=== PATIENT | male | born 1965 | race Caucasian/White ===

== ENCOUNTER 2016-11-19 14:16 | Emergency (ER) | payer MEDICARE ==
[2016-11-19 15:25] LABS: INR 1.21 (0.8-3.0); PROTIME 13.5 SECONDS (8.83-12.87)
[2016-11-19 15:39] LABS: Mean Cell Volume 91.5 fl (78-100); Mean Corpuscular Hemoglobin 29.6 pg (26-32); Mean Platelet Volume 9.9 fl (6-9.5); Platelet Count 275 K/mm3 (150-450); Red Blood Count 4.02 M/mm3 (4.1-5.6); White Blood Count 16.3 K/mm3 (4.0-10.5)
--- NOTE | 2016-11-19 15:47 | ERPHSYRPT ---
- History of Present Illness Time Seen by Provider: 11/19/16 14:20 Source: patient, other (friend) Exam Limitations: clinical condition, physical impairment Patient Subjective Stated Complaint: PT FRIEND STATES THAT SHE ATTEMPTED TO CALL PT AND HE DIDN'T ANSWER HIS PHONE AND SHE BECAME WORRIED STATES WHEN SHE WENT TO CHECK ON HIM SHE THOUGHT PT WAS ACTING SOB PT DENIES ANY COMPLAINTS AT THIS TIME STATES HE HASN'T BEEN SOB AND HAS NO PAIN ANYWHERE. Triage Nursing Assessment: PT ALERT AND ORIENTED X 3 PINK WARM AND DRY RESP EASY NON LABORED ROOM AIR SAT 98% Physician History: Pt. admits to being evaluated and treated here. Timing/Duration: today Activities at Onset: none Severity of Dyspnea-Max: none Severity of Dyspnea-Current: none Possible Cause: occasional episodes Modifying Factors: Improves With: other (his friend could not get him to awake for phone call.) Allergies/Adverse Reactions: gabapentin Adverse Reaction (Severe, Verified 09/27/16 11:55) Fainting Home Medications: Albuterol Sulfate [Proair Hfa] 8.5 gm IH Q4H PRN PRN 07/30/15 [History] Aspirin 81 mg PO DAILY 07/30/15 [History] Clopidogrel Bisulfate 75 mg [PLAVIX 75 MG Tablet] 75 mg PO DAILY 07/30/15 [History] Divalproex Sodium [Divalproex Sodium ER] 500 mg PO BID 07/30/15 [History] Duloxetine HCl [Cymbalta] 60 mg PO DAILY 07/30/15 [History] Fluticasone/Salmeterol [Advair 250-50 Diskus] 2 puff IH BID 07/30/15 [History] Quetiapine Fumarate [Seroquel] 300 mg PO BID 07/30/15 [History] Ranolazine [Ranexa] 500 mg PO DAILY 07/30/15 [History] Topiramate 100 mg [Topamax 100 MG] 200 mg PO BID 07/30/15 [History] Atorvastatin Calcium [Lipitor] 40 mg PO DAILY 02/01/16 [History] Cholecalciferol (Vitamin D3) [Vitamin D3] 5,000 unit PO DAILY 02/01/16 [History] Metoprolol Tartrate 25 mg [Lopressor 25MG Tab] 25 mg PO BID 02/01/16 [ History] Potassium Chloride 20 Meq Tab [Potassium Chloride 20 MEQ TABLET] 20 meq PO DAILY 02/01/16 [History] Tizanidine HCl 4 mg [Zanaflex 4 MG] 4 mg PO HS PRN PRN 02/01/16 [History] Amlodipine Besylate 5 mg [Norvasc 5 mg] 5 mg DAILY 03/21/16 [History] Omeprazole 40 mg PO DAILY 03/21/16 [History] Alprazolam [Xanax] 2 mg PO TIDPRN PRN 03/22/16 [History] Clonazepam 1 mg PO BID 03/22/16 [History] Hx Tetanus, Diphtheria Vaccination/Date Given: Yes Hx Influenza Vaccination/Date Given: No Hx Pneumococcal Vaccination/Date Given: No Immunizations Up to Date: Yes - Review of Systems Constitutional: No Symptoms Eyes: No Symptoms Ears, Nose, & Throat: No Symptoms Respiratory: No Symptoms Cardiac: No Symptoms Abdominal/Gastrointestinal: No Symptoms Musculoskeletal: No Symptoms Skin: No Symptoms Neurological: No Symptoms Psychological: Other (mild mental challenge) Endocrine: No Symptoms Hematologic/Lymphatic: No Symptoms Immunological/Allergic: No Symptoms - Past Medical History Pertinent Past Medical History: Yes Neurological History: Seizures, Stroke ENT History: No Pertinent History Cardiac History: Angina, Coronary Artery Disease, High Cholesterol, Myocardial Infarction ([place]) Respiratory History: COPD Endocrine Medical History: No Pertinent History Musculoskeletal History: Osteoarthritis, Other GI Medical History: GERD History: No Pertinent History Psycho-Social History: Depression, Other Male Reproductive Disorders: No Pertinent History Other Medical History: PT. REPORTS [place] X 4; PT. REPORTS HE HAS ONE CARDIAC STENT ; CHRONINC NECK, BACK, SHOULDER PN - Past Surgical History Past Surgical History: Yes Neuro Surgical History: No Pertinent History Cardiac: CABG, Cardiac Catheterization, Cardiac Stent Respiratory: No Pertinent History Gastrointestinal: No Pertinent History Genitourinary: No Pertinent History Musculoskeletal: Other Male Surgical History: No Pertinent History Other Surgical History: Left foot x 2, Right foot x 2, Right knee x 2, Left knee x 2, Right torn rotator cuff, Steal plate with rods and screws in neck - Social History Smoking Status: Current every day smoker How long have you smoked: 30 Exposure to second hand smoke: Yes Alcohol Use: None Drug Use: none Patient Lives Alone: No Significant Family History: heart disease - Nursing Vital Signs Nursing Vital Signs: Initial Vital Signs Temperature 99.2 F Temperature Source Oral Pulse Rate 96 Respiratory Rate 18 Blood Pressure [Right Arm] 112/94 - Physical Exam General Appearance: no apparent distress Eye Exam: PERRL/EOMI, eyes nml inspection Ears, Nose, Throat Exam: hearing grossly normal, normal ENT inspection, normal pharynx Neck Exam: normal inspection, non-tender, supple, full range of motion Respiratory Exam: normal breath sounds, lungs clear Cardiovascular/Chest Exam: normal heart sounds, regular rate/rhythm Abdominal/Gastrointestinal Exam: soft, normal bowel sounds Extremity Exam: non-tender, normal range of motion, normal inspection Neurologic Exam: alert, oriented x 3, cooperative, normal mood/affect, nml station & gait Skin Exam: normal color, warm, dry SpO2 Interpretation: normal SpO2: 98 Oxygen Delivery: Room Air - Course Nursing assessment & vital signs reviewed: Yes EKG Interpreted by Me: RATE, Sinus Rhythm, NORMAL AXIS, Right Bundle Branch Block (LVH. New RBBB since ECG of 07.14.2016.) Ordered Tests: Active Orders 24 hr Category Date Time Status Dray Driver STAT Care 11/19/16 14:42 Active EKG-ER Only STAT Care 11/19/16 14:42 Active Oxygen-ED Only NASAL CANNULA 2 lpm Care 11/19/16 14:42 Active CHEST 1 VIEW (PORTABLE) Stat Exams 11/19/16 16:33 Ordered ACETAMINOPHEN Stat Lab 11/19/16 15:55 Completed ALCOHOL [Ethyl Alcohol,Urine] Stat Lab 11/19/16 15:55 Completed CBC W DIFF Stat Lab 11/19/16 14:50 Completed CMP Stat Lab 11/19/16 14:50 Completed MAGNESIUM Stat Lab 11/19/16 14:50 Completed Manual Differential NC Stat Lab 11/19/16 14:50 Completed NT PRO BNP Stat Lab 11/19/16 14:50 Completed PROTIME WITH INR Stat Lab 11/19/16 14:50 Completed PROTIME WITH INR Stat Lab 11/19/16 16:33 Ordered SALICYLATE Stat Lab 11/19/16 15:55 Completed TROPONIN Stat Lab 11/19/16 14:50 Completed UA Stat Lab 11/19/16 15:40 Completed Urine Triage Profile Stat Lab 11/19/16 16:07 Ordered VALPROIC ACID ([place]) Stat Lab 11/19/16 15:55 Completed Medication Summary Discontinued Medications Generic Name Dose Route Start Last Admin Trade Name Delia PRN Reason Stop Dose Admin Aspirin 324 mg 11/19/16 16:16 11/19/16 16:18 Baby Aspirin 81 Mg Chew PO 11/19/16 16:17 324 mg STAT ONE Administration Aspirin Confirm 11/19/16 16:16 Baby Aspirin 81 Mg Chew Administered 11/19/16 16:17 Dose 324 mg .ROUTE .STK-MED ONE Furosemide 80 mg 11/19/16 16:28 Lasix 40 Mg/4 Ml IV 11/19/16 16:29 STAT ONE Nitroglycerin 1 gm 11/19/16 16:15 11/19/16 16:17 Nitro-Bid 2% Ud Packets TOP 11/19/16 16:16 1 gm STAT ONE Administration Nitroglycerin Confirm 11/19/16 16:16 Nitro-Bid 2% Ud Packets Administered 11/19/16 16:17 Dose 1 gm .ROUTE .STK-MED ONE Lab/Rad Data: Laboratory Result Diagrams 11/19/16 14:50 11/19/16 14:50 Laboratory Results 11/19/16 11/19/16 11/19/16 Range/Units 15:55 15:55 15:40 WBC (4.0-10.5) K/mm3 RBC (4.1-5.6) M/mm3 Hgb (12.5-18.0) gm/dl Hct (42-50) % MCV (78-100) fl MCH (26-32) pg MCHC (32-36) g/dl RDW (11.5-14.0) % Plt Count (150-450) K/mm3 MPV (6-9.5) fl Segmented Neutrophils (36.-66.) % Band Neutrophils (0.0-2.0) % Lymphocytes (Manual) (24-44) % Monocytes (Manual) (0.0-12.0) % Differential Comment Toxic Granulation Platelet Estimate (NORMAL) Hypochromasia Anisocytosis INR (0.8-3.0) Sodium (136-145) mEq/L Potassium (3.5-5.1) mEq/L Chloride (98-107) mEq/L Carbon Dioxide (21-32) mEq/L Anion Gap (5-15) MEQ/L BUN (9-20) mg/dL Creatinine (0.55-1.30) mg/dl Estimated GFR ML/MIN Glucose (70-110) MG/DL Calcium (8.5-10.1) mg/dL Magnesium (1.8-2.4) mg/dL Total Bilirubin (0.2-1.0) mg/dL AST (15-37) U/L ALT (12-78) U/L Alkaline Phosphatase (46-116) U/L Troponin I (0.000-0.056) ng/ml NT-Pro-B Natriuret Pep (0-125) pg/ml Serum Total Protein (6.4-8.2) gm/dL Albumin (3.4-5.0) g/dL Ur Collection Type CCMS Urine Color SILVANO (YELLOW) Urine Appearance CLEAR (CLEAR) Urine pH 6.5 6.5 (5-6) Ur Specific [place] 1.020 (1.005-1.025) Urine Protein 30 (Negative) Urine Glucose (UA) NEGATIVE (NEGATIVE) mg/dL Urine Ketones TRACE (NEGATIVE) Urine Nitrite NEGATIVE (NEGATIVE) Urine Bilirubin SMALL (NEGATIVE) Urine Urobilinogen 2 (0-1) mg/dL Urine WBC (Auto) NEGATIVE (NEGATIVE) Urine RBC (Auto) NEGATIVE (0-5) Harrison/ul Salicylates 3.3 (2.8-20.0) mg/dl Acetaminophen < 2.0 L (10-30) ug/ml Valproic Acid 69.1 (50-100) UG/ML Urine Ethyl Alcohol 4 (0.00-20) mg/dl Specimen Received 11-19-16 1547 11/19/16 11/19/16 11/19/16 Range/Units 14:50 14:50 14:50 WBC 16.3 H (4.0-10.5) K/mm3 RBC 4.02 L (4.1-5.6) M/mm3 Hgb 11.9 L (12.5-18.0) gm/dl Hct 36.8 L (42-50) % MCV 91.5 (78-100) fl MCH 29.6 (26-32) pg MCHC 32.3 (32-36) g/dl RDW 14.0 (11.5-14.0) % Plt Count 275 (150-450) K/mm3 MPV 9.9 H (6-9.5) fl Segmented Neutrophils 86 H (36.-66.) % Band Neutrophils 3 H (0.0-2.0) % Lymphocytes (Manual) 5 L (24-44) % Monocytes (Manual) 6 (0.0-12.0) % Differential Comment ABNORMAL Toxic Granulation 1+ Platelet Estimate NORMAL (NORMAL) Hypochromasia 2+ Anisocytosis 1+ INR 1.21 (0.8-3.0) Sodium 141 (136-145) mEq/L Potassium 3.9 (3.5-5.1) mEq/L Chloride 105 (98-107) mEq/L Carbon Dioxide 24.3 (21-32) mEq/L Anion Gap 15.7 H (5-15) MEQ/L BUN 28 H (9-20) mg/dL Creatinine 1.43 H (0.55-1.30) mg/dl Estimated GFR 55 ML/MIN Glucose 94 (70-110) MG/DL Calcium 8.1 L (8.5-10.1) mg/dL Magnesium 1.8 (1.8-2.4) mg/dL Total Bilirubin 0.3 (0.2-1.0) mg/dL AST 33 (15-37) U/L ALT 20 (12-78) U/L Alkaline Phosphatase 118 H (46-116) U/L Troponin I 1.056 H* (0.000-0.056) ng/ml NT-Pro-B Natriuret Pep 4660 H (0-125) pg/ml Serum Total Protein 7.7 (6.4-8.2) gm/dL Albumin 3.5 (3.4-5.0) g/dL Ur Collection Type Urine Color (YELLOW) Urine Appearance (CLEAR) Urine pH (5-6) Ur Specific [place] (1.005-1.025) Urine Protein (Negative) Urine Glucose (UA) (NEGATIVE) mg/dL Urine Ketones (NEGATIVE) Urine Nitrite (NEGATIVE) Urine Bilirubin (NEGATIVE) Urine Urobilinogen (0-1) mg/dL Urine WBC (Auto) (NEGATIVE) Urine RBC (Auto) (0-5) Harrison/ul Salicylates (2.8-20.0) mg/dl Acetaminophen (10-30) ug/ml Valproic Acid (50-100) UG/ML Urine Ethyl Alcohol (0.00-20) mg/dl Specimen Received - Departure Time of Disposition: 16:27 Departure Disposition: Transfer Clinical Impression: NSTEMI (non-ST elevated myocardial infarction) Condition: Serious Critical Care Time: Yes Critical Care Time(excluding separately billable procedures): 75-104 minutes Referrals: CEDRICK PEREZ [Primary Care Provider] -
[2016-11-19 15:51] LABS: ALBUMIN 3.5 g/dL (3.4-5.0); ANION GAP 15.7 MEQ/L (5-15); BILIRUBIN,TOTAL 0.3 mg/dL (0.2-1.0); Carbon Dioxide 24.3 mEq/L (21-32); MAGNESIUM 1.8 mg/dL (1.8-2.4); Potassium 3.9 mEq/L (3.5-5.1); Total Protein 7.7 gm/dL (6.4-8.2)
[2016-11-19 15:58] LABS: TROPONIN 1.056 ng/ml (0.000-0.056)
[2016-11-19] MEDS ORDERED: NITRO-BID 2% UD PACKETS TOP ONE (16:15)
[2016-11-19] MEDS ORDERED: BABY ASPIRIN 81 MG CHEW PO ONE (16:16)
[2016-11-19] MEDS ORDERED: NITRO-BID 2% UD PACKETS ONE (16:16)
[2016-11-19] MEDS ORDERED: BABY ASPIRIN 81 MG CHEW ONE (16:16)
[2016-11-19 16:27] LABS: COMPLETE URINE MICROSCOPIC? NO; Collection Type CCMS; Ph 6.5 (5-6)
[2016-11-19] MEDS ORDERED: Lasix 40 MG/4 ML IV ONE (16:28)
[2016-11-19 16:29] LABS: ACETAMINOPHEN < 2.0 ug/ml (10-30)
[2016-11-19 16:30] LABS: BAND 3 % (0.0-2.0); Total Cells Counted 100
[2016-11-19 16:31] LABS: ANISOCYTOSIS 1+; Platelet Estimate NORMAL (NORMAL); Toxic Granulation 1+
[2016-11-19 16:32] LABS: Hypochromia 2+
[2016-11-19] MEDS ORDERED: Lasix 40 MG/4 ML ONE (16:39)
--- NOTE | 2016-11-19 17:08 | XRAY ---
Indication: Chest pain. Comparison: July 09, 2016. Portable chest less inflated today with new left upper lobe airspace disease and tiny left effusion. Right lung clear. Heart is not enlarged and demonstrates interval CABG surgery. Bony thorax intact with new sternotomy hardware. Impression: New left upper lobe airspace disease with tiny effusion. Correlate clinically.
[2016-11-19 17:34] VITALS: PULSE 100
[2016-11-19 18:54] VITALS: BP 99/56; O2SAT 100
== END 2016-11-19 18:55 | disposition short-term general hospital (02) ==
LOC: ED 14:16
DX: I21.4 Non-ST elevation (NSTEMI) myocardial infarction (principal); R06.02 Shortness of breath; Z79.899 Other long term (current) drug therapy; Z95.1 Presence of aortocoronary bypass graft
CPT/HCPCS: 93041; 96374; 99285; 36000; 93005; 81002; 85610; 36415; 80339; 83880; 83735; 80307 ×2; 80320; 83986; 85025; 80053; 84484; 71010; G0481; J1940; A9270-GY

== ENCOUNTER 2016-11-27 12:26 | Inpatient (IN) | payer MEDICARE ==
[2016-11-27] MEDS ORDERED: DUONEB 0.5-3 MG/3 ml Neb IH ONE ×2 (13:04→15:23)
--- NOTE | 2016-11-27 13:10 | ERPHSYRPT ---
- History of Present Illness Time Seen by Provider: 11/27/16 13:01 Source: patient, family, EMS Exam Limitations: clinical condition Patient Subjective Stated Complaint: friend states patient released from [facility] two days ago after having a cva. this am she found patient standing outside his house. neighbor said he had locked himself out. friend also noticed patient not talking right, seemed confused. also states house is in disaray. also rolling eyes back in head. Triage Nursing Assessment: patient ambulated to room per self without difficulty. skin w/d, pale. eyes occasionally rolling back in head and patient appears lethargic. occasional snoring noted. arouse easily. a/o to place, time and person. rae. row[place] without difficulty. Physician History: This is a 51-year-old white male with history of seizures, strokes, angina, coronary artery disease, hyperlipidemia, myocardial infarction, COPD Who was transferred from this hospital on November 18 secondary to non-ST wave myocardial infarction to [facility] his friend states that he was Several days and then released. His friend states that the patient has not been acting right. According to the patient's friend he was at an apartment where nobody labs and appears to be confused this morning. Patient appears to be somewhat confused at this time he is somewhat somnolent but will answer questions when aroused. 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 Timing/Duration: other (patient's friend states patient confused since being discharged from hospital several days ago today noted to be increasingly confused) Modifying Factors: Improves With: nothing Associated Symptoms: other (noted to be increasingly confused past several days) , No nausea, No vomiting, No abdominal pain, No shortness of breath, No heartburn, No diaphoresis, No cough, No chills, No chest pain, No fever, No headaches, No loss of appetite, No malaise, No rash, No syncope, No seizure, No weakness Allergies/Adverse Reactions: gabapentin Adverse Reaction (Severe, Verified 11/27/16 12:42) Fainting Home Medications: Albuterol Sulfate [Proair Hfa] 8.5 gm IH Q4H PRN PRN 07/30/15 [History] Aspirin 81 mg PO DAILY 07/30/15 [History] Clopidogrel Bisulfate 75 mg [PLAVIX 75 MG Tablet] 75 mg PO DAILY 07/30/15 [History] Divalproex Sodium [Divalproex Sodium ER] 500 mg PO BID 07/30/15 [History] Duloxetine HCl [Cymbalta] 60 mg PO DAILY 07/30/15 [History] Fluticasone/Salmeterol [Advair 250-50 Diskus] 2 puff IH BID 07/30/15 [History] Quetiapine Fumarate [Seroquel] 600 mg PO HS 07/30/15 [History] Ranolazine [Ranexa] 500 mg PO DAILY 07/30/15 [History] Topiramate 100 mg [Topamax 100 MG] 200 mg PO BID 07/30/15 [History] Atorvastatin Calcium [Lipitor] 40 mg PO DAILY 02/01/16 [History] Cholecalciferol (Vitamin D3) [Vitamin D3] 5,000 unit PO DAILY 02/01/16 [History] Metoprolol Tartrate 25 mg [Lopressor 25MG Tab] 25 mg PO BID 02/01/16 [ History] Potassium Chloride 20 Meq Tab [Potassium Chloride 20 MEQ TABLET] 20 meq PO DAILY 02/01/16 [History] Tizanidine HCl 4 mg [Zanaflex 4 MG] 2 mg PO BID 02/01/16 [History] Amlodipine Besylate 5 mg [Norvasc 5 mg] 5 mg DAILY 03/21/16 [History] Omeprazole 40 mg PO DAILY 03/21/16 [History] Alprazolam [Xanax] 2 mg PO TID 03/22/16 [History] Oxycodone HCl/Acetaminophen [Percocet 10-325 mg Tablet] 1 each PO Q4HPRN PRN 01/08 [History] Oxymorphone HCl [Opana ER] 30 mg PO Q12H 11/27/16 [History] Hx Tetanus, Diphtheria Vaccination/Date Given: Yes (3 yrs ago) Hx Influenza Vaccination/Date Given: Yes Hx Pneumococcal Vaccination/Date Given: Yes - Review of Systems Constitutional: No Fever, No Chills Eyes: No Symptoms Ears, Nose, & Throat: No Symptoms Respiratory: No Cough, No Dyspnea Cardiac: No Chest Pain, No Edema, No Syncope Abdominal/Gastrointestinal: No Abdominal Pain, No Nausea, No Vomiting, No Diarrhea Genitourinary Symptoms: No Dysuria Musculoskeletal: No Back Pain, No Neck Pain Skin: No Rash Neurological: Other (patient noted to be increasingly confused since discharge from [facility] several days ago) Psychological: No Symptoms Endocrine: No Symptoms All Other Systems: Reviewed and Negative - Past Medical History Pertinent Past Medical History: Yes Neurological History: Seizures, Stroke ENT History: No Pertinent History Cardiac History: Angina, Coronary Artery Disease, High Cholesterol, Myocardial Infarction (VT) Respiratory History: COPD Endocrine Medical History: No Pertinent History Musculoskeletal History: Osteoarthritis, Other GI Medical History: GERD History: No Pertinent History Psycho-Social History: Depression, Other Male Reproductive Disorders: No Pertinent History Other Medical History: PT. REPORTS VT X 4; PT. REPORTS HE HAS ONE CARDIAC STENT ; CHRONINC NECK, BACK, SHOULDER PN - Past Surgical History Past Surgical History: Yes Neuro Surgical History: No Pertinent History Cardiac: CABG, Cardiac Catheterization, Cardiac Stent Respiratory: No Pertinent History Gastrointestinal: No Pertinent History Genitourinary: No Pertinent History Musculoskeletal: Other Male Surgical History: No Pertinent History Other Surgical History: Left foot x 2, Right foot x 2, Right knee x 2, Left knee x 2, Right torn rotator cuff, Steal plate with rods and screws in neck - Social History Smoking Status: Former smoker How long have you smoked: 30 Exposure to second hand smoke: No Alcohol Use: None Drug Use: none Patient Lives Alone: Yes Significant Family History: heart disease - Nursing Vital Signs Nursing Vital Signs: Initial Vital Signs Temperature 98.2 F Temperature Source Oral Pulse Rate 103 Respiratory Rate 14 Blood Pressure [] 136/89 Pain Intensity 0 - Physical Exam General Appearance: other (thin white male somewhat somnolent oriented to himself arouses easily) Eye Exam: PERRL/EOMI, eyes nml inspection Ears, Nose, Throat Exam: normal ENT inspection, TMs normal, pharynx normal, moist mucous membranes Neck Exam: normal inspection, non-tender, supple, full range of motion Respiratory Exam: rhonchi (scattered rhonchi throughout) Cardiovascular Exam: regular rate/rhythm, normal heart sounds, normal peripheral pulses Gastrointestinal/Abdomen Exam: soft, normal bowel sounds, No tenderness, No mass Back Exam: normal inspection, normal range of motion, No CVA tenderness, No vertebral tenderness 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, other (patient is somnolent arouses easily, oriented to person, squeezes both hands to command cannot follow instructions to perform finger to nose) Skin Exam: normal color, warm, dry, No rash Lymphatic Exam: No adenopathy SpO2 Interpretation: normal (94%) SpO2: 94 Oxygen Delivery: Room Air - Course Nursing assessment & vital signs reviewed: Yes EKG Interpreted by Me: RATE (102 bpm), Sinus Tach, NORMAL AXIS, Right Bundle Branch Block, Other (EKG sinus tachycardia, 102 bpm, normal axis, right bundle branch block, prolonged QRS, possible right ventricular hypertrophy, T wave inversion and ST depression as compared to November 19, 2016in leads V2 and V3) - Radiology Exams Chest X-ray Interpretation: Discussed w/ radiologist (chest x-ray: Portable chest demonstrates new right hemidiaphragm elevation with adjacent infiltrate versus atelectasis. Remaining heart and lungs stable and unremarkable) - CT Exams Head CT Interpretation: Discussed w/radiologist, Other (Head CT: 1. No Acute Intracranial Abnormalities 2. Paranasal Sinus Disease) Ordered Tests: Active Orders 24 hr Category Date Time Status Accucheck STAT Care 11/27/16 13:01 Active Hand Profiler STAT Care 11/27/16 13:01 Active EKG-ER Only STAT Care 11/27/16 13:01 Active IV Insertion STAT Care 11/27/16 13:01 Active Oxygen-ED Only NASAL CANNULA 2 lpm Care 11/27/16 13:01 Active CHEST 1 VIEW (PORTABLE) Stat Exams 11/27/16 13:02 Completed HEAD WITHOUT CONTRAST [CT] Stat Exams 11/27/16 13:02 Completed ACETAMINOPHEN Stat Lab 11/27/16 13:15 Completed ARTERIAL BLOOD GASES Stat Lab 11/27/16 13:40 Completed BLOOD CULTURE Stat Lab 11/27/16 13:15 Received CBC W DIFF Stat Lab 11/27/16 13:15 Completed CK-Creatinine Phosphokinase Stat Lab 11/27/16 16:04 Ordered CMP Stat Lab 11/27/16 13:15 Completed CULTURE,SPUTUM Stat Lab 11/27/16 14:00 Uncollected CULTURE,URINE Stat Lab 11/27/16 14:20 Received Ethyl Alcohol,Urine Stat Lab 11/27/16 14:20 Completed Lactic Acid Urgent Lab 11/27/16 13:40 Completed PROTIME WITH INR Stat Lab 11/27/16 13:15 Completed PTT Stat Lab 11/27/16 13:15 Completed SALICYLATE Stat Lab 11/27/16 13:15 Completed TROPONIN Stat Lab 11/27/16 13:15 Completed UA W/ MICROSCOPIC Stat Lab 11/27/16 14:20 Completed Urine Triage Profile Stat Lab 11/27/16 14:20 Completed VALPROIC ACID (DEPAKOTE) Stat Lab 11/27/16 13:17 Completed Respiratory Nebulizer STAT RT 11/27/16 13:04 Completed Medication Summary Generic Name Dose Route Start Last Admin Trade Name Freq PRN Reason Stop Dose Admin Sodium Chloride 1,000 mls @ 50 mls/hr 11/27/16 13:15 11/27/16 13:49 Sodium Chloride 0.9% 1000 Ml IV 12/27/16 13:14 50 mls/hr .Q20H MAGED Administration Sodium Chloride 1,000 mls @ 999 mls/hr 11/27/16 15:14 11/27/16 15:22 Sodium Chloride 0.9% 1000 Ml IV 11/27/16 16:14 999 mls/hr .Q1H1M STA Administration Sodium Chloride 1,000 mls @ 999 mls/hr 11/27/16 15:20 11/27/16 15:24 Sodium Chloride 0.9% 1000 Ml IV 11/27/16 16:20 Not Given .Q1H1M STA Discontinued Medications Generic Name Dose Route Start Last Admin Trade Name Freq PRN Reason Stop Dose Admin Albuterol/Ipratropium 3 ml 11/27/16 13:04 11/27/16 15:25 Duoneb 0.5-3 Mg/3 Ml Neb IH 11/27/16 13:05 3 ml STAT ONE Administration Albuterol/Ipratropium Confirm 11/27/16 15:23 Duoneb 0.5-3 Mg/3 Ml Neb Administered 11/27/16 15:24 Dose 3 ml IH .STK-MED ONE Ceftazidime 1 g/ Dextrose 100 mls @ 200 mls/hr 11/27/16 22:00 IV 12/27/16 21:59 Q8HT MAGED Ceftriaxone Sodium/Dextrose 50 mls @ 100 mls/hr 11/27/16 15:01 11/27/16 15:03 Rocephin 1 Gm-D5w 50 Ml Bag IV 11/27/16 15:30 100 mls/hr STAT ONE Administration Ceftriaxone Sodium/Dextrose Confirm 11/27/16 15:02 Rocephin 1 Gm-D5w 50 Ml Bag Administered 11/27/16 15:03 Dose 50 mls @ ud IV .STK-MED ONE Lab/Rad Data: Laboratory Result Diagrams 11/27/16 13:15 11/27/16 13:15 Laboratory Results 11/27/16 11/27/16 11/27/16 Range/Units 14:20 14:20 14:20 WBC (4.0-10.5) K/mm3 RBC (4.1-5.6) M/mm3 Hgb (12.5-18.0) gm/dl Hct (42-50) % MCV (78-100) fl MCH (26-32) pg MCHC (32-36) g/dl RDW (11.5-14.0) % Plt Count (150-450) K/mm3 MPV (6-9.5) fl Gran % (36.0-66.0) % Lymphocytes % (24.0-44.0) % Monocytes % (0.0-12.0) % Eosinophils % (0.00-5.0) % Basophils % (0.0-0.4) % Basophils # (0-0.4) INR (0.8-3.0) PTT (24.1-36.1) SECONDS Puncture Site pCO2 (35-45) mmHg pO2 (75-100) mmHg Base Excess (-2.0-2.0) O2 Saturation (94-100) g/dF ABG pH (7.35-7.45) ABG HCO3 (22-28) ABG O2 Sat (Measured) (95-100) % Alex Test A-a Gradient a/A Ratio Hemoglobin Carboxyhemoglobin (0.0-6.9) % THgb Methemoglobin (1.4-1.5) % Temperature C POC O2 Flow Rate % Sodium (136-145) mEq/L Potassium (3.5-5.1) mEq/L Chloride (98-107) mEq/L Carbon Dioxide (21-32) mEq/L Anion Gap (5-15) MEQ/L BUN (9-20) mg/dL Creatinine (0.55-1.30) mg/dl Estimated GFR ML/MIN Glucose (70-110) MG/DL Lactic Acid (0.4-2.0) Calcium (8.5-10.1) mg/dL Total Bilirubin (0.2-1.0) mg/dL AST (15-37) U/L ALT (12-78) U/L Alkaline Phosphatase (46-116) U/L Troponin I (0.000-0.056) ng/ml Serum Total Protein (6.4-8.2) gm/dL Albumin (3.4-5.0) g/dL Ur Collection Type VOID Urine Color DARK YELLOW (YELLOW) Urine Appearance SLIGHTLY CLOUDY (CLEAR) Urine pH 6.5 6.5 (5-6) Ur Specific [place] 1.020 (1.005-1.025) Urine Protein 30 (Negative) Urine Glucose (UA) NEGATIVE (NEGATIVE) mg/dL Urine Ketones MODERATE-40 (NEGATIVE) Urine Nitrite NEGATIVE (NEGATIVE) Urine Bilirubin SMALL (NEGATIVE) Urine Urobilinogen 4 (0-1) mg/dL Urine WBC (Auto) NEGATIVE (NEGATIVE) Urine RBC (Auto) SMALL (0-5) Harrison/ul Urine Microscopic RBC 0-2 (0-2) /HPF Urine Microscopic WBC 2-5 (0-5) /HPF Ur Epithelial Cells FEW (FEW) /HPF Urine Bacteria FEW (NEGATIVE) /HPF Hyaline Casts 2-5 (0-2) /LPF Urine Mucus MANY (NEGATIVE) /HPF Salicylates (2.8-20.0) mg/dl Urine Opiates Level NEG. (NEGATIVE) Ur Methadone NEG. (NEGATIVE) Acetaminophen (10-30) ug/ml Urine Barbiturates NEG. (NEGATIVE) Valproic Acid (50-100) UG/ML Ur Phencyclidine (PCP) NEG. (NEGATIVE) Urine Amphetamine NEG. (NEGATIVE) U Benzodiazepine Level POS. (NEGATIVE) Urine Cocaine NEG. (NEGATIVE) Urine Marijuana (THC) NEG. (NEGATIVE) Urine Ethyl Alcohol 3 (0.00-20) mg/dl Specimen Received 11/27/16 1450 11/27/16 11/27/16 11/27/16 Range/Units 13:40 13:40 13:17 WBC (4.0-10.5) K/mm3 RBC (4.1-5.6) M/mm3 Hgb (12.5-18.0) gm/dl Hct (42-50) % MCV (78-100) fl MCH (26-32) pg MCHC (32-36) g/dl RDW (11.5-14.0) % Plt Count (150-450) K/mm3 MPV (6-9.5) fl Gran % (36.0-66.0) % Lymphocytes % (24.0-44.0) % Monocytes % (0.0-12.0) % Eosinophils % (0.00-5.0) % Basophils % (0.0-0.4) % Basophils # (0-0.4) INR (0.8-3.0) PTT (24.1-36.1) SECONDS Puncture Site RIGHT RADIAL pCO2 50 H (35-45) mmHg pO2 89 (75-100) mmHg Base Excess -4.2 L (-2.0-2.0) O2 Saturation 96.1 (94-100) g/dF ABG pH 7.27 L (7.35-7.45) ABG HCO3 23.0 (22-28) ABG O2 Sat (Measured) 98.8 (95-100) % Alex Test YES A-a Gradient 77 a/A Ratio 0.54 Hemoglobin 12.1 Carboxyhemoglobin 1.5 (0.0-6.9) % THgb Methemoglobin 1.2 L (1.4-1.5) % Temperature 37.0 C POC O2 Flow Rate 32 % Sodium (136-145) mEq/L Potassium 3.7 (3.5-5.1) mEq/L Chloride (98-107) mEq/L Carbon Dioxide (21-32) mEq/L Anion Gap (5-15) MEQ/L BUN (9-20) mg/dL Creatinine (0.55-1.30) mg/dl Estimated GFR ML/MIN Glucose (70-110) MG/DL Lactic Acid 0.7 (0.4-2.0) Calcium (8.5-10.1) mg/dL Total Bilirubin (0.2-1.0) mg/dL AST (15-37) U/L ALT (12-78) U/L Alkaline Phosphatase (46-116) U/L Troponin I (0.000-0.056) ng/ml Serum Total Protein (6.4-8.2) gm/dL Albumin (3.4-5.0) g/dL Ur Collection Type Urine Color (YELLOW) Urine Appearance (CLEAR) Urine pH (5-6) Ur Specific [place] (1.005-1.025) Urine Protein (Negative) Urine Glucose (UA) (NEGATIVE) mg/dL Urine Ketones (NEGATIVE) Urine Nitrite (NEGATIVE) Urine Bilirubin (NEGATIVE) Urine Urobilinogen (0-1) mg/dL Urine WBC (Auto) (NEGATIVE) Urine RBC (Auto) (0-5) Harrison/ul Urine Microscopic RBC (0-2) /HPF Urine Microscopic WBC (0-5) /HPF Ur Epithelial Cells (FEW) /HPF Urine Bacteria (NEGATIVE) /HPF Hyaline Casts (0-2) /LPF Urine Mucus (NEGATIVE) /HPF Salicylates (2.8-20.0) mg/dl Urine Opiates Level (NEGATIVE) Ur Methadone (NEGATIVE) Acetaminophen (10-30) ug/ml Urine Barbiturates (NEGATIVE) Valproic Acid 82.7 (50-100) UG/ML Ur Phencyclidine (PCP) (NEGATIVE) Urine Amphetamine (NEGATIVE) U Benzodiazepine Level (NEGATIVE) Urine Cocaine (NEGATIVE) Urine Marijuana (THC) (NEGATIVE) Urine Ethyl Alcohol (0.00-20) mg/dl Specimen Received 11/27/16 11/27/16 11/27/16 Range/Units 13:15 13:15 13:15 WBC (4.0-10.5) K/mm3 RBC (4.1-5.6) M/mm3 Hgb (12.5-18.0) gm/dl Hct (42-50) % MCV (78-100) fl MCH (26-32) pg MCHC (32-36) g/dl RDW (11.5-14.0) % Plt Count (150-450) K/mm3 MPV (6-9.5) fl Gran % (36.0-66.0) % Lymphocytes % (24.0-44.0) % Monocytes % (0.0-12.0) % Eosinophils % (0.00-5.0) % Basophils % (0.0-0.4) % Basophils # (0-0.4) INR 1.25 (0.8-3.0) PTT 35.2 (24.1-36.1) SECONDS Puncture Site pCO2 (35-45) mmHg pO2 (75-100) mmHg Base Excess (-2.0-2.0) O2 Saturation (94-100) g/dF ABG pH (7.35-7.45) ABG HCO3 (22-28) ABG O2 Sat (Measured) (95-100) % Alex Test A-a Gradient a/A Ratio Hemoglobin Carboxyhemoglobin (0.0-6.9) % THgb Methemoglobin (1.4-1.5) % Temperature C POC O2 Flow Rate % Sodium 143 (136-145) mEq/L Potassium 3.6 (3.5-5.1) mEq/L Chloride 106 (98-107) mEq/L Carbon Dioxide 22.0 (21-32) mEq/L Anion Gap 18.3 H (5-15) MEQ/L BUN 22 H (9-20) mg/dL Creatinine 0.91 (0.55-1.30) mg/dl Estimated GFR > 60 ML/MIN Glucose 99 (70-110) MG/DL Lactic Acid (0.4-2.0) Calcium 8.5 (8.5-10.1) mg/dL Total Bilirubin 0.4 (0.2-1.0) mg/dL AST 21 (15-37) U/L ALT 13 (12-78) U/L Alkaline Phosphatase 126 H (46-116) U/L Troponin I < 0.017 (0.000-0.056) ng/ml Serum Total Protein 8.5 H (6.4-8.2) gm/dL Albumin 3.7 (3.4-5.0) g/dL Ur Collection Type Urine Color (YELLOW) Urine Appearance (CLEAR) Urine pH (5-6) Ur Specific [place] (1.005-1.025) Urine Protein (Negative) Urine Glucose (UA) (NEGATIVE) mg/dL Urine Ketones (NEGATIVE) Urine Nitrite (NEGATIVE) Urine Bilirubin (NEGATIVE) Urine Urobilinogen (0-1) mg/dL Urine WBC (Auto) (NEGATIVE) Urine RBC (Auto) (0-5) Harrison/ul Urine Microscopic RBC (0-2) /HPF Urine Microscopic WBC (0-5) /HPF Ur Epithelial Cells (FEW) /HPF Urine Bacteria (NEGATIVE) /HPF Hyaline Casts (0-2) /LPF Urine Mucus (NEGATIVE) /HPF Salicylates 2.9 (2.8-20.0) mg/dl Urine Opiates Level (NEGATIVE) Ur Methadone (NEGATIVE) Acetaminophen < 2.0 L (10-30) ug/ml Urine Barbiturates (NEGATIVE) Valproic Acid (50-100) UG/ML Ur Phencyclidine (PCP) (NEGATIVE) Urine Amphetamine (NEGATIVE) U Benzodiazepine Level (NEGATIVE) Urine Cocaine (NEGATIVE) Urine Marijuana (THC) (NEGATIVE) Urine Ethyl Alcohol (0.00-20) mg/dl Specimen Received 11/27/16 Range/Units 13:15 WBC 10.0 (4.0-10.5) K/mm3 RBC 4.23 (4.1-5.6) M/mm3 Hgb 12.1 L (12.5-18.0) gm/dl Hct 37.6 L (42-50) % MCV 88.9 (78-100) fl MCH 28.6 (26-32) pg MCHC 32.2 (32-36) g/dl RDW 14.2 H (11.5-14.0) % Plt Count 445 (150-450) K/mm3 MPV 9.2 (6-9.5) fl Gran % 70.4 H (36.0-66.0) % Lymphocytes % 15.9 L (24.0-44.0) % Monocytes % 12.8 H (0.0-12.0) % Eosinophils % 0.7 (0.00-5.0) % Basophils % 0.2 (0.0-0.4) % Basophils # 0.02 (0-0.4) INR (0.8-3.0) PTT (24.1-36.1) SECONDS Puncture Site pCO2 (35-45) mmHg pO2 (75-100) mmHg Base Excess (-2.0-2.0) O2 Saturation (94-100) g/dF ABG pH (7.35-7.45) ABG HCO3 (22-28) ABG O2 Sat (Measured) (95-100) % Alex Test A-a Gradient a/A Ratio Hemoglobin Carboxyhemoglobin (0.0-6.9) % THgb Methemoglobin (1.4-1.5) % Temperature C POC O2 Flow Rate % Sodium (136-145) mEq/L Potassium (3.5-5.1) mEq/L Chloride (98-107) mEq/L Carbon Dioxide (21-32) mEq/L Anion Gap (5-15) MEQ/L BUN (9-20) mg/dL Creatinine (0.55-1.30) mg/dl Estimated GFR ML/MIN Glucose (70-110) MG/DL Lactic Acid (0.4-2.0) Calcium (8.5-10.1) mg/dL Total Bilirubin (0.2-1.0) mg/dL AST (15-37) U/L ALT (12-78) U/L Alkaline Phosphatase (46-116) U/L Troponin I (0.000-0.056) ng/ml Serum Total Protein (6.4-8.2) gm/dL Albumin (3.4-5.0) g/dL Ur Collection Type Urine Color (YELLOW) Urine Appearance (CLEAR) Urine pH (5-6) Ur Specific [place] (1.005-1.025) Urine Protein (Negative) Urine Glucose (UA) (NEGATIVE) mg/dL Urine Ketones (NEGATIVE) Urine Nitrite (NEGATIVE) Urine Bilirubin (NEGATIVE) Urine Urobilinogen (0-1) mg/dL Urine WBC (Auto) (NEGATIVE) Urine RBC (Auto) (0-5) Harrison/ul Urine Microscopic RBC (0-2) /HPF Urine Microscopic WBC (0-5) /HPF Ur Epithelial Cells (FEW) /HPF Urine Bacteria (NEGATIVE) /HPF Hyaline Casts (0-2) /LPF Urine Mucus (NEGATIVE) /HPF Salicylates (2.8-20.0) mg/dl Urine Opiates Level (NEGATIVE) Ur Methadone (NEGATIVE) Acetaminophen (10-30) ug/ml Urine Barbiturates (NEGATIVE) Valproic Acid (50-100) UG/ML Ur Phencyclidine (PCP) (NEGATIVE) Urine Amphetamine (NEGATIVE) U Benzodiazepine Level (NEGATIVE) Urine Cocaine (NEGATIVE) Urine Marijuana (THC) (NEGATIVE) Urine Ethyl Alcohol (0.00-20) mg/dl Specimen Received - Progress Progress: improved Progress Note: 11/27/16 15:15 51-year-old white male with history of coronary artery disease, CABG, seizures, angina, hyperlipidemia, myocardial infarction, COPD Patient was recently released from [facility] where he was sent for non- ST elevation VT from this hospital The patient's friend states that the patient has been somewhat confused since his release today he was noted to be an apartment that was not his and apparently had locked himself outside of his apartment he appeared to be confused on arrival patient appeared to be quite somnolent his eyes rolled back in his head from time to time he did know he was. Patient's CT of the head no acute changes chest x-ray shows elevation of the right hemidiaphragm with adjacent atelectasis/infiltrate Patient's vitals are stable patient's ABGs showed patient with a pH of 7.27 PCO2 of 50 PO2 89 bicarbonate of 23 and saturation of 96.1 patient was noted to have diffuse rhonchi in his chest. Patient's EKG was remarkable for sinus tachycardia 102 bpm normal axis complete right bundle branch block there is ST depression in V2 and V3 as compared to 1 which had been done on November 19, 2016 Patient's chemistry was essentially normal patient's CBC was essentially normal INR was 1.25 patient's lactate was 0.7 patient's salicylate and acetaminophen level were within normal limits patient was positive for benzodiazepines. And despite the fact that the patient is on Percocet as well as O pain he had negative opiates in his bloodstream Patient was given IV fluids he has improved after 1 L he will be given a second I have discussed possibility with the patient for possible admission however patient insists that he wants to go home Will give patient second liter of IV fluids. Diagnosis COPD with exacerbation. Mental status change, dehydration. I feel that the patient although currently alert and answering questions will have periods where he seems to be somewhat somnolent which resolve after I talk with the patient. Will reassess after second liter of IV fluids are in. I have discussed possibly sending patient home with inhalers, prednisone and antibiotics. Patient states he has 3 inhalers at home he states he is on prednisone at home. And he states he has antibiotics however he does not know which. 11/27/16 16:06 Patient's case is discussed with Dr. David Chin who is contract administrator for Dr. Esteban who is contract administrator for the house service. Will place patient on observation diagnosis 1 COPD with exacerbation 2. Acute mental status change 3. Dehydration Dr. Chin did request that we obtain a CK level in this emergency room. Will admit patient continue IV fluids begin IV steroids continue IV Rocephin begin IV Zofran continue duo neb treatments. Continued telemetry and every 4 hours neuro checks. - Departure Time of Disposition: 16:08 Departure Disposition: Observation Clinical Impression: COPD with exacerbation, Dehydration Mental status change Qualifiers: Altered mental status type: unspecified Qualified Code(s): R41.82 - Altered mental status, unspecified Condition: Fair Critical Care Time: No Referrals: CEDRIKC PEREZ [Primary Care Provider] - Instructions: Chronic Obstructive Pulmonary Disease
[2016-11-27] MEDS ORDERED: Sodium Chloride 0.9% 1000 ML 1,000 ML IV SCH (13:15)
[2016-11-27 13:33] LABS: BASOPHIL % 0.2 % (0.0-0.4); Eosinophil % 0.7 % (0.00-5.0); Granulocytes % 70.4 % (36.0-66.0); Lymphocytes % 15.9 % (24.0-44.0); Mean Cell Volume 88.9 fl (78-100); Mean Corpuscular Hemoglobin 28.6 pg (26-32); Mean Platelet Volume 9.2 fl (6-9.5); Monocytes % 12.8 % (0.0-12.0); Platelet Count 445 K/mm3 (150-450); Red Blood Count 4.23 M/mm3 (4.1-5.6); Red Cell Distribution Width 14.2 % (11.5-14.0)
[2016-11-27 13:39] LABS: INR 1.25 (0.8-3.0); PROTIME 13.9 SECONDS (8.83-12.87)
[2016-11-27 13:42] LABS: PTT 35.2 SECONDS (24.1-36.1)
[2016-11-27 13:42] LABS: A-aADO2 77; ALLEN TEST OK? YES; ARTERIAL BLD GAS O2 SATURATION 98.8 % (95-100); ARTERIAL BLOOD GAS BASE EXCESS -4.2 (-2.0-2.0); ARTERIAL BLOOD GAS FIO2 32 %; ARTERIAL BLOOD GAS PO2 89 mmHg (75-100); ARTERIAL BLOOD GAS pH 7.27 (7.35-7.45)
--- NOTE | 2016-11-27 13:44 | XRAY ---
Indication: Mental status change. Comparison: November 19, 2016. Portable chest demonstrates new right hemidiaphragm elevation with adjacent infiltrate versus atelectasis. Remaining heart and lungs stable and unremarkable.
--- NOTE | 2016-11-27 13:47 | XRAY ---
Indication: Mental status change. Multiple contiguous axial images obtained through the head without contrast. Comparison: March 21, 2016. Again normal appearing brain parenchyma, ventricles, and bony calvarium. There remains chronic mucoperiosteal thickening of both ethmoid sinuses with new foci in both sphenoid sinuses. Incidental note of bilateral maxillary sinus antrectomy surgery. Mastoid air cells are clear. Impression: 1. Again no acute intracranial abnormalities. 2. Paranasal sinus disease. CT DI 70.10
[2016-11-27 13:49] LABS: ALBUMIN 3.7 g/dL (3.4-5.0); ALKALINE PHOSPHATASE 126 U/L (46-116); ANION GAP 18.3 MEQ/L (5-15); BILIRUBIN,TOTAL 0.4 mg/dL (0.2-1.0); BLOOD UREA NITROGEN 22 mg/dL (9-20); CHLORIDE 106 mEq/L (98-107); Glucose 99 MG/DL (70-110); Potassium 3.6 mEq/L (3.5-5.1); SGOT/AST 21 U/L (15-37); SGPT/ALT 13 U/L (12-78); SODIUM 143 mEq/L (136-145); Total Protein 8.5 gm/dL (6.4-8.2)
[2016-11-27 14:03] LABS: ACETAMINOPHEN < 2.0 ug/ml (10-30); TROPONIN < 0.017 ng/ml (0.000-0.056)
[2016-11-27 15:00] LABS: COMPLETE URINE MICROSCOPIC? YES; Collection Type VOID; Ph 6.5 (5-6)
[2016-11-27] MEDS ORDERED: ROCEPHIN 1 Gm-D5w 50 ml Bag** 50 ML IV ONE ×2 (15:01→15:02)
[2016-11-27 15:08] LABS: Mucus MANY /HPF (NEGATIVE)
[2016-11-27 15:09] LABS: Bacteria FEW /HPF (NEGATIVE); Epithelial Cells FEW /HPF (FEW)
[2016-11-27] MEDS ORDERED: Sodium Chloride 0.9% 1000 ML 1,000 ML IV STA ×2 (15:14→15:20)
[2016-11-27] MEDS ORDERED: solu-MEDROL 125 MG IV ONE (16:05)
[2016-11-27] MEDS ORDERED: DUONEB 0.5-3 MG/3 ml Neb IH PRN (16:36)
[2016-11-27] MEDS: Sodium Chloride 0.9% 1000 ML 1,000 ML IV SCH (17:24)
[2016-11-27] MEDS ORDERED: solu-MEDROL 125 MG IV SCH (18:00)
[2016-11-27] MEDS ORDERED: Zithromax 500 MG/ 250 ML NaCl Premix 250 ML IV SCH (18:00)
--- NOTE | 2016-11-27 18:00 | PCM.HP ---
History of Present Illness - Chief Complaint Chief Complaint: COPD, AMS, dehydration Date: 11/27/16 History of Present Illness: is a 51 year old male. who has complicated past medical history and as apparently just released from [facility] a few days ago after it appears and NSTEMI or stroke the reports are requested but not available from that stay at this time. He was found by a neighbor outside his home confused and with eye rolling. He is not able to provide much history right now. He answers questions inappropriately but then appears to fall asleep he is easily awoken but then goes right back to sleep. - Review of Systems Constitutional: Other (unable to obtain secondary to mental status) Medications & Allergies Home Medications: Home Medication List Albuterol Sulfate [Proair Hfa] 8.5 gm IH Q4H PRN PRN 07/30/15 [History Confirmed 11/27/16] Aspirin 81 mg PO DAILY 07/30/15 [History Confirmed 11/27/16] Clopidogrel Bisulfate 75 mg [PLAVIX 75 MG Tablet] 75 mg PO DAILY 07/30/15 [History Confirmed 11/27/16] Divalproex Sodium [Divalproex Sodium ER] 1,500 mg PO HS PRN 07/30/15 [History Confirmed 11/27/16] Duloxetine HCl [Cymbalta] 60 mg PO DAILY 07/30/15 [History Confirmed 11/27/16] Fluticasone/Salmeterol [Advair 250-50 Diskus] 1 puff IH BID 07/30/15 [History Confirmed 11/27/16] Quetiapine Fumarate [Seroquel] 600 mg PO HS 07/30/15 [History Confirmed 11/27/16 ] Ranolazine [Ranexa] 500 mg PO DAILY 07/30/15 [History Confirmed 11/27/16] Topiramate 100 mg [Topamax 100 MG] 200 mg PO BID 07/30/15 [History Confirmed 11/27/16] Atorvastatin Calcium [Lipitor] 40 mg PO HS 02/01/16 [History Confirmed 11/27/16] Cholecalciferol (Vitamin D3) [Vitamin D3] 5,000 unit PO DAILY 02/01/16 [History Confirmed 11/27/16] Metoprolol Tartrate 25 mg [Lopressor 25MG Tab] 25 mg PO BID 02/01/16 [ History Confirmed 11/27/16] Potassium Chloride 20 Meq Tab [Potassium Chloride 20 MEQ TABLET] 20 meq PO DAILY 02/01/16 [History Confirmed 11/27/16] Tizanidine HCl 4 mg [Zanaflex 4 MG] 2 mg PO BID 02/01/16 [History Confirmed 11/27/16] Amlodipine Besylate 5 mg [Norvasc 5 mg] 5 mg PO DAILY 03/21/16 [History Confirmed 11/27/16] Omeprazole 40 mg PO DAILY 03/21/16 [History Confirmed 11/27/16] Alprazolam [Xanax] 2 mg PO TID 03/22/16 [History Confirmed 11/27/16] Denosumab 60 mg [Prolia 60 mg Injection] 60 mg SQ UD 11/27/16 [History Confirmed 11/27/16] Evolocumab [Repatha Syringe] 140 mg SQ UD 11/27/16 [History Confirmed 11/27/16] Oxycodone HCl/Acetaminophen [Percocet 10-325 mg Tablet] 1 each PO Q4HPRN PRN 01/08 [History Confirmed 11/27/16] Oxymorphone HCl [Opana ER] 30 mg PO Q12H 11/27/16 [History Confirmed 11/27/16] Allergies/Adverse Reactions: Allergies Allergy/AdvReac Type Severity Reaction Status Date / Time gabapentin AdvReac Severe Fainting Verified 11/27/16 12:42 - Past Medical History Past Medical History: Yes Neurological History: Seizures, Stroke ENT History: No Pertinent History Cardiac History: Angina, Coronary Artery Disease, High Cholesterol, Myocardial Infarction (PA) Respiratory History: COPD Endocrine Medical History: No Pertinent History Musculoskelatal History: Osteoarthritis, Other GI Medical History: GERD History: No Pertinent History Pyscho-Social History: Depression, Other Male Reproductive Disorders: No Pertinent History Comment: PT. REPORTS PA X 4; PT. REPORTS HE HAS ONE CARDIAC STENT; CHRONINC NECK , BACK, SHOULDER PN - Past Surgical History Past Surgical History: Yes Neuro Surgical History: No Pertinent History Cardiac History: CABG, Cardiac Catheterization, Cardiac Stent Respiratory Surgery: No Pertinent History GI Surgical History: No Pertinent History Genitourinary Surgical Hx: No Pertinent History Musculskeletal Surgical Hx: Other Male Surgical History: No Pertinent History Other Surgical History: Left foot x 2, Right foot x 2, Right knee x 2, Left knee x 2, Right torn rotator cuff, Steal plate with rods and screws in neck - Social History Smoking Status: Never smoker How long have you smoked: 30 Exposure to second hand smoke: No Alcohol: None Drug Use: none Significant Family History: heart disease - Physical Exam Vital Signs: Vital Signs - 24 hr Temp Pulse Resp BP Pulse Ox 11/27/16 16:57 98.4 F 102 H 12 147/65 96 11/27/16 16:09 94 L 11/27/16 15:29 103 H 14 98 11/27/16 15:07 103 H 16 136/89 11/27/16 13:48 107 H 16 138/92 98 11/27/16 12:32 98.2 F 96 H 16 121/80 94 L Oxygen-Last 24 hours O2 Percentage 2 Liters = 28% O2 Percentage 2 Liters = 28% General Appearance: no apparent distress Neurologic Exam: oriented x 3, cooperative, other (he awakens to voice briefly answers questions then eyes roll and falls asleep has periods of apnea with this as well he easily awakens from these with voice commands and follows commands when awake.), No alert, No facial droop, No slurred speech, No EOM palsy Eye Exam: other (pupils equal but constricted) Ears, Nose, Throat Exam: moist mucous membranes Neck Exam: non-tender, supple Respiratory Exam: normal breath sounds, lungs clear Cardiovascular Exam: tachycardia, No edema Gastrointestinal/Abdomen Exam: soft, normal bowel sounds, No tenderness, No distention, No mass Extremity Exam: No calf tenderness, No pedal edema Skin Exam: warm, dry Assessment/Plan (1) Altered mental status Current Visit: Yes Status: Acute Assessment & Plan: On review of his INSPECT it looks like on 11/11/16 his pain medication was increased he was put an increased dose of his pain medicine with 60 mg of Opana daily + percocet 10/325 #120 which was an increase from the previous months were he had been on hydrocodone. He is also getting Xanax 2mg #90 per month every month last filled on 11/05/16. will try a dose of narcan now to evaluate response will move to ICU for closer observation and end tidal CO2 monitoring and if worsening consider narcan gtt if response will continue his alprazolam b/c of reported seizure history and inspect confirmed chronic high dose use hold narcotics hold seroquel continue depakote but check level check eeg in am npo iv fluids treat the infiltrate change antibiotics to cover possible aspiration will change to unasyn. Code(s): R41.82 - ALTERED MENTAL STATUS, UNSPECIFIED (2) Pneumonia Current Visit: Yes Status: Acute Code(s): J18.9 - PNEUMONIA, UNSPECIFIED ORGANISM (3) Coronary artery disease Current Visit: Yes Status: Chronic Code(s): I25.10 - ATHSCL HEART DISEASE OF [place] CORONARY ARTERY W/O ANG PCTRS (4) COPD (chronic obstructive pulmonary disease) Current Visit: Yes Status: Acute Qualifiers: COPD type: COPD with acute lower respiratory infection Qualified Code(s): J44.0 - Chronic obstructive pulmonary disease with acute lower respiratory infection
[2016-11-27] MEDS ORDERED: Narcan 0.4 MG/ML IV ONE (18:45)
[2016-11-27] MEDS: Zofran 4 MG/2 ML VIAL IV PRN (19:00)
[2016-11-27] MEDS ORDERED: Narcan 0.4 MG/ML IV PRN (19:13)
[2016-11-27] MEDS ORDERED: Depakote EXTENDED RELEASE 250 MG PO SCH (22:00)
[2016-11-27] MEDS ORDERED: Fortaz/Tazicef 1 GM** 1 G in Dextrose 5%/Water IV Soln. 100ML PLUS BAG 100 ML IV SCH (22:00)
[2016-11-27] MEDS: ZOCOR 20MG PO SCH (22:01)
[2016-11-27] MEDS: Lopressor 25MG Tab PO SCH (22:01)
[2016-11-27] MEDS: XANAX 1 MG PO SCH (22:01)
[2016-11-27] MEDS: Topamax 100 MG PO SCH (22:02)
[2016-11-27] MEDS: Unasyn 3GM / NaCl 100ML 100 ML IV SCH (23:06)
[2016-11-28] MEDS: Unasyn 3GM / NaCl 100ML 100 ML IV SCH ×4 (05:13→23:52)
[2016-11-28 05:37] LABS: Mean Cell Volume 89.5 fl (78-100); Mean Corpuscular Hemoglobin 28.8 pg (26-32); Mean Platelet Volume 8.6 fl (6-9.5); Platelet Count 359 K/mm3 (150-450); Red Blood Count 3.71 M/mm3 (4.1-5.6); Red Cell Distribution Width 14.3 % (11.5-14.0); White Blood Count 5.3 K/mm3 (4.0-10.5)
[2016-11-28 06:00] LABS: ALBUMIN 2.8 g/dL (3.4-5.0); ALKALINE PHOSPHATASE 99 U/L (46-116); ANION GAP 16.4 MEQ/L (5-15); BILIRUBIN,TOTAL 0.3 mg/dL (0.2-1.0); BLOOD UREA NITROGEN 12 mg/dL (9-20); CHLORIDE 113 mEq/L (98-107); Carbon Dioxide 19.8 mEq/L (21-32); Glucose 115 MG/DL (70-110); Potassium 3.8 mEq/L (3.5-5.1); SGOT/AST 13 U/L (15-37); SGPT/ALT 10 U/L (12-78); SODIUM 145 mEq/L (136-145); Total Protein 6.8 gm/dL (6.4-8.2)
[2016-11-28] MEDS: Sodium Chloride 0.9% 1000 ML 1,000 ML IV SCH (06:48)
[2016-11-28 07:43] LABS: Total Cells Counted 100
[2016-11-28 07:44] LABS: Platelet Estimate NORMAL (NORMAL); Poikilocytosis 1+
[2016-11-28] MEDS: Advair Hfa 115/21 Common canister IH SCH ×2 (08:00→20:16)
--- NOTE | 2016-11-28 08:55 | PCM.NOTE ---
Date and Time: 11/28/16847 Subjective Assessment: he had prompt response to narcan last night and was alert and talking appropriately and abruptly went into withdraw with puking, chills, yawning. As the narcan dose wore off he has been sleeping and arousable but remains confused and reaching at objects at times. He has trouble forming sentences but he can answer questions appropriately,. He has trouble following commands now off the narcan. His top executive strength and arm strenght leg strength are 5/5 equal bilateral he appears to have some mild right facial droop it is unkown if new or old he had no dysarthria after he had the narcan last night but more trouble now off the narcan. Objective Exam General Appearance: no apparent distress Neurologic Exam: confusion, other (mild right facial droop some mild rigidity throughout more voluntary resisting it appears with difficulty following commands it is equal bilaterally) Skin Exam: warm, diaphoresis, pale Eye Exam: No scleral icterus Ears, Nose, Throat Exam: dry mucous membranes Neck Exam: non-tender, supple Respiratory Exam: normal breath sounds Cardiovascular Exam: regular rate/rhythm, normal heart sounds Gastrointestinal/Abdomen Exam: soft, normal bowel sounds, No tenderness, No distention Extremity Exam: other (multiple scratches on his legs and arms) OBJECTIVE DATA Vital Signs: Vital Signs - 24 hr Temp Pulse Resp BP Pulse Ox 11/28/16 06:00 12 11/28/16 04:00 83 12 101/65 100 11/28/16 02:01 99 H 22 98 11/28/16 02:00 20 11/28/16 00:00 97.6 F 95 H 20 139/83 100 11/27/16 23:48 108 H 22 97 11/27/16 22:00 32 H 11/27/16 20:58 98 11/27/16 20:00 98.4 F 104 H 32 H 130/96 97 11/27/16 16:57 98.4 F 102 H 12 147/65 96 11/27/16 16:09 94 L 11/27/16 15:29 103 H 14 98 11/27/16 15:07 103 H 16 136/89 11/27/16 13:48 107 H 16 138/92 98 11/27/16 12:32 98.2 F 96 H 16 121/80 94 L Oxygen-Last 24 hours O2 Percentage 2 Liters = 28% O2 Percentage 2 Liters = 28% O2 Percentage 2 Liters = 28% O2 Percentage 2 Liters = 28% O2 Percentage 2 Liters = 28% Pain Assessment - Last Documented Pain Scale Used 0-10 Pain Scale Intake and Output: Intake & Output 11/25/16 11/26/16 11/27/16 11/28/16 11:59 11:59 11:59 11:59 Intake Total 3300 Output Total 2200 Balance 1100 Weight 69.6 kg Lab Results: Lab Results-Last 24 Hours 11/28/16 11/28/16 Range/Units 05:25 05:25 WBC 5.3 (4.0-10.5) K/mm3 RBC 3.71 L (4.1-5.6) M/mm3 Hgb 10.7 L (12.5-18.0) gm/dl Hct 33.2 L (42-50) % MCV 89.5 (78-100) fl MCH 28.8 (26-32) pg MCHC 32.2 (32-36) g/dl RDW 14.3 H (11.5-14.0) % Plt Count 359 (150-450) K/mm3 MPV 8.6 (6-9.5) fl Segmented Neutrophils 95 H (36.-66.) % Lymphocytes (Manual) 5 L (24-44) % Platelet Estimate NORMAL (NORMAL) Poikilocytosis 1+ Rouleaux 1+ Sodium 145 (136-145) mEq/L Potassium 3.8 (3.5-5.1) mEq/L Chloride 113 H (98-107) mEq/L Carbon Dioxide 19.8 L (21-32) mEq/L Anion Gap 16.4 H (5-15) MEQ/L BUN 12 (9-20) mg/dL Creatinine 0.76 (0.55-1.30) mg/dl Estimated GFR > 60 ML/MIN Glucose 115 H (70-110) MG/DL Calcium 7.5 L (8.5-10.1) mg/dL Total Bilirubin 0.3 (0.2-1.0) mg/dL AST 13 L (15-37) U/L ALT 10 L (12-78) U/L Alkaline Phosphatase 99 (46-116) U/L Serum Total Protein 6.8 (6.4-8.2) gm/dL Albumin 2.8 L (3.4-5.0) g/dL Assessment/Plan (1) Opiate overdose Current Visit: Yes Status: Acute Assessment & Plan: it appears likely accidental opiate overdose with his recent increased strength of his opiates and the opana ER he denies taking more then prescribed. family notes confusion since discharge from [facility] 2 days ago for heart attack. we requested records again this am from [facility] and are still waiting to get those. he had prompt full response to narcan dose X1 last night however it put him in full withdrawal with puking and pain. He remained arousable overnight and no apnea so repeat dosing or drip was not given he was monitored in ICU he continues to be confused and possibly hallucinating He does repetative movements with his seizure disorder will go ahead with the EEG and monitor for response continue unasyn to cover for the pneumonia with consern for possible aspiration monitor mental status and neuro checks. Code(s): T40.601A - POISONING BY UNSP NARCOTICS, ACCIDENTAL, INIT (2) Altered mental status Current Visit: Yes Status: Acute Code(s): R41.82 - ALTERED MENTAL STATUS, UNSPECIFIED (3) Pneumonia Current Visit: Yes Status: Acute Code(s): J18.9 - PNEUMONIA, UNSPECIFIED ORGANISM (4) Coronary artery disease Current Visit: Yes Status: Chronic Code(s): I25.10 - ATHSCL HEART DISEASE OF [place] CORONARY ARTERY W/O ANG PCTRS (5) COPD (chronic obstructive pulmonary disease) Current Visit: Yes Status: Acute Qualifiers: COPD type: COPD with acute lower respiratory infection Qualified Code(s): J44.0 - Chronic obstructive pulmonary disease with acute lower respiratory infection
[2016-11-28] MEDS: Dextrose 5% -0.45 NaCl 1000 ML 1,000 ML IV SCH ×2 (09:42→23:52)
[2016-11-28] MEDS ORDERED: NON-FORMULARY ITEM (Cholecalciferol (Vitamin D3) [Vitamin D3] 5,000 UNIT) PO SCH (10:00)
[2016-11-28] MEDS ORDERED: NON-FORMULARY ITEM (Duloxetine Hcl [Cymbalta] 60 MG) PO SCH (10:00)
[2016-11-28] MEDS ORDERED: NON-FORMULARY ITEM (Potassium Chloride 20 Meq Tab [Potassium Chloride 20 Meq Tablet] 20 ME PO SCH (10:00)
[2016-11-28] MEDS ORDERED: RANOLAZINE 500 MG PO SCH (10:00)
[2016-11-28] MEDS ORDERED: NON-FORMULARY ITEM (Aspirin [Aspirin] 81 MG) PO SCH (10:00)
[2016-11-28] MEDS ORDERED: Zanaflex 4 MG PO SCH (10:00)
[2016-11-28] MEDS ORDERED: ROCEPHIN 1 Gm-D5w 50 ml Bag** 50 ML IV SCH (10:00)
[2016-11-28] MEDS: VITAMIN D PO SCH (10:14)
[2016-11-28] MEDS: Topamax 100 MG PO SCH ×2 (10:15→21:58)
[2016-11-28] MEDS: ECOTRIN 81 MG PO SCH (10:18)
[2016-11-28] MEDS: XANAX 1 MG PO SCH ×2 (10:18→12:35)
[2016-11-28] MEDS: Klor Con 10 MEQ PO SCH (10:18)
[2016-11-28] MEDS: Ranexa 500 MG PO SCH (10:18)
[2016-11-28] MEDS: PLAVIX 75 MG Tablet PO SCH (10:18)
[2016-11-28] MEDS: Protonix 40MG Tablet PO SCH (10:18)
[2016-11-28] MEDS: NORVASC 5 MG PO SCH (10:18)
[2016-11-28] MEDS: Cymbalta 30 MG Capsule PO SCH (10:18)
[2016-11-28] MEDS: Lopressor 25MG Tab PO SCH ×2 (12:35→21:59)
[2016-11-28] MEDS: Zofran 4 MG/2 ML VIAL IV PRN (18:09)
[2016-11-28] MEDS ORDERED: ENOXAPARIN SODIUM SQ ONE (21:44)
[2016-11-28] MEDS: ZOCOR 20MG PO SCH (21:58)
[2016-11-29 05:19] LABS: Mean Cell Volume 87.9 fl (78-100); Mean Platelet Volume 9.1 fl (6-9.5); Platelet Count 445 K/mm3 (150-450); Red Blood Count 3.63 M/mm3 (4.1-5.6); Red Cell Distribution Width 14.4 % (11.5-14.0); White Blood Count 6.9 K/mm3 (4.0-10.5)
[2016-11-29 05:20] LABS: Mean Corpuscular Hemoglobin 28.3 pg (26-32)
[2016-11-29] MEDS: Unasyn 3GM / NaCl 100ML 100 ML IV SCH ×4 (05:28→23:32)
[2016-11-29 05:48] LABS: ANION GAP 14.3 MEQ/L (5-15); BLOOD UREA NITROGEN 9 mg/dL (9-20); CHLORIDE 114 mEq/L (98-107); Carbon Dioxide 16.4 mEq/L (21-32); Glucose 106 MG/DL (70-110); SODIUM 144 mEq/L (136-145)
[2016-11-29 05:52] LABS: Potassium 2.7 mEq/L (3.5-5.1)
[2016-11-29] MEDS: POTASSIUM CHLORIDE 20 mEq IN WATER 100ML 100 ML IV SCH ×2 (06:29→09:08)
[2016-11-29] MEDS: Advair Hfa 115/21 Common canister IH SCH ×2 (07:23→23:11)
[2016-11-29] MEDS: PLAVIX 75 MG Tablet PO SCH (09:18)
[2016-11-29] MEDS: Ranexa 500 MG PO SCH (09:18)
[2016-11-29] MEDS: Cymbalta 30 MG Capsule PO SCH (09:18)
[2016-11-29] MEDS: Topamax 100 MG PO SCH ×2 (09:18→21:16)
[2016-11-29] MEDS: Klor Con 10 MEQ PO SCH ×3 (09:19→21:16)
[2016-11-29] MEDS: ECOTRIN 81 MG PO SCH (09:19)
[2016-11-29] MEDS: Protonix 40MG Tablet PO SCH (09:19)
[2016-11-29] MEDS: Lopressor 25MG Tab PO SCH ×2 (09:19→21:16)
[2016-11-29] MEDS ORDERED: ENOXAPARIN SODIUM SQ SCH (10:00)
[2016-11-29] MEDS: VITAMIN D PO SCH (10:37)
[2016-11-29] MEDS: NORVASC 5 MG PO SCH (10:50)
[2016-11-29] MEDS: Dextrose 5% -0.45 NaCl 1000 ML 1,000 ML IV SCH ×2 (11:01→23:32)
[2016-11-29 12:20] LABS: VBG CARBOXYHEMOGLOBIN 1.9 % T HGB (0.0-6.9); VBG HCO3- 14.3 meq/L (22-28); VBG HEMOGLOBIN 11.4; VBG O2 SATURATION 87.8 (95-100); VBG POTASSIUM 3.5 (3.5-5.1); VBG pH 7.44 (7.32-7.42)
--- NOTE | 2016-11-29 17:30 | PCM.NOTE ---
Date and Time: 11/29/16804 Subjective Assessment: he opens his eyes to voice moves all extremities denies complaints but repeats "huh" often this morning intermittently has appropriate responses. sleeping most of the night Yesterday evening after EEG we did give a dose of 0.4mg of narcan which was followed by immediate more alert, shaking, yawning and then immediate large bowel movement. He then fell asleep as the narcan wore off. He has had no desats and no vital sign changes of significance he has not had any visiting friends or family members. Objective Exam General Appearance: no apparent distress Neurologic Exam: confusion, other (He answeres orientation questions appropriately but gets confused very easy and trouble following commands.) Skin Exam: warm, dry, No rash Eye Exam: No scleral icterus, No pale conjunctivae Ears, Nose, Throat Exam: moist mucous membranes Neck Exam: non-tender, supple Respiratory Exam: normal breath sounds, No crackles/rales, No rhonchi Cardiovascular Exam: regular rate/rhythm, normal heart sounds Gastrointestinal/Abdomen Exam: soft, normal bowel sounds, No tenderness, No distention Extremity Exam: normal inspection, No pedal edema OBJECTIVE DATA Vital Signs: Vital Signs - 24 hr Temp Pulse Resp BP Pulse Ox 11/29/16 15:39 98.6 F 83 24 135/94 97 11/29/16 14:00 24 11/29/16 11:51 98 F 76 18 107/70 97 11/29/16 09:49 18 11/29/16 07:44 98.4 F 88 19 115/62 100 11/29/16 07:24 88 18 98 11/29/16 06:00 18 11/29/16 04:00 97.7 F 83 18 121/71 83 L 11/29/16 02:00 16 11/29/16 00:00 97.7 F 88 18 113/76 100 11/28/16 22:00 20 11/28/16 20:20 102 H 24 100 11/28/16 20:00 97.8 F 109 H 17 103/74 100 11/28/16 18:00 23 Oxygen-Last 24 hours O2 Percentage 2 Liters = 28% Pain Assessment - Last Documented Pain Scale Used 0-10 Pain Scale Intake and Output: Intake & Output 11/27/16 11/28/16 11/29/16 11/30/16 11:59 11:59 11:59 11:59 Intake Total 1266 2301 1360 Output Total 2200 500 Balance -934 1801 1360 Weight 69.6 kg 68.5 kg 68.5 kg Lab Results: Lab Results-Last 24 Hours 11/29/16 11/29/16 11/29/16 Range/Units 05:10 05:10 06:10 WBC 6.9 (4.0-10.5) K/mm3 RBC 3.63 L (4.1-5.6) M/mm3 Hgb 10.3 L (12.5-18.0) gm/dl Hct 31.9 L (42-50) % MCV 87.9 (78-100) fl MCH 28.3 (26-32) pg MCHC 32.3 (32-36) g/dl RDW 14.4 H (11.5-14.0) % Plt Count 445 (150-450) K/mm3 MPV 9.1 (6-9.5) fl VBG pH (7.32-7.42) VBG pCO2 at Pat Temp (42-55) mm/Hg VBG pO2 at Pat Temp (25-40) mm/Hg VBG HCO3 (22-28) meq/L VBG O2 Sat (Nika) (95-100) VBG Base Excess (-2.0-2.0) VBG Hemoglobin VBG Carboxyhemoglobin (0.0-6.9) % T HGB POC Potassium (3.5-5.1) Sodium 144 (136-145) mEq/L Potassium 2.7 L* (3.5-5.1) mEq/L Chloride 114 H (98-107) mEq/L Carbon Dioxide 16.4 L (21-32) mEq/L Anion Gap 14.3 (5-15) MEQ/L BUN 9 (9-20) mg/dL Creatinine 0.65 (0.55-1.30) mg/dl Estimated GFR > 60 ML/MIN Glucose 106 (70-110) MG/DL Calcium 7.7 L (8.5-10.1) mg/dL Magnesium 1.9 (1.8-2.4) mg/dL 11/29/16 11/29/16 Range/Units 12:00 12:18 WBC (4.0-10.5) K/mm3 RBC (4.1-5.6) M/mm3 Hgb (12.5-18.0) gm/dl Hct (42-50) % MCV (78-100) fl MCH (26-32) pg MCHC (32-36) g/dl RDW (11.5-14.0) % Plt Count (150-450) K/mm3 MPV (6-9.5) fl VBG pH 7.44 H (7.32-7.42) VBG pCO2 at Pat Temp 21 L* (42-55) mm/Hg VBG pO2 at Pat Temp 45 H (25-40) mm/Hg VBG HCO3 14.3 L* (22-28) meq/L VBG O2 Sat (Nika) 87.8 L (95-100) VBG Base Excess -8.0 L (-2.0-2.0) VBG Hemoglobin 11.4 VBG Carboxyhemoglobin 1.9 (0.0-6.9) % T HGB POC Potassium 3.5 (3.5-5.1) Sodium (136-145) mEq/L Potassium 3.3 L (3.5-5.1) mEq/L Chloride (98-107) mEq/L Carbon Dioxide (21-32) mEq/L Anion Gap (5-15) MEQ/L BUN (9-20) mg/dL Creatinine (0.55-1.30) mg/dl Estimated GFR ML/MIN Glucose (70-110) MG/DL Calcium (8.5-10.1) mg/dL Magnesium (1.8-2.4) mg/dL Assessment/Plan (1) Opiate overdose Current Visit: Yes Status: Acute Assessment & Plan: half life of opana ER which is suspected resolt about 12 hours so likely if taking too much chronically still on board now has not had alprazolam for over 24 hours and likely starting to experience with draw of this. he is very confused and ataxic tried mri today but was not cooperative so couldn't do it eeg yesterday with diffuse slowing he has prompt response to a dose of narcan last night jsut to see if opiates were still on board and they apparently were given the acute withdraw the narcan precipitated. his seroquel has been held as well and he has history of bizaar behaviors it appears from old records. He has an acute encephalopathy likely related to polysubstances. It appears he has been this way since his discharge from [facility] last week will continue to monitor and hold the sedating meds and try MRI if more cooperative. He does have history of previous known strokes per medical record and regional discharge paperwork is in his physical chart. Code(s): T40.601A - POISONING BY UNSP NARCOTICS, ACCIDENTAL, INIT (2) Altered mental status Current Visit: Yes Status: Acute Code(s): R41.82 - ALTERED MENTAL STATUS, UNSPECIFIED (3) Pneumonia Current Visit: Yes Status: Acute Assessment & Plan: cover for possible aspiration with unasyn currently Code(s): J18.9 - PNEUMONIA, UNSPECIFIED ORGANISM (4) Coronary artery disease Current Visit: Yes Status: Chronic Code(s): I25.10 - ATHSCL HEART DISEASE OF [place] CORONARY ARTERY W/O ANG PCTRS (5) COPD (chronic obstructive pulmonary disease) Current Visit: Yes Status: Acute Qualifiers: COPD type: COPD with acute lower respiratory infection Qualified Code(s): J44.0 - Chronic obstructive pulmonary disease with acute lower respiratory infection
[2016-11-29] MEDS ORDERED: THIAMINE 200 MG/2 ML IV ONE (17:33)
[2016-11-29] MEDS: ENOXAPARIN SODIUM SQ SCH (21:14)
[2016-11-29] MEDS: ZOCOR 20MG PO SCH (21:16)
[2016-11-30] MEDS: Unasyn 3GM / NaCl 100ML 100 ML IV SCH ×4 (05:12→23:50)
[2016-11-30] MEDS: Advair Hfa 115/21 Common canister IH SCH ×2 (07:00→19:43)
--- NOTE | 2016-11-30 08:47 | PCM.NOTE ---
Date and Time: 11/30/16841 Subjective Assessment: Patient awakes to voice. He denies any pain. He states he his having diarrhea and his nurse states he is having profuse watery diarrhea. He cannot tell me who his PCP is. - Review of Systems Constitutional: Other (yawning) Respiratory: No Symptoms Abdominal/Gastrointestinal: Diarrhea Musculoskeletal: No Symptoms Additional Findings: Complete ROS limited due to patient having trouble answering questions. 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 Says year is 1974. When asked President says 1975 and when asked his name, he answered correctly after about the 3rd try. He can push down with his feet equally but will not raise his legs up off the bed. Strength 5/5 in arms and hands bilat, He cannot tell me if he feels light touch to his forehead.) Skin Exam: normal color, warm, other (multiple bruises on his lower legs.) Eye Exam: PERRL, EOMI, No scleral icterus Respiratory Exam: normal breath sounds, lungs clear, No respiratory distress, No crackles/rales, No rhonchi, No wheezing Cardiovascular Exam: regular rate/rhythm, normal heart sounds, No murmur, No friction rub, No gallop Gastrointestinal/Abdomen Exam: soft, normal bowel sounds, No tenderness, No distention, No mass Extremity Exam: other (no c/c/e) OBJECTIVE DATA Vital Signs: Vital Signs - 24 hr Temp Pulse Resp BP Pulse Ox 11/30/16 06:00 26 H 11/30/16 04:00 78 26 H 138/77 100 11/30/16 02:00 26 H 11/30/16 00:00 97.8 F 83 26 H 137/75 100 11/29/16 22:00 21 11/29/16 20:00 97.8 F 93 H 21 129/73 94 L 11/29/16 18:00 18 11/29/16 15:39 98.6 F 83 24 135/94 97 11/29/16 14:00 24 11/29/16 11:51 98 F 76 18 107/70 97 11/29/16 09:49 18 Pain Assessment - Last Documented Pain Scale Used 0-10 Pain Scale Intake and Output: Intake & Output 11/28/16 11/29/16 11/30/16 12/01/16 06:59 06:59 06:59 06:59 Intake Total 1266 2301 2662 Output Total 2200 500 300 Balance -974 9931 8792 Weight 69.6 kg 68.5 kg 66.451 kg Lab Results: Lab Results-Last 24 Hours 11/29/16 11/29/16 11/29/16 Range/Units 00:30 12:00 12:18 VBG pH 7.44 H (7.32-7.42) VBG pCO2 at Pat Temp 21 L* (42-55) mm/Hg VBG pO2 at Pat Temp 45 H (25-40) mm/Hg VBG HCO3 14.3 L* (22-28) meq/L VBG O2 Sat (Nika) 87.8 L (95-100) VBG Base Excess -8.0 L (-2.0-2.0) VBG Hemoglobin 11.4 VBG Carboxyhemoglobin 1.9 (0.0-6.9) % T HGB POC Potassium 3.5 (3.5-5.1) Potassium 3.3 L (3.5-5.1) mEq/L Stl C. diff Tox B Gene NEGATIVE (NEGATIVE) C.difficile [id number] PRESUMPTIVE NEGATIVE (NEGATIVE) Assessment/Plan (1) Opioid overdose Current Visit: Yes Status: Acute Assessment & Plan: Continue to hold opioids. Patient denies pain. He is having symptoms of withdrawal with yawning and profuse diarrhea. EEG revealed encephalopathy. He was unable to hold still for MRI yesterday and note from Regional says he has metal in his neck. Will hold off on MRI of brain and also it is not available over the weekend. He is more alert than yesterday when compared to Dr. Thania Rivera' s description of him yesterday. Code(s): T40.2X1A - POISONING BY OTH OPIOIDS, ACCIDENTAL (UNINTENTIONAL), INIT (2) Altered mental status Current Visit: Yes Status: Acute Assessment & Plan: Starting to improve. It is unclear what his baseline mental status is. Code(s): R41.82 - ALTERED MENTAL STATUS, UNSPECIFIED (3) Pneumonia Current Visit: Yes Status: Acute Assessment & Plan: Found on Chest X-ray. Continue antibiotics. Code(s): J18.9 - PNEUMONIA, UNSPECIFIED ORGANISM (4) CAD (coronary artery disease) Current Visit: Yes Status: Acute Assessment & Plan: Continue aspirin and plavix. Code(s): I25.10 - ATHSCL HEART DISEASE OF [place] CORONARY ARTERY W/O ANG PCTRS (5) COPD (chronic obstructive pulmonary disease) Current Visit: Yes Status: Acute Qualifiers: COPD type: COPD with acute lower respiratory infection Qualified Code(s): J44.0 - Chronic obstructive pulmonary disease with acute lower respiratory infection
[2016-11-30] MEDS: Lopressor 25MG Tab PO SCH ×2 (10:21→21:20)
[2016-11-30] MEDS: PLAVIX 75 MG Tablet PO SCH (10:21)
[2016-11-30] MEDS: NORVASC 5 MG PO SCH (10:21)
[2016-11-30] MEDS: Ranexa 500 MG PO SCH (10:21)
[2016-11-30] MEDS: Cymbalta 30 MG Capsule PO SCH (10:22)
[2016-11-30] MEDS: Protonix 40MG Tablet PO SCH (10:22)
[2016-11-30] MEDS: ECOTRIN 81 MG PO SCH (10:22)
[2016-11-30] MEDS: Klor Con 10 MEQ PO SCH ×4 (10:22→21:21)
[2016-11-30] MEDS: THERAGRAN MULTIVITAMIN PO SCH (10:22)
[2016-11-30] MEDS: VITAMIN D PO SCH (10:23)
[2016-11-30] MEDS: Topamax 100 MG PO SCH ×2 (10:24→21:21)
[2016-11-30] MEDS: VITAMIN B-1 100 MG PO SCH (10:27)
[2016-11-30 10:49] LABS: ANION GAP 14.9 MEQ/L (5-15); BLOOD UREA NITROGEN 6 mg/dL (9-20); CHLORIDE 114 mEq/L (98-107); Carbon Dioxide 18.1 mEq/L (21-32); Glucose 110 MG/DL (70-110); SODIUM 144 mEq/L (136-145)
[2016-11-30 10:53] LABS: Potassium 2.9 mEq/L (3.5-5.1)
[2016-11-30] MEDS ORDERED: IMODIUM 2 MG PO ONE (11:04)
[2016-11-30] MEDS: POTASSIUM CHLORIDE 20 mEq IN WATER 100ML 100 ML IV SCH ×2 (11:37→14:55)
[2016-11-30] MEDS: Dextrose 5% -0.45 NaCl 1000 ML 1,000 ML IV SCH (14:56)
[2016-11-30] MEDS ORDERED: MAG-OX 400 PO ONE (16:00)
[2016-11-30] MEDS: ENOXAPARIN SODIUM SQ SCH (21:20)
[2016-11-30] MEDS: IMODIUM 2 MG PO PRN (21:20)
[2016-11-30] MEDS: ZOCOR 20MG PO SCH (21:20)
[2016-12-01] MEDS: Dextrose 5% -0.45 NaCl 1000 ML 1,000 ML IV SCH ×2 (05:30→21:25)
[2016-12-01] MEDS: Unasyn 3GM / NaCl 100ML 100 ML IV SCH ×3 (05:31→17:47)
[2016-12-01] MEDS: Advair Hfa 115/21 Common canister IH SCH ×2 (06:39→19:00)
[2016-12-01] MEDS: Ranexa 500 MG PO SCH (09:50)
[2016-12-01] MEDS: ECOTRIN 81 MG PO SCH (09:50)
[2016-12-01] MEDS: PLAVIX 75 MG Tablet PO SCH (09:51)
[2016-12-01] MEDS: Klor Con 10 MEQ PO SCH ×2 (09:51→21:50)
[2016-12-01] MEDS: Cymbalta 30 MG Capsule PO SCH (09:51)
[2016-12-01] MEDS: THERAGRAN MULTIVITAMIN PO SCH (09:51)
[2016-12-01] MEDS: Protonix 40MG Tablet PO SCH (09:52)
[2016-12-01] MEDS: NORVASC 5 MG PO SCH (09:52)
[2016-12-01] MEDS: MAG-OX 400 PO SCH (09:52)
[2016-12-01] MEDS: Lopressor 25MG Tab PO SCH ×2 (09:52→21:51)
[2016-12-01] MEDS: VITAMIN D PO SCH (10:03)
[2016-12-01] MEDS: Topamax 100 MG PO SCH ×2 (10:03→21:50)
[2016-12-01] MEDS: VITAMIN B-1 100 MG PO SCH (10:03)
[2016-12-01 10:44] LABS: ANION GAP 17.8 MEQ/L (5-15); BLOOD UREA NITROGEN 8 mg/dL (9-20); CHLORIDE 112 mEq/L (98-107); Glucose 111 MG/DL (70-110); Potassium 3.2 mEq/L (3.5-5.1); SODIUM 142 mEq/L (136-145)
[2016-12-01] MEDS ORDERED: Ativan 2 MG/1 ML VIAL IV PRN (10:49)
--- NOTE | 2016-12-01 10:49 | PCM.NOTE ---
Date and Time: 12/01/16 1044 Subjective Assessment: Patient reports the diarrhea and yawning are better. His nurses report he has not slept for more than 10-15 minutes at a time all night long and today. He reports he is on the pain medication for chest pain and he denies any pain right now. He would like to try a regular diet. He reports he has had seizures in the past and thinks his last seizure was within this year. 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, normal mood/affect, nml cerebellar function, other (He knows who the president of the [employer] is; sometimes slow to answer questions, but answers correctly today.) , No motor deficits, No disoriented, No confusion Skin Exam: normal color, No warm, No dry, No rash Eye Exam: PERRL, EOMI Respiratory Exam: normal breath sounds, lungs clear, No crackles/rales, No rhonchi, No wheezing Cardiovascular Exam: regular rate/rhythm, normal heart sounds, No murmur, No friction rub, No gallop Gastrointestinal/Abdomen Exam: soft, normal bowel sounds, No tenderness, No distention, No mass Extremity Exam: other (no c/c/e) OBJECTIVE DATA Vital Signs: Vital Signs - 24 hr Temp Pulse Resp BP Pulse Ox 12/01/16 10:00 24 12/01/16 08:00 97.7 F 87 24 140/76 100 12/01/16 06:40 84 18 99 12/01/16 04:00 73 12/01/16 03:39 98.0 F 70 25 H 132/77 100 12/01/16 00:00 79 11/30/16 23:53 98.0 F 74 23 158/78 100 11/30/16 20:00 97.8 F 82 22 136/80 11/30/16 19:43 80 18 99 11/30/16 18:00 22 11/30/16 16:00 97.9 F 75 23 131/80 100 11/30/16 14:00 27 H 11/30/16 12:00 97.8 F 75 21 151/81 100 Pain Assessment - Last Documented Pain Intensity 0 Pain Scale Used 0-10 Pain Scale Intake and Output: Intake & Output 11/29/16 11/30/16 12/01/16 12/02/16 06:59 06:59 06:59 06:59 Intake Total 2301 2662 2140 Output Total 500 300 Balance 1801 2362 2140 Weight 68.5 kg 66.451 kg 65 kg Lab Results: Lab Results-Last 24 Hours 11/30/16 11/30/16 11/30/16 Range/Units 10:16 11:03 19:11 Sodium 144 (136-145) mEq/L Potassium 2.9 L* 3.5 (3.5-5.1) mEq/L Chloride 114 H (98-107) mEq/L Carbon Dioxide 18.1 L (21-32) mEq/L Anion Gap 14.9 (5-15) MEQ/L BUN 6 L (9-20) mg/dL Creatinine 0.83 (0.55-1.30) mg/dl Estimated GFR > 60 ML/MIN Glucose 110 (70-110) MG/DL Calcium 8.0 L (8.5-10.1) mg/dL Magnesium 1.7 L (1.8-2.4) mg/dL Assessment/Plan (1) Opioid overdose Current Visit: Yes Status: Acute Assessment & Plan: Resolved now. He denies any pain at this time so will avoid opiates at this time. Code(s): T40.2X1A - POISONING BY OTH OPIOIDS, ACCIDENTAL (UNINTENTIONAL), INIT (2) Altered mental status Current Visit: Yes Status: Resolved Assessment & Plan: He is alert and oriented x 3 this AM. Code(s): R41.82 - ALTERED MENTAL STATUS, UNSPECIFIED (3) Pneumonia Current Visit: Yes Status: Acute Code(s): J18.9 - PNEUMONIA, UNSPECIFIED ORGANISM (4) CAD (coronary artery disease) Current Visit: Yes Status: Acute Assessment & Plan: Stable on current medication. Code(s): I25.10 - ATHSCL HEART DISEASE OF [place] CORONARY ARTERY W/O ANG PCTRS (5) COPD (chronic obstructive pulmonary disease) Current Visit: Yes Status: Acute Qualifiers: COPD type: COPD with acute lower respiratory infection Qualified Code(s): J44.0 - Chronic obstructive pulmonary disease with acute lower respiratory infection Assessment & Plan: Continue IV antibiotics, breathing treatments. (6) Opioid withdrawal Current Visit: Yes Status: Acute Assessment & Plan: Continue imodium as needed. Will order ativan if needed for anxiety or agitation. Code(s): F11.23 - OPIOID DEPENDENCE WITH WITHDRAWAL
[2016-12-01 10:53] LABS: Carbon Dioxide 15.9 mEq/L (21-32)
[2016-12-01] MEDS ORDERED: TYLENOL 325 MG PO PRN (13:06)
[2016-12-01] MEDS ORDERED: POTASSIUM CHLORIDE 20 mEq IN WATER 100ML 100 ML IV SCH (13:15)
[2016-12-01] MEDS ORDERED: Magnesium Sulfate 1 GM/2 ML VIAL IV ONE (13:30)
[2016-12-01] MEDS ORDERED: Potassium Chloride 40 MEQ/20 ML VIAL 40 MEQ, Magnesium Sulfate 1 GM/2 ML VIAL*** 1 GM i... IV SCH ×3 (13:30)
[2016-12-01] MEDS: IMODIUM 2 MG PO PRN (13:48)
[2016-12-01] MEDS: ENOXAPARIN SODIUM SQ SCH (21:50)
[2016-12-01] MEDS: ZOCOR 20MG PO SCH (21:50)
[2016-12-02] MEDS: Unasyn 3GM / NaCl 100ML 100 ML IV SCH ×2 (00:28→05:39)
[2016-12-02 05:44] LABS: BLOOD UREA NITROGEN 7 mg/dL (9-20); CHLORIDE 111 mEq/L (98-107); Glucose 93 MG/DL (70-110); SODIUM 142 mEq/L (136-145)
[2016-12-02] MEDS: Advair Hfa 115/21 Common canister IH SCH (07:07)
[2016-12-02] MEDS: VITAMIN B-1 100 MG PO SCH (09:04)
[2016-12-02] MEDS: Cymbalta 30 MG Capsule PO SCH (09:04)
[2016-12-02] MEDS: Protonix 40MG Tablet PO SCH (09:04)
[2016-12-02] MEDS: VITAMIN D PO SCH (09:05)
[2016-12-02] MEDS: Topamax 100 MG PO SCH (09:05)
[2016-12-02] MEDS: MAG-OX 400 PO SCH (09:05)
[2016-12-02] MEDS: ECOTRIN 81 MG PO SCH (09:06)
[2016-12-02] MEDS: THERAGRAN MULTIVITAMIN PO SCH (09:06)
[2016-12-02] MEDS: PLAVIX 75 MG Tablet PO SCH (09:06)
[2016-12-02] MEDS: Ranexa 500 MG PO SCH (09:07)
[2016-12-02] MEDS: Klor Con 10 MEQ PO SCH (09:07)
[2016-12-02] MEDS: Lopressor 25MG Tab PO SCH (09:07)
[2016-12-02] MEDS: NORVASC 5 MG PO SCH (09:07)
[2016-12-02] MEDS: Dextrose 5% -0.45 NaCl 1000 ML 1,000 ML IV SCH (09:20)
[2016-12-02 12:13] VITALS: BP 113/63; PULSE 80; O2SAT 100
--- NOTE | 2016-12-02 12:44 | PCM.DCORD ---
- Discharge Discharge Date: 12/02/16 Disposition: Home, Self-Care Condition: Fair Prescriptions: Continue Ranolazine [Ranexa] 500 mg PO DAILY Aspirin 81 mg PO DAILY Fluticasone/Salmeterol [Advair 250-50 Diskus] 1 puff IH BID Divalproex Sodium [Divalproex Sodium ER] 1,500 mg PO HS PRN Topiramate 100 mg [Topamax 100 MG] 200 mg PO BID Duloxetine HCl [Cymbalta] 60 mg PO DAILY Clopidogrel Bisulfate 75 mg [PLAVIX 75 MG Tablet] 75 mg PO DAILY Albuterol Sulfate [Proair Hfa] 8.5 gm IH Q4H PRN PRN PRN Reason: resp Potassium Chloride 20 Meq Tab [Potassium Chloride 20 MEQ TABLET] 20 meq PO DAILY Metoprolol Tartrate 25 mg [Lopressor 25MG Tab] 25 mg PO BID Atorvastatin Calcium [Lipitor] 40 mg PO HS Cholecalciferol (Vitamin D3) [Vitamin D3] 5,000 unit PO DAILY Amlodipine Besylate 5 mg [Norvasc 5 mg] 5 mg PO DAILY Omeprazole 40 mg PO DAILY Denosumab 60 mg [Prolia 60 mg Injection] 60 mg SQ UD Evolocumab [Repatha Syringe] 140 mg SQ UD Changed Quetiapine Fumarate [Seroquel] 300 mg PO HS #0 Discontinued Tizanidine HCl 4 mg [Zanaflex 4 MG] 2 mg PO BID Alprazolam [Xanax] 2 mg PO TID Oxycodone HCl/Acetaminophen [Percocet 10-325 mg Tablet] 1 each PO Q4HPRN PRN PRN Reason: Pain Oxymorphone HCl [Opana ER] 30 mg PO Q12H Instructions: Chronic Obstructive Pulmonary Disease Follow up with: CEDRICK PEREZ [Primary Care Provider] -
--- NOTE | 2016-12-02 19:38 | PCM.DS ---
Discharge Summary Date of Admission: 11/27/16 17:54 Date of Discharge: 12/02/16 Admitting Physician: JOSE AL Primary Care Provider: CEDRICK PEREZ Allergies Allergies gabapentin Adverse Reaction (Severe, Verified 11/27/16 12:42) Fainting Hospital Summary - Hospital Course Hospital Course: Patient presented to the ED after a neighbor found him in his yard locked out of his house very confused and sleepy. He was treated in ED and found to be oriented but encephalopathic and sent to floor where he was noted to have apnea , contricted pupils and would fall asleep very easy in mid sentence, but no desaturations noted. He was sent to ICU for observation a small dose of narcan reversed the deficits and he was kept in observation in the icu and opiates held. He remained very confused and slept mostly for the next several days. He has hixtory of seizures so an EEG was done to rule out status and diffuse slowing was seen. At about 60 hours in he was still exhibiting signs of opiate overdose but was delirious as well and repeating himself and trouble answering questions, an MRI was attempted but did not cooperate and a dose of narcan was given again and this precipitated acute withdraw again with yawning, shaking chills, piloerection and an episode of diarrhea and resolved when the narcan wore off. He slowly improved cognition with the holding of the meds and awoke on 12/01/16 alert and oriented with no deficits he was observed overnight again and on 12/02/16 remained alert and oriented ambulating well and answering all questions appropriately. He denied any discharge needs and felt safe on his own. He was oriented to the situation and time and agreed that his recent change in medications likely contributed but denied taking too much of any of his meds. (Of note our Urine drug screens do not detect oxycodone or oxymporphone and he was on extended release oxymorphone and percocet). He was discharged to not restart his pain medications or his alprazolam as he was doing well without it currently and not having pain. He had slight infiltrate on cxr and was covered for possible aspiration pneumonia with unasyn while inpatient and was doing well with no respiratory problems throughout the stay. - Vitals & Intake/Output Vital Signs: Vital Signs Temperature 97.7 F 12/02/16 12:00 Pulse Rate 80 12/02/16 12:00 Respiratory Rate 20 12/02/16 14:00 Blood Pressure 113/63 12/02/16 12:00 O2 Sat by Pulse Oximetry 100 12/02/16 12:00 Oxygen-Last Documented O2 Percentage 2 Liters = 28% Intake & Output: Intake & Output 11/30/16 12/01/16 12/02/16 12/03/16 11:59 11:59 11:59 11:59 Intake Total 2662 2140 4097 Output Total 300 Balance 2362 2140 4097 Weight 66.451 kg 65 kg 65.771 kg - Lab Result Diagrams: 11/29/16 05:10 12/02/16 05:05 Lab Results-Last 24 Hrs: Lab Results-Last 24 Hours 12/01/16 12/02/16 12/02/16 Range/Units 20:44 05:05 05:05 Sodium 142 (136-145) mEq/L Potassium 3.7 4.0 (3.5-5.1) mEq/L Chloride 111 H (98-107) mEq/L Carbon Dioxide 17.0 L (21-32) mEq/L Anion Gap 18.0 H (5-15) MEQ/L BUN 7 L (9-20) mg/dL Creatinine 0.87 (0.55-1.30) mg/dl Estimated GFR > 60 ML/MIN Glucose 93 (70-110) MG/DL Calcium 7.8 L (8.5-10.1) mg/dL Magnesium 1.9 (1.8-2.4) mg/dL - Procedures and Test Procedures and Tests throughout Hospitalization: Therapy Orders & Screens 11/27/16 16:36 Oxygen NASAL CANNULA 2 lpm Comment: Diagnosis: Shortness of Breath 11/27/16 23:48 Respiratory Nebulizer UD Comment: duoneb prn Diagnosis: COPD, AMS, dehydration 11/28/16 07:00 Respiratory MDI BID Comment: Diagnosis: COPD, AMS, dehydration 11/28/16 09:00 EEG Digital ONCE Comment: Reason For Exam: rule out seizures Diagnosis: COPD, AMS, dehydration 11/28/16 23:57 EEG 41-60 Minutes (Normal) ONCE Comment: Reason For Exam: Diagnosis: ACCIDENTAL OPIATE OVERDOSE, PNEUMONIA, DEHYDRATION Discharge Exam General Appearance: no apparent distress, alert Neurologic Exam: alert, oriented x 3, cooperative, normal mood/affect, nml cerebellar function, sensation nml, No motor deficits Skin Exam: normal color, warm, dry Eye Exam: PERRL, EOMI, eyes nml inspection Ears, Nose, Throat Exam: normal ENT inspection, pharynx normal, moist mucous membranes Neck Exam: normal inspection, non-tender, supple, full range of motion Respiratory Exam: normal breath sounds, lungs clear, No respiratory distress Cardiovascular Exam: regular rate/rhythm, normal heart sounds Gastrointestinal/Abdomen Exam: soft, No tenderness, No mass Extremity Exam: normal inspection, normal range of motion Back Exam: normal inspection, normal range of motion, No CVA tenderness, No vertebral tenderness Male Genitalia Exam: deferred Rectal Exam: deferred Final Diagnosis/Problem List - Final Discharge Diagnosis/Problem (1) Opiate overdose Status: Acute (2) Altered mental status Status: Resolved (3) Pneumonia Status: Acute (4) Coronary artery disease Status: Chronic (5) COPD (chronic obstructive pulmonary disease) Status: Acute - Discharge Discharge Date: 12/02/16 Disposition: Home, Self-Care Condition: Fair Prescriptions: Continue Ranolazine [Ranexa] 500 mg PO DAILY Aspirin 81 mg PO DAILY Fluticasone/Salmeterol [Advair 250-50 Diskus] 1 puff IH BID Divalproex Sodium [Divalproex Sodium ER] 1,500 mg PO HS PRN Topiramate 100 mg [Topamax 100 MG] 200 mg PO BID Duloxetine HCl [Cymbalta] 60 mg PO DAILY Clopidogrel Bisulfate 75 mg [PLAVIX 75 MG Tablet] 75 mg PO DAILY Albuterol Sulfate [Proair Hfa] 8.5 gm IH Q4H PRN PRN PRN Reason: resp Potassium Chloride 20 Meq Tab [Potassium Chloride 20 MEQ TABLET] 20 meq PO DAILY Metoprolol Tartrate 25 mg [Lopressor 25MG Tab] 25 mg PO BID Atorvastatin Calcium [Lipitor] 40 mg PO HS Cholecalciferol (Vitamin D3) [Vitamin D3] 5,000 unit PO DAILY Amlodipine Besylate 5 mg [Norvasc 5 mg] 5 mg PO DAILY Omeprazole 40 mg PO DAILY Denosumab 60 mg [Prolia 60 mg Injection] 60 mg SQ UD Evolocumab [Repatha Syringe] 140 mg SQ UD Changed Quetiapine Fumarate [Seroquel] 300 mg PO HS #0 Discontinued Tizanidine HCl 4 mg [Zanaflex 4 MG] 2 mg PO BID Alprazolam [Xanax] 2 mg PO TID Oxycodone HCl/Acetaminophen [Percocet 10-325 mg Tablet] 1 each PO Q4HPRN PRN PRN Reason: Pain Oxymorphone HCl [Opana ER] 30 mg PO Q12H Instructions: Chronic Obstructive Pulmonary Disease Follow up with: CEDRICK PEREZ [Primary Care Provider] - 12/09/16 2:15 pm Forms: Discharge Instructions
== END 2016-12-02 14:45 | disposition home or self-care (01) | DRG 917 ==
LOC: ED 12:26 → MED SURG 16:23 → OBSVTOIN 17:54 → ICU 19:04 → MED SURG 12-01 16:06
PROVIDERS: ADMIT Family Medicine; ATTEND Family Medicine
DX: T40.601A Poisoning by unspecified narcotics, accidental (unintentional), initial encounter (principal); J18.9 Pneumonia, unspecified organism; I25.810 Atherosclerosis of coronary artery bypass graft(s) without angina pectoris; J44.0 Chronic obstructive pulmonary disease with (acute) lower respiratory infection; F11.23 Opioid dependence with withdrawal; R41.82 Altered mental status, unspecified; J44.9 Chronic obstructive pulmonary disease, unspecified; Z79.899 Other long term (current) drug therapy; K21.9 Gastro-esophageal reflux disease without esophagitis; M19.90 Unspecified osteoarthritis, unspecified site; I25.2 Old myocardial infarction; G40.909 Epilepsy, unspecified, not intractable, without status epilepticus; F32.9 Major depressive disorder, single episode, unspecified; Z86.73 Personal history of transient ischemic attack (TIA), and cerebral infarction without residual deficits
CPT/HCPCS: 36000; 36415; 36600; 70450; 71010; 80048; 80053; 80307; 80320; 80339; 81000; 82375; 82550; 82803; 82805; 82962; 83605; 83735; 83986; 84132; 84484; 85025; 85027; 85610; 85730; 87040; 87086; 87493; 93005; 93041; 93268; 94640; 94760; 95812; 99285; G0481; J0295; J0456; J0696; J1650; J2060; J2310; J2405; J2930; J3475; J3480; A9270-GY

== ENCOUNTER 2017-01-20 13:03 | Observation (INO) | payer MEDICARE ==
[2017-01-20] MEDS ORDERED: Sodium Chloride 0.9% 1000 ML 1,000 ML IV STA (13:13)
--- NOTE | 2017-01-20 13:14 | ERPHSYRPT ---
- History of Present Illness Time Seen by Provider: 01/20/17 13:09 Source: patient, EMS Exam Limitations: clinical condition Physician History: The patient is a 51-year-old male brought in by ambulance for being decreased responsiveness and possible overdose. EMS states that the police were looking for him yesterday and found him today. They were not able to arouse him. EMS arrives and digits painful stimulus and he woke up. The patient answers in a very weak voice but does not his head yes or no to questions. He states he took a lot of Xanax but wasn't trying to kill himself. It seems he was wanting to get high. His past medical history is significant for depression, drug abuse , seizure disorder, high blood pressure, COPD, and high cholesterol. Timing/Duration: today Severity of Symptoms-Max: severe Severity of Symptoms-Current: severe Associated Symptoms: depressed Previous symptoms: same symptoms as today Allergies/Adverse Reactions: gabapentin Adverse Reaction (Severe, Verified 01/20/17 13:19) Fainting Home Medications: Aspirin 81 mg PO DAILY 07/30/15 [History] Divalproex Sodium [Divalproex Sodium ER] 1,500 mg PO HS PRN 07/30/15 [History] Duloxetine HCl [Cymbalta] 60 mg PO DAILY 07/30/15 [History] Ranolazine [Ranexa] 500 mg PO DAILY 07/30/15 [History] Topiramate 100 mg [Topamax 100 MG] 200 mg PO BID 07/30/15 [History] Atorvastatin Calcium [Lipitor] 40 mg PO HS 02/01/16 [History] Potassium Chloride 20 Meq Tab [Potassium Chloride 20 MEQ TABLET] 20 meq PO DAILY 02/01/16 [History] Alprazolam 2 mg PO UD 01/20/17 [History] Lisinopril 5 mg [Zestril 5 MG] 5 mg PO DAILY 01/20/17 [History] Hx Tetanus, Diphtheria Vaccination/Date Given: Yes (3 yrs ago) Hx Influenza Vaccination/Date Given: Yes Hx Pneumococcal Vaccination/Date Given: Yes - Past Medical History Pertinent Past Medical History: Yes Neurological History: Seizures, Stroke ENT History: No Pertinent History Cardiac History: Angina, Coronary Artery Disease, High Cholesterol, Myocardial Infarction ([place]) Respiratory History: COPD Endocrine Medical History: No Pertinent History Musculoskeletal History: Osteoarthritis, Other GI Medical History: GERD History: No Pertinent History Psycho-Social History: Depression, Other Male Reproductive Disorders: No Pertinent History Other Medical History: PT. REPORTS NE X 4; PT. REPORTS HE HAS ONE CARDIAC STENT ; CHRONINC NECK, BACK, SHOULDER PN - Past Surgical History Past Surgical History: Yes Neuro Surgical History: No Pertinent History Cardiac: CABG, Cardiac Catheterization, Cardiac Stent Respiratory: No Pertinent History Gastrointestinal: No Pertinent History Genitourinary: No Pertinent History Musculoskeletal: Other Male Surgical History: No Pertinent History Other Surgical History: Left foot x 2, Right foot x 2, Right knee x 2, Left knee x 2, Right torn rotator cuff, Steal plate with rods and screws in neck - Social History Smoking Status: Never smoker How long have you smoked: 30 Exposure to second hand smoke: No Alcohol Use: None Drug Use: none Patient Lives Alone: Yes Significant Family History: heart disease - Review of Systems Constitutional: No Fever, No Chills Eyes: No Symptoms Ears, Nose, & Throat: No Symptoms Respiratory: No Cough, No Dyspnea Cardiac: No Chest Pain, No Edema, No Syncope Abdominal/Gastrointestinal: No Abdominal Pain, No Nausea, No Vomiting, No Diarrhea Genitourinary Symptoms: No Dysuria Musculoskeletal: No Back Pain, No Neck Pain Skin: No Rash Neurological: No Dizziness, No Focal Weakness, No Sensory Changes Psychological: Drug Abuse, Depression Endocrine: No Symptoms Hematologic/Lymphatic: No Symptoms Immunological/Allergic: No Symptoms All Other Systems: Reviewed and Negative - Nursing Vital Signs Nursing Vital Signs: Initial Vital Signs Temperature 97.2 F Temperature Source Oral Pulse Rate 87 Respiratory Rate 16 Blood Pressure [Right Arm] 142/67 Pain Intensity 0 - Physical Exam General Appearance: mild distress, lethargy Eyes, Ears, Nose, Throat Exam: normal ENT inspection, moist mucous membranes Neck Exam: normal inspection, non-tender, supple Respiratory Exam: normal breath sounds, lungs clear, No respiratory distress Cardiovascular Exam: regular rate/rhythm, No edema Gastrointestinal/Abdominal Exam: soft, No tenderness, No distention Extremities Exam: normal inspection, normal range of motion, No evidence of injury, No edema Current Suicidality: denies suicide plan Neurological Exam: oriented x 3, depressed affect Appearance: disheveled Behavior/Eye Contact/Speech: avoids eye contact, intoxicated appearance Thoughts/Hallucinations: normal thought pattern Skin Exam: normal color, warm, dry, No rash SpO2 Interpretation: normal - Course EKG Interpreted by Me: RATE, Sinus Rhythm, Right Bundle Branch Block Ordered Tests: Active Orders 24 hr Category Date Time Status Human Relations Teacher STAT Care 01/20/17 13:13 Active EKG-ER Only STAT Care 01/20/17 13:13 Active IV Insertion STAT Care 01/20/17 13:13 Active ACETAMINOPHEN Stat Lab 01/20/17 15:46 Completed CBC W DIFF Stat Lab 01/20/17 13:23 Completed CMP Stat Lab 01/20/17 13:23 Completed Ethyl Alcohol,Urine Stat Lab 01/20/17 15:47 Completed SALICYLATE Stat Lab 01/20/17 13:23 Completed UA W/ MICROSCOPIC Stat Lab 01/20/17 15:47 Completed Urine Triage Profile Stat Lab 01/20/17 14:40 Completed VALPROIC ACID ([place]) Stat Lab 01/20/17 13:23 Completed Medication Summary Discontinued Medications Generic Name Dose Route Start Last Admin Trade Name Freq PRN Reason Stop Dose Admin Sodium Chloride 1,000 mls @ 999 mls/hr 01/20/17 13:13 01/20/17 13:18 Sodium Chloride 0.9% 1000 Ml IV 01/20/17 14:13 999 mls/hr .Q1H1M STA Administration Sodium Chloride Confirm 01/20/17 13:16 Sodium Chloride 0.9% 1000 Ml Administered 01/20/17 13:17 Dose 1,000 mls @ ud .ROUTE .STK-MED ONE Potassium Chloride 40 meq 01/20/17 14:25 01/20/17 14:34 Klor Con 10 Meq PO 01/20/17 14:26 40 meq STAT ONE Administration Potassium Chloride Confirm 01/20/17 14:33 Klor Con 10 Meq Administered 01/20/17 14:34 Dose 40 meq PO .STK-MED ONE Lab/Rad Data: Laboratory Result Diagrams 01/20/17 13:23 01/20/17 13:23 Laboratory Results 01/20/17 01/20/17 01/20/17 Range/Units 15:47 15:47 15:46 WBC (4.0-10.5) K/mm3 RBC (4.1-5.6) M/mm3 Hgb (12.5-18.0) gm/dl Hct (42-50) % MCV (78-100) fl MCH (26-32) pg MCHC (32-36) g/dl RDW (11.5-14.0) % Plt Count (150-450) K/mm3 MPV (6-9.5) fl Gran % (36.0-66.0) % Lymphocytes % (24.0-44.0) % Monocytes % (0.0-12.0) % Eosinophils % (0.00-5.0) % Basophils % (0.0-0.4) % Basophils # (0-0.4) Sodium (136-145) mEq/L Potassium (3.5-5.1) mEq/L Chloride (98-107) mEq/L Carbon Dioxide (21-32) mEq/L Anion Gap (5-15) MEQ/L BUN (9-20) mg/dL Creatinine (0.55-1.30) mg/dl Estimated GFR ML/MIN Glucose (70-110) MG/DL Calcium (8.5-10.1) mg/dL Total Bilirubin (0.2-1.0) mg/dL AST (15-37) U/L ALT (12-78) U/L Alkaline Phosphatase (46-116) U/L Serum Total Protein (6.4-8.2) gm/dL Albumin (3.4-5.0) g/dL Ur Collection Type VOID Urine Color YELLOW (YELLOW) Urine Appearance SLIGHTLY CLOUDY (CLEAR) Urine pH 7.5 7.5 (5-6) Ur Specific [place] >=1.030 (1.005-1.025) Urine Protein 30 (Negative) Urine Glucose (UA) NEGATIVE (NEGATIVE) mg/dL Urine Ketones NEGATIVE (NEGATIVE) Urine Nitrite NEGATIVE (NEGATIVE) Urine Bilirubin NEGATIVE (NEGATIVE) Urine Urobilinogen 0.2 (0-1) mg/dL Urine WBC (Auto) NEGATIVE (NEGATIVE) Urine RBC (Auto) NEGATIVE (0-5) [place]/ul Urine Microscopic WBC 0-2 (0-5) /HPF Ur Epithelial Cells RARE (FEW) /HPF Amorphous Crystals MANY (NEGATIVE) /HPF Urine Bacteria RARE (NEGATIVE) /HPF Salicylates (2.8-20.0) mg/dl Urine Opiates Level (NEGATIVE) Ur Methadone (NEGATIVE) Acetaminophen < 2.0 L (10-30) ug/ml Urine Barbiturates (NEGATIVE) Valproic Acid (50-100) UG/ML Ur Phencyclidine (PCP) (NEGATIVE) Urine Amphetamine (NEGATIVE) U Benzodiazepine Level (NEGATIVE) Urine Cocaine (NEGATIVE) Urine Marijuana (THC) (NEGATIVE) Urine Ethyl Alcohol 4 (0.00-20) mg/dl Specimen Received 01/20/17 1445 01/20/17 01/20/17 01/20/17 Range/Units 14:40 13:23 13:23 WBC 8.5 (4.0-10.5) K/mm3 RBC 3.80 L (4.1-5.6) M/mm3 Hgb 11.6 L (12.5-18.0) gm/dl Hct 35.3 L (42-50) % MCV 92.9 (78-100) fl MCH 30.5 (26-32) pg MCHC 32.9 (32-36) g/dl RDW 13.7 (11.5-14.0) % Plt Count 406 (150-450) K/mm3 MPV 8.6 (6-9.5) fl Gran % 64.4 (36.0-66.0) % Lymphocytes % 25.4 (24.0-44.0) % Monocytes % 8.5 (0.0-12.0) % Eosinophils % 1.5 (0.00-5.0) % Basophils % 0.2 (0.0-0.4) % Basophils # 0.02 (0-0.4) Sodium 145 (136-145) mEq/L Potassium 3.1 L (3.5-5.1) mEq/L Chloride 112 H (98-107) mEq/L Carbon Dioxide 20.0 L (21-32) mEq/L Anion Gap 16.3 H (5-15) MEQ/L BUN 15 (9-20) mg/dL Creatinine 0.78 (0.55-1.30) mg/dl Estimated GFR > 60 ML/MIN Glucose 93 (70-110) MG/DL Calcium 8.4 L (8.5-10.1) mg/dL Total Bilirubin 0.30 (0.2-1.0) mg/dL AST 12 L (15-37) U/L ALT 9 L (12-78) U/L Alkaline Phosphatase 116 (46-116) U/L Serum Total Protein 6.7 (6.4-8.2) gm/dL Albumin 2.9 L (3.4-5.0) g/dL Ur Collection Type Urine Color (YELLOW) Urine Appearance (CLEAR) Urine pH (5-6) Ur Specific [place] (1.005-1.025) Urine Protein (Negative) Urine Glucose (UA) (NEGATIVE) mg/dL Urine Ketones (NEGATIVE) Urine Nitrite (NEGATIVE) Urine Bilirubin (NEGATIVE) Urine Urobilinogen (0-1) mg/dL Urine WBC (Auto) (NEGATIVE) Urine RBC (Auto) (0-5) Harrison/ul Urine Microscopic WBC (0-5) /HPF Ur Epithelial Cells (FEW) /HPF Amorphous Crystals (NEGATIVE) /HPF Urine Bacteria (NEGATIVE) /HPF Salicylates 4.7 (2.8-20.0) mg/dl Urine Opiates Level NEG. (NEGATIVE) Ur Methadone NEG. (NEGATIVE) Acetaminophen (10-30) ug/ml Urine Barbiturates NEG. (NEGATIVE) Valproic Acid 49.7 L (50-100) UG/ML Ur Phencyclidine (PCP) NEG. (NEGATIVE) Urine Amphetamine NEG. (NEGATIVE) U Benzodiazepine Level POS. (NEGATIVE) Urine Cocaine NEG. (NEGATIVE) Urine Marijuana (THC) NEG. (NEGATIVE) Urine Ethyl Alcohol (0.00-20) mg/dl Specimen Received - Progress Progress: improved Discussed with : Daryl Will see patient in: hospital (observation) Counseled pt/family regarding: lab results, diagnosis - Departure Time of Disposition: 16:49 Departure Disposition: Observation Clinical Impression: Overdose Condition: Stable Critical Care Time: No
[2017-01-20] MEDS ORDERED: Sodium Chloride 0.9% 1000 ML 1,000 ML ONE (13:16)
[2017-01-20 13:29] LABS: BASOPHIL % 0.2 % (0.0-0.4); Eosinophil % 1.5 % (0.00-5.0); Granulocytes % 64.4 % (36.0-66.0); Lymphocytes % 25.4 % (24.0-44.0); Mean Cell Volume 92.9 fl (78-100); Mean Corpuscular Hemoglobin 30.5 pg (26-32); Mean Platelet Volume 8.6 fl (6-9.5); Monocytes % 8.5 % (0.0-12.0); Platelet Count 406 K/mm3 (150-450); Red Cell Distribution Width 13.7 % (11.5-14.0); White Blood Count 8.5 K/mm3 (4.0-10.5)
[2017-01-20 13:51] LABS: ALBUMIN 2.9 g/dL (3.4-5.0); ALKALINE PHOSPHATASE 116 U/L (46-116); ANION GAP 16.3 MEQ/L (5-15); BLOOD UREA NITROGEN 15 mg/dL (9-20); CHLORIDE 112 mEq/L (98-107); Glucose 93 MG/DL (70-110); Potassium 3.1 mEq/L (3.5-5.1); SGOT/AST 12 U/L (15-37); SGPT/ALT 9 U/L (12-78); SODIUM 145 mEq/L (136-145); Total Protein 6.7 gm/dL (6.4-8.2)
[2017-01-20] MEDS ORDERED: Klor Con 10 MEQ PO ONE ×2 (14:25→14:33)
[2017-01-20 16:27] LABS: COMPLETE URINE MICROSCOPIC? YES; Collection Type VOID; Ph 7.5 (5-6)
[2017-01-20 16:32] LABS: WBC 0-2 /HPF (0-5)
[2017-01-20 16:33] LABS: Bacteria RARE /HPF (NEGATIVE); Epithelial Cells RARE /HPF (FEW)
[2017-01-20 16:47] LABS: ADD URINE CULTURE? NO (NO)
[2017-01-20] MEDS: Sodium Chloride 0.9% 1000 ML 1,000 ML IV SCH (22:55)
[2017-01-21 05:42] LABS: BASOPHIL % 0.2 % (0.0-0.4); Eosinophil % 1.7 % (0.00-5.0); Granulocytes % 74.8 % (36.0-66.0); Mean Cell Volume 93.6 fl (78-100); Mean Corpuscular Hemoglobin 30.2 pg (26-32); Mean Platelet Volume 9.1 fl (6-9.5); Monocytes % 5.3 % (0.0-12.0); Platelet Count 423 K/mm3 (150-450); Red Blood Count 3.74 M/mm3 (4.1-5.6)
[2017-01-21 05:53] LABS: ANION GAP 13.8 MEQ/L (5-15); CHLORIDE 112 mEq/L (98-107); Glucose 92 MG/DL (70-110); Potassium 3.6 mEq/L (3.5-5.1); SODIUM 142 mEq/L (136-145)
[2017-01-21 06:18] LABS: BLOOD UREA NITROGEN 12 mg/dL (9-20)
--- NOTE | 2017-01-21 08:21 | PCM.HP ---
History of Present Illness - Chief Complaint Chief Complaint: overdose History of Present Illness: is a 51 year old male. Medications & Allergies Home Medications: Home Medication List Aspirin 81 mg PO DAILY 07/30/15 [History Confirmed 01/20/17] Divalproex Sodium [Divalproex Sodium ER] 1,500 mg PO HS 07/30/15 [History Confirmed 01/20/17] Duloxetine HCl [Cymbalta] 60 mg PO DAILY 07/30/15 [History Confirmed 01/20/17] Ranolazine [Ranexa] 1,000 mg PO DAILY 07/30/15 [History Confirmed 01/20/17] Topiramate 100 mg [Topamax 100 MG] 200 mg PO BID 07/30/15 [History Confirmed 01/20/17] Atorvastatin Calcium [Lipitor] 40 mg PO HS 02/01/16 [History Confirmed 01/20/17] Potassium Chloride 20 Meq Tab [Potassium Chloride 20 MEQ TABLET] 20 meq PO DAILY 02/01/16 [History Confirmed 01/20/17] Alprazolam 2 mg PO TIDPRN PRN 01/20/17 [History Confirmed 01/20/17] Lisinopril 5 mg [Zestril 5 MG] 5 mg PO DAILY 01/20/17 [History Confirmed 01/20/17] Quetiapine Fumarate [Seroquel] 600 mg PO HS 01/20/17 [History Confirmed 01/20/17 ] Allergies/Adverse Reactions: Allergies Allergy/AdvReac Type Severity Reaction Status Date / Time gabapentin AdvReac Severe Fainting Verified 01/20/17 13:19 - Past Medical History Past Medical History: Yes Neurological History: Seizures, Stroke ENT History: No Pertinent History Cardiac History: Angina, Coronary Artery Disease, High Cholesterol, Myocardial Infarction ([place]) Respiratory History: COPD Endocrine Medical History: No Pertinent History Musculoskelatal History: Osteoarthritis, Other GI Medical History: GERD History: No Pertinent History Pyscho-Social History: Depression, Other Male Reproductive Disorders: No Pertinent History Comment: PT. REPORTS [place] X 4; PT. REPORTS HE HAS ONE CARDIAC STENT; CHRONINC NECK , BACK, SHOULDER PN. States leg pain, "need knee replacement" - Past Surgical History Past Surgical History: Yes Neuro Surgical History: No Pertinent History Cardiac History: CABG, Cardiac Catheterization, Cardiac Stent Respiratory Surgery: No Pertinent History GI Surgical History: No Pertinent History Genitourinary Surgical Hx: No Pertinent History Musculskeletal Surgical Hx: Other Male Surgical History: No Pertinent History Other Surgical History: Left foot x 2, Right foot x 2, Right knee x 2, Left knee x 2, Right torn rotator cuff, Steal plate with rods and screws in neck - Social History Smoking Status: Current some day smoker How long have you smoked: 35 y Exposure to second hand smoke: No Alcohol: None Drug Use: none Significant Family History: heart disease - Physical Exam Vital Signs: Vital Signs - 24 hr Temp Pulse Resp BP Pulse Ox 01/21/17 04:00 79 01/21/17 02:00 80 16 114/71 99 01/20/17 22:30 97.7 F 83 19 129/88 100 01/20/17 20:00 97.6 F 84 18 140/78 100 01/20/17 17:46 97.9 F 84 16 140/88 100 01/20/17 17:33 77 16 122/77 100 01/20/17 15:46 87 16 142/67 97 01/20/17 13:04 97.2 F 99 H 18 142/76 Results - Labs Lab/Micro Results: Lab Results-Last 24 Hours 01/21/17 01/21/17 Range/Units 05:10 05:10 WBC 9.0 (4.0-10.5) K/mm3 RBC 3.74 L (4.1-5.6) M/mm3 Hgb 11.3 L (12.5-18.0) gm/dl Hct 35.0 L (42-50) % MCV 93.6 (78-100) fl MCH 30.2 (26-32) pg MCHC 32.3 (32-36) g/dl RDW 14.0 (11.5-14.0) % Plt Count 423 (150-450) K/mm3 MPV 9.1 (6-9.5) fl Gran % 74.8 H (36.0-66.0) % Lymphocytes % 18.0 L (24.0-44.0) % Monocytes % 5.3 (0.0-12.0) % Eosinophils % 1.7 (0.00-5.0) % Basophils % 0.2 (0.0-0.4) % Basophils # 0.02 (0-0.4) Sodium 142 (136-145) mEq/L Potassium 3.6 (3.5-5.1) mEq/L Chloride 112 H (98-107) mEq/L Carbon Dioxide 20.0 L (21-32) mEq/L Anion Gap 13.8 (5-15) MEQ/L BUN 12 (9-20) mg/dL Creatinine 0.81 (0.55-1.30) mg/dl Estimated GFR > 60 ML/MIN Glucose 92 (70-110) MG/DL Calcium 8.3 L (8.5-10.1) mg/dL Assessment/Plan (1) Altered mental status Current Visit: Yes Status: Acute Qualifiers: Altered mental status type: disorientation Qualified Code(s): R41.0 - Disorientation, unspecified Assessment & Plan: Much improved, although he had quite a bit of disorientation for the nurse earlier this morning. [facility] consult, and continue medical workup as otherwise noted. Has mental illness at baseline, I'm unsure exactely what his diagnoses are, but he did spend 30d in [facility] at one point years ago, "because my told them I needed to be there." Code(s): R41.82 - ALTERED MENTAL STATUS, UNSPECIFIED (2) Syncope and collapse Current Visit: Yes Status: Acute Assessment & Plan: Pt is a poor historian but sounds as though he had 2 episodes of possible syncope. In this pt with severe CAD, will do a workup if not otherwise done in the past 3-4 months, including MRI, carotid dopplers, TSH, RPR, B12, folate. Code(s): R55 - SYNCOPE AND COLLAPSE (3) Overdose Current Visit: Yes Status: Acute Qualifiers: Encounter type: initial encounter Assessment & Plan: Again, poor historian. Per [facility] he gets Percocet 10/325 1 po QID (#120) and Opana ER 30mg 1 po BID (#60) from Dr. cordova, last filled 01/13/17. He also gets Xanax 2mg [address] Charles, #90 last filled 01/06/17. His meds are all scattered in various medicine bottles (most recent xanax container from Jun 2016); will have pharmacy eval and see if any xanax are left. The pt did state he has been taking xanax q4h but they are prescribed TID. Code(s): T50.901A - POISONING BY UNSP DRUG/MEDS/BIOL SUBST, ACCIDENTAL, INIT (4) COPD (chronic obstructive pulmonary disease) Current Visit: No Status: Chronic Qualifiers: (5) Coronary artery disease Current Visit: No Status: Chronic Code(s): I25.10 - ATHSCL HEART DISEASE OF [place] CORONARY ARTERY W/O ANG PCTRS
[2017-01-21] MEDS: Sodium Chloride 0.9% 1000 ML 1,000 ML IV SCH (09:15)
--- NOTE | 2017-01-21 14:26 | XRAY ---
Exam: MRI of the brain without and with 15 ML's of IV Magnevist contrast from 01/21/2017. Comparison: CT of the head without IV contrast from 11/27/2016. Indication: Syncope, confusion, history of seizures. Technique: Routine multiplanar pre-IV contrast and post IV contrast MRI imaging sequences were obtained.. Findings: The ventricles appear of unremarkable size and configuration. There is a small 3.5 mm in width by 4.5 mm in AP depth CSF intensity focus adjacent to the frontal horn of the right lateral ventricle on axial image #14 of series #4. This probably represents a prominent CFS space or old lacunar infarct. No focal mass effect or midline shift is seen. No abnormal extra-axial fluid collections are seen. There is no evidence of intracranial hemorrhage or other mass. Flow voids about the [place] appear unremarkable. The seventh and eighth cranial nerve complexes appear unremarkable. I see no significant abnormality within the brainstem. The pituitary gland appears of normal size. The diffusion-weighted images reveal no areas of restricted diffusion to suggest an acute infarct. No abnormal enhancement is seen on the post-IV contrast images to suggest a mass. The globes of each eye, optic nerves, and extraocular muscles appear unremarkable. There is minimal deviation of nasal septum toward the right. No abnormal increased signal is seen within the mastoid air cells. There appears be some minimal scattered mucosal thickening within the frontal sinuses, the ethmoid sinuses, and both maxillary sinuses. No air-fluid levels are seen. I believe there is an 8-9 mm retention cyst or small polyp within the upper left lateral margin of the left maxillary sinus. Impression: 1. No acute intracranial bleed, acute/subacute infarct, or enhancing mass lesion is seen within the brain. 2. Minor chronic mucosal thickening is seen within the paranasal sinuses, as discussed above. I believe this represents no significant interval change. In addition, I believe there is a small approximately 8 mm in diameter retention cyst or polyp within the upper left lateral aspect of the left maxillary sinus.
--- NOTE | 2017-01-21 15:25 | XRAY ---
Exam: Bilateral duplex Doppler carotid ultrasound exam from 01/21/2017. Comparison: None. Indication: Syncope. Findings: The examination was carried out in the usual manner with multiple longitudinal and transverse grayscale images, color flow images, and Doppler tracings with velocity measurements. On the right side, mild fibrocalcific plaque is seen along the posterior aspect of the right carotid bulb. There is only slight intimal thickening seen within the right common carotid artery. Color flow images reveal no significant stenosis. Peak systolic flow velocities in centimeters per second measure 65.1 within the common carotid artery, 89.9 within the proximal external carotid artery, and 61.2 and 75.5 within the proximal and distal internal carotid artery, respectively. Peak systolic flow velocity ratio between the ICA and CCA is 1.2 which is not significantly increased. The right vertebral artery reveals antegrade flow and measures 56.0 cm/s. On the left side, minimal intimal thickening is seen within the common carotid artery. Also, a small amount of calcific plaque is seen along the anterior and posterior medial aspects of the left carotid bulb. Color flow images reveal no significant stenosis. Peak systolic flow velocities in centimeters per second measure 69.0 within the common carotid artery, 95.1 within the external carotid artery, and 86.0 and 89.9 within the proximal and distal internal carotid artery, respectively. The proximal and distal internal carotid artery. Peak systolic flow velocity ratio between the ICA and CCA measures 1.3 which is not significantly increased. The left vertebral artery reveals antegrade flow with a peak systolic flow velocity of 53.3 cm/s. Impression: 1. A small amount of fibrocalcific plaque is seen about both carotid bulbs, as discussed above. No evidence of hemodynamically significant stenosis of 50% or greater diameter reduction is seen within either visualized carotid artery. 2. Both vertebral arteries reveal antegrade flow.
[2017-01-21 15:37] VITALS: BP 108/81; PULSE 89; O2SAT 98
== END 2017-01-21 16:00 | disposition home or self-care (01) ==
LOC: ED 13:03 → MED SURG 17:32 → ICU 22:31
PROVIDERS: ADMIT Family Medicine; ATTEND Family Medicine
DX: R41.0 Disorientation, unspecified (principal); R55 Syncope and collapse; T50.901A Poisoning by unspecified drugs, medicaments and biological substances, accidental (unintentional), initial encounter; R41.82 Altered mental status, unspecified; J44.9 Chronic obstructive pulmonary disease, unspecified; I25.810 Atherosclerosis of coronary artery bypass graft(s) without angina pectoris; K21.9 Gastro-esophageal reflux disease without esophagitis; F32.9 Major depressive disorder, single episode, unspecified; M79.606 Pain in leg, unspecified; Z72.0 Tobacco use; Z79.899 Other long term (current) drug therapy
CPT/HCPCS: 93268; 93041; 99285; 96360; 93005; 81000; 84443; 86592; 36415 ×2; 84439; 80164; 84480; 80307 ×2; 80320; 83986; 85025 ×2; 80048; 80053; 93880; 70553; G0481; 90791; G0378; Q3014; A9270-GY

== ENCOUNTER 2017-02-14 13:41 | Inpatient (IN) | payer MEDICARE ==
[2017-02-14] MEDS ORDERED: DUONEB 0.5-3 MG/3 ml Neb IH ONE ×2 (14:31→15:08)
--- NOTE | 2017-02-14 14:38 | ERPHSYRPT ---
- History of Present Illness Time Seen by Provider: 02/14/17 14:31 Source: patient, family Exam Limitations: no limitations Patient Subjective Stated Complaint: cough, sorethroat, nausea Triage Nursing Assessment: pt alert x 3. walked into er. Skin pink warm and dry. respirations even and unlabored. Physician History: 51-year-old white male with history of seizure, strokes, COPD, sick coronary artery disease, myocardial infarction Patient arrives with complaint of a cough productive of yellow sputum and shortness of breath wheezing vomiting symptoms 2 weeks. Patient has not had a fever. Past medical history includes seizure, strokes, COPD, angina, coronary artery disease, myocardial infarction, hypercholesterolemia, GERD, arthritis, depression, myocardial infarction 4 Chronic neck back and shoulder pain, arthritis,. Past surgical history includes CABG cardiac catheter cardiac stent left foot surgery, right knee surgery 2 left knee surgery 2. Timing/Duration: week(s) (2 weeks) Activities at Onset: none Severity of Dyspnea-Max: moderate Severity of Dyspnea-Current: moderate Possible Cause: occasional episodes Modifying Factors: Improves With: nothing Associated Symptoms: constant, cough, insomnia, wheezing, weakness (Will), productive cough, No anxiety, No chest pain/discomfort, No edema, No fever, No loss of appetite, No lightheadedness, No ankle swelling, No chills, No hemoptysis, No calf pain, No dizziness, No heaviness, No heart racing, No lightheadedness, No leg swelling, No muscle spasms feet, No muscle spasms hands , No painful breathing, No sweating, No tightness, No tingling face, No tingling hands International travel in last 2 weeks: No Allergies/Adverse Reactions: gabapentin Adverse Reaction (Severe, Verified 01/20/17 13:19) Fainting Home Medications: Aspirin 81 mg PO DAILY 07/30/15 [History] Divalproex Sodium [Divalproex Sodium ER] 1,500 mg PO HS 07/30/15 [History] Duloxetine HCl [Cymbalta] 60 mg PO DAILY 07/30/15 [History] Ranolazine [Ranexa] 1,000 mg PO DAILY 07/30/15 [History] Topiramate 100 mg [Topamax 100 MG] 200 mg PO BID 07/30/15 [History] Atorvastatin Calcium [Lipitor] 40 mg PO HS 02/01/16 [History] Potassium Chloride 20 Meq Tab [Potassium Chloride 20 MEQ TABLET] 20 meq PO DAILY 02/01/16 [History] Lisinopril 5 mg [Zestril 5 MG] 5 mg PO DAILY 01/20/17 [History] Quetiapine Fumarate [Seroquel] 600 mg PO HS 01/20/17 [History] Hx Tetanus, Diphtheria Vaccination/Date Given: Yes (unknown) Hx Influenza Vaccination/Date Given: Yes (2016) Hx Pneumococcal Vaccination/Date Given: Yes Immunizations Up to Date: Yes - Review of Systems Constitutional: Malaise, Weakness, No Fever, No Chills, No Fatigue, No Lethargy , No Weight Loss Eyes: No Symptoms Ears, Nose, & Throat: No Symptoms, Throat Pain, No Ear Pain, No Ear Discharge, No Hearing Changes (1), No Tinnitus, No Nose Pain, No Nose Congestion, No Nose Discharge, No Sinus Drainage, No Epistaxis, No Mouth Pain, No Mouth Swelling, No Loose Teeth, No Throat Swelling, No Hoarse, No Painful Swallowing, No Snoring , No Stridor Respiratory: Cough, Dyspnea, Dyspnea on Exertion (ALBRECHT), Wheezing, No Cyanosis, No Stridor Cardiac: No Chest Pain, No Edema, No Syncope Abdominal/Gastrointestinal: Nausea, Vomiting, No Abdominal Pain, No Diarrhea, No Constipation, No Hematemesis, No Hematochezia, No Melena, No Dysphagia, No Appetite Changes Genitourinary Symptoms: No Dysuria Musculoskeletal: No Back Pain, No Neck Pain Skin: No Rash Neurological: No Dizziness, No Focal Weakness, No Sensory Changes Psychological: No Symptoms Endocrine: No Symptoms All Other Systems: Reviewed and Negative - Past Medical History Pertinent Past Medical History: Yes Neurological History: Seizures, Stroke ENT History: No Pertinent History Cardiac History: Angina, Coronary Artery Disease, High Cholesterol, Myocardial Infarction ([place]) Respiratory History: COPD Endocrine Medical History: No Pertinent History Musculoskeletal History: Osteoarthritis, Other GI Medical History: GERD History: No Pertinent History Psycho-Social History: Depression, Other Male Reproductive Disorders: No Pertinent History Other Medical History: PT. REPORTS [place] X 4; PT. REPORTS HE HAS ONE CARDIAC STENT ; CHRONINC NECK, BACK, SHOULDER PN. States leg pain, "need knee replacement" - Past Surgical History Past Surgical History: Yes Neuro Surgical History: No Pertinent History Cardiac: CABG, Cardiac Catheterization, Cardiac Stent Respiratory: No Pertinent History Gastrointestinal: No Pertinent History Genitourinary: No Pertinent History Musculoskeletal: Other Male Surgical History: No Pertinent History Other Surgical History: Left foot x 2, Right foot x 2, Right knee x 2, Left knee x 2, Right torn rotator cuff, Steal plate with rods and screws in neck - Social History Smoking Status: Current some day smoker How long have you smoked: 35 y Exposure to second hand smoke: Yes Alcohol Use: None Drug Use: none Patient Lives Alone: Yes Significant Family History: heart disease - Nursing Vital Signs Nursing Vital Signs: Initial Vital Signs Temperature 98.1 F Temperature Source Oral Pulse Rate 70 Respiratory Rate 20 Blood Pressure [Right Arm] 93/48 Pain Intensity 0 - Physical Exam General Appearance: moderate distress, other (well-developed well-nourished white male frequent cough, ) Ears, Nose, Throat Exam: hearing grossly normal, normal ENT inspection, No normal pharynx (throat erythematous), No abnormal TM (R), No abnormal TM (L) Neck Exam: normal inspection, supple Respiratory Exam: rhonchi, wheezing, No chest tenderness, No lungs clear Cardiovascular/Chest Exam: normal heart sounds, regular rate/rhythm Abdominal/Gastrointestinal Exam: soft, No tenderness, No distention, No mass Extremity Exam: non-tender (he is drinking again when he smoked) Peripheral Pulses Exam: dorsalis-pedis (R): 2+, dorsalis-pedis (L): 2+ Neurologic Exam: alert, oriented x 3, cooperative, 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 New focal airspace disease at right lung base consistent with pneumonia. Consider aspiration) Ordered Tests: Active Orders 24 hr Category Date Time Status Bedrest with BRP/BSC ROUTINE Activity 02/14/17 17:15 Active Admission/Status Order ROUTINE Care 02/14/17 17:15 Active Call Admit Doctor for Orders ON ADMISSION Care 02/14/17 17:15 Active Coverstitch Elastic Attacher STAT Care 02/14/17 14:31 Completed Code Status Order ROUTINE Care 02/14/17 17:15 Active EKG-ER Only STAT Care 02/14/17 14:31 Completed IV Care Q6H Care 02/14/17 17:15 Active IV Insertion STAT Care 02/14/17 14:31 Completed Oxygen-ED Only NASAL CANNULA 2 lpm Care 02/14/17 14:31 Completed Telemetry ROUTINE Care 02/14/17 17:15 Active Clear Liquid Diet 02/14/17 Breakfast Active CHEST 1 VIEW (PORTABLE) Stat Exams 02/14/17 14:32 Completed ARTERIAL BLOOD GASES Stat Lab 02/14/17 14:31 Completed BLOOD CULTURE Stat Lab 02/14/17 14:55 Received CBC W DIFF AM.LAB Lab 02/15/17 04:00 Ordered CBC W DIFF Stat Lab 02/14/17 14:50 Completed CMP AM.LAB Lab 02/15/17 04:00 Ordered CMP Stat Lab 02/14/17 14:50 Completed CULTURE, THROAT Stat Lab 02/14/17 14:50 Received CULTURE,SPUTUM Stat Lab 02/14/17 14:32 Uncollected Lactic Acid Stat Lab 02/14/17 15:25 Completed Manual Differential NC Stat Lab 02/14/17 14:50 Completed NT PRO BNP Stat Lab 02/14/17 14:50 Completed STREP SCREEN-BETA A Stat Lab 02/14/17 14:50 Completed Oxygen NASAL CANNULA 2 lpm RT 02/14/17 17:15 Active Respiratory Nebulizer STAT RT 02/14/17 14:32 Completed Respiratory Therapy Consult ROUTINE RT 02/14/17 17:15 Active Transfer Order Routine Transfer 02/14/17 16:51 Completed Medication Summary Generic Name Dose Route Start Last Admin Trade Name Freq PRN Reason Stop Dose Admin Albuterol/Ipratropium 3 ml 02/14/17 17:15 Duoneb 0.5-3 Mg/3 Ml Neb IH 03/16/17 17:14 Q4HPRN PRN SHORTNESS OF BREATH/WHEEZING Azithromycin 500 mg in 250 mls @ 250 mls/hr 02/14/17 18:00 Zithromax 500 Mg/ 250 Ml Nacl Premix IV 03/16/17 17:59 Q24H MAGED Ceftriaxone Sodium/Dextrose 1 g in 50 mls @ 100 mls/hr 02/15/17 10:00 Rocephin 1 Gm-D5w 50 Ml Bag IV 03/17/17 09:59 Q24H10 MAGED Sodium Chloride 1,000 mls @ 100 mls/hr 02/14/17 17:15 Sodium Chloride 0.9% 1000 Ml IV 03/16/17 17:14 .Q10H MAGED Discontinued Medications Generic Name Dose Route Start Last Admin Trade Name Freq PRN Reason Stop Dose Admin Albuterol/Ipratropium 3 ml 02/14/17 14:31 02/14/17 15:25 Duoneb 0.5-3 Mg/3 Ml Neb IH 02/14/17 14:32 3 ml STAT ONE Administration Albuterol/Ipratropium Confirm 02/14/17 15:08 Duoneb 0.5-3 Mg/3 Ml Neb Administered 02/14/17 15:09 Dose 3 ml IH .STK-MED ONE Ceftriaxone Sodium/Dextrose 1 g in 50 mls @ 100 mls/hr 02/14/17 15:57 16:25 Rocephin 1 Gm-D5w 50 Ml Bag IV 02/14/17 16:26 100 mls/hr STAT STA Administration Ceftriaxone Sodium/Dextrose Confirm 02/14/17 16:23 Rocephin 1 Gm-D5w 50 Ml Bag Administered 02/14/17 16:24 Dose 1 g in 50 mls @ ud IV .STK-MED ONE Lab/Rad Data: Laboratory Result Diagrams 02/14/17 14:50 02/14/17 14:50 Laboratory Results 02/14/17 02/14/17 02/14/17 Range/Units 15:25 14:50 14:50 WBC (4.0-10.5) K/mm3 RBC (4.1-5.6) M/mm3 Hgb (12.5-18.0) gm/dl Hct (42-50) % MCV (78-100) fl MCH (26-32) pg MCHC (32-36) g/dl RDW (11.5-14.0) % Plt Count (150-450) K/mm3 MPV (6-9.5) fl Segmented Neutrophils (36.-66.) % Band Neutrophils (0.0-2.0) % Lymphocytes (Manual) (24-44) % Monocytes (Manual) (0.0-12.0) % Metamyelocytes % Myelocytes % Promyelocytes % Differential Comment Platelet Estimate (NORMAL) Hypochromasia Puncture Site pCO2 (35-45) mmHg pO2 (75-100) mmHg Base Excess (-2.0-2.0) O2 Saturation (94-100) g/dF ABG pH (7.35-7.45) ABG HCO3 (22-28) ABG O2 Sat (Measured) (95-100) % Alex Test A-a Gradient a/A Ratio Hemoglobin Carboxyhemoglobin (0.0-6.9) % THgb Methemoglobin (1.4-1.5) % Potassium 3.6 (3.5-5.1) Temperature C POC O2 Flow Rate % Sodium 134 L (136-145) mEq/L Chloride 96 L (98-107) mEq/L Carbon Dioxide 20.4 L (21-32) mEq/L Anion Gap 21.3 H (5-15) MEQ/L BUN 64 H (9-20) mg/dL Creatinine 2.65 H (0.55-1.30) mg/dl Estimated GFR 27 ML/MIN Glucose 94 (70-110) MG/DL Lactic Acid 1.7 (0.4-2.0) Calcium 9.8 (8.5-10.1) mg/dL Total Bilirubin 0.60 (0.2-1.0) mg/dL AST 40 H (15-37) U/L ALT 43 (12-78) U/L Alkaline Phosphatase 384 H (46-116) U/L NT-Pro-B Natriuret Pep 1213 H (0-125) pg/ml Serum Total Protein 8.6 H (6.4-8.2) gm/dL Albumin 2.4 L (3.4-5.0) g/dL Streptococcus Screen NEGATIVE (Negative) 02/14/17 02/14/17 Range/Units 14:50 14:31 WBC 23.0 H (4.0-10.5) K/mm3 RBC 3.47 L (4.1-5.6) M/mm3 Hgb 10.7 L (12.5-18.0) gm/dl Hct 32.2 L (42-50) % MCV 92.8 (78-100) fl MCH 30.8 (26-32) pg MCHC 33.2 (32-36) g/dl RDW 14.2 H (11.5-14.0) % Plt Count 588 H (150-450) K/mm3 MPV 10.1 H (6-9.5) fl Segmented Neutrophils 73 H (36.-66.) % Band Neutrophils 11 H (0.0-2.0) % Lymphocytes (Manual) 4 L (24-44) % Monocytes (Manual) 6 (0.0-12.0) % Metamyelocytes 3 % Myelocytes 2 % Promyelocytes 1 % Differential Comment ABNORMAL Platelet Estimate INCREASED (NORMAL) Hypochromasia 1+ Puncture Site RIGHT BRACHIAL pCO2 28 L (35-45) mmHg pO2 87 (75-100) mmHg Base Excess -4.2 L (-2.0-2.0) O2 Saturation 96.1 (94-100) g/dF ABG pH 7.44 (7.35-7.45) ABG HCO3 19.0 L (22-28) ABG O2 Sat (Measured) 98.6 (95-100) % Alex Test NOT APPLICABLE A-a Gradient 28 a/A Ratio 0.76 Hemoglobin 9.9 Carboxyhemoglobin 1.5 (0.0-6.9) % THgb Methemoglobin 1.0 L (1.4-1.5) % Potassium 3.4 L (3.5-5.1) Temperature 37.0 C POC O2 Flow Rate 21 % Sodium (136-145) mEq/L Chloride (98-107) mEq/L Carbon Dioxide (21-32) mEq/L Anion Gap (5-15) MEQ/L BUN (9-20) mg/dL Creatinine (0.55-1.30) mg/dl Estimated GFR ML/MIN Glucose (70-110) MG/DL Lactic Acid (0.4-2.0) Calcium (8.5-10.1) mg/dL Total Bilirubin (0.2-1.0) mg/dL AST (15-37) U/L ALT (12-78) U/L Alkaline Phosphatase (46-116) U/L NT-Pro-B Natriuret Pep (0-125) pg/ml Serum Total Protein (6.4-8.2) gm/dL Albumin (3.4-5.0) g/dL Streptococcus Screen (Negative) - Progress Air Movement: fair Progress Note: 02/14/17 17:39 Patient improved but still feels short of breath after a DuoNeb treatment patient has a right lower lobe pneumonia. Patient's friends state he feels terrible he wants to be admitted patient does not want to go to [facility] he wishes to stay here. I've contacted Dr. Fernández patient will be admitted placed on IV steroids IV Rocephin and Zithromax continuing with the DuoNeb treatments. Antibiotics given: Yes - Departure Time of Disposition: 17:15 Departure Disposition: Observation Clinical Impression: COPD with exacerbation Right lower lobe pneumonia Qualifiers: Pneumonia type: due to unspecified organism Qualified Code(s): J18.1 - Lobar pneumonia, unspecified organism Renal failure Qualifiers: Renal failure chronicity: unspecified chronicity Qualified Code(s): N19 - Unspecified kidney failure Condition: Fair Critical Care Time: No
[2017-02-14 15:26] LABS: Mean Cell Volume 92.8 fl (78-100); Mean Corpuscular Hemoglobin 30.8 pg (26-32); Mean Platelet Volume 10.1 fl (6-9.5); Platelet Count 588 K/mm3 (150-450); Red Blood Count 3.47 M/mm3 (4.1-5.6); Red Cell Distribution Width 14.2 % (11.5-14.0)
--- NOTE | 2017-02-14 15:27 | XRAY ---
Exam: AP upright chest film from 1440 hrs. on 02/14/2017. Comparison: AP upright portable chest film from 11/27/2016. Indication: Persistent cough and gagging when attempting to eat 2 weeks. Findings: The transverse heart size is normal. There appears to be evidence of prior sternotomy. Other apparent postsurgical densities or external artifacts are seen oriented vertically in the midline. Correlate clinically. The significant finding is the presence of new asymmetric airspace disease at the right lung base suggestive of pneumonia. Given the patient's history of varying sites of infiltrates in the past, aspiration pneumonia should be considered. The remainder of the lung acevedo appears clear. No central vascular congestion, pneumothorax, or pleural fluid is seen. The bones appear grossly intact. Impression: 1. New focal airspace disease at the right lung base consistent with pneumonia. Consider aspiration.
[2017-02-14 15:28] LABS: A-aADO2 28; ARTERIAL BLD GAS O2 SATURATION 98.6 % (95-100); ARTERIAL BLOOD GAS BASE EXCESS -4.2 (-2.0-2.0); ARTERIAL BLOOD GAS FIO2 21 %; ARTERIAL BLOOD GAS PO2 87 mmHg (75-100); ARTERIAL BLOOD GAS pH 7.44 (7.35-7.45)
[2017-02-14 15:50] LABS: ALBUMIN 2.4 g/dL (3.4-5.0); ANION GAP 21.3 MEQ/L (5-15); BILIRUBIN,TOTAL 0.6 mg/dL (0.2-1.0); Carbon Dioxide 20.4 mEq/L (21-32); Potassium 3.6 mEq/L (3.5-5.1); Total Protein 8.6 gm/dL (6.4-8.2)
[2017-02-14] MEDS ORDERED: ROCEPHIN 1 Gm-D5w 50 ml Bag** 1 G/50 ML IVPB IV STA (15:57)
[2017-02-14 16:03] LABS: BAND 11 % (0.0-2.0); Metamyelocyte 3 %; Myelocyte 2 %; Promyelocyte 1 %; Total Cells Counted 100
[2017-02-14 16:06] LABS: Hypochromia 1+; Platelet Estimate INCREASED (NORMAL)
[2017-02-14] MEDS ORDERED: ROCEPHIN 1 Gm-D5w 50 ml Bag** 1 G/50 ML IVPB IV ONE (16:23)
[2017-02-14] MEDS ORDERED: DUONEB 0.5-3 MG/3 ml Neb IH PRN (17:15)
[2017-02-14] MEDS: Sodium Chloride 0.9% 1000 ML 1,000 ML IV SCH (17:49)
[2017-02-14] MEDS: Zithromax 500 MG/ 250 ML NaCl Premix 500 MG/250 ML IVPB IV SCH (17:49)
[2017-02-14] MEDS ORDERED: Sodium Chloride 0.9% 1000 ML 1,000 ML IV STA ×2 (18:43→21:19)
[2017-02-14] MEDS: ZOCOR 20MG PO SCH (21:20)
[2017-02-14] MEDS: Topamax 100 MG PO SCH (21:20)
[2017-02-14] MEDS: Depakote EXTENDED RELEASE 250 MG PO SCH (21:21)
[2017-02-14] MEDS: Seroquel 100 MG PO SCH (21:22)
[2017-02-15] MEDS: Sodium Chloride 0.9% 1000 ML 1,000 ML IV SCH ×3 (01:21→20:33)
[2017-02-15 05:29] LABS: Mean Corpuscular Hemoglobin 30.5 pg (26-32); Mean Platelet Volume 9.8 fl (6-9.5); Platelet Count 487 K/mm3 (150-450); Red Blood Count 2.72 M/mm3 (4.1-5.6); White Blood Count 21.6 K/mm3 (4.0-10.5)
[2017-02-15 05:51] LABS: ALBUMIN 1.6 g/dL (3.4-5.0); ANION GAP 15.2 MEQ/L (5-15); BILIRUBIN,TOTAL 0.4 mg/dL (0.2-1.0); Carbon Dioxide 20.7 mEq/L (21-32); Total Protein 5.9 gm/dL (6.4-8.2)
[2017-02-15 05:58] LABS: Potassium 2.9 mEq/L (3.5-5.1)
[2017-02-15] MEDS: POTASSIUM CHLORIDE 20 mEq IN WATER 100ML 100 ML IV SCH ×2 (06:12→08:10)
[2017-02-15 07:28] LABS: ANISOCYTOSIS 1+; BAND 3 % (0.0-2.0); Platelet Estimate NORMAL (NORMAL); Poikilocytosis 1+; Total Cells Counted 100
[2017-02-15] MEDS: Topamax 100 MG PO SCH ×2 (08:10→21:27)
[2017-02-15] MEDS: ROCEPHIN 1 Gm-D5w 50 ml Bag** 1 G/50 ML IVPB IV SCH (09:13)
[2017-02-15] MEDS: Cymbalta 30 MG Capsule PO SCH (11:55)
[2017-02-15] MEDS: Klor Con 10 MEQ PO SCH (11:55)
[2017-02-15] MEDS: Ranexa 500 MG PO SCH (11:55)
[2017-02-15] MEDS ORDERED: Lasix 20 MG/2 ML IV ONE (14:33)
[2017-02-15] MEDS ORDERED: ENOXAPARIN SODIUM SQ SCH (15:00)
[2017-02-15] MEDS: ECOTRIN 81 MG PO SCH (15:07)
[2017-02-15] MEDS ORDERED: PHARMACY DOSING REQUEST MC ONE (16:21)
--- NOTE | 2017-02-15 16:56 | HP ---
History has been gathered from review of patient's chart and discussion with the patient. HISTORY OF PRESENT ILLNESS: Mr. Yu is a 51 y/o male with past medical history of chronic obstructive pulmonary disease, hypertension, coronary artery disease status post myocardial infarction, hyperlipidemia, cerebrovascular accident, gastroesophageal reflux disease, arthritis, depression, and chronic neck, back, and shoulder pain. He presented to Emergency Room yesterday with increasing shortness of breath, wheezing, productive cough with yellow phlegm, fatigue, and vomiting for 2 weeks. There was no reported history of fever. Upon initial evaluation in Emergency Room, he was noted to have BP of 93/48, heart rate 72, respiratory rate 20, temperature 98.1. Initial chest x-ray had shown focal air space disease at right lung base. Also, CBC was notable for WBC of 23. He was treated with DuoNebs, Rocephin 1 Gm IV X 1. Subsequently, he was admitted to medical floor for further monitoring and management. Since admission, he was continued on IV fluids, broad spectrum IV antibiotics. His course last night was notable for drop in his BP readings requiring fluid bolus X 2 with subsequent improvement of the same. At the time of this evaluation, he is alert and awake. Complains of shortness of breath. Complains of fatigue. Complains of productive cough. PAST MEDICAL HISTORY: As noted above. Patient also had history of seizure disorder. PAST SURGICAL HISTORY: Status post cardiac catheterization with stent placement, coronary artery bypass graft, left foot surgery, right knee surgery, and left knee surgery X 2. FAMILY HISTORY: History of heart disease in family members. SOCIAL HISTORY: Patient is active smoker. Has smoked for 35 years. Denies alcohol abuse or illicit drug use. ALLERGIES: GABAPENTIN. CURRENT MEDICATIONS: Were reviewed. REVIEW OF SYSTEMS: Denies headache or dizziness. Complains of fatigue. Complains of generalized weakness. No fever. Denied chest pain. Complains of shortness of breath, wheezing, chest congestion, and productive cough. Denies abdominal pain, nausea, or vomiting. Denies constipation or diarrhea. Denies urinary complaints. PHYSICAL EXAMINATION: Middle aged male lying comfortable in bed. Not in acute distress. VITAL SIGNS: BP 106/66, heart rate 64, respiratory rate 20, temperature 97.7, O2 saturation of 95% on room air. HEENT: Pallor present. No icterus noted. NECK: No JVD present. CVS: S1 and S2 present. RESPIRATORY: Breath sounds bilaterally diminished. Scattered wheezing present. ABDOMEN: Soft, nontender. NEURO: He is alert and awake, answers simple questions appropriately. Follows simple commands appropriately. Evaluation of motor strength in bilateral upper and lower extremities reveals grossly intact motor strength. EXTREMITIES: Reveals no edema on bilateral lower extremities. LABORATORY DATA: Labs from admission were reviewed. Today's labs are notable for CBC with WBC of 21.6, Hgb 8.3, Hct 25.3, platelets 487, neutrophils 81, bands 3, lymphocytes 13. Arterial blood gas from yesterday showed pH of 7.44, PCO2 28, PO2 87. Today's CMP was notable for potassium of 2.9, bicarb 20, BUN 55, creatinine 1.34. Stool occult blood is negative. Strep screen is negative. NT Pro BNP was 1213. EKG from yesterday showed sinus rhythm at 72 beats/minute, complete RBBB. Blood cultures from 02/14/17 are pending. Strep culture from 02/14/17 is negative. ASSESSMENT AND PLAN: 51 y/o male with impression: 1. PNEUMONIA. 2. CHRONIC OBSTRUCTIVE PULMONARY DISEASE WITH EXACERBATION. 3. RENAL INSUFFICIENCY. 4. HYPOTENSION - IMPROVED. 5. HISTORY OF HYPERTENSION/CORONARY ARTERY DISEASE. 6. SEIZURE DISORDER. 7. CHRONIC PAIN SYNDROME (LEG, BACK, SHOULDER). 8. HISTORY OF GASTROESOPHAGEAL REFLUX DISEASE. 9. ANEMIA WITH DROP IN HGB/HCT (LIKELY SECONDARY TO DILUTION). 10. HYPERLIPIDEMIA. 11. HISTORY OF DEPRESSION. 12. HYPOKALEMIA. PLAN: 1. Patient is admitted for further monitoring and management. 2. Will continue nebulizations and broad spectrum IV antibiotics. 3. Addition of IV steroids. 4. Will obtain baseline troponin. 5. Continue to monitor hemodynamic status. 6. Repeat chest x-ray today. 7. Continue to follow CBC and electrolytes. 8. Likely transfer to [place] if symptoms persist. This was discussed with patient. He is in agreement. Plan was discussed with patient's nurse, Katlin.
[2017-02-15] MEDS: Zithromax 500 MG/ 250 ML NaCl Premix 500 MG/250 ML IVPB IV SCH (17:11)
[2017-02-15] MEDS: solu-MEDROL 125 MG IV SCH ×2 (17:11→23:31)
--- NOTE | 2017-02-15 19:29 | XRAY ---
Indication: Pneumonia. Comparison: One day earlier. PA/lateral chest demonstrates little to no improvement in the previous right middle lobe infiltrate. No new cardiopulmonary abnormalities. Comment: Preliminary interpretation was made by [facility]. No discrepancy.
[2017-02-15] MEDS: Depakote EXTENDED RELEASE 250 MG PO SCH (21:26)
[2017-02-15] MEDS: ZOCOR 20MG PO SCH (21:27)
[2017-02-15] MEDS: Seroquel 100 MG PO SCH ×2 (21:29→21:35)
[2017-02-16] MEDS: Sodium Chloride 0.9% 1000 ML 1,000 ML IV SCH ×2 (04:34→13:19)
[2017-02-16] MEDS: solu-MEDROL 125 MG IV SCH ×3 (05:44→22:39)
[2017-02-16 05:56] LABS: Mean Cell Volume 93.5 fl (78-100); Mean Corpuscular Hemoglobin 30.7 pg (26-32); Platelet Count 491 K/mm3 (150-450); Red Blood Count 2.93 M/mm3 (4.1-5.6); Red Cell Distribution Width 14.3 % (11.5-14.0); White Blood Count 17.9 K/mm3 (4.0-10.5)
[2017-02-16 06:30] LABS: ALBUMIN 1.5 g/dL (3.4-5.0); ALKALINE PHOSPHATASE 229 U/L (46-116); ANION GAP 15.8 MEQ/L (5-15); BLOOD UREA NITROGEN 36 mg/dL (9-20); CHLORIDE 110 mEq/L (98-107); Carbon Dioxide 20.4 mEq/L (21-32); Glucose 118 MG/DL (70-110); SGOT/AST 21 U/L (15-37); SGPT/ALT 21 U/L (12-78); SODIUM 142 mEq/L (136-145); Total Protein 6.2 gm/dL (6.4-8.2)
[2017-02-16 07:52] LABS: Total Cells Counted 100
[2017-02-16 07:53] LABS: ANISOCYTOSIS 1+; Platelet Estimate NORMAL (NORMAL); Poikilocytosis 1+
[2017-02-16] MEDS: ENOXAPARIN SODIUM SQ SCH ×2 (07:56→22:39)
[2017-02-16] MEDS: ROCEPHIN 1 Gm-D5w 50 ml Bag** 1 G/50 ML IVPB IV SCH (07:56)
[2017-02-16] MEDS: Ranexa 500 MG PO SCH (07:57)
[2017-02-16] MEDS: Cymbalta 30 MG Capsule PO SCH (07:57)
[2017-02-16] MEDS: Klor Con 10 MEQ PO SCH (07:57)
[2017-02-16] MEDS: Topamax 100 MG PO SCH ×2 (07:57→22:37)
[2017-02-16] MEDS: ECOTRIN 81 MG PO SCH (07:57)
[2017-02-16] MEDS ORDERED: NON-FORMULARY ITEM (Duloxetine Hcl [Cymbalta] 60 MG) PO SCH (10:00)
[2017-02-16] MEDS ORDERED: NON-FORMULARY ITEM (Potassium Chloride 20 Meq Tab [Potassium Chloride 20 Meq Tablet] 20 ME PO SCH (10:00)
[2017-02-16] MEDS ORDERED: RANOLAZINE 1000 MG PO SCH (10:00)
--- NOTE | 2017-02-16 11:50 | PCM.NOTE ---
Date and Time: 02/16/17 1147 Subjective Assessment: doing little better, still short of breath. c/o cough with greenish yellow phlegm - Review of Systems Constitutional: No Symptoms Eyes: No Symptoms Ears, Nose, & Throat: No Symptoms Respiratory: Cough, Short Of Breath Cardiac: No Symptoms Abdominal/Gastrointestinal: No Symptoms Objective Exam General Appearance: no apparent distress Neurologic Exam: alert, oriented x 3 Skin Exam: normal color Eye Exam: PERRL, EOMI Ears, Nose, Throat Exam: normal ENT inspection Neck Exam: normal inspection Lymphatic Exam: No adenopathy Respiratory Exam: diminished breath sounds, crackles/rales, rhonchi, wheezing Cardiovascular Exam: regular rate/rhythm OBJECTIVE DATA Vital Signs: Vital Signs - 24 hr Temp Pulse Resp BP Pulse Ox 02/16/17 08:00 20 02/16/17 07:42 98.3 F 81 20 118/66 92 L 02/16/17 06:55 78 20 92 L 02/16/17 04:00 97.8 F 91 H 18 131/88 99 02/16/17 00:00 22 02/15/17 23:33 98.3 F 88 22 92/50 100 02/15/17 19:59 20 02/15/17 19:47 98.5 F 76 20 112/59 98 02/15/17 19:30 81 16 98 02/15/17 16:00 18 02/15/17 15:51 98 F 68 18 107/58 95 02/15/17 12:00 20 Pain Assessment - Last Documented Pain Intensity 0 Pain Scale Used 0-10 Pain Scale Intake and Output: Intake & Output 02/13/17 02/14/17 02/15/17 02/16/17 11:59 11:59 11:59 11:59 Intake Total 7778 3809 Output Total 1050 Balance 1916 2759 Weight 65.119 kg Lab Results: Lab Results-Last 24 Hours 02/15/17 02/15/17 02/15/17 Range/Units 10:00 12:48 13:03 WBC (4.0-10.5) K/mm3 RBC (4.1-5.6) M/mm3 Hgb (12.5-18.0) gm/dl Hct (42-50) % MCV (78-100) fl MCH (26-32) pg MCHC (32-36) g/dl RDW (11.5-14.0) % Plt Count (150-450) K/mm3 MPV (6-9.5) fl Segmented Neutrophils (36.-66.) % Lymphocytes (Manual) (24-44) % Monocytes (Manual) (0.0-12.0) % Differential Comment Platelet Estimate (NORMAL) Poikilocytosis Anisocytosis D-Dimer (0.00-500.00) ng/mL Sodium (136-145) mEq/L Potassium 3.3 L (3.5-5.1) mEq/L Chloride (98-107) mEq/L Carbon Dioxide (21-32) mEq/L Anion Gap (5-15) MEQ/L BUN (9-20) mg/dL Creatinine (0.55-1.30) mg/dl Estimated GFR ML/MIN Glucose (70-110) MG/DL Calcium (8.5-10.1) mg/dL Total Bilirubin (0.2-1.0) mg/dL AST (15-37) U/L ALT (12-78) U/L Alkaline Phosphatase (46-116) U/L Troponin I (0.000-0.056) ng/ml Serum Total Protein (6.4-8.2) gm/dL Albumin (3.4-5.0) g/dL Stool Occult Bld Scrn NEGATIVE Stl C. diff Tox B Gene NEGATIVE (NEGATIVE) C.difficile 027-NAP1-B1 PRESUMPTIVE NEGATIVE (NEGATIVE) 02/15/17 02/15/17 02/15/17 Range/Units 14:37 15:00 19:30 WBC (4.0-10.5) K/mm3 RBC (4.1-5.6) M/mm3 Hgb (12.5-18.0) gm/dl Hct (42-50) % MCV (78-100) fl MCH (26-32) pg MCHC (32-36) g/dl RDW (11.5-14.0) % Plt Count (150-450) K/mm3 MPV (6-9.5) fl Segmented Neutrophils (36.-66.) % Lymphocytes (Manual) (24-44) % Monocytes (Manual) (0.0-12.0) % Differential Comment Platelet Estimate (NORMAL) Poikilocytosis Anisocytosis D-Dimer 898.95 H* (0.00-500.00) ng/mL Sodium (136-145) mEq/L Potassium (3.5-5.1) mEq/L Chloride (98-107) mEq/L Carbon Dioxide (21-32) mEq/L Anion Gap (5-15) MEQ/L BUN (9-20) mg/dL Creatinine (0.55-1.30) mg/dl Estimated GFR ML/MIN Glucose (70-110) MG/DL Calcium (8.5-10.1) mg/dL Total Bilirubin (0.2-1.0) mg/dL AST (15-37) U/L ALT (12-78) U/L Alkaline Phosphatase (46-116) U/L Troponin I < 0.017 (0.000-0.056) ng/ml Serum Total Protein (6.4-8.2) gm/dL Albumin (3.4-5.0) g/dL Stool Occult Bld Scrn NEGATIVE Stl C. diff Tox B Gene (NEGATIVE) C.difficile 027-NAP1-B1 (NEGATIVE) 02/15/17 02/16/17 02/16/17 Range/Units 19:30 05:25 05:25 WBC 17.9 H (4.0-10.5) K/mm3 RBC 2.93 L (4.1-5.6) M/mm3 Hgb 9.0 L (12.5-18.0) gm/dl Hct 27.4 L (42-50) % MCV 93.5 (78-100) fl MCH 30.7 (26-32) pg MCHC 32.8 (32-36) g/dl RDW 14.3 H (11.5-14.0) % Plt Count 491 H (150-450) K/mm3 MPV 10.0 H (6-9.5) fl Segmented Neutrophils 93 H (36.-66.) % Lymphocytes (Manual) 6 L (24-44) % Monocytes (Manual) 1 (0.0-12.0) % Differential Comment ABNORMAL Platelet Estimate NORMAL (NORMAL) Poikilocytosis 1+ Anisocytosis 1+ D-Dimer (0.00-500.00) ng/mL Sodium 142 (136-145) mEq/L Potassium 4.0 (3.5-5.1) mEq/L Chloride 110 H (98-107) mEq/L Carbon Dioxide 20.4 L (21-32) mEq/L Anion Gap 15.8 H (5-15) MEQ/L BUN 36 H (9-20) mg/dL Creatinine 0.86 (0.55-1.30) mg/dl Estimated GFR > 60 ML/MIN Glucose 118 H (70-110) MG/DL Calcium 8.7 (8.5-10.1) mg/dL Total Bilirubin 0.40 (0.2-1.0) mg/dL AST 21 (15-37) U/L ALT 21 (12-78) U/L Alkaline Phosphatase 229 H (46-116) U/L Troponin I (0.000-0.056) ng/ml Serum Total Protein 6.2 L (6.4-8.2) gm/dL Albumin 1.5 L (3.4-5.0) g/dL Stool Occult Bld Scrn Stl C. diff Tox B Gene NEGATIVE (NEGATIVE) C.difficile 027-NAP1-B1 PRESUMPTIVE NEGATIVE (NEGATIVE) Radiology Exams: Radiology Procedures Category Date Time Status CHEST 2 VIEWS (PA AND LAT) Stat Exams 02/15/17 14:30 Completed Assessment/Plan (1) Right lower lobe pneumonia Current Visit: Yes Status: Acute Qualifiers: Pneumonia type: due to unspecified organism Qualified Code(s): J18.1 - Lobar pneumonia, unspecified organism Code(s): J18.1 - LOBAR PNEUMONIA, UNSPECIFIED ORGANISM (2) COPD with exacerbation Current Visit: Yes Status: Acute Code(s): J44.1 - CHRONIC OBSTRUCTIVE PULMONARY DISEASE W (ACUTE) EXACERBATION (3) CAD (coronary artery disease) Current Visit: No Status: Chronic Qualifiers: Coronary Disease-Associated Artery/Lesion type: [place] artery [place] vs. transplanted heart: unspecified whether [place] or transplanted heart Associated angina: without angina Qualified Code(s): I25.10 - Atherosclerotic heart disease of [place] coronary artery without angina pectoris Code(s): I25.10 - ATHSCL HEART DISEASE OF [place] CORONARY ARTERY W/O ANG PCTRS
[2017-02-16] MEDS: Zithromax 500 MG/ 250 ML NaCl Premix 500 MG/250 ML IVPB IV SCH (17:50)
[2017-02-16] MEDS: ZOCOR 20MG PO SCH (22:36)
[2017-02-16] MEDS: Seroquel 100 MG PO SCH (22:37)
[2017-02-16] MEDS: Depakote EXTENDED RELEASE 250 MG PO SCH (22:38)
[2017-02-17 05:50] LABS: Mean Cell Volume 93.7 fl (78-100); Mean Corpuscular Hemoglobin 30.4 pg (26-32); Mean Platelet Volume 10.2 fl (6-9.5); Platelet Count 415 K/mm3 (150-450); Red Blood Count 2.53 M/mm3 (4.1-5.6); Red Cell Distribution Width 14.1 % (11.5-14.0); White Blood Count 16.9 K/mm3 (4.0-10.5)
[2017-02-17] MEDS: Sodium Chloride 0.9% 1000 ML 1,000 ML IV SCH (05:51)
[2017-02-17] MEDS: solu-MEDROL 125 MG IV SCH (05:52)
[2017-02-17 06:04] LABS: ANION GAP 14.4 MEQ/L (5-15); BLOOD UREA NITROGEN 36 mg/dL (9-20); CHLORIDE 114 mEq/L (98-107); Carbon Dioxide 18.7 mEq/L (21-32); Glucose 118 MG/DL (70-110); Potassium 3.8 mEq/L (3.5-5.1); SODIUM 143 mEq/L (136-145)
[2017-02-17] MEDS: Ranexa 500 MG PO SCH (09:12)
[2017-02-17] MEDS: ECOTRIN 81 MG PO SCH (09:12)
[2017-02-17] MEDS: ENOXAPARIN SODIUM SQ SCH (09:12)
[2017-02-17] MEDS: ROCEPHIN 1 Gm-D5w 50 ml Bag** 1 G/50 ML IVPB IV SCH (09:12)
[2017-02-17] MEDS: Topamax 100 MG PO SCH (09:13)
[2017-02-17] MEDS: Klor Con 10 MEQ PO SCH (09:13)
[2017-02-17] MEDS: Cymbalta 30 MG Capsule PO SCH (09:14)
[2017-02-17 12:30] VITALS: BP 124/59; PULSE 76; O2SAT 98
--- NOTE | 2017-02-17 12:45 | PCM.DS ---
Discharge Summary Date of Admission: 02/15/17 14:30 Admitting Physician: LINDA FREEDMAN Primary Care Provider: CEDRICK PEREZ Allergies Allergies gabapentin Adverse Reaction (Severe, Verified 01/20/17 13:19) Fainting Hospital Summary - Hospital Course Hospital Course: Chief Complaint Diagnosis Shortness of Breath Allergies Allergy/AdvReac Type Severity Reaction Status Date / Time gabapentin AdvReac Severe Fainting Verified 01/20/17 13:19 Vital Signs (Last 24 hours) Temp Pulse Resp BP Pulse Ox 02/17/17 12:00 98.3 F 76 20 124/59 98 02/17/17 08:25 72 20 96 02/17/17 07:55 98.2 F 76 16 108/55 95 02/17/17 04:00 98.3 F 82 18 115/60 98 02/17/17 00:00 20 02/16/17 23:45 98.6 F 80 20 148/72 98 02/16/17 20:00 97.6 F 74 20 127/67 99 02/16/17 19:41 74 18 98 02/16/17 16:00 97.8 F 76 20 118/65 91 L Current Medications Generic Name Dose Route Start Last Admin Trade Name Freq PRN Reason Stop Dose Admin Albuterol/Ipratropium 3 ml 02/14/17 17:15 02/15/17 19:28 Duoneb 0.5-3 Mg/3 Ml Neb IH 03/16/17 17:14 3 ml Q4HPRN PRN Administration SHORTNESS OF BREATH/WHEEZING Aspirin 81 mg 02/15/17 15:00 02/17/17 09:12 Ecotrin 81 Mg PO 03/17/17 14:59 81 mg QAM MAGED Administration Divalproex Sodium 1,500 mg 02/14/17 22:00 02/16/17 22:38 Depakote Extended Release 250 Mg PO 03/16/17 21:59 1,500 mg HS MAGED Administration Duloxetine HCl 60 mg 02/15/17 12:00 02/17/17 09:14 Cymbalta 30 Mg Capsule PO 03/17/17 11:59 60 mg DAILY MAGED Administration Enoxaparin Sodium 60 mg 02/16/17 08:00 02/17/17 09:12 Enoxaparin Sodium SQ 03/18/17 07:59 60 mg Q12HT MAGED Administration Azithromycin 500 mg in 250 mls @ 250 mls/hr 02/14/17 18:00 02/16/17 17:50 Zithromax 500 Mg/ 250 Ml Nacl Premix IV 03/16/17 17:59 250 mls/hr Q24H MAGED Administration Ceftriaxone Sodium/Dextrose 1 g in 50 mls @ 100 mls/hr 02/15/17 10:00 09:12 Rocephin 1 Gm-D5w 50 Ml Bag IV 03/17/17 09:59 100 mls/hr Q24H10 MAGED Administration Sodium Chloride 1,000 mls @ 125 mls/hr 02/14/17 17:15 02/17/17 05:51 Sodium Chloride 0.9% 1000 Ml IV 03/16/17 17:14 125 mls/hr .Q8H MAGED Administration Methylprednisolone Sodium Succinate 60 mg 02/16/17 14:00 02/17/17 05:52 Solu-Medrol 125 Mg IV 03/18/17 13:59 60 mg Q8H MAGED Administration Potassium Chloride 20 meq 02/15/17 12:00 02/17/17 09:13 Klor Con 10 Meq PO 03/17/17 11:59 20 meq DAILY MAGED Administration Quetiapine Fumarate 600 mg 02/14/17 22:00 02/16/17 22:37 Seroquel 100 Mg PO 03/16/17 21:59 600 mg HS MAGED Administration Ranolazine 1,000 mg 02/15/17 12:00 02/17/17 09:12 Ranexa 500 Mg PO 03/17/17 11:59 1,000 mg DAILY MAGED Administration Simvastatin 40 mg 02/14/17 22:00 02/16/17 22:36 Zocor 20mg PO 03/16/17 21:59 40 mg HS MAGED Administration Topiramate 200 mg 02/14/17 22:00 02/17/17 09:13 Topamax 100 Mg PO 03/16/17 21:59 200 mg BID MAGED Administration Discontinued Medications Generic Name Dose Route Start Last Admin Trade Name Freq PRN Reason Stop Dose Admin Albuterol/Ipratropium 3 ml 02/14/17 14:31 02/14/17 15:25 Duoneb 0.5-3 Mg/3 Ml Neb IH 02/14/17 14:32 3 ml STAT ONE Administration Albuterol/Ipratropium Confirm 02/14/17 15:08 Duoneb 0.5-3 Mg/3 Ml Neb Administered 02/14/17 15:09 Dose 3 ml IH .STK-MED ONE Divalproex Sodium Confirm 02/14/17 20:[address] 250 Mg Tab Administered 02/14/17 20:39 Dose 1,500 mg PO .STK-MED ONE Enoxaparin Sodium 30 mg 02/15/17 15:00 02/15/17 15:07 Enoxaparin Sodium SQ 03/17/17 14:59 30 mg DAILY MAGED Administration Furosemide 20 mg 02/15/17 14:33 02/15/17 15:07 Lasix 20 Mg/2 Ml IV 02/15/17 14:34 20 mg ONCE ONE Administration Ceftriaxone Sodium/Dextrose 1 g in 50 mls @ 100 mls/hr 02/14/17 15:57 16:25 Rocephin 1 Gm-D5w 50 Ml Bag IV 02/14/17 16:26 100 mls/hr STAT STA Administration Ceftriaxone Sodium/Dextrose Confirm 02/14/17 16:23 Rocephin 1 Gm-D5w 50 Ml Bag Administered 02/14/17 16:24 Dose 1 g in 50 mls @ ud IV .STK-MED ONE Sodium Chloride 1,000 mls @ 999 mls/hr 02/14/17 18:43 02/14/17 18:50 Sodium Chloride 0.9% 1000 Ml IV 02/14/17 19:43 999 mls/hr .Q1H1M STA Administration Sodium Chloride 1,000 mls @ 999 mls/hr 02/14/17 21:19 02/14/17 21:23 Sodium Chloride 0.9% 1000 Ml IV 02/14/17 22:19 999 mls/hr .Q1H1M STA Administration Potassium Chloride 100 mls @ 50 mls/hr 02/15/17 06:15 02/15/17 08:10 Potassium Chloride 20 Meq In Water 100ml IV 02/15/17 10:14 50 mls/hr Q2H MAGED Administration Methylprednisolone Sodium Succinate 80 mg 02/15/17 18:00 02/16/17 05:44 Solu-Medrol 125 Mg IV 03/17/17 17:59 80 mg Q6HT MAGED Administration Non-Formulary Medication 1 each 02/15/17 16:21 Pharmacy Dosing Request 02/15/17 16:22 STAT ONE Intake & Output (Last 24 hours) 02/15/17 02/16/17 02/17/17 02/18/17 11:59 11:59 11:59 11:59 Intake Total 1915 3809 3327 Output Total 1050 Balance 1915 9639 3327 Weight 65.119 kg Microbiology Results (Last 24 hours) 02/14/17 14:55 Blood - Pending 02/14/17 14:55 Blood Blood Culture - Preliminary NO GROWTH TO DATE 02/14/17 14:50 Blood - Pending 02/14/17 14:50 Blood Blood Culture - Preliminary NO GROWTH TO DATE Laboratory Results (Last 24 hours) 02/17/17 02/17/17 05:20 05:20 WBC 16.9 H RBC 2.53 L Hgb 7.7 L Hct 23.7 L MCV 93.7 MCH 30.4 MCHC 32.5 RDW 14.1 H Plt Count 415 MPV 10.2 H Sodium 143 Potassium 3.8 Chloride 114 H Carbon Dioxide 18.7 L Anion Gap 14.4 BUN 36 H Creatinine 0.86 Estimated GFR > 60 Glucose 118 H Calcium 8.3 L Orders (Last 24 hours) Category Date Time Status BMP Routine Lab 02/17/17 05:20 Completed CBC Routine Lab 02/17/17 05:20 Completed Methylprednis Sod Succ 125 mg* [solu-MEDROL 125 MG] Med 02/16/17 14:00 Active 60 mg IV Q8H Patient is doing better, shortness of breath has improved. Plan to discharge home with zpak and medrol dose palk. Follow up with Dr Nneka Freedman/ Radha Freedman in 2 weeks - Vitals & Intake/Output Vital Signs: Vital Signs Temperature 98.3 F 02/17/17 12:00 Pulse Rate 76 02/17/17 12:00 Respiratory Rate 20 02/17/17 12:00 Blood Pressure 124/59 02/17/17 12:00 O2 Sat by Pulse Oximetry 98 02/17/17 12:00 Oxygen-Last Documented O2 Percentage 1 Liter = 24% Intake & Output: Intake & Output 02/15/17 02/16/17 02/17/17 02/18/17 11:59 11:59 11:59 11:59 Intake Total 3569 3327 Output Total 1050 Balance 7061 3327 - Lab Result Diagrams: 02/17/17 05:20 02/17/17 05:20 Lab Results-Last 24 Hrs: Lab Results-Last 24 Hours 02/17/17 02/17/17 Range/Units 05:20 05:20 WBC 16.9 H (4.0-10.5) K/mm3 RBC 2.53 L (4.1-5.6) M/mm3 Hgb 7.7 L (12.5-18.0) gm/dl Hct 23.7 L (42-50) % MCV 93.7 (78-100) fl MCH 30.4 (26-32) pg MCHC 32.5 (32-36) g/dl RDW 14.1 H (11.5-14.0) % Plt Count 415 (150-450) K/mm3 MPV 10.2 H (6-9.5) fl Sodium 143 (136-145) mEq/L Potassium 3.8 (3.5-5.1) mEq/L Chloride 114 H (98-107) mEq/L Carbon Dioxide 18.7 L (21-32) mEq/L Anion Gap 14.4 (5-15) MEQ/L BUN 36 H (9-20) mg/dL Creatinine 0.86 (0.55-1.30) mg/dl Estimated GFR > 60 ML/MIN Glucose 118 H (70-110) MG/DL Calcium 8.3 L (8.5-10.1) mg/dL Discharge Exam General Appearance: no apparent distress, alert Neurologic Exam: alert, oriented x 3, cooperative, normal mood/affect, nml cerebellar function, sensation nml, No motor deficits Skin Exam: normal color, warm, dry Eye Exam: PERRL, EOMI, eyes nml inspection Ears, Nose, Throat Exam: normal ENT inspection, pharynx normal, moist mucous membranes Neck Exam: normal inspection, non-tender, supple, full range of motion Respiratory Exam: diminished breath sounds, rhonchi, No respiratory distress Cardiovascular Exam: regular rate/rhythm, normal heart sounds Gastrointestinal/Abdomen Exam: soft, No tenderness, No mass Extremity Exam: normal inspection, normal range of motion Back Exam: normal inspection, normal range of motion, No CVA tenderness, No vertebral tenderness Male Genitalia Exam: deferred Rectal Exam: deferred Final Diagnosis/Problem List - Final Discharge Diagnosis/Problem (1) Right lower lobe pneumonia Current Visit: Yes Status: Acute Assessment & Plan: Last Vital Signs Temp 98.3 F 02/17/17 12:00 Pulse 76 02/17/17 12:00 Resp 20 02/17/17 12:00 BP 124/59 02/17/17 12:00 Pulse Ox 98 02/17/17 12:00 Allergies gabapentin Adverse Reaction (Severe, Verified 01/20/17 13:19) Fainting Active Medications Albuterol/Ipratropium (Duoneb 0.5-3 Mg/3 Ml Neb) 3 ml IH Q4HPRN PRN PRN Reason: SHORTNESS OF BREATH/WHEEZING Stop: 03/16/17 17:14 Last Admin: 02/15/17 19:28 Dose: 3 ml Aspirin (Ecotrin 81 Mg) 81 mg PO QAM MAGED Stop: 03/17/17 14:59 Last Admin: 02/17/17 09:12 Dose: 81 mg Divalproex Sodium (Depakote Extended Release 250 Mg) 1,500 mg PO HS [facility] Stop: 03/16/17 21:59 Last Admin: 02/16/17 22:38 Dose: 1,500 mg Duloxetine HCl (Cymbalta 30 Mg Capsule) 60 mg PO DAILY MAGED Stop: 03/17/17 11:59 Last Admin: 02/17/17 09:14 Dose: 60 mg Enoxaparin Sodium (Enoxaparin Sodium) 60 mg SQ Q12HT MAGED Stop: 03/18/17 07:59 Last Admin: 02/17/17 09:12 Dose: 60 mg Azithromycin (Zithromax 500 Mg/ 250 Ml Nacl Premix) 500 mg in 250 mls @ 250 mls /hr IV Q24H MAGED Stop: 03/16/17 17:59 Last Admin: 02/16/17 17:50 Dose: 250 mls/hr Ceftriaxone Sodium/Dextrose (Rocephin 1 Gm-D5w 50 Ml Bag) 1 g in 50 mls @ 100 mls/hr IV Q24H10 MAGED Stop: 03/17/17 09:59 Last Admin: 02/17/17 09:12 Dose: 100 mls/hr Sodium Chloride (Sodium Chloride 0.9% 1000 Ml) 1,000 mls @ 125 mls/hr IV .Q8H MAGED Stop: 03/16/17 17:14 Last Admin: 02/17/17 05:51 Dose: 125 mls/hr Methylprednisolone Sodium Succinate (Solu-Medrol 125 Mg) 60 mg IV Q8H MAGED Stop: 03/18/17 13:59 Last Admin: 02/17/17 05:52 Dose: 60 mg Potassium Chloride (Klor Con 10 Meq) 20 meq PO DAILY [facility] Stop: 03/17/17 11:59 Last Admin: 02/17/17 09:13 Dose: 20 meq Quetiapine Fumarate (Seroquel 100 Mg) 600 mg PO HS [facility] Stop: 03/16/17 21:59 Last Admin: 02/16/17 22:37 Dose: 600 mg Ranolazine (Ranexa 500 Mg) 1,000 mg PO DAILY MAGED Stop: 03/17/17 11:59 Last Admin: 02/17/17 09:12 Dose: 1,000 mg Simvastatin (Zocor 20mg) 40 mg PO HS [facility] Stop: 03/16/17 21:59 Last Admin: 02/16/17 22:36 Dose: 40 mg Topiramate (Topamax 100 Mg) 200 mg PO BID [facility] Stop: 03/16/17 21:59 Last Admin: 02/17/17 09:13 Dose: 200 mg Intake & Output 02/17/17 02/18/17 11:59 11:59 Intake Total 3327 Balance 3327 Orders 02/16/17 14:00 Methylprednis Sod Succ 125 mg* [solu-MEDROL 125 MG] 60 mg IV Q8H Lab Tests 02/17/17 02/17/17 05:20 05:20 WBC 16.9 H RBC 2.53 L Hgb 7.7 L Hct 23.7 L MCV 93.7 MCH 30.4 MCHC 32.5 RDW 14.1 H Plt Count 415 MPV 10.2 H Sodium 143 Potassium 3.8 Chloride 114 H Carbon Dioxide 18.7 L Anion Gap 14.4 BUN 36 H Creatinine 0.86 Estimated GFR > 60 Glucose 118 H Calcium 8.3 L Microbiology 02/14/17 14:55 Blood Blood Culture - Preliminary NO GROWTH TO DATE 02/14/17 14:50 Blood Blood Culture - Preliminary NO GROWTH TO DATE Patient is feeling much better, will discharge home today (2) COPD with exacerbation Current Visit: Yes Status: Resolved (3) CAD (coronary artery disease) Current Visit: No Status: Chronic - Discharge Discharge Date: 02/17/17 Disposition: Home, Self-Care Condition: Stable Prescriptions: New Methylprednisolone Packet [Medrol Dosepack] 4 mg PO UD #30 packet Azithromycin [Zithromax Tri-[place]] 500 mg PO DAILY #3 tablet Continue Ranolazine [Ranexa] 1,000 mg PO DAILY Aspirin 81 mg PO DAILY Divalproex Sodium [Divalproex Sodium ER] 1,500 mg PO HS Topiramate 100 mg [Topamax 100 MG] 200 mg PO BID Duloxetine HCl [Cymbalta] 60 mg PO DAILY Potassium Chloride 20 Meq Tab [Potassium Chloride 20 MEQ TABLET] 20 meq PO DAILY Atorvastatin Calcium [Lipitor] 40 mg PO HS Lisinopril 5 mg [Zestril 5 MG] 5 mg PO DAILY Quetiapine Fumarate [Seroquel] 600 mg PO HS Follow up with: CEDRICK PEREZ [Primary Care Provider] - 1 Week
== END 2017-02-17 13:55 | disposition home or self-care (01) | DRG 194 ==
LOC: ED 13:41 → MED SURG 17:14 → OBSVTOIN 02-15 14:30
PROVIDERS: ADMIT General Practice; ATTEND General Practice
DX: J18.1 Lobar pneumonia, unspecified organism (principal); J44.1 Chronic obstructive pulmonary disease with (acute) exacerbation; G40.919 Epilepsy, unspecified, intractable, without status epilepticus; I25.10 Atherosclerotic heart disease of native coronary artery without angina pectoris; I10 Essential (primary) hypertension; E78.5 Hyperlipidemia, unspecified; Z86.73 Personal history of transient ischemic attack (TIA), and cerebral infarction without residual deficits; K21.9 Gastro-esophageal reflux disease without esophagitis; M19.90 Unspecified osteoarthritis, unspecified site; F32.9 Major depressive disorder, single episode, unspecified; Z72.0 Tobacco use; N28.9 Disorder of kidney and ureter, unspecified; I95.9 Hypotension, unspecified; G89.4 Chronic pain syndrome; D64.9 Anemia, unspecified; E87.6 Hypokalemia
CPT/HCPCS: 36000; 36415; 36600; 71010; 71020; 80048; 80053; 82270; 82375; 82803; 83605; 83880; 84132; 84134; 84484; 85025; 85027; 85379; 87040; 87070; 87077; 87186; 87430; 87493; 93005; 93041; 93268; 94640; 94760; 96365; 99285; G0378; J0456; J0696; J1650; J1940; J2930; J3480; A9270-GY

== ENCOUNTER 2018-05-08 14:56 | Emergency (ER) | payer MEDICARE ==
--- NOTE | 2018-05-08 15:27 | ERPHSYRPT ---
- History of Present Illness Time Seen by Provider: 05/08/18 15:25 Source: patient, family Exam Limitations: no limitations Patient Subjective Stated Complaint: pt sent in from [facility] for fever, confusion. girlfriend states he is voiding blood, Triage Nursing Assessment: pt walked in, skin w/d/p. resp easy, pt denies any cos at present time.has dialysis port to right side of chest, Physician History: 52 y/o white male on m-w-f dialysis was told to come to ER this am(several hrs ago) because of confusion and fever during dialysis. pt has been either hospitalized or in rehab for several months for a right lung empyema requiring resection. sepsis caused renal failure and pt has been dialysed ever since. he has been home for 2 weeks. pt did not come into ER this am. he went home. his fever has resolved as has his confusion. he came in because he noticed blood in his urine. pt states specifically pt did not have any fluid taken off of him this am during dialysis. pt denies cp, soa and abd pain. Timing/Duration: today Activites at Onset: other (dialysis) Quality: other (hematuria) Onset Location: other (hematuria) Pain Radiation: other (no specific pain) Severity of Pain-Max: none Severity of Pain-Current: none Associated Symptoms: other (hematuria) Prior abdominal problems: similar symptoms Sexual intercourse history: non-contributory Allergies/Adverse Reactions: gabapentin Adverse Reaction (Severe, Verified 05/08/18 15:06) Fainting Home Medications: Aspirin 81 mg PO DAILY 07/30/15 [History] Divalproex Sodium [Divalproex Sodium ER] 1,500 mg PO HS 07/30/15 [History] Duloxetine HCl [Cymbalta] 60 mg PO DAILY 07/30/15 [History] Ranolazine [Ranexa] 1,000 mg PO DAILY 07/30/15 [History] Topiramate 100 mg [Topamax 100 MG] 200 mg PO BID 07/30/15 [History] Atorvastatin Calcium [Lipitor] 40 mg PO HS 02/01/16 [History] Potassium Chloride 20 Meq Tab [Potassium Chloride 20 MEQ TABLET] 20 meq PO DAILY 02/01/16 [History] Lisinopril 5 mg [Zestril 5 MG] 5 mg PO DAILY 01/20/17 [History] Quetiapine Fumarate [Seroquel] 600 mg PO HS 01/20/17 [History] Morphine Sulfate 60 mg TID 05/08/18 [History] Oxycodone HCl/Acetaminophen [Percocet 10-325 mg Tablet] 1 ea TID 05/08/18 [ History] Hx Tetanus, Diphtheria Vaccination/Date Given: No Hx Influenza Vaccination/Date Given: No Hx Pneumococcal Vaccination/Date Given: No Immunizations Up to Date: Yes - Past Medical History Pertinent Past Medical History: Yes Neurological History: Seizures, Stroke ENT History: No Pertinent History Cardiac History: Angina, Coronary Artery Disease, High Cholesterol, Myocardial Infarction ([place]) Respiratory History: COPD Endocrine Medical History: No Pertinent History Musculoskeletal History: Osteoarthritis, Other GI Medical History: GERD History: No Pertinent History Psycho-Social History: Depression, Other Male Reproductive Disorders: No Pertinent History Other Medical History: PT. REPORTS IN X 4; PT. REPORTS HE HAS ONE CARDIAC STENT ; CHRONINC NECK, BACK, SHOULDER PN. States leg pain, "need knee replacement" - Past Surgical History Past Surgical History: Yes Neuro Surgical History: No Pertinent History Cardiac: CABG, Cardiac Catheterization, Cardiac Stent Respiratory: No Pertinent History Gastrointestinal: No Pertinent History Genitourinary: No Pertinent History Musculoskeletal: Other Male Surgical History: No Pertinent History Other Surgical History: Left foot x 2, Right foot x 2, Right knee x 2, Left knee x 2, Right torn rotator cuff, Steal plate with rods and screws in neck - Social History Smoking Status: Former smoker How long have you smoked: 35 y Exposure to second hand smoke: No Alcohol Use: None Drug Use: none Patient Lives Alone: No Significant Family History: heart disease - Review of Systems Constitutional: Fever (earlier today; none now) Eyes: No Symptoms Ears, Nose, & Throat: No Symptoms, No Ear Pain Respiratory: No Symptoms, No Cough, No Dyspnea, No Dyspnea on Exertion (ALBRECHT), No Stridor, No Wheezing Cardiac: No Symptoms, No Chest Pain, No Palpitations, No Syncope Abdominal/Gastrointestinal: No Symptoms, No Abdominal Pain, No Nausea, No Vomiting, No Diarrhea Genitourinary Symptoms: Hematuria, No Flank Pain, No Testicle Pain Musculoskeletal: No Symptoms, No Deformity, No Fall, No Injury Skin: No Symptoms Neurological: No Symptoms Psychological: No Symptoms, No Anxiety Endocrine: No Symptoms Hematologic/Lymphatic: No Symptoms Immunological/Allergic: No Symptoms All Other Systems: Reviewed and Negative - Nursing Vital Signs Nursing Vital Signs: Initial Vital Signs Temperature 97.0 F 05/08/18 15:01 Pulse Rate 100 H 05/08/18 15:01 Respiratory Rate 16 05/08/18 15:01 Blood Pressure 95/52 05/08/18 15:01 O2 Sat by Pulse Oximetry 97 05/08/18 15:01 Pain Scale Pain Intensity 0 - Physical Exam General Appearance: no apparent distress, alert Eye Exam: PERRL/EOMI Ears, Nose, Throat Exam: normal ENT inspection, dry mucous membranes Neck Exam: normal inspection, non-tender, supple Respiratory Exam: normal breath sounds, lungs clear, No chest tenderness, No respiratory distress, No airway intact, No accessory muscle use, No rhonchi, No wheezing, No stridor Cardiovascular Exam: regular rate/rhythm, normal heart sounds, normal peripheral pulses Gastrointestinal/Abdomen Exam: soft, normal bowel sounds, No tenderness, No guarding, No rebound Rectal Exam: not done Back Exam: normal inspection, normal range of motion, No CVA tenderness, No vertebral tenderness Extremity Exam: normal inspection, normal range of motion, pelvis stable Neurologic Exam: alert, oriented x 3, cooperative, sports medicine physician II-XII nml as tested, normal mood/affect, nml cerebellar function, nml station & gait, other (pt is very alert and oriented. he gave very specific current and past health info details), No confusion Skin Exam: normal color, warm, dry Lymphatic Exam: No adenopathy SpO2 Interpretation: normal SpO2: 97 Oxygen Delivery: Room Air - Course Nursing assessment & vital signs reviewed: Yes Ordered Tests: Active Orders 24 hr Category Date Time Status IV Insertion STAT Care 05/08/18 15:28 Active Orthostatic Vital Signs STAT Care 05/08/18 15:28 Active BMP Stat Lab 05/08/18 15:46 Completed CBC W DIFF Stat Lab 05/08/18 15:46 Completed CULTURE,URINE Stat Lab 05/08/18 15:29 Received UA W/ MICROSCOPIC Stat Lab 05/08/18 15:29 Completed Medication Summary Generic Name Dose Route Start Last Admin Trade Name Freq PRN Reason Stop Dose Admin Sodium Chloride 250 mls @ 250 mls/hr 05/08/18 15:30 05/08/18 15:47 Sodium Chloride 0.9% 250 Ml IV 05/08/18 16:29 250 mls/hr .Q1H MAGED Administration Discontinued Medications Generic Name Dose Route Start Last Admin Trade Name Delia PRN Reason Stop Dose Admin Ciprofloxacin 500 mg 05/08/18 18:02 Cipro 500 Mg PO 05/08/18 18:03 STAT ONE Lab/Rad Data: Laboratory Result Diagrams 05/08/18 15:46 05/08/18 15:46 Laboratory Results 05/08/18 05/08/18 05/08/18 Range/Units 15:46 15:46 15:29 WBC 9.1 (4.0-10.5) K/mm3 RBC 2.65 L (4.1-5.6) M/mm3 Hgb 8.5 L (12.5-18.0) gm/dl Hct 27.0 L (42-50) % MCV 101.9 H (78-100) fl MCH 32.0 (26-32) pg MCHC 31.5 L (32-36) g/dl RDW 17.3 H (11.5-14.0) % Plt Count 164 (150-450) K/mm3 MPV 9.3 (6-9.5) fl Gran % 76.4 H (36.0-66.0) % Eos # (Auto) 0.06 (0-0.5) Absolute Lymphs (auto) 0.83 L (1.0-4.6) Absolute Monos (auto) 1.22 (0.0-1.3) Lymphocytes % 9.2 L (24.0-44.0) % Monocytes % 13.5 H (0.0-12.0) % Eosinophils % 0.7 (0.00-5.0) % Basophils % 0.2 (0.0-0.4) % Absolute Granulocytes 6.94 H (1.4-6.9) Basophils # 0.02 (0-0.4) Sodium 136 L (137-145) mmol/L Potassium 3.3 L (3.5-5.1) mmol/L Chloride 93 L (98-107) mmol/L Carbon Dioxide 33 H (22-30) mmol/L Anion Gap 12.6 (5-15) MEQ/L BUN 13 (9-20) mg/dL Creatinine 1.83 H (0.66-1.25) mg/dL Estimated GFR 41.4 ML/MIN Glucose 92 (74-106) mg/dL Calcium 8.8 (8.4-10.2) mg/dL Ur Collection Type UNK Urine Color RED (YELLOW) Urine Appearance CLOUDY (CLEAR) Urine pH 9.0 (5-6) Ur Specific [place] 1.000 (1.005-1.025) Urine Protein 300 (Negative) Urine Ketones SMALL (NEGATIVE) Urine Blood LARGE (0-5) Harrison/ul Urine Nitrite POSITIVE (NEGATIVE) Urine Bilirubin SMALL (NEGATIVE) Urine Urobilinogen 1 (0-1) mg/dL Ur Leukocyte Esterase 2+ (NEGATIVE) Urine Microscopic RBC >100 (0-2) /HPF Urine Microscopic WBC 25-50 (0-5) /HPF Urine Culture Reflexed YES (NO) Urine Glucose NEGATIVE (NEGATIVE) mg/dL Specimen Received 05/08 17:30 - Progress Progress: improved Progress Note: 05/08/18 18:03 pt states he is feeling well. no cp, no abd pain, no soa. Counseled pt/family regarding: lab results, diagnosis, need for follow-up - Departure Time of Disposition: 18:09 Departure Disposition: Home Clinical Impression: Hemorrhagic cystitis, Hypokalemia, UTI (urinary tract infection) Condition: Stable Critical Care Time: No Referrals: CEDRICK PEREZ [Primary Care Provider] - Additional Instructions: drink plenty of fluids. eat bananas, green leafy vegetables, and nuts. follow up with your beer maker and primary doctor on friday05/11/18 Prescriptions: Ciprofloxacin [Cipro 500 MG] 500 mg PO DAILY #7 tablet
[2018-05-08] MEDS ORDERED: Sodium Chloride 0.9% 250 ML 250 ML IV SCH (15:30)
[2018-05-08] MEDS ORDERED: Sodium Chloride 0.9% 250 ML 250 ML IV ONE (15:46)
[2018-05-08 15:50] LABS: BASOPHIL % 0.2 % (0.0-0.4); Basophil (Absolute #) 0.02 (0-0.4); Eosinophil % 0.7 % (0.00-5.0); Eosinophil (Absolute #) 0.06 (0-0.5); Granulocyte Absolute (ANC) 6.94 (1.4-6.9); Granulocytes % 76.4 % (36.0-66.0); Hemoglobin 8.5 gm/dl (12.5-18.0); Lymphocyte (Absolute #) 0.83 (1.0-4.6); Lymphocytes % 9.2 % (24.0-44.0); Mean Cell Volume 101.9 fl (78-100); Mean Corpuscular Hgb Concent. 31.5 g/dl (32-36); Mean Platelet Volume 9.3 fl (6-9.5); Monocyte (Absolute #) 1.22 (0.0-1.3); Monocytes % 13.5 % (0.0-12.0); Platelet Count 164 K/mm3 (150-450); Red Blood Count 2.65 M/mm3 (4.1-5.6); Red Cell Distribution Width 17.3 % (11.5-14.0); White Blood Count 9.1 K/mm3 (4.0-10.5)
[2018-05-08 16:00] LABS: ANION GAP 12.6 MEQ/L (5-15); Calcium 8.8 mg/dL (8.4-10.2); Creatinine 1 1.83 mg/dL (0.66-1.25); Potassium 3.3 mmol/L (3.5-5.1)
[2018-05-08 17:53] LABS: Appearance CLOUDY (CLEAR); Glucose NEGATIVE (NEGATIVE); Ketones SMALL (NEGATIVE); Leukocyte Esterase 2+ (NEGATIVE); Nitrite POSITIVE (NEGATIVE); Protein,Urine Dip 300 (Negative)
[2018-05-08 17:54] LABS: Bilirubin SMALL (NEGATIVE); Urobilinogen 1 mg/dL (0-1)
[2018-05-08 17:56] LABS: Blood LARGE Ery/ul (0-5); RBC >100 /HPF (0-2); WBC 25-50 /HPF (0-5)
[2018-05-08] MEDS ORDERED: Cipro 500 MG PO ONE (18:02)
[2018-05-08] MEDS ORDERED: Cipro 500 MG ONE (18:10)
[2018-05-08 18:20] VITALS: BP 81/49; PULSE 68; O2SAT 98
== END 2018-05-08 18:21 | disposition home or self-care (01) ==
LOC: ED 14:56
DX: N30.91 Cystitis, unspecified with hematuria (principal); E87.6 Hypokalemia; N39.0 Urinary tract infection, site not specified; Z79.899 Other long term (current) drug therapy; Z99.2 Dependence on renal dialysis
CPT/HCPCS: 36000; 36415; 80048; 81000; 85025; 87077; 87086; 87186; 96360; 99284; A9270-GY

== ENCOUNTER 2018-05-10 19:14 | Emergency (ER) | payer MEDICARE ==
[2018-05-10] MEDS ORDERED: Sodium Chloride 0.9% 1000 ML 1,000 ML IV SCH (19:30)
[2018-05-10] MEDS ORDERED: Keppra 500 MG/5 ML*** 500 MG in D5w 100ML Mini Bag 100 ML 100 ML IV ONE (19:33)
[2018-05-10] MEDS ORDERED: Sodium Chloride 0.9% 1000 ML 1,000 ML ONE (19:38)
[2018-05-10] MEDS ORDERED: D5w 100ML Mini Bag 100 ML 100 ML IV ONE (19:38)
[2018-05-10] MEDS ORDERED: Keppra 500 MG/5 ML ONE (19:38)
[2018-05-10] MEDS ORDERED: Narcan 0.4 MG/ML ONE (19:41)
--- NOTE | 2018-05-10 19:43 | ERPHSYRPT ---
- History of Present Illness Time Seen by Provider: 05/10/18 19:25 Source: family, EMS Physician History: PATIENT WITH A HISTORY OF CHRONIC RENAL FAILURE ON DIALYSIS, COPD, CORONARY ARTERY DISEASE, MYOCARDIAL INFARCTION, AND CHRONIC PAIN SYNDROME, AND RECENTLY PLACED BACK ON HIS OPIATES MORPHINE SULFATE AND PERCOCET LAST WEEK. FAMILY CALLED UNABLE TO CONTACT PATIENT AND CALLED POLICE FOR WELFARE CHECK AND FOUND PATIENT CONFUSED SITTING IN HIS YARD. Timing/Duration: today, worse Character of Deficits: impaired speech Deficits: cannot walk, decrease ability to stand Baseline/Normal Cognition: poor alertness Current Cognition: poor alertness Baseline Gait: walks w/o assistance Associated Symptoms: confusion Allergies/Adverse Reactions: gabapentin Adverse Reaction (Severe, Verified 05/10/18 19:48) Fainting Home Medications: Aspirin 81 mg PO DAILY 07/30/15 [History] Divalproex Sodium [Divalproex Sodium ER] 1,500 mg PO HS 07/30/15 [History] Duloxetine HCl [Cymbalta] 60 mg PO DAILY 07/30/15 [History] Ranolazine [Ranexa] 1,000 mg PO DAILY 07/30/15 [History] Topiramate 100 mg [Topamax 100 MG] 200 mg PO BID 07/30/15 [History] Atorvastatin Calcium [Lipitor] 40 mg PO HS 02/01/16 [History] Potassium Chloride 20 Meq Tab [Potassium Chloride 20 MEQ TABLET] 20 meq PO DAILY 02/01/16 [History] Lisinopril 5 mg [Zestril 5 MG] 5 mg PO DAILY 01/20/17 [History] Quetiapine Fumarate [Seroquel] 600 mg PO HS 01/20/17 [History] Morphine Sulfate 60 mg TID 05/08/18 [History] Oxycodone HCl/Acetaminophen [Percocet 10-325 mg Tablet] 1 ea TID 05/08/18 [ History] Hx Tetanus, Diphtheria Vaccination/Date Given: No Hx Influenza Vaccination/Date Given: No Hx Pneumococcal Vaccination/Date Given: No - Review of Systems Constitutional: Lethargy, No Fever, No Chills Eyes: No Symptoms Ears, Nose, & Throat: No Symptoms Respiratory: No Symptoms, No Cough, No Dyspnea Cardiac: No Symptoms, No Chest Pain, No Edema, No Syncope Abdominal/Gastrointestinal: No Symptoms, No Abdominal Pain, No Nausea, No Vomiting, No Diarrhea Genitourinary Symptoms: No Symptoms, No Dysuria Musculoskeletal: No Back Pain, No Neck Pain Skin: No Rash Neurological: Lethargy, Other (CONFUSED), No Dizziness, No Focal Weakness, No Sensory Changes Psychological: No Symptoms Endocrine: No Symptoms All Other Systems: Reviewed and Negative - Past Medical History Pertinent Past Medical History: Yes Neurological History: Seizures, Stroke ENT History: No Pertinent History Cardiac History: Angina, Coronary Artery Disease, High Cholesterol, Myocardial Infarction ([place]) Respiratory History: COPD Endocrine Medical History: No Pertinent History Musculoskeletal History: Osteoarthritis, Other GI Medical History: GERD History: No Pertinent History Psycho-Social History: Depression, Other Male Reproductive Disorders: No Pertinent History Other Medical History: PT. REPORTS RI X 4; PT. REPORTS HE HAS ONE CARDIAC STENT ; CHRONINC NECK, BACK, SHOULDER PN. States leg pain, "need knee replacement" - Past Surgical History Past Surgical History: Yes Neuro Surgical History: No Pertinent History Cardiac: CABG, Cardiac Catheterization, Cardiac Stent Respiratory: No Pertinent History Gastrointestinal: No Pertinent History Genitourinary: No Pertinent History Musculoskeletal: Other Male Surgical History: No Pertinent History Other Surgical History: Left foot x 2, Right foot x 2, Right knee x 2, Left knee x 2, Right torn rotator cuff, Steal plate with rods and screws in neck - Social History Smoking Status: Former smoker How long have you smoked: 35 y Exposure to second hand smoke: No Alcohol Use: None Drug Use: none Patient Lives Alone: No Significant Family History: heart disease - Nursing Vital Signs Nursing Vital Signs: Initial Vital Signs Pulse Rate 99 H 05/10/18 19:28 Respiratory Rate 24 05/10/18 19:28 Blood Pressure 111/56 05/10/18 19:28 O2 Sat by Pulse Oximetry 100 05/10/18 19:28 - Bayard Coma Scale Best Eye Response (Negrito): (4) open spontaneously Best Verbal Response (Negrito): (4) confused conversation Best Motor Response (Bayard): (5) localizes to pain Bayard Total: 13 - Physical Exam General Appearance: other (ARRIVES TO EMERGENCY ROOM WITH EMS WITH EPISODES OF LETHARY AND RESTLESSNESS, NONRESPONSIVE TO VERBAL STIMULI) Eye Exam: bilateral eye: EOMI, abnormal EOM, other (PUPILS PINPOINT, NONREACTIVE) Ears, Nose, Throat Exam: normal ENT inspection Neck Exam: normal inspection Respiratory: normal breath sounds Cardiovascular: regular rate/rhythm, normal heart sounds Gastrointestinal: soft, normal bowel sounds Back Exam: normal inspection, normal range of motion Extremity Exam: normal inspection, normal range of motion Peripheral Pulses: carotid (R): 2+, carotid (L): 2+, femoral (R): 2+, femoral (L ): 2+, dorsalis-pedis (R): 2+, dorsalis-pedis (L): 2+ Mental Status: lethargy (CONFUSED) Motor/Sensory: no motor deficit (MOVES ALL EXTREMITIES WELL, ) DTR: bicep (R): 2+, bicep (L): 2+, tricep (R): 2+, tricep (L): 2+, knee (R): 2+ , knee (L): 2+, ankle (R): 2+, ankle (L): 2+ Skin Exam: normal color, warm SpO2 Interpretation: normal SpO2: 98 Oxygen Delivery: Room Air - Course EKG Interpreted by Me: RATE, Sinus Rhythm, Sinus Tach, NORMAL AXIS, Non- specific ST Changes - Radiology Exams Chest X-ray Interpretation: Interpreted by me (THERE IS A RIGHT MIDDLE AND LOWER LOBE INFILTRATES) - CT Exams Head CT Interpretation: Tele-radiologist Report (THERE IS NO EVIDENCE OF INTRACRANIAL HEMORRHAGE,OR EDEMA, THERE IS A 13MM MASS IN THE SELLA, CONSIDERATIONS INCLUDE PITUITARY ADENOMA, MENINGIOMA, ANEURYSM) Ordered Tests: Active Orders 24 hr Category Date Time Status Tube And Manifold Builder STAT Care 05/10/18 19:29 Active EKG-ER Only STAT Care 05/10/18 19:27 Active IV Insertion STAT Care 05/10/18 19:27 Active IV Insertion-2nd Peripheral STAT Care 05/10/18 19:48 Active Oxygen-ED Only NON-REBREATHER 100% Care 05/10/18 19:27 Active CHEST 1 VIEW (PORTABLE) Stat Exams 05/10/18 19:28 Taken HEAD WITHOUT CONTRAST [CT] Stat Exams 05/10/18 19:28 Taken BLOOD CULTURE Stat Lab 05/10/18 20:15 Received CBC W DIFF Stat Lab 05/10/18 19:30 Completed CMP Stat Lab 05/10/18 19:30 Completed PROTIME WITH INR Stat Lab 05/10/18 19:30 Completed TROPONIN Q3H Lab 05/10/18 19:30 Completed TROPONIN Q3H Lab 05/10/18 22:45 Ordered TROPONIN Q3H Lab 05/11/18 01:45 Ordered TROPONIN Q3H Lab 05/11/18 04:45 Ordered TROPONIN Q3H Lab 05/11/18 07:45 Ordered VENOUS BLOOD GAS Stat Lab 05/10/18 19:30 Ordered Medication Summary Generic Name Dose Route Start Last Admin Trade Name Freq PRN Reason Stop Dose Admin Sodium Chloride 1,000 mls @ 10 mls/hr 05/10/18 19:30 05/10/18 19:49 Sodium Chloride 0.9% 1000 Ml IV 06/09/18 19:29 10 mls/hr .Q24H MAGED Administration Discontinued Medications Generic Name Dose Route Start Last Admin Trade Name Freq PRN Reason Stop Dose Admin Levetiracetam 500 mg/ Dextrose 105 mls @ 400 mls/hr 05/10/18 19:33 05/10/18 19:49 IV 05/10/18 19:48 400 mls/hr STAT ONE Administration Dextrose Confirm 05/10/18 19:38 D5w 100ml Mini Bag 100 Ml Administered 05/10/18 19:39 Dose 100 mls @ ud IV .STK-MED ONE Ceftriaxone Sodium/Dextrose 1 g in 50 mls @ 100 mls/hr 05/10/18 22:12 22:51 Rocephin 1 Gm-D5w 50 Ml Bag IV 05/10/18 22:41 Infused STAT STA Infusion Azithromycin 500 mg in 250 mls @ 250 mls/hr 05/10/18 22:12 05/10/18 22:18 Zithromax 500 Mg/ 250 Ml Nacl Premix IV 05/10/18 23:11 250 ml/hr STAT STA 250 mls/hr Administration Azithromycin Confirm 05/10/18 22:15 Zithromax 500 Mg/ 250 Ml Nacl Premix Administered 05/10/18 22:16 Dose 500 mg in 250 mls @ ud IV .STK-MED ONE Ceftriaxone Sodium/Dextrose Confirm 05/10/18 22:15 Rocephin 1 Gm-D5w 50 Ml Bag Administered 05/10/18 22:16 Dose 1 g in 50 mls @ ud IV .STK-MED ONE Levetiracetam Confirm 05/10/18 19:38 Keppra 500 Mg/5 Ml Administered 05/10/18 19:39 Dose 500 mg .ROUTE .STK-MED ONE Naloxone HCl Confirm 05/10/18 19:41 Narcan 0.4 Mg/Ml Administered 05/10/18 19:42 Dose 0.4 mg .ROUTE .STK-MED ONE Naloxone HCl 0.8 mg 05/10/18 19:44 05/10/18 19:44 Narcan 2 Mg/2 Ml IV 05/10/18 19:45 0.8 mg STAT ONE Administration Lab/Rad Data: Laboratory Result Diagrams 05/10/18 19:30 05/10/18 19:30 Laboratory Results 05/10/18 05/10/18 05/10/18 Range/Units 19:30 19:30 19:30 WBC (4.0-10.5) K/mm3 RBC (4.1-5.6) M/mm3 Hgb (12.5-18.0) gm/dl Hct (42-50) % MCV (78-100) fl MCH (26-32) pg MCHC (32-36) g/dl RDW (11.5-14.0) % Plt Count (150-450) K/mm3 MPV (6-9.5) fl Gran % (36.0-66.0) % Eos # (Auto) (0-0.5) Absolute Lymphs (auto) (1.0-4.6) Absolute Monos (auto) (0.0-1.3) Lymphocytes % (24.0-44.0) % Monocytes % (0.0-12.0) % Eosinophils % (0.00-5.0) % Basophils % (0.0-0.4) % Absolute Granulocytes (1.4-6.9) Basophils # (0-0.4) PT 21.0 H (8.83-12.87) SECONDS INR 1.80 (0.8-3.0) Sodium (137-145) mmol/L Potassium (3.5-5.1) mmol/L Chloride (98-107) mmol/L Carbon Dioxide (22-30) mmol/L Anion Gap (5-15) MEQ/L BUN (9-20) mg/dL Creatinine (0.66-1.25) mg/dL Estimated GFR ML/MIN Glucose (74-106) mg/dL Calcium (8.4-10.2) mg/dL Total Bilirubin (0.2-1.3) mg/dL AST (17-59) U/L ALT (0-50) U/L Alkaline Phosphatase (38-126) U/L Troponin I 0.039 H* (0.000-0.034) ng/mL Serum Total Protein (6.3-8.2) g/dL Albumin (3.5-5.0) g/dL Valproic Acid 35.8 L (50-100) ug/mL 05/10/18 05/10/18 Range/Units 19:30 19:30 WBC 10.0 (4.0-10.5) K/mm3 RBC 2.61 L (4.1-5.6) M/mm3 Hgb 8.3 L (12.5-18.0) gm/dl Hct 26.1 L (42-50) % MCV 100.0 (78-100) fl MCH 31.8 (26-32) pg MCHC 31.8 L (32-36) g/dl RDW 17.1 H (11.5-14.0) % Plt Count 164 (150-450) K/mm3 MPV 10.5 H (6-9.5) fl Gran % 79.7 H (36.0-66.0) % Eos # (Auto) 0.02 (0-0.5) Absolute Lymphs (auto) 0.56 L (1.0-4.6) Absolute Monos (auto) 1.45 H (0.0-1.3) Lymphocytes % 5.6 L (24.0-44.0) % Monocytes % 14.5 H (0.0-12.0) % Eosinophils % 0.2 (0.00-5.0) % Basophils % 0.0 (0.0-0.4) % Absolute Granulocytes 8.00 H (1.4-6.9) Basophils # 0 (0-0.4) PT (8.83-12.87) SECONDS INR (0.8-3.0) Sodium 131 L (137-145) mmol/L Potassium 4.0 (3.5-5.1) mmol/L Chloride 87 L (98-107) mmol/L Carbon Dioxide 22 (22-30) mmol/L Anion Gap 25.4 H (5-15) MEQ/L BUN 37 H (9-20) mg/dL Creatinine 4.50 H (0.66-1.25) mg/dL Estimated GFR 14.6 ML/MIN Glucose 88 (74-106) mg/dL Calcium 9.4 (8.4-10.2) mg/dL Total Bilirubin 1.00 (0.2-1.3) mg/dL AST 41 (17-59) U/L ALT 29 (0-50) U/L Alkaline Phosphatase 207 H (38-126) U/L Troponin I (0.000-0.034) ng/mL Serum Total Protein 7.5 (6.3-8.2) g/dL Albumin 3.5 (3.5-5.0) g/dL Valproic Acid (50-100) ug/mL - Progress Progress Note: 05/10/18 20:09 ONSET OF SEIZURE ACTIVITY, IV NORMAL SALINE 10ML/HR, ADMINISTERED NARCAN 0.8MG IV, IMPROVED IN ALERTNESS BUT REMAINS CONFUSED IV KEPPRA 500MG AFTER 2 SETS OF BLOOD CULTURES IV ROCEPHIN 1 GM, ZITHROMAX 500MG IVPB 05/11/18 00:19 Discussed with : Other (DISCUSSED WITH DR DENISE AT [address] [facility]) - Departure Time of Disposition: 00:30 Departure Disposition: Transfer Clinical Impression: MENTAL STATUS CHANGES/PITUITARY MASS, PNEUMONIA, CHRONIC RENAL FAILURE, SEIZURE DISORDER Condition: Stable Critical Care Time: No Referrals: CEDRICK PEREZ [Primary Care Provider] -
[2018-05-10] MEDS ORDERED: NARCAN 2 MG/2 ML IV ONE (19:44)
[2018-05-10 19:51] LABS: Basophil (Absolute #) 0 (0-0.4); Eosinophil % 0.2 % (0.00-5.0); Eosinophil (Absolute #) 0.02 (0-0.5); Granulocytes % 79.7 % (36.0-66.0); Hematocrit 26.1 % (42-50); Hemoglobin 8.3 gm/dl (12.5-18.0); Lymphocyte (Absolute #) 0.56 (1.0-4.6); Lymphocytes % 5.6 % (24.0-44.0); Mean Corpuscular Hemoglobin 31.8 pg (26-32); Mean Corpuscular Hgb Concent. 31.8 g/dl (32-36); Mean Platelet Volume 10.5 fl (6-9.5); Monocyte (Absolute #) 1.45 (0.0-1.3); Monocytes % 14.5 % (0.0-12.0); Platelet Count 164 K/mm3 (150-450); Red Blood Count 2.61 M/mm3 (4.1-5.6); Red Cell Distribution Width 17.1 % (11.5-14.0)
[2018-05-10 20:10] LABS: INR 1.8 (0.8-3.0)
[2018-05-10 20:19] LABS: ALBUMIN 3.5 g/dL (3.5-5.0); ANION GAP 25.4 MEQ/L (5-15); Calcium 9.4 mg/dL (8.4-10.2); Creatinine 1 4.5 mg/dL (0.66-1.25); Total Protein 7.5 g/dL (6.3-8.2)
[2018-05-10] MEDS ORDERED: ROCEPHIN 1 Gm-D5w 50 ml Bag** 1 G/50 ML IVPB IV STA (22:12)
[2018-05-10] MEDS ORDERED: Zithromax 500 MG/ 250 ML NaCl Premix 500 MG/250 ML IVPB IV STA (22:12)
[2018-05-10] MEDS ORDERED: Zithromax 500 MG/ 250 ML NaCl Premix 500 MG/250 ML IVPB IV ONE (22:15)
[2018-05-10] MEDS ORDERED: ROCEPHIN 1 Gm-D5w 50 ml Bag** 1 G/50 ML IVPB IV ONE (22:15)
[2018-05-11 00:30] VITALS: BP 107/68; O2SAT 100
[2018-05-11] MEDS ORDERED: BABY ASPIRIN 81 MG CHEW PO ONE (00:31)
[2018-05-11] MEDS ORDERED: BABY ASPIRIN 81 MG CHEW ONE (00:33)
[2018-05-11 00:59] VITALS: PULSE 83
[2018-05-11 04:59] LABS: Slide Review 1 YES
--- NOTE | 2018-05-11 08:42 | XRAY ---
Indication: Dyspnea. Comparison: February 15, 2017. Portable chest demonstrates new right lung postsurgical changes including suture material, scarring, and lung volume loss. Also new right apical pleural thickening that may or may not be related. Left lung clear. Heart is not enlarged again demonstrating CABG surgery. New right-sided double-lumen dialysis catheter. Bony thorax intact again with mild degenerative changes and lower cervical fusion. Impression: New right lung postsurgical changes. Superimposed pneumonia not completely excluded in the right clinical setting.
--- NOTE | 2018-05-11 08:50 | XRAY ---
Indication: Acute mental status change. Sudden onset seizure activity. Renal failure. Multiple contiguous axial images obtained through the head without contrast. Comparison: November 27, 2016. Again normal appearing brain parenchyma, ventricles, and bony calvarium. There remains chronic mucoperiosteal thickening of both ethmoid sinuses. Mastoid air cells are clear. Impression: Again negative CT head without contrast exam with incidental paranasal sinus disease. Comment: Preliminary interpretation was made by [facility] who reports a sellar mass which I do not appreciate on the current and comparison study. Also no sellar mass on MRI brain January 21, 2017. CT DI 60.40
== END 2018-05-11 00:40 | disposition short-term general hospital (02) ==
LOC: ED 19:14
DX: R41.82 Altered mental status, unspecified (principal); E23.6 Other disorders of pituitary gland; J18.9 Pneumonia, unspecified organism; N18.9 Chronic kidney disease, unspecified; G40.909 Epilepsy, unspecified, not intractable, without status epilepticus; Z79.899 Other long term (current) drug therapy; Z99.2 Dependence on renal dialysis
CPT/HCPCS: 36000; 36415; 70450; 71045; 80053; 80164; 84484; 85025; 85610; 87040; 87077; 87186; 93005; 93041; 96360; 96365; 96367; 96374; 96375; 99285; 99291; J0456; J0696; J1953; J2310; A9270-GY

== ENCOUNTER 2018-06-26 12:42 | Emergency (ER) | payer MEDICARE ==
[2018-06-26 13:10] VITALS: BP 86/48; PULSE 92; O2SAT 99
--- NOTE | 2018-06-26 13:21 | ERPHSYRPT ---
- History of Present Illness Time Seen by Provider: 06/26/18 13:19 Historian: patient Exam Limitations: no limitations Patient Subjective Stated Complaint: was trying to unclog g-tube with sharp object poked a hole in it and now leaking Triage Nursing Assessment: alert and oriented in no distress.. G tube inplace but he has put a hole in it when trying to unclog it. now leaking. denies abdominal pain abdomen soft. does not take anything orally. has not been able to take meds Physician History: 52 y/o white male presents with malfunctioning feeding tube. pt was attempting to clean out and put a hole in it. it is now leaking. tube placed in december 2017 Timing/Duration: today Activities at Onset: none Abdominal Pain Onset Location: other (no pain.) Pain Radiation: no radiation Severity of Pain-Max: none Severity of Pain-Current: none Modifying Factors: Improves With: nothing Associated Symptoms: denies symptoms Allergies/Adverse Reactions: gabapentin Adverse Reaction (Severe, Verified 06/26/18 13:10) Fainting Home Medications: Aspirin 81 mg PO DAILY 07/30/15 [History] Divalproex Sodium [Divalproex Sodium ER] 1,500 mg PO HS 07/30/15 [History] Duloxetine HCl [Cymbalta] 60 mg PO DAILY 07/30/15 [History] Ranolazine [Ranexa] 1,000 mg PO DAILY 07/30/15 [History] Topiramate 100 mg [Topamax 100 MG] 200 mg PO BID 07/30/15 [History] Atorvastatin Calcium [Lipitor] 40 mg PO HS 02/01/16 [History] Potassium Chloride 20 Meq Tab [Potassium Chloride 20 MEQ TABLET] 20 meq PO DAILY 02/01/16 [History] Lisinopril 5 mg [Zestril 5 MG] 5 mg PO DAILY 01/20/17 [History] Quetiapine Fumarate [Seroquel] 600 mg PO HS 01/20/17 [History] Morphine Sulfate 60 mg TID 05/08/18 [History] Oxycodone HCl/Acetaminophen [Percocet 10-325 mg Tablet] 1 ea TID 05/08/18 [ History] Hx Tetanus, Diphtheria Vaccination/Date Given: No Hx Influenza Vaccination/Date Given: No Hx Pneumococcal Vaccination/Date Given: No - Review of Systems Constitutional: No Symptoms Eyes: No Symptoms Ears, Nose, & Throat: No Symptoms Respiratory: No Symptoms Cardiac: No Symptoms Abdominal/Gastrointestinal: No Symptoms Genitourinary Symptoms: No Symptoms Musculoskeletal: No Symptoms Skin: No Symptoms Neurological: No Symptoms Psychological: No Symptoms Endocrine: No Symptoms Hematologic/Lymphatic: No Symptoms Immunological/Allergic: No Symptoms All Other Systems: Reviewed and Negative - Past Medical History Pertinent Past Medical History: Yes Neurological History: Seizures, Stroke ENT History: No Pertinent History Cardiac History: Angina, Coronary Artery Disease, High Cholesterol, Myocardial Infarction ([place]) Respiratory History: COPD Endocrine Medical History: No Pertinent History Musculoskeletal History: Osteoarthritis, Other GI Medical History: GERD History: No Pertinent History Psycho-Social History: Depression, Other Male Reproductive Disorders: No Pertinent History Other Medical History: PT. REPORTS [place] X 4; PT. REPORTS HE HAS ONE CARDIAC STENT ; CHRONINC NECK, BACK, SHOULDER PN. States leg pain, "need knee replacement" - Past Surgical History Past Surgical History: Yes Neuro Surgical History: No Pertinent History Cardiac: CABG, Cardiac Catheterization, Cardiac Stent Respiratory: No Pertinent History Gastrointestinal: No Pertinent History Genitourinary: No Pertinent History Musculoskeletal: Other Male Surgical History: No Pertinent History Other Surgical History: Left foot x 2, Right foot x 2, Right knee x 2, Left knee x 2, Right torn rotator cuff, Steal plate with rods and screws in neck - Social History Smoking Status: Never smoker How long have you smoked: 35 y Exposure to second hand smoke: No Alcohol Use: None Drug Use: none Patient Lives Alone: No Significant Family History: heart disease - Nursing Vital Signs Nursing Vital Signs: Initial Vital Signs Temperature 98.2 F 06/26/18 13:01 Pulse Rate 92 H 06/26/18 13:01 Respiratory Rate 20 06/26/18 13:01 Blood Pressure 86/48 06/26/18 13:01 O2 Sat by Pulse Oximetry 99 06/26/18 13:01 Pain Scale Pain Intensity 7 - Physical Exam General Appearance: no apparent distress, alert Eye Exam: PERRL/EOMI Ears, Nose, Throat Exam: normal ENT inspection, moist mucous membranes Neck Exam: normal inspection, non-tender, supple, full range of motion Respiratory Exam: normal breath sounds, lungs clear, airway intact, No chest tenderness, No respiratory distress, No accessory muscle use, No rhonchi, No wheezing, No stridor Cardiovascular Exam: regular rate/rhythm, normal heart sounds, normal peripheral pulses Gastrointestinal/Abdomen Exam: soft, normal bowel sounds, other (gastric tube in place; tube with leak. 18 gauge "Y" g tube. tube has leak in it.), No tenderness Rectal Exam: not done Back Exam: normal inspection, normal range of motion, No CVA tenderness, No vertebral tenderness Extremity Exam: normal inspection, normal range of motion, pelvis stable Neurologic Exam: alert, oriented x 3, cooperative, toxics program officer II-XII nml as tested Skin Exam: normal color, warm, dry Lymphatic Exam: No adenopathy SpO2 Interpretation: normal SpO2: 99 Oxygen Delivery: Room Air Procedures - Additional Procedures Additional Procedures: gastric tube replacement (deflated balloon of leaking 18 gauge g tube; swiftly removed and replaced immediately with 20 gauge "Y" g tube. 12ml sterile water inflated balloon; new g tube flushed with sterile water without leak ) - Course Nursing assessment & vital signs reviewed: Yes Ordered Tests: Medication Summary Discontinued Medications Generic Name Dose Route Start Last Admin Trade Name Delia PRN Reason Stop Dose Admin Hydrocodone Bitart/Acetaminophen 1 tab 06/26/18 13:52 06/26/18 13:56 [place] 10/325 Mg Tablet PO 06/26/18 13:53 1 tab STAT ONE Administration Hydrocodone Bitart/Acetaminophen Confirm 06/26/18 13:55 [place] 10/325 Mg Tablet Administered 06/26/18 13:56 Dose 1 tab .ROUTE .STK-MED ONE - Progress Progress: improved Counseled pt/family regarding: diagnosis, need for follow-up - Departure Time of Disposition: 14:15 Departure Disposition: Home Clinical Impression: Complaint associated with gastric tube Condition: Stable Critical Care Time: No Additional Instructions: continue gastric tube care and use as before.
[2018-06-26] MEDS ORDERED: Norco 10/325 MG Tablet PO ONE (13:52)
[2018-06-26] MEDS ORDERED: Norco 10/325 MG Tablet ONE (13:55)
== END 2018-06-26 14:35 | disposition home or self-care (01) ==
LOC: ED 12:42
DX: K94.29 Other complications of gastrostomy (principal); Z79.899 Other long term (current) drug therapy
CPT/HCPCS: 43760; 99283; A9270-GY

== ENCOUNTER 2018-06-26 20:18 | Emergency (ER) | payer MEDICARE ==
--- NOTE | 2018-06-26 20:46 | ERPHSYRPT ---
- History of Present Illness Time Seen by Provider: 06/26/18 20:20 Source: patient, family Physician History: 52 y/o white male here earlier today for change of g tube. they have returned for clogged tube from pills. this was the same issue that brought him in earlier. Timing/Duration: today Severity: mild Associated Symptoms: denies symptoms Allergies/Adverse Reactions: gabapentin Adverse Reaction (Severe, Verified 06/26/18 13:10) Fainting Home Medications: Aspirin 81 mg PO DAILY 07/30/15 [History] Divalproex Sodium [Divalproex Sodium ER] 1,500 mg PO HS 07/30/15 [History] Duloxetine HCl [Cymbalta] 60 mg PO DAILY 07/30/15 [History] Ranolazine [Ranexa] 1,000 mg PO DAILY 07/30/15 [History] Topiramate 100 mg [Topamax 100 MG] 200 mg PO BID 07/30/15 [History] Atorvastatin Calcium [Lipitor] 40 mg PO HS 02/01/16 [History] Potassium Chloride 20 Meq Tab [Potassium Chloride 20 MEQ TABLET] 20 meq PO DAILY 02/01/16 [History] Lisinopril 5 mg [Zestril 5 MG] 5 mg PO DAILY 01/20/17 [History] Quetiapine Fumarate [Seroquel] 600 mg PO HS 01/20/17 [History] Morphine Sulfate 60 mg TID 05/08/18 [History] Oxycodone HCl/Acetaminophen [Percocet 10-325 mg Tablet] 1 ea TID 05/08/18 [ History] Hx Tetanus, Diphtheria Vaccination/Date Given: No Hx Influenza Vaccination/Date Given: No Hx Pneumococcal Vaccination/Date Given: No - Review of Systems Constitutional: No Symptoms Eyes: No Symptoms Ears, Nose, & Throat: No Symptoms Respiratory: No Symptoms Cardiac: No Symptoms Abdominal/Gastrointestinal: No Symptoms Genitourinary Symptoms: No Symptoms Musculoskeletal: No Symptoms Skin: No Symptoms Neurological: No Symptoms Psychological: No Symptoms Endocrine: No Symptoms Hematologic/Lymphatic: No Symptoms Immunological/Allergic: No Symptoms All Other Systems: Reviewed and Negative - Past Medical History Pertinent Past Medical History: Yes Neurological History: Seizures, Stroke ENT History: No Pertinent History Cardiac History: Angina, Coronary Artery Disease, High Cholesterol, Myocardial Infarction ([place]) Respiratory History: COPD Endocrine Medical History: No Pertinent History Musculoskeletal History: Osteoarthritis, Other GI Medical History: GERD History: No Pertinent History Psycho-Social History: Depression, Other Male Reproductive Disorders: No Pertinent History Other Medical History: PT. REPORTS [place] X 4; PT. REPORTS HE HAS ONE CARDIAC STENT ; CHRONINC NECK, BACK, SHOULDER PN. States leg pain, "need knee replacement" - Past Surgical History Past Surgical History: Yes Neuro Surgical History: No Pertinent History Cardiac: CABG, Cardiac Catheterization, Cardiac Stent Respiratory: No Pertinent History Gastrointestinal: No Pertinent History Genitourinary: No Pertinent History Musculoskeletal: Other Male Surgical History: No Pertinent History Other Surgical History: Left foot x 2, Right foot x 2, Right knee x 2, Left knee x 2, Right torn rotator cuff, Steal plate with rods and screws in neck - Social History Smoking Status: Never smoker How long have you smoked: 35 y Exposure to second hand smoke: No Alcohol Use: None Drug Use: none Patient Lives Alone: No Significant Family History: heart disease - Physical Exam General Appearance: no apparent distress, alert, anxiety Ears, Nose, Throat Exam: normal ENT inspection, moist mucous membranes Neck Exam: normal inspection, non-tender, supple, full range of motion Respiratory Exam: normal breath sounds, lungs clear, airway intact, No chest tenderness, No respiratory distress, No accessory muscle use, No rhonchi, No wheezing, No stridor Cardiovascular Exam: regular rate/rhythm Gastrointestinal/Abdomen Exam: soft, other (clogged g tube) Rectal Exam: not done Back Exam: normal inspection Extremity Exam: normal inspection Neurologic Exam: alert, oriented x 3, cooperative, interpreter and translator II-XII nml as tested Skin Exam: normal color, warm, dry Lymphatic Exam: No adenopathy SpO2 Interpretation: normal Oxygen Delivery: Room Air - Course Nursing assessment & vital signs reviewed: Yes - Progress Progress: improved Progress Note: 06/26/18 20:46 MASHA Cartwright was able to de clog g tube. Counseled pt/family regarding: diagnosis, need for follow-up - Departure Time of Disposition: 20:46 Departure Disposition: Home Clinical Impression: Encounter for medical screening examination, Complaint associated with gastric tube Condition: Stable Critical Care Time: No Referrals: DOCTOR,NO FAMILY [Primary Care Provider] - Additional Instructions: use liquids in the gastric tube. mix you pills after crushing with fluid and take orally and not via tube. follow up with primary doctor for further management of your medications
[2018-06-26 20:54] VITALS: BP 126/72; PULSE 65; O2SAT 96
== END 2018-06-26 21:12 | disposition home or self-care (01) ==
LOC: ED 20:18
DX: Z00.00 Encounter for general adult medical examination without abnormal findings (principal); Z43.1 Encounter for attention to gastrostomy
CPT/HCPCS: 99283; A9270-GY

== ENCOUNTER 2018-07-29 15:28 | Emergency (ER) | payer MEDICARE ==
--- NOTE | 2018-07-29 17:02 | XRAY ---
Indication: Nausea and vomiting. Possible small bowel obstruction. Comparison: None 2 views of the abdomen demonstrates mild/moderate fecal debris in the left hemicolon with mild air distended right hemicolon favoring fecal stasis. PEG tube in situ. No free air. Solid organs unremarkable. Osseous structures intact with mild degenerative changes throughout spine. Lung bases demonstrates right hemidiaphragm elevation with right lung base fibrosis/scarring and partially visualized double-lumen dialysis catheter similar appearance to chest radiograph July 06, 2018. Impression: Fecal stasis without obstruction.
[2018-07-29 17:04] VITALS: O2SAT 98
[2018-07-29] MEDS ORDERED: MORPHINE SULFATE 2 MG INJ ONE (17:06)
[2018-07-29] MEDS ORDERED: MORPHINE SULFATE 2 MG INJ IV ONE (17:19)
[2018-07-29] MEDS ORDERED: Transderm Scop 1.5MG Patch TOP ONE (18:01)
--- NOTE | 2018-07-29 18:07 | ERPHSYRPT ---
- History of Present Illness Historian: patient, family Exam Limitations: no limitations Patient Subjective Stated Complaint: vomiting x 2 days.. has a feeding tube.. unable to keep meds down Triage Nursing Assessment: alert and oriented. nauseated . very thin. reina has a feeding tube that all nutrition and meds go down. diarrhea yesterday. [id number] fever.. unable to keep anything down. Physician History: Pt is a cachectic 52 y/o male with a h/o PEG. Pt is able to have some toast PO , but most of his intake is done via PEG. Pt stated that is not able to have any fluids or tube feeds in, and is constant vomiting. Pt has abdominal discomfort, and is feeling very dry. Timing/Duration: yesterday Activities at Onset: none Quality: cramping, fullness Abdominal Pain Onset Location: generalized abdomen Pain Radiation: no radiation Modifying Factors: Improves With: analgesics Associated Symptoms: vomiting Allergies/Adverse Reactions: gabapentin Adverse Reaction (Severe, Verified 06/26/18 13:10) Fainting Home Medications: Aspirin 81 mg PO DAILY 07/30/15 [History] Divalproex Sodium [Divalproex Sodium ER] 1,500 mg PO HS 07/30/15 [History] Duloxetine HCl [Cymbalta] 60 mg PO DAILY 07/30/15 [History] Ranolazine [Ranexa] 1,000 mg PO DAILY 07/30/15 [History] Topiramate 100 mg [Topamax 100 MG] 200 mg PO BID 07/30/15 [History] Atorvastatin Calcium [Lipitor] 40 mg PO HS 02/01/16 [History] Potassium Chloride 20 Meq Tab [Potassium Chloride 20 MEQ TABLET] 20 meq PO DAILY 02/01/16 [History] Lisinopril 5 mg [Zestril 5 MG] 5 mg PO DAILY 01/20/17 [History] Quetiapine Fumarate [Seroquel] 600 mg PO HS 01/20/17 [History] Morphine Sulfate 60 mg TID 05/08/18 [History] Oxycodone HCl/Acetaminophen [Percocet 10-325 mg Tablet] 1 ea TID 05/08/18 [ History] Hx Tetanus, Diphtheria Vaccination/Date Given: No Hx Influenza Vaccination/Date Given: Yes Hx Pneumococcal Vaccination/Date Given: Yes Immunizations Up to Date: Yes - Review of Systems Constitutional: No Fever, No Chills Eyes: No Symptoms Ears, Nose, & Throat: No Symptoms Respiratory: No Cough, No Dyspnea Cardiac: No Chest Pain, No Edema, No Syncope Abdominal/Gastrointestinal: Abdominal Pain, Nausea, Vomiting Genitourinary Symptoms: No Dysuria Musculoskeletal: No Back Pain, No Neck Pain Skin: No Rash Neurological: No Dizziness, No Focal Weakness, No Sensory Changes Psychological: No Symptoms - Past Medical History Pertinent Past Medical History: Yes Neurological History: Seizures, Stroke ENT History: No Pertinent History Cardiac History: Angina, Coronary Artery Disease, High Cholesterol, Myocardial Infarction ([place]) Respiratory History: COPD Endocrine Medical History: No Pertinent History Musculoskeletal History: Osteoarthritis, Other GI Medical History: GERD History: No Pertinent History Psycho-Social History: Depression, Other Male Reproductive Disorders: No Pertinent History Other Medical History: PT. REPORTS [place] X 4; PT. REPORTS HE HAS ONE CARDIAC STENT ; CHRONINC NECK, BACK, SHOULDER PN. States leg pain, "need knee replacement" - Past Surgical History Past Surgical History: Yes Neuro Surgical History: No Pertinent History Cardiac: CABG, Cardiac Catheterization, Cardiac Stent Respiratory: No Pertinent History Gastrointestinal: No Pertinent History Genitourinary: No Pertinent History Musculoskeletal: Other Male Surgical History: No Pertinent History Other Surgical History: Left foot x 2, Right foot x 2, Right knee x 2, Left knee x 2, Right torn rotator cuff, Steal plate with rods and screws in neck - Social History Smoking Status: Current every day smoker How long have you smoked: 35 y Exposure to second hand smoke: No Alcohol Use: None Drug Use: none Patient Lives Alone: No Significant Family History: heart disease - Nursing Vital Signs Nursing Vital Signs: Initial Vital Signs Temperature 98 F 07/29/18 15:50 Pulse Rate 80 07/29/18 15:50 Respiratory Rate 20 07/29/18 15:50 Blood Pressure 136/78 07/29/18 15:50 O2 Sat by Pulse Oximetry 100 07/29/18 15:50 Pain Scale Pain Intensity 7 - Physical Exam General Appearance: mild distress Eye Exam: PERRL/EOMI, eyes nml inspection Ears, Nose, Throat Exam: normal ENT inspection, pharynx normal, moist mucous membranes Neck Exam: normal inspection, non-tender, supple, full range of motion Respiratory Exam: normal breath sounds, lungs clear, No respiratory distress Cardiovascular Exam: regular rate/rhythm, normal heart sounds Gastrointestinal/Abdomen Exam: soft, normal bowel sounds, tenderness, other ( PEG tube in place, with minimal erythema around it.) Back Exam: normal inspection, normal range of motion, No CVA tenderness, No vertebral tenderness Extremity Exam: normal inspection, normal range of motion, pelvis stable Neurologic Exam: alert, oriented x 3, cooperative, normal mood/affect, nml cerebellar function, sensation nml, No motor deficits Skin Exam: normal color, warm, dry SpO2: 98 Oxygen Delivery: Room Air - Radiology Exams Abdomen X-ray Interpretation: Reviewed by me (No SBO obstruction, no free air.) Ordered Tests: Active Orders 24 hr Category Date Time Status ABDOMEN 2 VIEW Stat Exams 07/29/18 16:53 Completed Medication Summary Generic Name Dose Route Start Last Admin Trade Name Freq PRN Reason Stop Dose Admin Scopolamine HBr 1.5 mg 07/29/18 18:01 Transderm Scop 1.5mg Patch TOP 07/29/18 18:02 STAT ONE Discontinued Medications Generic Name Dose Route Start Last Admin Trade Name Freq PRN Reason Stop Dose Admin Morphine Sulfate Confirm 07/29/18 17:06 Morphine Sulfate 2 Mg Inj Administered 07/29/18 17:07 Dose 2 mg .ROUTE .STK-MED ONE Morphine Sulfate 2 mg 07/29/18 17:19 07/29/18 17:08 Morphine Sulfate 2 Mg Inj IV 07/29/18 17:20 2 mg STAT ONE Administration - Progress Progress: unchanged Progress Note: 07/29/18 18:09 Pt is requiring GI and Surgery consults. Per his , and pt's request, pt would like to be transfered to [facility] and not to [facility]. Dr Martinez is the accepting physician in [facility] ER. Pt will be transferred. Counseled pt/family regarding: lab results - Departure Time of Disposition: 06:10 Departure Disposition: Transfer Clinical Impression: Complaint associated with gastric tube Condition: Stable Critical Care Time: No Referrals: ANNE ZAMBRANO MD [Primary Care Provider] -
[2018-07-29 18:31] VITALS: BP 131/80; PULSE 77
[2018-07-29] MEDS ORDERED: Sodium Chloride 0.9% 1000 ML 1,000 ML IV STA (18:50)
[2018-07-29] MEDS ORDERED: Sodium Chloride 0.9% 1000 ML 1,000 ML ONE (18:52)
== END 2018-07-29 19:24 | disposition short-term general hospital (02) ==
LOC: ED 15:28
DX: K94.29 Other complications of gastrostomy (principal); R11.10 Vomiting, unspecified; R10.84 Generalized abdominal pain; Z79.899 Other long term (current) drug therapy
CPT/HCPCS: 36000; 74021; 96374; 99284; J2270; A9270-GY

== ENCOUNTER 2018-08-23 14:06 | Emergency (ER) | payer MEDICARE ==
--- NOTE | 2018-08-23 15:20 | ERPHSYRPT ---
- History of Present Illness Time Seen by Provider: 08/23/18 15:15 Historian: patient Exam Limitations: no limitations Patient Subjective Stated Complaint: feeding tube came out Triage Nursing Assessment: Pt stated that he was using the restroom and accidentally got his feeding tube caught and yanked it out of his stomach, here to have it replaced, no other issues at this time Physician History: The patient is a 51-year-old male with a friend complaining that while having a bowel movement, the exterior portion of his G-tube became entangled in the toilet. When he stood up, the G-tube was withdrawn from the abdomen. This happened about one hour before arrival. The patient felt pain. There was no bleeding. 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 His past medical history is significant for G-tube feedings, C-spine osteophytes , HTN, and high cholesterol. Timing/Duration: today, hour(s), sudden Activities at Onset: other (BM) Quality: aching Abdominal Pain Onset Location: epigastric Pain Radiation: no radiation Severity of Pain-Max: moderate Severity of Pain-Current: none Modifying Factors: Improves With: nothing Associated Symptoms: denies symptoms Previous symptoms: no prior history Allergies/Adverse Reactions: amoxicillin Allergy (Verified 08/23/18 14:26) gabapentin Adverse Reaction (Severe, Verified 08/23/18 14:26) Fainting Home Medications: Aspirin 81 mg PO DAILY 07/30/15 [History] Divalproex Sodium [Divalproex Sodium ER] 1,500 mg PO HS 07/30/15 [History] Duloxetine HCl [Cymbalta] 60 mg PO DAILY 07/30/15 [History] Ranolazine [Ranexa] 1,000 mg PO DAILY 07/30/15 [History] Topiramate 100 mg [Topamax 100 MG] 200 mg PO BID 07/30/15 [History] Atorvastatin Calcium [Lipitor] 40 mg PO HS 02/01/16 [History] Potassium Chloride 20 Meq Tab [Potassium Chloride 20 MEQ TABLET] 20 meq PO DAILY 02/01/16 [History] Lisinopril 5 mg [Zestril 5 MG] 5 mg PO DAILY 05/29/17 [History] Quetiapine Fumarate [Seroquel] 600 mg PO HS 01/20/17 [History] Morphine Sulfate 60 mg TID 05/08/18 [History] Oxycodone HCl/Acetaminophen [Percocet 10-325 mg Tablet] 1 ea TID 05/08/18 [ History] Hx Tetanus, Diphtheria Vaccination/Date Given: No Hx Influenza Vaccination/Date Given: Yes Hx Pneumococcal Vaccination/Date Given: Yes - Review of Systems Constitutional: No Fever, No Chills Eyes: No Symptoms Ears, Nose, & Throat: No Symptoms Respiratory: No Cough, No Dyspnea Cardiac: No Chest Pain, No Edema, No Syncope Abdominal/Gastrointestinal: Abdominal Pain, Other (G-tube removal) Genitourinary Symptoms: No Dysuria Musculoskeletal: No Back Pain, No Neck Pain Skin: No Rash Neurological: No Dizziness, No Focal Weakness, No Sensory Changes Psychological: No Symptoms Endocrine: No Symptoms Hematologic/Lymphatic: No Symptoms Immunological/Allergic: No Symptoms All Other Systems: Reviewed and Negative - Past Medical History Pertinent Past Medical History: Yes Neurological History: Seizures, Stroke ENT History: No Pertinent History Cardiac History: Angina, Coronary Artery Disease, High Cholesterol, Myocardial Infarction ([place]) Respiratory History: COPD Endocrine Medical History: No Pertinent History Musculoskeletal History: Osteoarthritis, Other GI Medical History: GERD History: No Pertinent History Psycho-Social History: Depression, Other Male Reproductive Disorders: No Pertinent History Other Medical History: PT. REPORTS [place] X 4; PT. REPORTS HE HAS ONE CARDIAC STENT ; CHRONINC NECK, BACK, SHOULDER PN. States leg pain, "need knee replacement" - Past Surgical History Past Surgical History: Yes Neuro Surgical History: No Pertinent History Cardiac: CABG, Cardiac Catheterization, Cardiac Stent Respiratory: No Pertinent History Gastrointestinal: No Pertinent History Genitourinary: No Pertinent History Musculoskeletal: Other Male Surgical History: No Pertinent History Other Surgical History: Left foot x 2, Right foot x 2, Right knee x 2, Left knee x 2, Right torn rotator cuff, Steal plate with rods and screws in neck - Social History Smoking Status: Current every day smoker How long have you smoked: 35 y Exposure to second hand smoke: Yes Alcohol Use: None Drug Use: none Patient Lives Alone: No Significant Family History: heart disease - Nursing Vital Signs Nursing Vital Signs: Initial Vital Signs Temperature 97.5 F 08/23/18 14:16 Pulse Rate 55 L 08/23/18 14:16 Blood Pressure 129/62 08/23/18 14:16 O2 Sat by Pulse Oximetry 100 08/23/18 14:16 Pain Scale Pain Intensity 6 - Physical Exam General Appearance: no apparent distress, alert Eye Exam: PERRL/EOMI, eyes nml inspection Ears, Nose, Throat Exam: normal ENT inspection, pharynx normal, moist mucous membranes Neck Exam: normal inspection, non-tender, supple, full range of motion Respiratory Exam: normal breath sounds, lungs clear, No respiratory distress Cardiovascular Exam: regular rate/rhythm, normal heart sounds Gastrointestinal/Abdomen Exam: other (There is a small opening through the abdominal anterior wall where the prior G-tube had been placed. It is well granulated. It is nontender.) Rectal Exam: not done Back Exam: normal inspection, normal range of motion, No CVA tenderness, No vertebral tenderness Extremity Exam: normal inspection, normal range of motion, pelvis stable Neurologic Exam: alert, oriented x 3, cooperative, normal mood/affect, nml cerebellar function, sensation nml, No motor deficits Skin Exam: normal color, warm, dry SpO2 Interpretation: normal SpO2: 100 Oxygen Delivery: Room Air - Radiology Exams Abdomen X-ray Interpretation: Reviewed by me, Teleradiologist Report (per Dr Bates) , Other (G-tube tip in proper position without evidence of leakage.) Ordered Tests: Active Orders 24 hr Category Date Time Status KUB Stat Exams 08/23/18 15:35 Taken - Progress Progress: improved Progress Note: 08/23/18 15:22 A 20 Burmese G-tube was lubricated and attempts were made to place it through the prior G-tube orifice. The initial attempts were not successful. There was mild bleeding after several attempts. A small capno infant tube was used as a "guidewire" through the G-tube. The capno tube was easily placed through the G-tube tract into the stomach. The G-tube was then guided successfully into the stomach. The capno infant tube was removed. A KUB X-Ray was taken with gastrografin contrast material to verify placement in the stomach. Counseled pt/family regarding: diagnosis, rad results - Departure Time of Disposition: 16:15 Departure Disposition: Home Clinical Impression: Gastrostomy tube dysfunction Condition: Stable Critical Care Time: No Referrals: ANNE ZAMBRANO MD [Primary Care Provider] - Additional Instructions: The G-tube was successfully placed into your stomach. The x-ray showed no leakage from the G-tube. You may resume G-tube feedings and administration of medicines to the G-tube. If you have any more problems, do not hesitate to return to the ER.
[2018-08-23 16:25] VITALS: BP 125/72; PULSE 100; O2SAT 99
--- NOTE | 2018-08-23 20:55 | XRAY ---
Indication: G-tube replacement. 15-20 cc diluted Gastrografin injected through G-tube. KUB demonstrates contrast collecting within the gastric lumen. No abnormal extravasation. Bowel gas pattern appears nonobstructed. Solid organs unremarkable. Osseous structures intact with mild degenerative changes. Impression: G-tube balloon tip is in gastric lumen. Comment: Preliminary interpretation was made by [facility]. No discrepancy.
== END 2018-08-23 16:25 | disposition home or self-care (01) ==
LOC: ED 14:06
DX: K94.29 Other complications of gastrostomy (principal); R10.13 Epigastric pain; Z79.899 Other long term (current) drug therapy
CPT/HCPCS: 74018; 99283

== ENCOUNTER 2020-01-18 00:43 | Emergency (ER) | payer MEDICARE ==
[2020-01-18] MEDS ORDERED: TORAdol 30 mg Injection IM ONE (00:57)
[2020-01-18] MEDS ORDERED: Adacel Vial IM ONE (00:59)
--- NOTE | 2020-01-18 01:23 | ERPHSYRPT ---
- History of Present Illness Time Seen by Provider: 01/18/20 01:00 Source: patient Exam Limitations: no limitations Patient Subjective Stated Complaint: pt states he hit his arm on a door frame and cut it. states he has a lump under it also Triage Nursing Assessment: pt alert and oriented, answers questions approp. pt ambulatory with steady gait noted. respriations nonlabored with lungs cta. skin wamr and dry. 4 skin tears to rt forearm. 1 area approx 2cm and 3 areas approx 1cm each Physician History: 54 years old male with multiple medical problems including chronic pain syndrome on morphine presented in the ER with chief complaint of right forearm abrasion after he hit his arm against the door and later on noticed a small bump on the medial aspect of the forearm associated with dull aching mild to moderate pain. He has taken pain medications at home and currently his pain is much better Occurred: this afternoon Quality: dullness Severity of Pain-Max: moderate Severity of Pain-Current: mild Extremities Pain Location: forearm: right Modifying Factors: Improves With: movement Associated Symptoms: none Allergies/Adverse Reactions: amoxicillin Allergy (Verified 01/18/20 01:03) gabapentin Adverse Reaction (Severe, Verified 01/18/20 01:03) Fainting Home Medications: Aspirin 81 mg PO DAILY 07/30/15 [History] Duloxetine HCl [Cymbalta] 60 mg PO DAILY 07/30/15 [History] Ranolazine [Ranexa] 1,000 mg PO DAILY 07/30/15 [History] Topiramate 100 mg [Topamax 100 MG] 200 mg PO BID 07/30/15 [History] Atorvastatin Calcium [Lipitor] 40 mg PO HS 02/01/16 [History] Quetiapine Fumarate [Seroquel] 600 mg PO HS 01/20/17 [History] Morphine Sulfate 60 mg TID 05/08/18 [History] Clopidogrel Bisulfate 75 mg [PLAVIX 75 MG Tablet] 75 mg PO DAILY 01/18/20 [History] Isosorbide Dinitrate 10 mg [Isordil 10 MG] 10 mg PO DAILY 01/18/20 [History] Lacosamide [Vimpat] 10 mg PO TID 01/18/20 [History] Tizanidine HCl [Zanaflex] 2 mg PO BID 01/18/20 [History] Hx Tetanus, Diphtheria Vaccination/Date Given: Yes (2016) Hx Influenza Vaccination/Date Given: Yes Hx Pneumococcal Vaccination/Date Given: Yes Immunizations Up to Date: Yes Travel Risk - International Travel Have you traveled outside of the country in past 3 weeks: No Have you or anyone close to you been diagnosed with or: No Do your reside in a community with a known COVID-19 case?: Yes If Yes where:: [facility] - Coronavirus Screening Has patient experienced Coronavirus symptoms: No - Review of Systems Constitutional: No Symptoms Eyes: No Symptoms Ears, Nose, & Throat: No Symptoms Respiratory: No Symptoms Cardiac: No Symptoms Abdominal/Gastrointestinal: No Symptoms Musculoskeletal: Injury Skin: Skin Lesions Neurological: No Symptoms Psychological: No Symptoms Endocrine: No Symptoms Hematologic/Lymphatic: No Symptoms Immunological/Allergic: No Symptoms - Past Medical History Pertinent Past Medical History: Yes Neurological History: Seizures, Stroke ENT History: No Pertinent History Cardiac History: Angina, Coronary Artery Disease, High Cholesterol, Myocardial Infarction ([place]) Respiratory History: COPD Endocrine Medical History: No Pertinent History Musculoskeletal History: Osteoarthritis, Other GI Medical History: GERD History: No Pertinent History Psycho-Social History: Depression, Other Male Reproductive Disorders: No Pertinent History Other Medical History: PT. REPORTS [place] X 4; PT. REPORTS HE HAS ONE CARDIAC STENT ; CHRONICNECK, BACK, SHOULDER PN. States leg pain, "need knee replacement right knee" "had left knee replaced" , Left shoulder replacement,, "organs shut down in December 2017,life support for 49 days and then 2 months of rehab, also a trach., Has stent left arm for dialysis and is not taking dialysis at this time - Past Surgical History Past Surgical History: Yes Neuro Surgical History: No Pertinent History Cardiac: CABG, Cardiac Catheterization, Cardiac Stent Respiratory: No Pertinent History Gastrointestinal: No Pertinent History Genitourinary: No Pertinent History Musculoskeletal: Other Male Surgical History: No Pertinent History Other Surgical History: Left foot x 2, Right foot x 2, Right knee x 2, Left knee x 2, Right torn rotator cuff, Steal plate with rods and screws in neck - Social History Smoking Status: Former smoker How long have you smoked: 35 y Exposure to second hand smoke: Yes Alcohol Use: None Drug Use: none Patient Lives Alone: No Significant Family History: heart disease - Nursing Vital Signs Nursing Vital Signs: Initial Vital Signs Temperature 98.2 F 01/18/20 00:50 Pulse Rate 78 01/18/20 00:50 Respiratory Rate 18 01/18/20 00:50 Blood Pressure 130/71 01/18/20 00:50 O2 Sat by Pulse Oximetry 100 01/18/20 00:50 Pain Scale Pain Intensity 6 - Physical Exam General Appearance: no apparent distress Eyes, Ears, Nose, Throat Exam: normal ENT inspection Neck Exam: normal inspection, supple, full range of motion Cardiovascular/Respiratory Exam: chest non-tender, normal breath sounds, regular rate/rhythm Shoulder Exam: normal inspection, non-tender Elbow/Forearm Exam: normal ROM, abrasions (Soft tissue dorsal aspect linear abrasion with no active bleeding), bone tenderness (Swelling mid ulna area with tenderness but no obvious deformity), pain, soft tissue tenderness, swelling Wrist Exam: normal inspection, non-tender Hand Exam: normal inspection, non-tender, no evidence of injury Neuro/Tendon Exam: normal sensation, normal motor functions Mental Status Exam: alert, oriented x 3, cooperative Skin Exam: normal color SpO2 Interpretation: normal SpO2: 100 O2 Delivery: Room Air - Course Nursing assessment & vital signs reviewed: Yes Ordered Tests: Active Orders 24 hr Category Date Time Status FOREARM Stat Exams 01/18/20 01:20 Taken Medication Summary Discontinued Medications Generic Name Dose Route Start Last Admin Trade Name Barryq PRN Reason Stop Dose Admin Diphtheria/Tetanus/Acell Pertussis 0.5 ml 01/18/20 00:59 Adacel Vial IM 01/18/20 01:00 .ONCE ONE Ketorolac Tromethamine 30 mg 01/18/20 00:57 Toradol 30 Mg Injection IM 01/18/20 00:58 STAT ONE - Progress Progress: unchanged Progress Note: 01/18/20 01:23 Ruled out fracture dislocation. I believe he has a contusion. Superficial abrasion is clean. Recommended continue with pain medication as needed, ice and outpatient follow-up. Counseled pt/family regarding: diagnosis, need for follow-up, rad results, smoking cessation - Departure Departure Disposition: Home Clinical Impression: Contusion of right forearm Qualifiers: Encounter type: initial encounter Qualified Code(s): S50.11XA - Contusion of right forearm, initial encounter Condition: Stable Critical Care Time: No Referrals: ANNE ZAMBRANO MD [Primary Care Provider] - Follow Up with PCP/3 days Instructions: Contusion (DC) Additional Instructions: Take pain medications as needed. Apply ice. Follow-up with primary care for reevaluation. Return to ER for increased swelling redness discharge fever chills etc.
[2020-01-18 01:41] VITALS: BP 123/66; PULSE 54; O2SAT 99
--- NOTE | 2020-01-18 09:44 | XRAY ---
Indication: Forearm abrasion. Comparison: None 2 view right forearm demonstrates mild mid posterior soft tissue swelling and mild degenerative changes base 1st metacarpal. No other bony, articular, or soft tissue abnormalities.
== END 2020-01-18 01:44 | disposition home or self-care (01) ==
LOC: ED 00:43
DX: S50.11XA Contusion of right forearm, initial encounter (principal); S50.811A Abrasion of right forearm, initial encounter; W22.8XXA Striking against or struck by other objects, initial encounter; Y93.89 Activity, other specified; Y92.89 Other specified places as the place of occurrence of the external cause; G89.4 Chronic pain syndrome; Z79.899 Other long term (current) drug therapy; G40.909 Epilepsy, unspecified, not intractable, without status epilepticus; Z86.73 Personal history of transient ischemic attack (TIA), and cerebral infarction without residual deficits; I25.10 Atherosclerotic heart disease of native coronary artery without angina pectoris; E78.00 Pure hypercholesterolemia, unspecified; I25.2 Old myocardial infarction; J44.9 Chronic obstructive pulmonary disease, unspecified; M19.90 Unspecified osteoarthritis, unspecified site; K21.9 Gastro-esophageal reflux disease without esophagitis; M54.2 Cervicalgia; Z72.0 Tobacco use
CPT/HCPCS: 73090; 99283

== ENCOUNTER 2021-03-02 23:34 | Emergency (ER) | payer MEDICARE ==
--- NOTE | 2021-03-02 23:45 | ERPHSYRPT ---
- History of Present Illness Time Seen by Provider: 03/02/21 23:45 Source: patient Exam Limitations: no limitations Physician History: This is a 55-year-old white male who has chronic pain issues and is on morphine daily. The last dose of his pain medicine that he took was at 4 PM on 03/02/2021. Patient presents to the emergency department via EMS with complaints of testicular pain left side worse than the right. Patient denies any injury to this area. Timing/Duration: today Activites at Onset: none Quality: aching Onset Location: unknown Pain Radiation: none Severity of Pain-Max: moderate Severity of Pain-Current: moderate Modifying Factors: Improves With: nothing Associated Symptoms: denies symptoms Prior abdominal problems: none Sexual intercourse history: non-contributory Allergies/Adverse Reactions: amoxicillin Allergy (Verified 03/02/21 23:37) gabapentin Adverse Reaction (Severe, Verified 03/02/21 23:37) Fainting Home Medications: Aspirin 81 mg PO DAILY 07/30/15 [History] Duloxetine HCl [Cymbalta] 60 mg PO DAILY 07/30/15 [History] Ranolazine [Ranexa] 1,000 mg PO DAILY 07/30/15 [History] Topiramate 100 mg [Topamax 100 MG] 200 mg PO BID 07/30/15 [History] Atorvastatin Calcium [Lipitor] 40 mg PO HS 02/01/16 [History] Quetiapine Fumarate [Seroquel] 600 mg PO HS 01/20/17 [History] Morphine Sulfate 60 mg TID 05/08/18 [History] Clopidogrel Bisulfate 75 mg [PLAVIX 75 MG Tablet] 75 mg PO DAILY 01/18/20 [History] Isosorbide Dinitrate 10 mg [Isordil 10 MG] 10 mg PO DAILY 01/18/20 [History] Lacosamide [Vimpat] 10 mg PO TID 01/18/20 [History] Tizanidine HCl [Zanaflex] 2 mg PO BID 01/18/20 [History] Hx Tetanus, Diphtheria Vaccination/Date Given: Yes (2016) Hx Influenza Vaccination/Date Given: Yes Hx Pneumococcal Vaccination/Date Given: Yes Travel Risk - International Travel Have you traveled outside of the country in past 3 weeks: No - Coronavirus Screening Are you exhibiting any of the following symptoms?: No Close contact with a COVID-19 positive Pt in past 14-21 Days: No - Past Medical History Pertinent Past Medical History: Yes Neurological History: Seizures, Stroke ENT History: No Pertinent History Cardiac History: Angina, Coronary Artery Disease, High Cholesterol, Myocardial Infarction ([place]) Respiratory History: COPD Endocrine Medical History: No Pertinent History Musculoskeletal History: Osteoarthritis, Other GI Medical History: GERD History: No Pertinent History Psycho-Social History: Depression, Other Male Reproductive Disorders: No Pertinent History Other Medical History: PT. REPORTS [place] X 4; PT. REPORTS HE HAS ONE CARDIAC STENT; CHRONICNECK, BACK, SHOULDER PN. States leg pain, "need knee replacement right knee" "had left knee replaced" , Left shoulder replacement,, "organs shut down in December 2017,life support for 49 days and then 2 months of rehab, also a trach., Has stent left arm for dialysis and is not taking dialysis at this time - Past Surgical History Past Surgical History: Yes Neuro Surgical History: No Pertinent History Cardiac: CABG, Cardiac Catheterization, Cardiac Stent Respiratory: No Pertinent History Gastrointestinal: No Pertinent History Genitourinary: No Pertinent History Musculoskeletal: Other Male Surgical History: No Pertinent History Other Surgical History: Left foot x 2, Right foot x 2, Right knee x 2, Left knee x 2, Right torn rotator cuff, Steal plate with rods and screws in neck - Social History Smoking Status: Former smoker How long have you smoked: 35 y Exposure to second hand smoke: Yes Alcohol Use: None Drug Use: none Patient Lives Alone: No Significant Family History: heart disease - Review of Systems Constitutional: No Symptoms Eyes: No Symptoms Ears, Nose, & Throat: No Symptoms Respiratory: No Symptoms Cardiac: No Symptoms Abdominal/Gastrointestinal: No Symptoms Genitourinary Symptoms: Testicle Pain (Bilateral, left greater than right) Musculoskeletal: No Symptoms Skin: No Symptoms Neurological: No Symptoms Psychological: No Symptoms Endocrine: No Symptoms Hematologic/Lymphatic: No Symptoms Immunological/Allergic: No Symptoms All Other Systems: Reviewed and Negative - Nursing Vital Signs Nursing Vital Signs: Initial Vital Signs Temperature 98.3 F 03/02/21 23:35 Pulse Rate 62 03/02/21 23:35 Respiratory Rate 18 03/02/21 23:35 Blood Pressure 179/93 03/02/21 23:35 O2 Sat by Pulse Oximetry 98 03/02/21 23:35 Pain Scale Pain Intensity 10 - Physical Exam General Appearance: no apparent distress, alert, anxiety Eye Exam: PERRL/EOMI, eyes nml inspection Ears, Nose, Throat Exam: normal ENT inspection, moist mucous membranes Neck Exam: normal inspection, non-tender, supple, full range of motion Respiratory Exam: airway intact, No chest tenderness, No respiratory distress Gastrointestinal/Abdomen Exam: soft, normal bowel sounds, No tenderness, No guarding, No rebound Rectal Exam: not done Male Genital Exam: normal genitalia, no hernia, epididymal tenderness (Mild left greater than right), circumcised, No urethral discharge Back Exam: normal inspection, normal range of motion, No CVA tenderness, No vertebral tenderness Extremity Exam: normal inspection, normal range of motion, pelvis stable Neurologic Exam: alert, oriented x 3, cooperative, pick up man II-XII nml as tested, normal mood/affect, sensation nml Skin Exam: normal color, warm, dry Lymphatic Exam: No adenopathy SpO2 Interpretation: normal O2 Delivery: Room Air - Course Nursing assessment & vital signs reviewed: Yes Ordered Tests: Active Orders 24 hr Category Date Time Status UA W/RFX UR CULTURE Stat Lab 03/02/21 23:55 Completed Medication Summary Discontinued Medications Generic Name Dose Route Start Last Admin Trade Name Delia PRN Reason Stop Dose Admin Hydromorphone HCl 1 mg 03/02/21 23:55 03/02/21 23:59 Hydromorphone 1 Mg/Ml Injection IM 03/02/21 23:56 1 mg STAT ONE Administration Hydromorphone HCl Confirm 03/02/21 23:58 Hydromorphone 1 Mg/Ml Injection Administered 03/02/21 23:59 Dose 1 mg .ROUTE .STK-MED ONE Ondansetron HCl 4 mg 03/02/21 23:55 03/02/21 23:59 Zofran Odt 4 Mg PO 03/02/21 23:56 4 mg STAT ONE Administration Ondansetron HCl Confirm 03/02/21 23:58 Zofran Odt 4 Mg Administered 03/02/21 23:59 Dose 4 mg .ROUTE .STK-MED ONE Lab/Rad Data: Laboratory Results 03/02/21 Range/Units 23:55 Urine Color STRAW (YELLOW) Urine Appearance CLEAR (CLEAR) Urine pH 8.0 (5-6) Ur Specific Dresser 1.003 (1.005-1.025) Urine Protein NEGATIVE (Negative) Urine Ketones NEGATIVE (NEGATIVE) Urine Blood NEGATIVE (0-5) Harrison/ul Urine Nitrite NEGATIVE (NEGATIVE) Urine Bilirubin NEGATIVE (NEGATIVE) Urine Urobilinogen NEGATIVE (0-1) mg/dL Ur Leukocyte Esterase TRACE (NEGATIVE) Urine WBC (Auto) 0-2 (0-5) /HPF Urine RBC (Auto) NONE (0-2) /HPF U Epithel Cells (Auto) RARE (FEW) /HPF Urine Bacteria (Auto) NONE (NEGATIVE) /HPF Urine Mucus (Auto) SLIGHT (NEGATIVE) /HPF Urine Culture Reflexed NO (NO) Urine Glucose NEGATIVE (NEGATIVE) mg/dL - Progress Progress: improved, pain not gone completely Counseled pt/family regarding: lab results, diagnosis, need for follow-up - Departure Departure Disposition: Home Clinical Impression: Epididymitis, UTI (urinary tract infection) Condition: Stable Critical Care Time: No Referrals: ANNE ZAMBRANO MD [Primary Care Provider] - Additional Instructions: Drink plenty of fluids. Take your medication as prescribed. Follow-up with your prescribing doctor for further management. Prescriptions: Ciprofloxacin [Cipro 500 MG] 500 mg PO BID #14 tablet
[2021-03-02] MEDS ORDERED: ZOFRAN ODT 4 MG PO ONE (23:55)
[2021-03-02] MEDS ORDERED: Hydromorphone 1 mg/ml Injection IM ONE (23:55)
[2021-03-02] MEDS ORDERED: ZOFRAN ODT 4 MG ONE (23:58)
[2021-03-02] MEDS ORDERED: Hydromorphone 1 mg/ml Injection ONE (23:58)
[2021-03-03 00:04] LABS: Appearance CLEAR (CLEAR); Bilirubin NEGATIVE (NEGATIVE); Blood NEGATIVE Ery/ul (0-5); Epithelial Cells RARE /HPF (FEW); Glucose NEGATIVE (NEGATIVE); Ketones NEGATIVE (NEGATIVE); Leukocyte Esterase TRACE (NEGATIVE); Mucus SLIGHT /HPF (NEGATIVE); Nitrite NEGATIVE (NEGATIVE); Protein,Urine Dip NEGATIVE (Negative); Specific Gravity 1.003 (1.005-1.025); Urobilinogen NEGATIVE mg/dL (0-1); WBC 0-2 /HPF (0-5)
[2021-03-03] MEDS ORDERED: Levofloxacin 500 MG Tablet PO ONE (00:48)
[2021-03-03] MEDS ORDERED: Levofloxacin 500 MG Tablet ONE (01:21)
[2021-03-03 01:23] VITALS: BP 130/80; PULSE 65; O2SAT 99
== END 2021-03-03 01:41 | disposition home or self-care (01) ==
LOC: ED 23:34
DX: N45.1 Epididymitis (principal); N39.0 Urinary tract infection, site not specified; N50.812 Left testicular pain; N50.811 Right testicular pain; Z79.899 Other long term (current) drug therapy; Z79.01 Long term (current) use of anticoagulants
CPT/HCPCS: 81001; 96372; 99284; J1170; Q0162; A9270-GY

== ENCOUNTER 2022-11-27 07:11 | Observation (INO) | payer MEDICARE ==
[2022-11-27] MEDS ORDERED: Zofran 4 MG/2 ML VIAL IV ONE ×2 (07:40→09:55)
[2022-11-27] MEDS ORDERED: MORPHINE SULFATE 2 MG INJ IV ONE (07:40)
[2022-11-27] MEDS ORDERED: Sodium Chloride 0.9% 1000 ML 1,000 ML IV SCH ×2 (07:45→11:26)
[2022-11-27] MEDS ORDERED: Zofran 4 MG/2 ML VIAL ONE ×2 (07:47→10:05)
[2022-11-27] MEDS ORDERED: MORPHINE SULFATE 2 MG INJ ONE (07:47)
[2022-11-27 07:48] LABS: Absolute Neutrophil Ct (ANC) 10.23 x10^3/uL (1.4-6.9); BASOPHIL % 0.2 % (0.0-0.4); Basophil (Absolute #) 0.02 x10^3/uL (0-0.4); Eosinophil % 0.1 % (0.00-5.0); Eosinophil (Absolute #) 0.01 x10^3/uL (0-0.5); Hematocrit 42.3 % (42-50); Hemoglobin 13.4 g/dL (12.5-18.0); IMMATURE GRAN # 0.04 x10^3u/L (0.00-0.03); IMMATURE GRAN % 0.3 % (0.00-0.4); Lymphocyte (Absolute #) 1.14 x10^3/uL (1.0-4.6); Lymphocytes % 9.4 % (24.0-44.0); Mean Cell Volume 99.5 fL (78-100); Mean Corpuscular Hemoglobin 31.5 pg (26-32); Mean Corpuscular Hgb Concent. 31.7 g/dL (32-36); Mean Platelet Volume 9.3 fL (7.5-11.0); Monocyte (Absolute #) 0.68 x10^3/uL (0.0-1.3); Monocytes % 5.6 % (0.0-12.0); Neutrophil % 84.4 % (36.0-66.0); Platelet Count 306 x10^3/uL (150-450); Red Blood Count 4.25 x10^6/uL (4.1-5.6); White Blood Count 12.1 x10^3/uL (4.0-10.5)
[2022-11-27 08:02] LABS: ALBUMIN 4.9 g/dL (3.5-5.0); BILIRUBIN,TOTAL 0.5 mg/dL (0.2-1.3); Creatinine 1 1.31 mg/dL (0.66-1.25); EST GLOMERULAR FILTRATION RATE 59.7 ML/MIN; Potassium 3.3 mmol/L (3.5-5.1); Total Protein 9.2 g/dL (6.3-8.2)
--- NOTE | 2022-11-27 09:11 | XRAY ---
Indication: Vomiting and diarrhea. Multiple contiguous axial images obtained through the abdomen and pelvis without contrast. Comparison: September 15, 2014 Lung bases demonstrates new incompletely visualized posterior right lower lobe irregular consolidating opacity with small effusion, possible pneumonia in the right clinical setting. Malignancy certainly not excluded. Left lung bases clear. Heart not enlarged. Distal esophagus again demonstrates mild circumferential wall thickening with now tiny fluid presumed reflux esophagitis. New PEG tube with balloon tip in gastric lumen. No free fluid/air. Stomach and duodenum moderately fluid distended either from recent ingestion versus gastroduodenitis. No focal bowel dilatation/obstruction. Both kidneys are now mildly atrophic. Left kidney demonstrates 2 nonobstructive punctate calculi. Pancreas demonstrate progressive fatty replacement. Remaining liver, gallbladder, pancreas, spleen, adrenal glands, kidneys, ureters, and bladder are unremarkable for noncontrast exam. New mild scattered aortoiliac calcifications without AAA. Osseous structures intact with mild degenerative changes throughout the thoracolumbar spine and both hips. Impression: 1. New incompletely visualized right lower lobe irregular consolidating opacity with small effusion, possible pneumonia in the right clinical setting. Malignancy not completely excluded. 2. Again distal esophageal circumferential wall thickening with now tiny fluid presumed reflux esophagitis. 3. Mild fluid distended stomach and duodenum either from recent ingestion versus gastroduodenitis. 4. New bilateral renal atrophy and nonobstructing left renal micro-calculi. 5. Chronic findings including PEG tube in situ, arteriosclerotic disease and chronic bony findings.
[2022-11-27] MEDS ORDERED: Klor Con PO ONE ×2 (09:25→09:48)
--- NOTE | 2022-11-27 09:27 | ERPHSYRPT ---
- History of Present Illness Time Seen by Provider: 11/27/22 07:30 Historian: patient Exam Limitations: no limitations Patient Subjective Stated Complaint: pt here for vomiting, and loose stools all night Triage Nursing Assessment: pt alert, walked in, anxious, skin w/d/p, face mask in place,has g tube to abd. no edema noted Physician History: Patient is a 57-year-old male presents to emergency department for evaluation of nausea vomiting diarrhea and progressive weakness. Patient also experiencing periumbilical pain. Symptoms started last night. Patient unable to tolerate p.o. No associated chest pain or shortness of breath. No nausea vomiting or diaphoresis. Symptoms are mild to moderate in intensity. No specific worsening or improving factors. Patient's female friend is at the bedside. They voiced n o other complaints or concerns at this time. Portions of this note were created with voice recognition technology. There may be grammatical, spelling, punctuation or sound alike errors Timing/Duration: yesterday Activities at Onset: none Quality: aching Abdominal Pain Onset Location: periumbilical Pain Radiation: no radiation Severity of Pain-Max: moderate Severity of Pain-Current: mild Modifying Factors: Improves With: nothing Associated Symptoms: other (Generalized weakness) Previous symptoms: no prior history Allergies/Adverse Reactions: amoxicillin Allergy (Verified 11/27/22 07:17) gabapentin Adverse Reaction (Severe, Verified 11/27/22 07:17) Fainting Home Medications: Aspirin 81 mg PO DAILY 07/30/15 [History] Duloxetine HCl [Cymbalta] 60 mg PO DAILY 07/30/15 [History] Ranolazine [Ranexa] 1,000 mg PO DAILY 07/30/15 [History] Topiramate 100 mg [Topamax 100 MG] 200 mg PO BID 07/30/15 [History] Atorvastatin Calcium [Lipitor] 40 mg PO HS 02/01/16 [History] Quetiapine Fumarate [Seroquel] 600 mg PO HS 01/20/17 [History] Morphine Sulfate 60 mg TID 05/08/18 [History] Clopidogrel Bisulfate [PLAVIX 75 MG Tablet] 75 mg PO DAILY 01/18/20 [History] Isosorbide Dinitrate 10 mg [Isordil 10 MG] 10 mg PO DAILY 01/18/20 [History] Lacosamide [Vimpat] 10 mg PO TID 01/18/20 [History] Tizanidine HCl [Zanaflex] 2 mg PO BID 01/18/20 [History] Hx Tetanus, Diphtheria Vaccination/Date Given: Yes (2016) Hx Influenza Vaccination/Date Given: Yes Hx Pneumococcal Vaccination/Date Given: Yes Immunizations Up to Date: Yes Travel Risk - International Travel Have you traveled outside of the country in past 3 weeks: No - Coronavirus Screening Are you exhibiting any of the following symptoms?: No - Vaccine Status Have you recieved a Covid-19 vaccination: Yes Passenger Representative: Unknown - Vaccination Dates Date of 2cond Vaccination (if applicable): 2020 Dates if Unknown: ? - Review of Systems Constitutional: No Symptoms, No Fever, No Chills Eyes: No Symptoms Ears, Nose, & Throat: No Symptoms Respiratory: No Symptoms, No Cough, No Dyspnea Cardiac: No Symptoms, No Chest Pain, No Edema, No Syncope Abdominal/Gastrointestinal: No Symptoms, No Abdominal Pain, No Nausea, No Vomiting, No Diarrhea Genitourinary Symptoms: No Symptoms, No Dysuria Musculoskeletal: No Symptoms, No Back Pain, No Neck Pain Skin: No Symptoms, No Rash Neurological: No Symptoms, No Dizziness, No Focal Weakness, No Sensory Changes Psychological: No Symptoms Endocrine: No Symptoms Hematologic/Lymphatic: No Symptoms Immunological/Allergic: No Symptoms All Other Systems: Reviewed and Negative - Past Medical History Pertinent Past Medical History: Yes Neurological History: Seizures, Stroke ENT History: No Pertinent History Cardiac History: Angina, Coronary Artery Disease, High Cholesterol, Myocardial Infarction ([place]) Respiratory History: COPD Endocrine Medical History: No Pertinent History Musculoskeletal History: Osteoarthritis, Other GI Medical History: GERD History: No Pertinent History Psycho-Social History: Depression, Other Male Reproductive Disorders: No Pertinent History Other Medical History: PT. REPORTS [place] X 4; PT. REPORTS HE HAS ONE CARDIAC STENT; CHRONICNECK, BACK, SHOULDER PN. States leg pain, "need knee replacement right knee" "had left knee replaced" , Left shoulder replacement,, "organs shut down in December 2017,life support for 49 days and then 2 months of rehab, also a trach., Has stent left arm for dialysis and is not taking dialysis at this time - Past Surgical History Past Surgical History: Yes Neuro Surgical History: No Pertinent History Cardiac: CABG, Cardiac Catheterization, Cardiac Stent Respiratory: No Pertinent History Gastrointestinal: No Pertinent History Genitourinary: No Pertinent History Musculoskeletal: Other Male Surgical History: No Pertinent History Other Surgical History: Left foot x 2, Right foot x 2, Right knee x 2, Left knee x 2, Right torn rotator cuff, Steal plate with rods and screws in neck - Social History Smoking Status: Former smoker How long have you smoked: 35 y Exposure to second hand smoke: No Alcohol Use: None Drug Use: none Patient Lives Alone: No Significant Family History: heart disease - Nursing Vital Signs Nursing Vital Signs: Initial Vital Signs Temperature 97.0 F 11/27/22 07:23 Pulse Rate 84 11/27/22 07:23 Respiratory Rate 18 11/27/22 07:23 Blood Pressure 126/78 11/27/22 07:23 O2 Sat by Pulse Oximetry 99 11/27/22 07:23 Pain Scale Pain Intensity 4 - Physical Exam General Appearance: no apparent distress, alert, other Eye Exam: PERRL/EOMI, eyes nml inspection Ears, Nose, Throat Exam: normal ENT inspection, pharynx normal, moist mucous membranes, other (Dry appearing oral mucous membranes) Neck Exam: normal inspection, non-tender, supple, full range of motion Respiratory Exam: normal breath sounds, lungs clear, No respiratory distress Cardiovascular Exam: regular rate/rhythm, normal heart sounds Gastrointestinal/Abdomen Exam: soft, other (G-tube, mild periumbilical tenderness), No tenderness, No mass Back Exam: normal inspection, normal range of motion, No CVA tenderness, No vertebral tenderness Extremity Exam: normal inspection, normal range of motion, pelvis stable Neurologic Exam: alert, oriented x 3, cooperative, normal mood/affect, nml cerebellar function, sensation nml, No motor deficits Skin Exam: normal color, warm, dry Lymphatic Exam: No adenopathy SpO2 Interpretation: normal SpO2: 98 O2 Delivery: Room Air - Course Nursing assessment & vital signs reviewed: Yes - Radiology Exams Chest X-ray Interpretation: Teleradiologist Report (Not acute chest with chronic features) - CT Exams Abdomen/Pelvis CT Interpretation: Tele-radiologist Report (Esophagitis, left nephrolithiasis, gastroduodenitis, right lower lobe pneumonia,) Ordered Tests: Active Orders 24 hr Category Date Time Status IV Insertion STAT Care 11/27/22 07:40 Active ABDOMEN AND PELVIS W/0 CONTRAS [CT] Stat Exams 11/27/22 07:40 Completed CHEST 1 VIEW (PORTABLE) Stat Exams 11/27/22 09:26 Completed CBC W DIFF Stat Lab 11/27/22 07:47 Completed CMP Stat Lab 11/27/22 07:47 Completed LIPASE Stat Lab 11/27/22 07:47 Completed TROPONIN Q4H Lab 11/27/22 07:47 Completed TROPONIN Q4H Lab 11/27/22 11:45 Ordered TROPONIN Q4H Lab 11/27/22 15:45 Ordered UA W/RFX UR CULTURE Stat Lab 11/27/22 07:40 Ordered Transfer Order Routine Transfer 11/27/22 Ordered Medication Summary Generic Name Dose Route Start Last Admin Trade Name Freq PRN Reason Stop Dose Admin Sodium Chloride 1,000 mls @ 100 mls/hr 11/27/22 07:45 11/27/22 07:48 Sodium Chloride 0.9% 1000 Ml IV 12/27/22 07:44 100 mls/hr .Q10H MAGED Administration Magnesium Sulfate/Dextrose 100 mls @ 100 mls/hr 11/27/22 09:30 11/27/22 09:50 Magnesium 1 Gm / 100 Ml D5w IV 11/27/22 11:29 100 mls/hr Q1H MAGED Administration Doxycycline Hyclate 100 mg/ 100 mls @ 100 mls/hr 11/27/22 22:00 Dextrose IV 12/27/22 21:59 Q12HT MAGED Discontinued Medications Generic Name Dose Route Start Last Admin Trade Name Freq PRN Reason Stop Dose Admin Morphine Sulfate 2 mg 11/27/22 07:40 11/27/22 07:48 Morphine Sulfate 2 Mg/Ml Inj IV 11/27/22 07:41 2 mg STAT ONE Administration Morphine Sulfate Confirm 11/27/22 07:47 Morphine Sulfate 2 Mg/Ml Inj Administered 11/27/22 07:48 Dose 2 mg .ROUTE .STK-MED ONE Ondansetron HCl 4 mg 11/27/22 07:40 11/27/22 07:49 Ondansetron Hcl 4 Mg/2 Ml Vial IV 11/27/22 07:41 4 mg STAT ONE Administration Ondansetron HCl Confirm 11/27/22 07:47 Ondansetron Hcl 4 Mg/2 Ml Vial Administered 11/27/22 07:48 Dose 4 mg .ROUTE .STK-MED ONE Ondansetron HCl 4 mg 11/27/22 09:55 11/27/22 10:07 Ondansetron Hcl 4 Mg/2 Ml Vial IV 11/27/22 09:56 4 mg STAT ONE Administration Ondansetron HCl Confirm 11/27/22 10:05 Ondansetron Hcl 4 Mg/2 Ml Vial Administered 11/27/22 10:06 Dose 4 mg .ROUTE .STK-MED ONE Pantoprazole Sodium 40 mg 11/27/22 09:55 11/27/22 10:07 Pantoprazole 40 Mg Vial IV 11/27/22 09:56 40 mg STAT ONE Administration Pantoprazole Sodium Confirm 11/27/22 10:05 Pantoprazole 40 Mg Vial Administered 11/27/22 10:06 Dose 40 mg IV .STK-MED ONE Potassium Chloride 40 meq 11/27/22 09:25 11/27/22 09:50 Potassium Chloride Tab 10 Meq Tab PO 11/27/22 09:26 40 meq STAT ONE Administration Potassium Chloride Confirm 11/27/22 09:48 Potassium Chloride Tab 10 Meq Tab Administered 11/27/22 09:49 Dose 40 meq PO .STK-MED ONE Lab/Rad Data: Laboratory Result Diagrams 11/27/22 07:47 11/27/22 07:47 Laboratory Results 11/27/22 11/27/22 11/27/22 Range/Units 07:47 07:47 07:47 WBC 12.1 H (4.0-10.5) x10^3/uL RBC 4.25 (4.1-5.6) x10^6/uL Hgb 13.4 (12.5-18.0) g/dL Hct 42.3 (42-50) % MCV 99.5 (78-100) fL MCH 31.5 (26-32) pg MCHC 31.7 L (32-36) g/dL RDW 12.0 (11.5-14.0) % Plt Count 306 (150-450) x10^3/uL MPV 9.3 (7.5-11.0) fL Gran % 84.4 H (36.0-66.0) % Immature Gran % (Auto) 0.3 (0.00-0.4) % Nucleat RBC Rel Count 0.0 (0.00-0.1) % Eos # (Auto) 0.01 (0-0.5) x10^3/uL Immature Gran # (Auto) 0.04 H (0.00-0.03) x10^3u/L Absolute Lymphs (auto) 1.14 (1.0-4.6) x10^3/uL Absolute Monos (auto) 0.68 (0.0-1.3) x10^3/uL Absolute Nucleated RBC 0.00 (0.00-0.01) x10^3u/L Lymphocytes % 9.4 L (24.0-44.0) % Monocytes % 5.6 (0.0-12.0) % Eosinophils % 0.1 (0.00-5.0) % Basophils % 0.2 (0.0-0.4) % Absolute Granulocytes 10.23 H (1.4-6.9) x10^3/uL Basophils # 0.02 (0-0.4) x10^3/uL Sodium 147 H (137-145) mmol/L Potassium 3.3 L (3.5-5.1) mmol/L Chloride 109 H (98-107) mmol/L Carbon Dioxide 21 L (22-30) mmol/L Anion Gap 21.0 H (5-15) MEQ/L BUN 16 (9-20) mg/dL Creatinine 1.31 H (0.66-1.25) mg/dL Estimated GFR 59.7 ML/MIN Glucose 128 H (74-106) mg/dL Calcium 10.0 (8.4-10.2) mg/dL Total Bilirubin 0.50 (0.2-1.3) mg/dL AST 37 (17-59) U/L ALT 32 (0-50) U/L Alkaline Phosphatase 235 H (38-126) U/L Troponin I < 0.012 (0.000-0.034) ng/mL Serum Total Protein 9.2 H (6.3-8.2) g/dL Albumin 4.9 (3.5-5.0) g/dL Lipase 240 (23-300) U/L - Progress Progress: improved Progress Note: Case discussed with Dr. Esteban who excepts admission to observation. Plan of care discussed with patient. He agrees to admission at [facility] for further evaluation and treatment. 11/27/22 10:04 57-year-old male presents to our ED for evaluation of nausea vomiting diarrhea and abdominal pain. Patient experiencing generalized weakness. Physical exam significant for dry oral mucous membranes. Testing ordered include chest x-ray which was ordered to further evaluate a pneumonia observed on CT abdomen pelvis. CBC shows leukocytosis. CMP shows hyponatremia hypokalemia. Lipase ordered. Troponin negative. UA ordered however patient has not provided a urine sample. Patient received potassium chloride for treatment of hypokalemia. Magnesium ordered to help address the hypokalemia. Morphine ordered for pain control. Patient also received pantoprazole normal saline and Zofran for nausea vomiting Complexity of problem addressed is moderate. Patient's presentation is acute and complicated with generalized weakness. No critical care time. Complexity of data reviewed and analyzed is moderate. Test ordered. Test reviewed. Patient served as independent historian however female friend at bedside contributed significantly to HPI. Patient did not serve as independent historian. Discussion of patient management occurred with Dr. Esteban. Dr. Esteban excepts patient to hospitalization for correction of electrolytes, treatment of generalized weakness and dehydration. Risk of complication and or risk morbidity/mortality of patient management is high. Patient will be hospitalized for further evaluation and treatment. Patient received IV morphine/controlled medication for pain control. Patient agrees to admission [facility] for further evaluation and treatment. Admitting diagnosis is leukocytosis, hyponatremia, chronic renal sufficiency, reflux esophagitis, left nephrolithiasis, gastroduodenitis, right lower lobe pneumonia. Nausea vomiting, abdominal pain, dehydration, Portions of this note were created with voice recognition technology. There may be grammatical, spelling, punctuation or sound alike errors 11/27/22 10:41 Discussed with : [place] Will see patient in: hospital (observation) Counseled pt/family regarding: lab results, diagnosis, rad results - Departure Departure Disposition: Observation Clinical Impression: Leukocytosis, Hypernatremia, Hypokalemia, Chronic renal insufficiency, Right lower lobe pneumonia, Reflux esophagitis, Left nephrolithiasis, Gastroduodenitis, Atherosclerotic disease, Nausea & vomiting, Diarrhea, Abdominal pain, Generalized weakness, Dehydration Condition: Stable Critical Care Time: No Referrals: ANNE ZAMBARNO MD [Primary Care Provider] - Follow up/PCP as directed
[2022-11-27] MEDS: Magnesium 1 Gm / 100 Ml D5W*** 100 ML IV SCH ×2 (09:50→11:05)
--- NOTE | 2022-11-27 09:53 | XRAY ---
Indication: Chest pain. Comparison: December 19, 2020 Portable chest unchanged again demonstrating right lung postsurgical changes including volume loss, pleural parenchymal fibrosis/scarring, and suture material. Left lung clear. Heart not enlarged again with CABG. Bony thorax intact again with osteopenia, moderate degenerative changes, and lower cervical fusion hardware. Impression: Continued nonacute chest with chronic features.
[2022-11-27] MEDS ORDERED: PROTONIX 40 MG IV IV ONE ×2 (09:55→10:05)
[2022-11-27 10:39] LABS: INFLUENZA A NEGATIVE (NEGATIVE); INFLUENZA B NEGATIVE (NEGATIVE); RESPIRATORY SYNCTIAL VIRUS NEGATIVE (NEGATIVE); SARS-CoV-2 Xpert Express NEGATIVE (NEGATIVE)
[2022-11-27] MEDS ORDERED: Zofran 4 MG/2 ML VIAL IV PRN (11:26)
[2022-11-27] MEDS: VIBRAMYCIN 100 MG*** 100 MG in Dextrose 5%/Water IV Soln. 100ML PLUS BAG 100 ML IV SCH ×3 (12:04→22:46)
--- NOTE | 2022-11-27 13:00 | PCM.HP ---
History of Present Illness - Chief Complaint Chief Complaint: n/v/d History of Present Illness: is a 57 year old male patient with no local physician, he arrived to the ER with complaints of around a 2 day history of nausea, vomiting, diarrhea and abdominal cramping. He has no blood in the stool, no fever, no sick contacts. He sees Dr Li for chronic pain but denies running out of his opiates, he feels weak since his symptoms began. - Review of Systems Constitutional: No Fever, No Chills Respiratory: No Cough, No Short Of Breath Cardiac: No Chest Pain, No Edema, No Syncope Abdominal/Gastrointestinal: Nausea, Vomiting, Diarrhea All Other Systems: Reviewed and Negative Medications & Allergies Home Medications: Home Medication List Aspirin 81 mg PO DAILY 07/30/15 [History Confirmed 11/27/22] Duloxetine HCl [Cymbalta] 60 mg PO DAILY 07/30/15 [History Confirmed 11/27/22] Ranolazine [Ranexa] 1,000 mg PO DAILY 07/30/15 [History Confirmed 11/27/22] Topiramate 100 mg [Topamax 100 MG] 200 mg PO BID 07/30/15 [History Confirmed 11/27/22] Atorvastatin Calcium [Lipitor] 40 mg PO HS 02/01/16 [History Confirmed 11/27/22] Quetiapine Fumarate [Seroquel] 600 mg PO HS 01/20/17 [History Confirmed 11/27/22] Morphine Sulfate 60 mg PO TID 05/08/18 [History Confirmed 11/27/22] Clopidogrel Bisulfate [PLAVIX 75 MG Tablet] 75 mg PO DAILY 01/18/20 [History Confirmed 11/27/22] Isosorbide Dinitrate 10 mg [Isordil 10 MG] 10 mg PO DAILY 01/18/20 [History Confirmed 11/27/22] Lacosamide [Vimpat] 10 mg PO TID 01/18/20 [History Confirmed 11/27/22] Tizanidine HCl [Zanaflex] 2 mg PO BID 01/18/20 [History Confirmed 11/27/22] Allergies/Adverse Reactions: Allergies Allergy/AdvReac Type Severity Reaction Status Date / Time amoxicillin Allergy Verified 11/27/22 07:17 gabapentin AdvReac Severe Fainting Verified 11/27/22 07:17 - Past Medical History Past Medical History: Yes Neurological History: Seizures, Stroke ENT History: No Pertinent History Cardiac History: Angina, Coronary Artery Disease, High Cholesterol, Myocardial Infarction ([place]) Respiratory History: COPD Endocrine Medical History: No Pertinent History Musculoskelatal History: Osteoarthritis, Other GI Medical History: GERD History: No Pertinent History Pyscho-Social History: Depression, Other Male Reproductive Disorders: No Pertinent History Comment: PT. REPORTS [place] X 4; PT. REPORTS HE HAS ONE CARDIAC STENT; CHRONICNECK, BACK, SHOULDER PN. States leg pain, "need knee replacement right knee" "had left knee replaced" , Left shoulder replacement,, "organs shut down in December 2017,life support for 49 days and then 2 months of rehab, also a trach., Has stent left arm for dialysis and is not taking dialysis at this time - Past Surgical History Past Surgical History: Yes Neuro Surgical History: No Pertinent History Cardiac History: CABG, Cardiac Catheterization, Cardiac Stent Respiratory Surgery: No Pertinent History GI Surgical History: No Pertinent History Genitourinary Surgical Hx: No Pertinent History Musculskeletal Surgical Hx: Other Male Surgical History: No Pertinent History Other Surgical History: Left foot x 2, Right foot x 2, Right knee x 2, Left knee x 2, Right torn rotator cuff, Steal plate with rods and screws in neck - Social History Smoking Status: Former smoker How long have you smoked: 35 y Exposure to second hand smoke: No Alcohol: None Drug Use: none Significant Family History: heart disease - Physical Exam Vital Signs: Vital Signs - 24 hr Temp Pulse Resp BP Pulse Ox 11/27/22 11:30 97.8 F 80 18 156/73 100 11/27/22 11:02 97.6 F 84 20 134/86 97 11/27/22 10:50 98 11/27/22 10:06 97.6 F 68 20 134/68 98 11/27/22 09:07 97.8 F 55 L 20 124/59 98 11/27/22 08:35 64 20 124/59 98 11/27/22 07:23 97.0 F 84 18 126/78 99 General Appearance: no apparent distress Neurologic Exam: alert, oriented x 3, cooperative Respiratory Exam: normal breath sounds, lungs clear, No respiratory distress Cardiovascular Exam: regular rate/rhythm, normal heart sounds, normal peripheral pulses Gastrointestinal/Abdomen Exam: soft, normal bowel sounds, No tenderness, No mass Extremity Exam: normal inspection, normal range of motion, pelvis stable Skin Exam: normal color, warm, dry, No rash Results - Labs Lab/Micro Results: Lab Results-Last 24 Hours 11/27/22 11/27/22 11/27/22 Range/Units 07:47 07:47 07:47 WBC 12.1 H (4.0-10.5) x10^3/uL RBC 4.25 (4.1-5.6) x10^6/uL Hgb 13.4 (12.5-18.0) g/dL Hct 42.3 (42-50) % MCV 99.5 (78-100) fL MCH 31.5 (26-32) pg MCHC 31.7 L (32-36) g/dL RDW 12.0 (11.5-14.0) % Plt Count 306 (150-450) x10^3/uL MPV 9.3 (7.5-11.0) fL Gran % 84.4 H (36.0-66.0) % Immature Gran % (Auto) 0.3 (0.00-0.4) % Nucleat RBC Rel Count 0.0 (0.00-0.1) % Eos # (Auto) 0.01 (0-0.5) x10^3/uL Immature Gran # (Auto) 0.04 H (0.00-0.03) x10^3u/L Absolute Lymphs (auto) 1.14 (1.0-4.6) x10^3/uL Absolute Monos (auto) 0.68 (0.0-1.3) x10^3/uL Absolute Nucleated RBC 0.00 (0.00-0.01) x10^3u/L Lymphocytes % 9.4 L (24.0-44.0) % Monocytes % 5.6 (0.0-12.0) % Eosinophils % 0.1 (0.00-5.0) % Basophils % 0.2 (0.0-0.4) % Absolute Granulocytes 10.23 H (1.4-6.9) x10^3/uL Basophils # 0.02 (0-0.4) x10^3/uL Sodium 147 H (137-145) mmol/L Potassium 3.3 L (3.5-5.1) mmol/L Chloride 109 H (98-107) mmol/L Carbon Dioxide 21 L (22-30) mmol/L Anion Gap 21.0 H (5-15) MEQ/L BUN 16 (9-20) mg/dL Creatinine 1.31 H (0.66-1.25) mg/dL Estimated GFR 59.7 ML/MIN Glucose 128 H (74-106) mg/dL Calcium 10.0 (8.4-10.2) mg/dL Total Bilirubin 0.50 (0.2-1.3) mg/dL AST 37 (17-59) U/L ALT 32 (0-50) U/L Alkaline Phosphatase 235 H (38-126) U/L Troponin I < 0.012 (0.000-0.034) ng/mL Serum Total Protein 9.2 H (6.3-8.2) g/dL Albumin 4.9 (3.5-5.0) g/dL Lipase 240 (23-300) U/L Influenza Type A Ag (NEGATIVE) Influenza Type B Ag (NEGATIVE) RSV (PCR) (NEGATIVE) SARS-CoV-2 (PCR) (NEGATIVE) 11/27/22 11/27/22 Range/Units 11:40 Unknown WBC (4.0-10.5) x10^3/uL RBC (4.1-5.6) x10^6/uL Hgb (12.5-18.0) g/dL Hct (42-50) % MCV (78-100) fL MCH (26-32) pg MCHC (32-36) g/dL RDW (11.5-14.0) % Plt Count (150-450) x10^3/uL MPV (7.5-11.0) fL Gran % (36.0-66.0) % Immature Gran % (Auto) (0.00-0.4) % Nucleat RBC Rel Count (0.00-0.1) % Eos # (Auto) (0-0.5) x10^3/uL Immature Gran # (Auto) (0.00-0.03) x10^3u/L Absolute Lymphs (auto) (1.0-4.6) x10^3/uL Absolute Monos (auto) (0.0-1.3) x10^3/uL Absolute Nucleated RBC (0.00-0.01) x10^3u/L Lymphocytes % (24.0-44.0) % Monocytes % (0.0-12.0) % Eosinophils % (0.00-5.0) % Basophils % (0.0-0.4) % Absolute Granulocytes (1.4-6.9) x10^3/uL Basophils # (0-0.4) x10^3/uL Sodium (137-145) mmol/L Potassium (3.5-5.1) mmol/L Chloride (98-107) mmol/L Carbon Dioxide (22-30) mmol/L Anion Gap (5-15) MEQ/L BUN (9-20) mg/dL Creatinine (0.66-1.25) mg/dL Estimated GFR ML/MIN Glucose (74-106) mg/dL Calcium (8.4-10.2) mg/dL Total Bilirubin (0.2-1.3) mg/dL AST (17-59) U/L ALT (0-50) U/L Alkaline Phosphatase (38-126) U/L Troponin I < 0.012 (0.000-0.034) ng/mL Serum Total Protein (6.3-8.2) g/dL Albumin (3.5-5.0) g/dL Lipase (23-300) U/L Influenza Type A Ag NEGATIVE (NEGATIVE) Influenza Type B Ag NEGATIVE (NEGATIVE) RSV (PCR) NEGATIVE (NEGATIVE) SARS-CoV-2 (PCR) NEGATIVE (NEGATIVE) - Radiology Impressions Radiology Exams & Impressions: Radiology Procedures Category Date Time Status ABDOMEN AND PELVIS W/0 CONTRAS [CT] Stat Exams 11/27/22 07:40 Completed CHEST 1 VIEW (PORTABLE) Stat Exams 11/27/22 09:26 Completed Assessment/Plan (1) Nausea & vomiting Current Visit: Yes Status: Acute Assessment & Plan: will replace IV fluid deficits as well as potassium, hypernatremia likely related to dehydration Code(s): R11.2 - NAUSEA WITH VOMITING, UNSPECIFIED (2) Diarrhea Current Visit: Yes Status: Acute Assessment & Plan: appears viral, nothing acute on ct scan. will monitor Code(s): R19.7 - DIARRHEA, UNSPECIFIED (3) Dehydration Current Visit: Yes Status: Acute Assessment & Plan: rehydrating Code(s): E86.0 - DEHYDRATION (4) Chronic renal insufficiency Current Visit: Yes Status: Acute Code(s): N18.9 - CHRONIC KIDNEY DISEASE, UNSPECIFIED (5) COPD (chronic obstructive pulmonary disease) Current Visit: No Status: Chronic Qualifiers: (6) Coronary artery disease Current Visit: No Status: Chronic Code(s): I25.10 - ATHSCL HEART DISEASE OF [place] CORONARY ARTERY W/O ANG PCTRS (7) Seizure disorder Current Visit: No Status: Chronic Code(s): G40.909 - EPILEPSY, UNSP, NOT INTRACTABLE, WITHOUT STATUS EPILEPTICUS
[2022-11-27] MEDS ORDERED: TYLENOL 325 MG PO PRN (13:02)
[2022-11-27] MEDS ORDERED: PROTONIX 40 MG IV IV SCH (13:15)
[2022-11-27] MEDS ORDERED: PLAVIX Tablet PO SCH (14:00)
[2022-11-27] MEDS ORDERED: MEDICATION INTERVENTION MC SCH (14:15)
[2022-11-27] MEDS: SODIUM CHLORIDE 0.45% W/ 20 mEq KCL 1,000 ML IV SCH ×2 (14:39→22:47)
[2022-11-27] MEDS ORDERED: LACOSAMIDE 10 MG/ML PO SCH (15:00)
[2022-11-27] MEDS ORDERED: MORPHINE SULFATE 30 MG PO SCH (15:00)
[2022-11-27] MEDS: ECOTRIN 81 MG PO SCH (16:07)
[2022-11-27] MEDS: Cymbalta 30 MG Capsule PO SCH (16:07)
[2022-11-27] MEDS: monoKET 20 MG PO SCH (16:07)
[2022-11-27] MEDS: Ms Contin 15 MG PO SCH ×2 (16:08→21:33)
[2022-11-27] MEDS: Ranexa 500 MG PO SCH (16:09)
[2022-11-27] MEDS: TOPIRAMATE PO SCH ×3 (16:09→21:46)
[2022-11-27] MEDS ORDERED: ZOCOR 20MG PO SCH (22:00)
[2022-11-27] MEDS ORDERED: LIPITOR 40MG PO SCH (22:00)
[2022-11-27] MEDS ORDERED: Seroquel 100 MG PO SCH (22:00)
[2022-11-27] MEDS ORDERED: NON-FORMULARY ITEM (Topiramate 100 Mg*** [Topamax 100 Mg***] 100 MG Tablet) PO SCH (22:00)
[2022-11-27] MEDS ORDERED: QUETIAPINE FUMARATE 300 MG PO SCH (22:00)
[2022-11-28 04:32] LABS: Appearance Clear (Clear); Bacteria None Seen /HPF (None Seen); Bilirubin Negative (Negative); Blood Negative (Negative); Epithelial Cells None Seen /HPF (None Seen); Glucose, Urine Negative (Negative); Hyaline Casts NONE SEEN /LPF (0-2); Ketones Negative (Negative); Leukocyte Esterase Trace (Negative); Nitrite Negative (Negative); Ph 5.5 (4.6-8.0); Protein,Urine Dip Negative (Negative); RBC 0-2 /HPF (0-5); Specific Gravity 1.015 (1.005-1.030); Urobilinogen 0.2 mg/dL (0.2); WBC 0-2 /HPF (0-5)
[2022-11-28 04:45] LABS: ADD URINE CULTURE? NO (NO)
[2022-11-28 05:12] LABS: Absolute Neutrophil Ct (ANC) 4.54 x10^3/uL (1.4-6.9); BASOPHIL % 0.4 % (0.0-0.4); Basophil (Absolute #) 0.03 x10^3/uL (0-0.4); Eosinophil % 1.2 % (0.00-5.0); Eosinophil (Absolute #) 0.08 x10^3/uL (0-0.5); Hematocrit 35.7 % (42-50); Hemoglobin 11.4 g/dL (12.5-18.0); IMMATURE GRAN # 0.04 x10^3u/L (0.00-0.03); IMMATURE GRAN % 0.6 % (0.00-0.4); Lymphocyte (Absolute #) 1.58 x10^3/uL (1.0-4.6); Lymphocytes % 22.8 % (24.0-44.0); Mean Cell Volume 99.2 fL (78-100); Mean Corpuscular Hemoglobin 31.7 pg (26-32); Mean Corpuscular Hgb Concent. 31.9 g/dL (32-36); Mean Platelet Volume 9.4 fL (7.5-11.0); Monocyte (Absolute #) 0.65 x10^3/uL (0.0-1.3); Monocytes % 9.4 % (0.0-12.0); Neutrophil % 65.6 % (36.0-66.0); Platelet Count 262 x10^3/uL (150-450); Red Cell Distribution Width 12.3 % (11.5-14.0); White Blood Count 6.9 x10^3/uL (4.0-10.5)
[2022-11-28] MEDS: Ms Contin 15 MG PO SCH (05:12)
[2022-11-28 05:27] LABS: ALBUMIN 3.7 g/dL (3.5-5.0); ALKALINE PHOSPHATASE 155 U/L (38-126); ANION GAP 15.2 MEQ/L (5-15); BLOOD UREA NITROGEN 12 mg/dL (9-20); CHLORIDE 112 mmol/L (98-107); Calcium 8.5 mg/dL (8.4-10.2); Carbon Dioxide 18 mmol/L (22-30); Creatinine 1 1.26 mg/dL (0.66-1.25); EST GLOMERULAR FILTRATION RATE > 60.0 ML/MIN; Glucose 106 mg/dL (74-106); Potassium 3.7 mmol/L (3.5-5.1); SGOT/AST 31 U/L (17-59); SGPT/ALT 23 U/L (0-50); SODIUM 141 mmol/L (137-145); Total Protein 7.1 g/dL (6.3-8.2)
[2022-11-28] MEDS: SODIUM CHLORIDE 0.45% W/ 20 mEq KCL 1,000 ML IV SCH (06:26)
--- NOTE | 2022-11-28 08:07 | PCM.DS ---
Discharge Summary Date of Admission: 11/27/22 11:12 Admitting Physician: JOSE AL Primary Care Provider: ANNE ZAMBRANO Allergies Allergies amoxicillin Allergy (Verified 11/27/22 07:17) gabapentin Adverse Reaction (Severe, Verified 11/27/22 07:17) Fainting Hospital Summary - Hospital Course Hospital Course: patient admitted with nausea, vomiting, diarrhea and dehydration with hypernatremia. rehydrated and now tolerating po intake with no vomiting or diarrhea, feels much better today and would like to go home. if able to tolerate regular diet for breakfast may discharge as he has been on clears. exam is benign. patient has a possible right lower lung opacity with possible early pneumonia that will need f/u, he has no cough or fever. will continue doxy - Vitals & Intake/Output Vital Signs: Vital Signs Temperature 96.8 F 11/28/22 07:03 Pulse Rate 108 H 11/28/22 07:03 Respiratory Rate 19 11/28/22 07:30 Blood Pressure 122/65 11/28/22 07:03 O2 Sat by Pulse Oximetry 98 11/28/22 07:03 Intake & Output: Intake & Output 11/25/22 11/26/22 11/27/22 11/28/22 11:59 11:59 11:59 11:59 Intake Total 2206 Output Total 100 Balance 2106 Weight 81.9 kg 81.9 kg - Lab Result Diagrams: 11/28/22 04:30 11/28/22 04:30 Lab Results-Last 24 Hrs: Lab Results-Last 24 Hours 11/27/22 11/27/22 11/27/22 Range/Units 04:01 07:47 07:47 WBC (4.0-10.5) x10^3/uL RBC (4.1-5.6) x10^6/uL Hgb (12.5-18.0) g/dL Hct (42-50) % MCV (78-100) fL MCH (26-32) pg MCHC (32-36) g/dL RDW (11.5-14.0) % Plt Count (150-450) x10^3/uL MPV (7.5-11.0) fL Gran % (36.0-66.0) % Immature Gran % (Auto) (0.00-0.4) % Nucleat RBC Rel Count (0.00-0.1) % Eos # (Auto) (0-0.5) x10^3/uL Immature Gran # (Auto) (0.00-0.03) x10^3u/L Absolute Lymphs (auto) (1.0-4.6) x10^3/uL Absolute Monos (auto) (0.0-1.3) x10^3/uL Absolute Nucleated RBC (0.00-0.01) x10^3u/L Lymphocytes % (24.0-44.0) % Monocytes % (0.0-12.0) % Eosinophils % (0.00-5.0) % Basophils % (0.0-0.4) % Absolute Granulocytes (1.4-6.9) x10^3/uL Basophils # (0-0.4) x10^3/uL Sodium 147 H (137-145) mmol/L Potassium 3.3 L (3.5-5.1) mmol/L Chloride 109 H (98-107) mmol/L Carbon Dioxide 21 L (22-30) mmol/L Anion Gap 21.0 H (5-15) MEQ/L BUN 16 (9-20) mg/dL Creatinine 1.31 H (0.66-1.25) mg/dL Estimated GFR 59.7 ML/MIN Glucose 128 H (74-106) mg/dL Calcium 10.0 (8.4-10.2) mg/dL Magnesium (1.6-2.3) mg/dL Total Bilirubin 0.50 (0.2-1.3) mg/dL AST 37 (17-59) U/L ALT 32 (0-50) U/L Alkaline Phosphatase 235 H (38-126) U/L Troponin I < 0.012 (0.000-0.034) ng/mL Serum Total Protein 9.2 H (6.3-8.2) g/dL Albumin 4.9 (3.5-5.0) g/dL Lipase 240 (23-300) U/L Urine Color Yellow (Yellow) Urine Appearance Clear (Clear) Urine pH 5.5 (4.6-8.0) Ur Specific [place] 1.015 (1.005-1.030) Urine Protein Negative (Negative) Urine Glucose (UA) Negative (Negative) mg/dL Urine Ketones Negative (Negative) Urine Blood Negative (Negative) Urine Nitrite Negative (Negative) Urine Bilirubin Negative (Negative) Urine Urobilinogen 0.2 (0.2) mg/dL Ur Leukocyte Esterase Trace A (Negative) U Hyaline Cast (Auto) NONE SEEN (0-2) /LPF Urine Microscopic RBC 0-2 (0-5) /HPF Urine Microscopic WBC 0-2 (0-5) /HPF Ur Epithelial Cells None Seen (None Seen) /HPF Urine Bacteria None Seen (None Seen) /HPF Urine Culture Reflexed NO (NO) Influenza Type A Ag (NEGATIVE) Influenza Type B Ag (NEGATIVE) RSV (PCR) (NEGATIVE) SARS-CoV-2 (PCR) (NEGATIVE) 11/27/22 11/27/22 11/27/22 Range/Units 11:40 13:28 15:35 WBC (4.0-10.5) x10^3/uL RBC (4.1-5.6) x10^6/uL Hgb (12.5-18.0) g/dL Hct (42-50) % MCV (78-100) fL MCH (26-32) pg MCHC (32-36) g/dL RDW (11.5-14.0) % Plt Count (150-450) x10^3/uL MPV (7.5-11.0) fL Gran % (36.0-66.0) % Immature Gran % (Auto) (0.00-0.4) % Nucleat RBC Rel Count (0.00-0.1) % Eos # (Auto) (0-0.5) x10^3/uL Immature Gran # (Auto) (0.00-0.03) x10^3u/L Absolute Lymphs (auto) (1.0-4.6) x10^3/uL Absolute Monos (auto) (0.0-1.3) x10^3/uL Absolute Nucleated RBC (0.00-0.01) x10^3u/L Lymphocytes % (24.0-44.0) % Monocytes % (0.0-12.0) % Eosinophils % (0.00-5.0) % Basophils % (0.0-0.4) % Absolute Granulocytes (1.4-6.9) x10^3/uL Basophils # (0-0.4) x10^3/uL Sodium (137-145) mmol/L Potassium (3.5-5.1) mmol/L Chloride (98-107) mmol/L Carbon Dioxide (22-30) mmol/L Anion Gap (5-15) MEQ/L BUN (9-20) mg/dL Creatinine (0.66-1.25) mg/dL Estimated GFR ML/MIN Glucose (74-106) mg/dL Calcium (8.4-10.2) mg/dL Magnesium 2.7 H (1.6-2.3) mg/dL Total Bilirubin (0.2-1.3) mg/dL AST (17-59) U/L ALT (0-50) U/L Alkaline Phosphatase (38-126) U/L Troponin I < 0.012 < 0.012 (0.000-0.034) ng/mL Serum Total Protein (6.3-8.2) g/dL Albumin (3.5-5.0) g/dL Lipase (23-300) U/L Urine Color (Yellow) Urine Appearance (Clear) Urine pH (4.6-8.0) Ur Specific [place] (1.005-1.030) Urine Protein (Negative) Urine Glucose (UA) (Negative) mg/dL Urine Ketones (Negative) Urine Blood (Negative) Urine Nitrite (Negative) Urine Bilirubin (Negative) Urine Urobilinogen (0.2) mg/dL Ur Leukocyte Esterase (Negative) U Hyaline Cast (Auto) (0-2) /LPF Urine Microscopic RBC (0-5) /HPF Urine Microscopic WBC (0-5) /HPF Ur Epithelial Cells (None Seen) /HPF Urine Bacteria (None Seen) /HPF Urine Culture Reflexed (NO) Influenza Type A Ag (NEGATIVE) Influenza Type B Ag (NEGATIVE) RSV (PCR) (NEGATIVE) SARS-CoV-2 (PCR) (NEGATIVE) 11/27/22 11/28/22 11/28/22 Range/Units Unknown 04:30 04:30 WBC 6.9 (4.0-10.5) x10^3/uL RBC 3.60 L (4.1-5.6) x10^6/uL Hgb 11.4 L (12.5-18.0) g/dL Hct 35.7 L (42-50) % MCV 99.2 (78-100) fL MCH 31.7 (26-32) pg MCHC 31.9 L (32-36) g/dL RDW 12.3 (11.5-14.0) % Plt Count 262 (150-450) x10^3/uL MPV 9.4 (7.5-11.0) fL Gran % 65.6 (36.0-66.0) % Immature Gran % (Auto) 0.6 H (0.00-0.4) % Nucleat RBC Rel Count 0.0 (0.00-0.1) % Eos # (Auto) 0.08 (0-0.5) x10^3/uL Immature Gran # (Auto) 0.04 H (0.00-0.03) x10^3u/L Absolute Lymphs (auto) 1.58 (1.0-4.6) x10^3/uL Absolute Monos (auto) 0.65 (0.0-1.3) x10^3/uL Absolute Nucleated RBC 0.00 (0.00-0.01) x10^3u/L Lymphocytes % 22.8 L (24.0-44.0) % Monocytes % 9.4 (0.0-12.0) % Eosinophils % 1.2 (0.00-5.0) % Basophils % 0.4 (0.0-0.4) % Absolute Granulocytes 4.54 (1.4-6.9) x10^3/uL Basophils # 0.03 (0-0.4) x10^3/uL Sodium 141 (137-145) mmol/L Potassium 3.7 (3.5-5.1) mmol/L Chloride 112 H (98-107) mmol/L Carbon Dioxide 18 L (22-30) mmol/L Anion Gap 15.2 H (5-15) MEQ/L BUN 12 (9-20) mg/dL Creatinine 1.26 H (0.66-1.25) mg/dL Estimated GFR > 60.0 ML/MIN Glucose 106 (74-106) mg/dL Calcium 8.5 (8.4-10.2) mg/dL Magnesium (1.6-2.3) mg/dL Total Bilirubin 0.50 (0.2-1.3) mg/dL AST 31 (17-59) U/L ALT 23 (0-50) U/L Alkaline Phosphatase 155 H (38-126) U/L Troponin I (0.000-0.034) ng/mL Serum Total Protein 7.1 (6.3-8.2) g/dL Albumin 3.7 (3.5-5.0) g/dL Lipase (23-300) U/L Urine Color (Yellow) Urine Appearance (Clear) Urine pH (4.6-8.0) Ur Specific [place] (1.005-1.030) Urine Protein (Negative) Urine Glucose (UA) (Negative) mg/dL Urine Ketones (Negative) Urine Blood (Negative) Urine Nitrite (Negative) Urine Bilirubin (Negative) Urine Urobilinogen (0.2) mg/dL Ur Leukocyte Esterase (Negative) U Hyaline Cast (Auto) (0-2) /LPF Urine Microscopic RBC (0-5) /HPF Urine Microscopic WBC (0-5) /HPF Ur Epithelial Cells (None Seen) /HPF Urine Bacteria (None Seen) /HPF Urine Culture Reflexed (NO) Influenza Type A Ag NEGATIVE (NEGATIVE) Influenza Type B Ag NEGATIVE (NEGATIVE) RSV (PCR) NEGATIVE (NEGATIVE) SARS-CoV-2 (PCR) NEGATIVE (NEGATIVE) - Radiology Exams Ordered Rad Exams-Entire Visit: Radiology Procedures Category Date Time Status ABDOMEN AND PELVIS W/0 CONTRAS [CT] Stat Exams 11/27/22 07:40 Completed CHEST 1 VIEW (PORTABLE) Stat Exams 11/27/22 09:26 Completed - Procedures and Test Procedures and Tests throughout Hospitalization: Therapy Orders & Screens 11/27/22 12:03 ST Screen per Nursing Assess ONCE Comment: Protocol Order Physician Instructions: Greater than [address] Admission Screening Reason For Exam: Triggered on Admission Diagnosis: n/v/d CVA/Dyshpagia/Aphasia: No Cognitive Deficits: No Dehydration/Nutrition Deficit: Yes Reflux: Yes Oral-Motor Difficulties: No Pneumonia: No Snf Resident: No Total Points: 8 Discharge Exam General Appearance: no apparent distress Neurologic Exam: alert, oriented x 3 Respiratory Exam: normal breath sounds, lungs clear, No respiratory distress Cardiovascular Exam: regular rate/rhythm, normal heart sounds Gastrointestinal/Abdomen Exam: soft, normal bowel sounds, No tenderness, No di stention, No mass, No guarding Extremity Exam: normal inspection, normal range of motion Final Diagnosis/Problem List - Final Discharge Diagnosis/Problem (1) Nausea & vomiting Current Visit: Yes Status: Acute Assessment & Plan: likely viral in etiology, home today Code(s): R11.2 - NAUSEA WITH VOMITING, UNSPECIFIED (2) Diarrhea Current Visit: Yes Status: Acute Code(s): R19.7 - DIARRHEA, UNSPECIFIED (3) Dehydration Current Visit: Yes Status: Acute Code(s): E86.0 - DEHYDRATION (4) Chronic renal insufficiency Current Visit: Yes Status: Acute Code(s): N18.9 - CHRONIC KIDNEY DISEASE, UNSPECIFIED (5) COPD (chronic obstructive pulmonary disease) Current Visit: No Status: Chronic (6) Coronary artery disease Current Visit: No Status: Chronic Code(s): I25.10 - ATHSCL HEART DISEASE OF [place] CORONARY ARTERY W/O ANG PCTRS (7) Seizure disorder Current Visit: No Status: Chronic Code(s): G40.909 - EPILEPSY, UNSP, NOT INTRACTABLE, WITHOUT STATUS EPILEPTICUS (8) Right lower lobe consolidation Current Visit: Yes Status: Acute Assessment & Plan: home on doxy, will need f/u. white count is normal on discharge as well Code(s): J18.1 - LOBAR PNEUMONIA, UNSPECIFIED ORGANISM - Discharge Disposition: Home, Self-Care Condition: Stable Prescriptions: New Doxycycline Hyclate 100 mg [Vibramycin 100 MG] 100 mg PO BID #14 tab Continue Ranolazine [Ranexa] 1,000 mg PO DAILY Aspirin 81 mg PO DAILY Topiramate 100 mg [Topamax 100 MG] 200 mg PO BID Duloxetine HCl [Cymbalta] 60 mg PO DAILY Atorvastatin Calcium [Lipitor] 40 mg PO HS Quetiapine Fumarate [Seroquel] 600 mg PO HS Morphine Sulfate 60 mg PO TID Tizanidine HCl [Zanaflex] 2 mg PO BID Lacosamide [Vimpat] 10 mg PO TID Clopidogrel Bisulfate [PLAVIX Tablet] 75 mg PO DAILY Isosorbide Dinitrate 10 mg [Isordil 10 MG] 10 mg PO DAILY Follow up with: ANNE ZAMBRANO MD [Primary Care Provider] - 1 Week (please forward discharge summary and ct results to Dr Zambrano's office)
[2022-11-28] MEDS: Cymbalta 30 MG Capsule PO SCH (09:07)
[2022-11-28] MEDS: monoKET 20 MG PO SCH (09:07)
[2022-11-28] MEDS: Ranexa 500 MG PO SCH (09:08)
[2022-11-28] MEDS: ECOTRIN 81 MG PO SCH (09:08)
[2022-11-28] MEDS: VIBRAMYCIN 100 MG*** 100 MG in Dextrose 5%/Water IV Soln. 100ML PLUS BAG 100 ML IV SCH (09:11)
[2022-11-28] MEDS ORDERED: PROTONIX 40 MG IV IV SCH (10:00)
[2022-11-28] MEDS ORDERED: NON-FORMULARY ITEM (Duloxetine Hcl [Cymbalta] 60 MG Capsule.Dr) PO SCH (10:00)
[2022-11-28] MEDS ORDERED: NON-FORMULARY ITEM (Aspirin [Aspirin] 81 MG Tablet) PO SCH (10:00)
[2022-11-28] MEDS ORDERED: RANOLAZINE 1000 MG PO SCH (10:00)
[2022-11-28] MEDS ORDERED: TOPIRAMATE PO SCH (10:00)
[2022-11-28] MEDS ORDERED: ISOSORBIDE DINITRATE 10 MG PO SCH (10:00)
[2022-11-28 11:21] VITALS: BP 109/59; PULSE 74; O2SAT 92
== END 2022-11-28 11:30 | disposition home or self-care (01) ==
LOC: ED 07:11 → MED SURG 11:12
PROVIDERS: ADMIT Family Medicine; ATTEND Family Medicine
DX: R11.2 Nausea with vomiting, unspecified (principal); R19.7 Diarrhea, unspecified; E86.0 Dehydration; N18.9 Chronic kidney disease, unspecified; J44.9 Chronic obstructive pulmonary disease, unspecified; I25.10 Atherosclerotic heart disease of native coronary artery without angina pectoris; G40.909 Epilepsy, unspecified, not intractable, without status epilepticus; J18.1 Lobar pneumonia, unspecified organism; E78.5 Hyperlipidemia, unspecified; I25.2 Old myocardial infarction; Z79.01 Long term (current) use of anticoagulants; Z79.899 Other long term (current) drug therapy; Z20.828 Contact with and (suspected) exposure to other viral communicable diseases; Z95.1 Presence of aortocoronary bypass graft
CPT/HCPCS: 0241U; 36000; 36415; 71045; 74176; 80053; 81001; 83690; 83735; 84484; 85025; 96360; 96365; 96374; 96375; 96376; 99285; 93268; J2270; J2405; J3475; A9270-GY; G0378

== ENCOUNTER 2023-03-11 14:37 | Emergency (ER) | payer MEDICARE ==
[2023-03-11 14:56] VITALS: PULSE 88
[2023-03-11] MEDS ORDERED: MORPHINE SULFATE 2 MG INJ IV ONE (15:01)
[2023-03-11] MEDS ORDERED: Zofran 4 MG/2 ML VIAL IV ONE (15:01)
[2023-03-11] MEDS ORDERED: Sodium Chloride 0.9% 1000 ML 1,000 ML IV SCH (15:15)
[2023-03-11 15:17] LABS: Absolute Neutrophil Ct (ANC) 7.43 x10^3/uL (1.4-6.9); BASOPHIL % 0.3 % (0.0-0.4); Basophil (Absolute #) 0.03 x10^3/uL (0-0.4); Eosinophil % 5.3 % (0.00-5.0); Eosinophil (Absolute #) 0.52 x10^3/uL (0-0.5); Hematocrit 43.4 % (42-50); Hemoglobin 13.9 g/dL (12.5-18.0); IMMATURE GRAN # 0.03 x10^3u/L (0.00-0.03); IMMATURE GRAN % 0.3 % (0.00-0.4); Lymphocyte (Absolute #) 1.05 x10^3/uL (1.0-4.6); Lymphocytes % 10.6 % (24.0-44.0); Mean Cell Volume 97.3 fL (78-100); Mean Corpuscular Hemoglobin 31.2 pg (26-32); Mean Platelet Volume 8.9 fL (7.5-11.0); Monocytes % 8.1 % (0.0-12.0); Neutrophil % 75.4 % (36.0-66.0); Platelet Count 287 x10^3/uL (150-450); Red Blood Count 4.46 x10^6/uL (4.1-5.6); Red Cell Distribution Width 12.5 % (11.5-14.0); White Blood Count 9.9 x10^3/uL (4.0-10.5)
[2023-03-11] MEDS ORDERED: Zofran 4 MG/2 ML VIAL ONE (15:19)
[2023-03-11] MEDS ORDERED: MORPHINE SULFATE 2 MG INJ ONE (15:19)
[2023-03-11 15:30] LABS: ALBUMIN 4.8 g/dL (3.5-5.0); ANION GAP 17.5 MEQ/L (5-15); BILIRUBIN,TOTAL 0.7 mg/dL (0.2-1.3); Calcium 10.2 mg/dL (8.4-10.2); Creatinine 1 1.36 mg/dL (0.66-1.25); EST GLOMERULAR FILTRATION RATE 57.2 ML/MIN; Potassium 3.6 mmol/L (3.5-5.1); Total Protein 9.4 g/dL (6.3-8.2)
--- NOTE | 2023-03-11 16:50 | XRAY ---
Indication: Abdomen pain, nausea, and vomiting. Multiple contiguous images obtained through the abdomen and pelvis using 80 cc Isovue 370 contrast. Comparison: November 27, 2022 Lung bases again demonstrates incompletely visualized posterior right lower lobe irregular opacity with tiny effusion grossly unchanged. Heart not enlarged. Stable PEG tube with balloon tip in gastric lumen. Noncontrasted stomach and bowel loops remain nonobstructed. Stable bilateral renal atrophy and nonobstructing left renal punctate calculus. No free fluid/air. Remaining liver, gallbladder, pancreas, spleen, adrenal glands, kidneys, ureters, and bladder are unremarkable. Stable mild aortoiliac calcifications. No AAA or pathological retroperitoneal lymphadenopathy. Osseous structures intact again with osteopenia and mild degenerative changes throughout the visualized spine and both hips. Impression: 1. Grossly stable appearing incompletely visualized right lower lobe consolidating opacity with tiny effusion. Recent CABG and right lung surgery reported. 2. Stable PEG tube in situ, bilateral renal atrophy, nonobstructing left renal micro-calculus, arteriosclerotic disease, and chronic bony findings. 3. Remaining CT abdomen/pelvis with contrast exam is negative.
[2023-03-11 17:24] LABS: Appearance Clear (Clear); Bacteria None Seen /HPF (None Seen); Bilirubin Negative (Negative); Blood Negative (Negative); Epithelial Cells None Seen /HPF (None Seen); Glucose, Urine Negative (Negative); Ketones Negative (Negative); Leukocyte Esterase Negative (Negative); Nitrite Negative (Negative); Protein,Urine Dip 30 (Negative); RBC 0-2 /HPF (0-5); Specific Gravity >=1.030 (1.005-1.030); Urobilinogen 0.2 mg/dL (0.2); WBC 0-2 /HPF (0-5)
[2023-03-11 17:28] LABS: ADD URINE CULTURE? NO (NO)
[2023-03-11 18:07] VITALS: BP 121/76
[2023-03-11 18:12] VITALS: O2SAT 97
--- NOTE | 2023-03-11 18:12 | ERPHSYRPT ---
- History of Present Illness Time Seen by Provider: 03/11/23 15:30 Historian: patient Exam Limitations: no limitations Patient Subjective Stated Complaint: vomiting,diarrhea,headahce x 2 days Triage Nursing Assessment: pt to ED c/o abd pain, headache, NVD x 2 days. rates 5/10 abd pain and 7/10 GR. pt has a feeding tube from 2017 which is not causing him any issues and is working well at this time. pt denies any exposure to illness that he is aware of. Physician History: Patient is a 57-year-old male presents to our ED for evaluation of nausea vomiting diarrhea x2 days. Patient is also experiencing some abdominal pain with a headache. Patient rates his abdominal pain 5 out of 10. Headache is 7 out of 10. No trauma no fever. No nausea vomiting or diaphoresis. Patient has a feeding tube intact. Patient states has been in place since 2017. Symptoms are constant. Symptoms are moderate in intensity. No specific worsening improving factors. Patient voices no other complaints or concerns at this time. Portions of this note were created with voice recognition technology. There may be grammatical, spelling, punctuation or sound alike errors Timing/Duration: day(s) (2 days) Activities at Onset: none Quality: aching Abdominal Pain Onset Location: generalized abdomen Pain Radiation: no radiation Severity of Pain-Max: moderate Severity of Pain-Current: mild Modifying Factors: Improves With: nothing Associated Symptoms: diarrhea, headache, nausea, vomiting Previous symptoms: no prior history Allergies/Adverse Reactions: amoxicillin Allergy (Verified 03/11/23 14:48) gabapentin Adverse Reaction (Severe, Verified 03/11/23 14:48) Fainting Home Medications: Aspirin 81 mg PO DAILY 07/30/15 [History] Duloxetine HCl [Cymbalta] 60 mg PO DAILY 07/30/15 [History] Ranolazine [Ranexa] 1,000 mg PO DAILY 07/30/15 [History] Topiramate 100 mg [Topamax 100 MG] 200 mg PO BID 07/30/15 [History] Atorvastatin Calcium [Lipitor] 40 mg PO HS 02/01/16 [History] Quetiapine Fumarate [Seroquel] 600 mg PO HS 01/20/17 [History] Morphine Sulfate 60 mg PO TID 05/08/18 [History] Clopidogrel Bisulfate [PLAVIX Tablet] 75 mg PO DAILY 01/18/20 [History] Isosorbide Dinitrate 10 mg [Isordil 10 MG] 10 mg PO DAILY 01/18/20 [History] Lacosamide [Vimpat] 10 mg PO TID 01/18/20 [History] Tizanidine HCl [Zanaflex] 2 mg PO BID 01/18/20 [History] Hx Tetanus, Diphtheria Vaccination/Date Given: Yes Hx Influenza Vaccination/Date Given: Yes Hx Pneumococcal Vaccination/Date Given: Yes Immunizations Up to Date: Yes Travel Risk - International Travel Have you traveled outside of the country in past 3 weeks: No - Coronavirus Screening Are you exhibiting any of the following symptoms?: Yes Symptoms: Vomiting/Diarrhea Close contact with a COVID-19 positive Pt in past 14-21 Days: No - Vaccine Status Have you recieved a Covid-19 vaccination: Yes 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 - Vaccination Dates Date of 2cond Vaccination (if applicable): 2020 Dates if Unknown: unknown - Review of Systems Constitutional: No Symptoms, No Fever, No Chills Eyes: No Symptoms Ears, Nose, & Throat: No Symptoms Respiratory: No Symptoms, No Cough, No Dyspnea Cardiac: No Symptoms, No Chest Pain, No Edema, No Syncope Abdominal/Gastrointestinal: No Symptoms, No Abdominal Pain, No Nausea, No Vomiting, No Diarrhea Genitourinary Symptoms: No Symptoms, No Dysuria Musculoskeletal: No Symptoms, No Back Pain, No Neck Pain Skin: No Symptoms, No Rash Neurological: No Symptoms, No Dizziness, No Focal Weakness, No Sensory Changes Psychological: No Symptoms Endocrine: No Symptoms Hematologic/Lymphatic: No Symptoms Immunological/Allergic: No Symptoms All Other Systems: Reviewed and Negative - Past Medical History Pertinent Past Medical History: Yes Neurological History: Seizures, Stroke ENT History: No Pertinent History Cardiac History: Angina, Coronary Artery Disease, High Cholesterol, Myocardial Infarction (HI) Respiratory History: COPD Endocrine Medical History: No Pertinent History Musculoskeletal History: Osteoarthritis, Other GI Medical History: GERD History: No Pertinent History Psycho-Social History: Depression, Other Male Reproductive Disorders: No Pertinent History Other Medical History: PT. REPORTS HI X 4; PT. REPORTS HE HAS ONE CARDIAC STENT; CHRONICNECK, BACK, SHOULDER PN. States leg pain, "need knee replacement right knee" "had left knee replaced" , Left shoulder replacement,, "organs shut down in December 2017,life support for 49 days and then 2 months of rehab, also a trach., Has stent left arm for dialysis and is not taking dialysis at this time - Past Surgical History Past Surgical History: Yes Neuro Surgical History: No Pertinent History Cardiac: CABG, Cardiac Catheterization, Cardiac Stent Respiratory: No Pertinent History Gastrointestinal: No Pertinent History Genitourinary: No Pertinent History Musculoskeletal: Other Male Surgical History: No Pertinent History Other Surgical History: Left foot x 2, Right foot x 2, Right knee x 2, Left knee x 2, Right torn rotator cuff, Steal plate with rods and screws in neck - Social History Smoking Status: Former smoker How long have you smoked: 35 y Exposure to second hand smoke: No Alcohol Use: None Drug Use: none Patient Lives Alone: No Significant Family History: heart disease - Nursing Vital Signs Nursing Vital Signs: Initial Vital Signs Temperature 98 F 03/11/23 14:48 Pulse Rate 88 03/11/23 14:48 Respiratory Rate 20 03/11/23 14:48 Blood Pressure 140/88 03/11/23 14:48 O2 Sat by Pulse Oximetry 97 03/11/23 14:48 Pain Scale Pain Intensity 5 - Physical Exam General Appearance: no apparent distress, alert Eye Exam: PERRL/EOMI, eyes nml inspection Ears, Nose, Throat Exam: normal ENT inspection, pharynx normal, moist mucous membranes Neck Exam: normal inspection, non-tender, supple, full range of motion Respiratory Exam: normal breath sounds, lungs clear, airway intact, No respiratory distress Cardiovascular Exam: regular rate/rhythm, normal heart sounds, normal peripheral pulses Gastrointestinal/Abdomen Exam: soft, normal bowel sounds, other (PEG tube), No tenderness, No mass Back Exam: normal inspection, normal range of motion, No CVA tenderness, No vertebral tenderness Extremity Exam: normal inspection, normal range of motion, pelvis stable Neurologic Exam: alert, oriented x 3, cooperative, normal mood/affect, nml cerebellar function, sensation nml, No motor deficits Skin Exam: normal color, warm, dry SpO2 Interpretation: normal SpO2: 97 O2 Delivery: Room Air - Course Nursing assessment & vital signs reviewed: Yes - CT Exams Abdomen/Pelvis CT Interpretation: Tele-radiologist Report (Right lower lobe irregular opacity, tiny effusion, bilateral renal atrophy, nephrolithiasis left) Ordered Tests: Active Orders 24 hr Category Date Time Status IV Insertion STAT Care 03/11/23 15:01 Active ABDOMEN AND PELVIS W CONTRAST [CT] Stat Exams 03/11/23 15:02 Completed CBC W DIFF Stat Lab 03/11/23 15:10 Completed CMP Stat Lab 03/11/23 15:10 Completed LIPASE Stat Lab 03/11/23 15:10 Completed TROPONIN Q4H Lab 03/11/23 15:10 Completed TROPONIN Q4H Lab 03/11/23 19:15 Ordered TROPONIN Q4H Lab 03/11/23 23:15 Ordered UA W/RFX UR CULTURE Stat Lab 03/11/23 17:10 Completed Medication Summary Generic Name Dose Route Start Last Admin Trade Name Freq PRN Reason Stop Dose Admin Sodium Chloride 1,000 mls @ 100 mls/hr 03/11/23 15:15 03/11/23 15:20 Sodium Chloride 0.9% 1000 Ml IV 04/10/23 15:14 100 mls/hr .Q10H MAGED Administration Discontinued Medications Generic Name Dose Route Start Last Admin Trade Name Freq PRN Reason Stop Dose Admin Morphine Sulfate 2 mg 03/11/23 15:01 03/11/23 15:28 Morphine Sulfate 2 Mg/Ml Inj IV 03/11/23 15:02 2 mg STAT ONE Administration Morphine Sulfate Confirm 03/11/23 15:19 Morphine Sulfate 2 Mg/Ml Inj Administered 03/11/23 15:20 Dose 2 mg .ROUTE .STK-MED ONE Ondansetron HCl 4 mg 03/11/23 15:01 03/11/23 15:21 Ondansetron Hcl 4 Mg/2 Ml Vial IV 03/11/23 15:02 4 mg STAT ONE Administration Ondansetron HCl Confirm 03/11/23 15:19 Ondansetron Hcl 4 Mg/2 Ml Vial Administered 03/11/23 15:20 Dose 4 mg .ROUTE .STK-MED ONE Lab/Rad Data: Laboratory Result Diagrams 03/11/23 15:10 03/11/23 15:10 Laboratory Results 03/11/23 03/11/23 03/11/23 Range/Units 17:10 15:10 15:10 WBC (4.0-10.5) x10^3/uL RBC (4.1-5.6) x10^6/uL Hgb (12.5-18.0) g/dL Hct (42-50) % MCV (78-100) fL MCH (26-32) pg MCHC (32-36) g/dL RDW (11.5-14.0) % Plt Count (150-450) x10^3/uL MPV (7.5-11.0) fL Gran % (36.0-66.0) % Immature Gran % (Auto) (0.00-0.4) % Nucleat RBC Rel Count (0.00-0.1) % Eos # (Auto) (0-0.5) x10^3/uL Immature Gran # (Auto) (0.00-0.03) x10^3u/L Absolute Lymphs (auto) (1.0-4.6) x10^3/uL Absolute Monos (auto) (0.0-1.3) x10^3/uL Absolute Nucleated RBC (0.00-0.01) x10^3u/L Lymphocytes % (24.0-44.0) % Monocytes % (0.0-12.0) % Eosinophils % (0.00-5.0) % Basophils % (0.0-0.4) % Absolute Granulocytes (1.4-6.9) x10^3/uL Basophils # (0-0.4) x10^3/uL Sodium 143 (137-145) mmol/L Potassium 3.6 (3.5-5.1) mmol/L Chloride 107 (98-107) mmol/L Carbon Dioxide 23 (22-30) mmol/L Anion Gap 17.5 H (5-15) MEQ/L BUN 21 H (9-20) mg/dL Creatinine 1.36 H (0.66-1.25) mg/dL Estimated GFR 57.2 ML/MIN Glucose 125 H (74-106) mg/dL Calcium 10.2 (8.4-10.2) mg/dL Total Bilirubin 0.70 (0.2-1.3) mg/dL AST 38 (17-59) U/L ALT 32 (0-50) U/L Alkaline Phosphatase 179 H (38-126) U/L Troponin I < 0.012 (0.000-0.034) ng/mL Serum Total Protein 9.4 H (6.3-8.2) g/dL Albumin 4.8 (3.5-5.0) g/dL Lipase 160 (23-300) U/L Urine Color Dark Yellow (Yellow) Urine Appearance Clear (Clear) Urine pH 6.0 (4.6-8.0) Ur Specific [place] >=1.030 A (1.005-1.030) Urine Protein 30 (Negative) Urine Glucose (UA) Negative (Negative) mg/dL Urine Ketones Negative (Negative) Urine Blood Negative (Negative) Urine Nitrite Negative (Negative) Urine Bilirubin Negative (Negative) Urine Urobilinogen 0.2 (0.2) mg/dL Ur Leukocyte Esterase Negative (Negative) U Hyaline Cast (Auto) 3-5 A (0-2) /LPF Urine Microscopic RBC 0-2 (0-5) /HPF Urine Microscopic WBC 0-2 (0-5) /HPF Ur Epithelial Cells None Seen (None Seen) /HPF Urine Bacteria None Seen (None Seen) /HPF Urine Culture Reflexed NO (NO) 03/11/23 Range/Units 15:10 WBC 9.9 (4.0-10.5) x10^3/uL RBC 4.46 (4.1-5.6) x10^6/uL Hgb 13.9 (12.5-18.0) g/dL Hct 43.4 (42-50) % MCV 97.3 (78-100) fL MCH 31.2 (26-32) pg MCHC 32.0 (32-36) g/dL RDW 12.5 (11.5-14.0) % Plt Count 287 (150-450) x10^3/uL MPV 8.9 (7.5-11.0) fL Gran % 75.4 H (36.0-66.0) % Immature Gran % (Auto) 0.3 (0.00-0.4) % Nucleat RBC Rel Count 0.0 (0.00-0.1) % Eos # (Auto) 0.52 H (0-0.5) x10^3/uL Immature Gran # (Auto) 0.03 (0.00-0.03) x10^3u/L Absolute Lymphs (auto) 1.05 (1.0-4.6) x10^3/uL Absolute Monos (auto) 0.80 (0.0-1.3) x10^3/uL Absolute Nucleated RBC 0.00 (0.00-0.01) x10^3u/L Lymphocytes % 10.6 L (24.0-44.0) % Monocytes % 8.1 (0.0-12.0) % Eosinophils % 5.3 H (0.00-5.0) % Basophils % 0.3 (0.0-0.4) % Absolute Granulocytes 7.43 H (1.4-6.9) x10^3/uL Basophils # 0.03 (0-0.4) x10^3/uL Sodium (137-145) mmol/L Potassium (3.5-5.1) mmol/L Chloride (98-107) mmol/L Carbon Dioxide (22-30) mmol/L Anion Gap (5-15) MEQ/L BUN (9-20) mg/dL Creatinine (0.66-1.25) mg/dL Estimated GFR ML/MIN Glucose (74-106) mg/dL Calcium (8.4-10.2) mg/dL Total Bilirubin (0.2-1.3) mg/dL AST (17-59) U/L ALT (0-50) U/L Alkaline Phosphatase (38-126) U/L Troponin I (0.000-0.034) ng/mL Serum Total Protein (6.3-8.2) g/dL Albumin (3.5-5.0) g/dL Lipase (23-300) U/L Urine Color (Yellow) Urine Appearance (Clear) Urine pH (4.6-8.0) Ur Specific [place] (1.005-1.030) Urine Protein (Negative) Urine Glucose (UA) (Negative) mg/dL Urine Ketones (Negative) Urine Blood (Negative) Urine Nitrite (Negative) Urine Bilirubin (Negative) Urine Urobilinogen (0.2) mg/dL Ur Leukocyte Esterase (Negative) U Hyaline Cast (Auto) (0-2) /LPF Urine Microscopic RBC (0-5) /HPF Urine Microscopic WBC (0-5) /HPF Ur Epithelial Cells (None Seen) /HPF Urine Bacteria (None Seen) /HPF Urine Culture Reflexed (NO) - Progress Progress: improved Progress Note: Patient is a 57-year-old male presents to our ED for evaluation of nausea vomiting diarrhea and abdominal pain. Physical exam reveals a dehydrated appearing male. Dry appearing mucous membranes. Nontoxic. CBC CMP ordered. CMP reveals elevated creatinine. Patient has history of chronic renal sufficiency. Patient has a history of dialysis approximately 8 years ago from sepsis. Patient has a PEG tube. CBC essentially nonremarkable. Lipase negative. Troponin negative. Urinalysis reveals elevated specific gravity suggesting dehydration. IV fluids administered. Patient received morphine for pain. Zofran administered for nausea. Patient reassessed. He feels much better. CT abdomen pelvis shows no acute intra-abdominal process. Will discharge home. Patient agrees to follow-up with his primary care doctor within 48 hours for reevaluation. Portions of this note were created with voice recognition technology. There may be grammatical, spelling, punctuation or sound alike errors Complexity of problem addressed is moderate, acute complicated Complex of data reviewed and analyzed is moderate. Test reviewed and independently analyzed. CMP revealed an elevated creatinine. I reviewed patient's history and previous creatinines. Current creatinine is in line with history of elevated creatinine. No obvious acute change. Urinalysis also suggestive of dehydration due to elevated specific gravity. Risk of complication and risk morbidity/mortality patient management is high. Patient received IV morphine. Zofran and fluids administered. We will discharge home. Patient has a follow-up appointment scheduled with his family doctor this week. Significant other at bedside. They voiced no other complaints or concerns at this time. Portions of this note were created with voice recognition technology. There may be grammatical, spelling, punctuation or sound alike errors 03/11/23 18:29 The right lower lobe irregular opacity appears to be chronic and stable. 03/11/23 18:40 Counseled pt/family regarding: lab results, diagnosis, need for follow-up, rad results - Departure Departure Disposition: Home Clinical Impression: Dehydration, Chronic renal insufficiency, Irregular right lower lobe opacity, Pleural effusion, right, Left nephrolithiasis, Nausea vomiting and diarrhea Condition: Stable Critical Care Time: No Referrals: ANNE ZAMBRANO MD [Primary Care Provider] - Follow up/PCP as directed Additional Instructions: Discharge/Care Plan ZEUS MARIE was seen on 03/11/23 in the Emergency Room. The patient was counseled regarding Diagnosis,Lab results, Imaging studies, need for follow up and when to return to the Emergency Room. Prescriptions given: Discharge Note I have spoken with the patient and/or caregivers. I have explained the patient's condition, diagnosis and treatment plan based on the information available to me at this time. I have answered the patient's and/or caregiver's questions and addressed any concerns. The patient and/or caregivers have as good understanding of the patient's diagnosis, condition and treatment plan as can be expected at this point. The vital signs have been stable. The patient's condition is stable and appropriate for discharge from the emergency department. The patient will pursue further outpatient evaluation with the primary care physician or other designated or consulting physician as outlined in the discharge instructions. The patient and/or caregivers are agreeable to this plan of care and follow-up instructions have been explained in detail. The patient and/or caregivers have received these instruction. The patient/and or caregivers are aware that any significant change in condition or worsening of symptoms should prompt an immediate return to this or the closest emergency department or call 911.
== END 2023-03-11 19:28 | disposition home or self-care (01) ==
LOC: ED 14:37
DX: E86.0 Dehydration (principal); N18.9 Chronic kidney disease, unspecified; R91.8 Other nonspecific abnormal finding of lung field; J90 Pleural effusion, not elsewhere classified; N20.0 Calculus of kidney; R11.2 Nausea with vomiting, unspecified; R19.7 Diarrhea, unspecified; R10.9 Unspecified abdominal pain; R51.9 Headache, unspecified; E78.5 Hyperlipidemia, unspecified; Z79.02 Long term (current) use of antithrombotics/antiplatelets; Z79.899 Other long term (current) drug therapy; Z93.1 Gastrostomy status
CPT/HCPCS: 36000; 36415; 74177; 80053; 81001; 83690; 84484; 85025; 96374; 96375; 99284; J2270; J2405

== ENCOUNTER 2023-07-19 13:21 | Emergency (ER) | payer MEDICARE ==
--- NOTE | 2023-07-19 13:24 | ERPHSYRPT ---
- History of Present Illness Time Seen by Provider: 07/19/23 13:24 Historian: patient Exam Limitations: no limitations Physician History: This is a 57-year-old white male patient who presents with several day history of watery diarrhea. However, the last 2 days his symptoms have worsened. He tried to take oral intake but he became nauseated. There is been no vomiting. He has not had any fevers chills or cough symptoms. He does have an associated headache. He denies chest pain. He does not have shortness of breath. Patient has a feeding tube in place that he still uses. He can take oral intake. The feeding tube was placed several years ago secondary to his organs "shutting down" secondary to sepsis. Patient has no known exposure to individuals with si milar symptoms or who have been diagnosed with viral illness. Patient has multiple medical problems including depression, chronic angina, chronic renal disease (Dr. Hathaway), coronary artery disease (myocardial infarction and cardiac stent) COPD, gastroesophageal reflux disease, hyperlipidemia, seizure disorder, osteoarthritis, and history of TIAs. Timing/Duration: day(s) (Several days), worse (Worse in the last 2 days) Quality: cramping Abdominal Pain Onset Location: generalized abdomen Severity of Pain-Max: mild Severity of Pain-Current: mild Modifying Factors: Improves With: nothing Associated Symptoms: diarrhea, headache, loss of appetite (Watery), nausea, weakness, No chest pain, No shortness of breath, No vomiting Previous symptoms: no prior history Allergies/Adverse Reactions: amoxicillin Allergy (Verified 03/11/23 14:48) gabapentin Adverse Reaction (Severe, Verified 03/11/23 14:48) Fainting Home Medications: Aspirin 81 mg PO DAILY 07/30/15 [History] Duloxetine HCl [Cymbalta] 60 mg PO DAILY 07/30/15 [History] Ranolazine [Ranexa] 1,000 mg PO DAILY 07/30/15 [History] Topiramate 100 mg [Topamax 100 MG] 200 mg PO BID 07/30/15 [History] Atorvastatin Calcium [Lipitor] 40 mg PO HS 02/01/16 [History] Quetiapine Fumarate [Seroquel] 600 mg PO HS 01/20/17 [History] Morphine Sulfate 60 mg PO TID 05/08/18 [History] Clopidogrel Bisulfate [PLAVIX Tablet] 75 mg PO DAILY 01/18/20 [History] Isosorbide Dinitrate 10 mg [Isordil 10 MG] 10 mg PO DAILY 01/18/20 [History] Lacosamide [Vimpat] 10 mg PO TID 01/18/20 [History] Tizanidine HCl [Zanaflex] 2 mg PO BID 01/18/20 [History] Hx Tetanus, Diphtheria Vaccination/Date Given: Yes Hx Influenza Vaccination/Date Given: Yes Hx Pneumococcal Vaccination/Date Given: Yes Travel Risk - International Travel Have you traveled outside of the country in past 3 weeks: No - Coronavirus Screening Are you exhibiting any of the following symptoms?: Yes Symptoms: Vomiting/Diarrhea, Headaches/Body Aches/Fatigue Close contact with a COVID-19 positive Pt in past 14-21 Days: No - Vaccine Status Have you recieved a Covid-19 vaccination: Yes 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 - Vaccination Dates Date of 2cond Vaccination (if applicable): 2020 Dates if Unknown: unknown - Review of Systems Constitutional: Weakness Eyes: No Symptoms Ears, Nose, & Throat: No Symptoms Respiratory: No Symptoms Cardiac: No Symptoms Abdominal/Gastrointestinal: Abdominal Pain (Mild generalized abdominal cramping), Nausea, Diarrhea, Appetite Changes Genitourinary Symptoms: No Symptoms Musculoskeletal: No Symptoms Skin: No Symptoms Neurological: No Symptoms, Headache Psychological: No Symptoms Endocrine: No Symptoms Hematologic/Lymphatic: No Symptoms Immunological/Allergic: No Symptoms All Other Systems: Reviewed and Negative - Past Medical History Pertinent Past Medical History: Yes Neurological History: Seizures, Stroke ENT History: No Pertinent History Cardiac History: Angina, Coronary Artery Disease, High Cholesterol, Myocardial Infarction ([place]) Respiratory History: COPD Endocrine Medical History: No Pertinent History Musculoskeletal History: Osteoarthritis, Other GI Medical History: GERD History: No Pertinent History Psycho-Social History: Depression, Other Male Reproductive Disorders: No Pertinent History Other Medical History: PT. REPORTS [place] X 4; PT. REPORTS HE HAS ONE CARDIAC STENT; CHRONICNECK, BACK, SHOULDER PN. States leg pain, "need knee replacement right knee" "had left knee replaced" , Left shoulder replacement,, "organs shut down in December 2017,life support for 49 days and then 2 months of rehab, also a trach., Has stent left arm for dialysis and is not taking dialysis at this time - Past Surgical History Past Surgical History: Yes Neuro Surgical History: No Pertinent History Cardiac: CABG, Cardiac Catheterization, Cardiac Stent Respiratory: No Pertinent History Gastrointestinal: No Pertinent History Genitourinary: No Pertinent History Musculoskeletal: Other Male Surgical History: No Pertinent History Other Surgical History: Left foot x 2, Right foot x 2, Right knee x 2, Left knee x 2, Right torn rotator cuff, Steal plate with rods and screws in neck - Social History Smoking Status: Former smoker How long have you smoked: 35 y Exposure to second hand smoke: No Alcohol Use: None Drug Use: none Patient Lives Alone: No Significant Family History: heart disease - Nursing Vital Signs Nursing Vital Signs: Initial Vital Signs Temperature 96.6 F 07/19/23 13:26 Pulse Rate 119 H 07/19/23 13:26 Respiratory Rate 24 07/19/23 13:26 Blood Pressure 142/82 07/19/23 13:26 O2 Sat by Pulse Oximetry 99 07/19/23 13:26 Pain Scale Pain Intensity 2 - Physical Exam General Appearance: no apparent distress, alert, anxiety Eye Exam: PERRL/EOMI, eyes nml inspection Ears, Nose, Throat Exam: normal ENT inspection, moist mucous membranes Neck Exam: normal inspection, non-tender, supple, full range of motion Respiratory Exam: normal breath sounds, lungs clear, airway intact, No chest tenderness, No respiratory distress Cardiovascular Exam: normal heart sounds, normal peripheral pulses, tachycardia Gastrointestinal/Abdomen Exam: soft, normal bowel sounds, tenderness (Mild diffuse), No rebound Rectal Exam: not done Back Exam: normal inspection, normal range of motion, No CVA tenderness, No vertebral tenderness Extremity Exam: normal inspection, normal range of motion, pelvis stable Neurologic Exam: alert, oriented x 3, cooperative, manager golf II-XII nml as tested, normal mood/affect, nml cerebellar function, nml station & gait, sensation nml Skin Exam: normal color, warm, dry Lymphatic Exam: No adenopathy SpO2 Interpretation: normal - Course Nursing assessment & vital signs reviewed: Yes Ordered Tests: Active Orders 24 hr Category Date Time Status IV Insertion STAT Care 07/19/23 13:45 Active ABDOMEN AND PELVIS W/0 CONTRAS [CT] Stat Exams 07/19/23 13:45 Completed AMYLASE Stat Lab 07/19/23 13:45 Completed CBC W DIFF Stat Lab 07/19/23 13:45 Completed CMP Stat Lab 07/19/23 13:45 Completed LIPASE Stat Lab 07/19/23 13:45 Completed Lactic Acid Stat Lab 07/19/23 13:45 Completed UA W/RFX UR CULTURE Stat Lab 07/19/23 13:50 Completed Medication Summary Generic Name Dose Route Start Last Admin Trade Name Delia PRN Reason Stop Dose Admin Sodium Chloride 1,000 mls @ 999 mls/hr 07/19/23 14:45 07/19/23 14:52 Sodium Chloride 0.9% 1000 Ml IV 07/19/23 15:45 999 mls/hr .Q1H1M STA Administration Discontinued Medications Generic Name Dose Route Start Last Admin Trade Name Delai PRN Reason Stop Dose Admin Sodium Chloride 1,000 mls @ 999 mls/hr 07/19/23 13:45 07/19/23 14:55 Sodium Chloride 0.9% 1000 Ml IV 07/19/23 14:45 Infused .Q1H1M STA Infusion Sodium Chloride Confirm 07/19/23 13:47 Sodium Chloride 0.9% 1000 Ml Administered 07/19/23 13:48 Dose 1,000 mls @ ud .ROUTE .STK-MED ONE Sodium Chloride Confirm 07/19/23 14:51 Sodium Chloride 0.9% 1000 Ml Administered 07/19/23 14:52 Dose 1,000 mls @ ud .ROUTE .STK-MED ONE Metronidazole 500 mg 07/19/23 15:24 Metronidazole 500 Mg Tablet PO 07/19/23 15:25 STAT ONE Ondansetron HCl 4 mg 07/19/23 13:45 07/19/23 13:49 Ondansetron Hcl 4 Mg/2 Ml Vial IV 07/19/23 13:46 4 mg STAT ONE Administration Ondansetron HCl Confirm 07/19/23 13:47 Ondansetron Hcl 4 Mg/2 Ml Vial Administered 07/19/23 13:48 Dose 4 mg .ROUTE .STK-MED ONE Pantoprazole Sodium 40 mg 07/19/23 13:45 07/19/23 13:49 Pantoprazole 40 Mg Vial IV 07/19/23 13:46 40 mg STAT ONE Administration Pantoprazole Sodium Confirm 07/19/23 13:47 Pantoprazole 40 Mg Vial Administered 07/19/23 13:48 Dose 40 mg IV .STK-MED ONE Lab/Rad Data: Laboratory Result Diagrams 07/19/23 13:45 07/19/23 13:45 Laboratory Results 07/19/23 07/19/23 07/19/23 Range/Units 13:50 13:45 13:45 WBC (4.0-10.5) x10^3/uL RBC (4.1-5.6) x10^6/uL Hgb (12.5-18.0) g/dL Hct (42-50) % MCV (78-100) fL MCH (26-32) pg MCHC (32-36) g/dL RDW (11.5-14.0) % Plt Count (150-450) x10^3/uL MPV (7.5-11.0) fL Gran % (36.0-66.0) % Immature Gran % (Auto) (0.00-0.4) % Nucleat RBC Rel Count (0.00-0.1) % Eos # (Auto) (0-0.5) x10^3/uL Immature Gran # (Auto) (0.00-0.03) x10^3u/L Absolute Lymphs (auto) (1.0-4.6) x10^3/uL Absolute Monos (auto) (0.0-1.3) x10^3/uL Absolute Nucleated RBC (0.00-0.01) x10^3u/L Lymphocytes % (24.0-44.0) % Monocytes % (0.0-12.0) % Eosinophils % (0.00-5.0) % Basophils % (0.0-0.4) % Absolute Granulocytes (1.4-6.9) x10^3/uL Basophils # (0-0.4) x10^3/uL Sodium 142 (137-145) mmol/L Potassium 3.4 L (3.5-5.1) mmol/L Chloride 108 H (98-107) mmol/L Carbon Dioxide 20 L (22-30) mmol/L Anion Gap 16.9 H (5-15) MEQ/L BUN 16 (9-20) mg/dL Creatinine 1.18 (0.66-1.25) mg/dL Estimated GFR 71.5 ML/MIN Glucose 110 H (74-106) mg/dL Lactic Acid 1.2 (0.4-2.0) Calcium 9.8 (8.4-10.2) mg/dL Total Bilirubin 0.30 (0.2-1.3) mg/dL AST 37 (17-59) U/L ALT 43 (0-50) U/L Alkaline Phosphatase 187 H (38-126) U/L Serum Total Protein 8.6 H (6.3-8.2) g/dL Albumin 4.6 (3.5-5.0) g/dL Amylase 121 H (30-110) U/L Lipase 205 (23-300) U/L Urine Color Yellow (Yellow) Urine Appearance Clear (Clear) Urine pH 5.0 (4.6-8.0) Ur Specific [place] 1.015 (1.005-1.030) Urine Protein Trace A (Negative) Urine Glucose (UA) Negative (Negative) mg/dL Urine Ketones Negative (Negative) Urine Blood Negative (Negative) Urine Nitrite Negative (Negative) Urine Bilirubin Negative (Negative) Urine Urobilinogen 0.2 (0.2) mg/dL Ur Leukocyte Esterase Negative (Negative) U Hyaline Cast (Auto) 3-5 A (0-2) /LPF Urine Microscopic RBC 0-2 (0-5) /HPF Urine Microscopic WBC 0-2 (0-5) /HPF Ur Epithelial Cells None Seen (None Seen) /HPF Urine Bacteria None Seen (None Seen) /HPF Urine Culture Reflexed NO (NO) 07/19/23 Range/Units 13:45 WBC 9.3 (4.0-10.5) x10^3/uL RBC 4.41 (4.1-5.6) x10^6/uL Hgb 14.0 (12.5-18.0) g/dL Hct 44.1 (42-50) % MCV 100.0 (78-100) fL MCH 31.7 (26-32) pg MCHC 31.7 L (32-36) g/dL RDW 12.1 (11.5-14.0) % Plt Count 283 (150-450) x10^3/uL MPV 9.2 (7.5-11.0) fL Gran % 71.9 H (36.0-66.0) % Immature Gran % (Auto) 0.5 H (0.00-0.4) % Nucleat RBC Rel Count 0.0 (0.00-0.1) % Eos # (Auto) 0.35 (0-0.5) x10^3/uL Immature Gran # (Auto) 0.05 H (0.00-0.03) x10^3u/L Absolute Lymphs (auto) 1.39 (1.0-4.6) x10^3/uL Absolute Monos (auto) 0.80 (0.0-1.3) x10^3/uL Absolute Nucleated RBC 0.00 (0.00-0.01) x10^3u/L Lymphocytes % 14.9 L (24.0-44.0) % Monocytes % 8.6 (0.0-12.0) % Eosinophils % 3.8 (0.00-5.0) % Basophils % 0.3 (0.0-0.4) % Absolute Granulocytes 6.68 (1.4-6.9) x10^3/uL Basophils # 0.03 (0-0.4) x10^3/uL Sodium (137-145) mmol/L Potassium (3.5-5.1) mmol/L Chloride (98-107) mmol/L Carbon Dioxide (22-30) mmol/L Anion Gap (5-15) MEQ/L BUN (9-20) mg/dL Creatinine (0.66-1.25) mg/dL Estimated GFR ML/MIN Glucose (74-106) mg/dL Lactic Acid (0.4-2.0) Calcium (8.4-10.2) mg/dL Total Bilirubin (0.2-1.3) mg/dL AST (17-59) U/L ALT (0-50) U/L Alkaline Phosphatase (38-126) U/L Serum Total Protein (6.3-8.2) g/dL Albumin (3.5-5.0) g/dL Amylase (30-110) U/L Lipase (23-300) U/L Urine Color (Yellow) Urine Appearance (Clear) Urine pH (4.6-8.0) Ur Specific [place] (1.005-1.030) Urine Protein (Negative) Urine Glucose (UA) (Negative) mg/dL Urine Ketones (Negative) Urine Blood (Negative) Urine Nitrite (Negative) Urine Bilirubin (Negative) Urine Urobilinogen (0.2) mg/dL Ur Leukocyte Esterase (Negative) U Hyaline Cast (Auto) (0-2) /LPF Urine Microscopic RBC (0-5) /HPF Urine Microscopic WBC (0-5) /HPF Ur Epithelial Cells (None Seen) /HPF Urine Bacteria (None Seen) /HPF Urine Culture Reflexed (NO) - Progress Progress: improved, re-examined Progress Note: 07/19/23 13:44 This patient's medical issue is 1 of moderate complexity. Level complex in the workup performed based on review of the patient's past medical history, review the patient's medication list, review the patient's drug allergy list, history present illness and physical findings on examination. The workup in this patient includes placement of an intravenous line, infusion of Zofran, infusion of 1 L of normal saline solution, amylase, lipase, CBC, CMP, urinalysis, viral swabs, and CAT scan of the abdomen pelvis. 07/19/23 15:19 I interpreted the laboratory data. The amylase is just very slightly elevated. The potassium is also very slightly low at 3.4. CT scan of the abdomen pelvis without contrast was interpreted by the radiologist. I reviewed the impression. There is small left renal calculus which is stable compared to prior films. Small bowel and colon are nondistended with no abnormality. There is no evidence of free air or ascites. 07/19/23 15:20 We will provide the patient with a second liter of normal saline solution intravenously. Will also begin Flagyl 500 mg orally here in the emergency department. He has clinical colitis but no radiographic evidence of it. I think it is reasonable to start this medication. 07/19/23 15:33 Patient has not had a single episode of diarrheal stools since he has been here in the emergency department. He is to continue drinking clear liquids and adv ance his diet slowly. He is to avoid fatty greasy spicy foods. He is to take his antibiotics and other medication as prescribed. He was instructed to take potassium twice a day for 2 days instead of just once a day. After 2 days of potassium supplementation he can decrease it back down to once a day. I also told him he could take Imodium preferably only at night. With the extra IV fluids and the Flagyl, I believe that his diarrheal stools will decrease in number and firmed up. Counseled pt/family regarding: lab results, diagnosis, rad results Medical Desision Making - Independent Historian Additional History obtained from: Spouse - Diagnostic Testing Diagnostic test were ordered, analyzed, and reviewed by me: Yes Radiological Interpretation: Reviewed by me, Teleradiologist Report - Risk of complications The pt has a mod risk of morbidity or mortality based on: Need for prescription drug management - Departure Departure Disposition: Home Clinical Impression: Diarrhea Condition: Stable Critical Care Time: No Referrals: ANNE ZAMBRANO MD [Primary Care Provider] - Follow up/PCP as directed Additional Instructions: Drink plenty of clear liquids before advancing your diet. Take your antibiotics and other medications as prescribed. Follow-up with your primary care provider on 07/21/2023 for further evaluation and management. Increase your daily potassium to twice a day for 2 days only. May use Imodium but try only using it at nighttime. Prescriptions: Metronidazole 500 mg [Flagyl 500 MG] 500 mg PO TID #21 tablet
[2023-07-19 13:31] VITALS: RESP 24; TEMP 96.6
[2023-07-19] MEDS ORDERED: Zofran 4 MG/2 ML VIAL IV ONE (13:45)
[2023-07-19] MEDS ORDERED: PROTONIX 40 MG IV IV ONE ×2 (13:45→13:47)
[2023-07-19] MEDS ORDERED: Sodium Chloride 0.9% 1000 ML 1,000 ML IV STA ×2 (13:45→14:45)
[2023-07-19] MEDS ORDERED: Sodium Chloride 0.9% 1000 ML 1,000 ML ONE ×2 (13:47→14:51)
[2023-07-19] MEDS ORDERED: Zofran 4 MG/2 ML VIAL ONE (13:47)
[2023-07-19 13:52] LABS: Absolute Neutrophil Ct (ANC) 6.68 x10^3/uL (1.4-6.9); BASOPHIL % 0.3 % (0.0-0.4); Basophil (Absolute #) 0.03 x10^3/uL (0-0.4); Eosinophil % 3.8 % (0.00-5.0); Eosinophil (Absolute #) 0.35 x10^3/uL (0-0.5); Hematocrit 44.1 % (42-50); IMMATURE GRAN # 0.05 x10^3u/L (0.00-0.03); IMMATURE GRAN % 0.5 % (0.00-0.4); Lymphocyte (Absolute #) 1.39 x10^3/uL (1.0-4.6); Lymphocytes % 14.9 % (24.0-44.0); Mean Corpuscular Hemoglobin 31.7 pg (26-32); Mean Corpuscular Hgb Concent. 31.7 g/dL (32-36); Mean Platelet Volume 9.2 fL (7.5-11.0); Monocytes % 8.6 % (0.0-12.0); Neutrophil % 71.9 % (36.0-66.0); Platelet Count 283 x10^3/uL (150-450); Red Blood Count 4.41 x10^6/uL (4.1-5.6); Red Cell Distribution Width 12.1 % (11.5-14.0); White Blood Count 9.3 x10^3/uL (4.0-10.5)
[2023-07-19 14:04] LABS: ALBUMIN 4.6 g/dL (3.5-5.0); ANION GAP 16.9 MEQ/L (5-15); BILIRUBIN,TOTAL 0.3 mg/dL (0.2-1.3); Calcium 9.8 mg/dL (8.4-10.2); Creatinine 1 1.18 mg/dL (0.66-1.25); EST GLOMERULAR FILTRATION RATE 71.5 ML/MIN; Potassium 3.4 mmol/L (3.5-5.1); Total Protein 8.6 g/dL (6.3-8.2)
[2023-07-19 14:07] LABS: Appearance Clear (Clear); Bacteria None Seen /HPF (None Seen); Bilirubin Negative (Negative); Blood Negative (Negative); Epithelial Cells None Seen /HPF (None Seen); Glucose, Urine Negative (Negative); Ketones Negative (Negative); Leukocyte Esterase Negative (Negative); Nitrite Negative (Negative); Protein,Urine Dip Trace (Negative); RBC 0-2 /HPF (0-5); Specific Gravity 1.015 (1.005-1.030); Urobilinogen 0.2 mg/dL (0.2); WBC 0-2 /HPF (0-5)
[2023-07-19 14:31] LABS: ADD URINE CULTURE? NO (NO)
[2023-07-19 14:42] VITALS: PULSE 66
--- NOTE | 2023-07-19 15:14 | XRAY ---
CLINICAL HISTORY:ABD cramping; diarrhea COMPARISON:Compared to the previous non-contrast CT abdomen and pelvis study dated 11/27/2022. TECHNIQUE:CT of the abdomen and pelvis was performed with axial images as well as sagittal and coronal reconstruction images without intravenous contrast. FINDINGS: Scanned lower chest cuts show redomonstration of posterior basal pleuro-pulmonary fibrotic changes with small cyst. Redemonstration of hyperdense screws likely related to previous internal fixation of the sternum with intact alignment and prothesis. The interposition of the loop of bowel between the right hemidiaphragm and upper liver representing Chilaiditi's sign. Interval resolution of focal pneumatosis intestinalis. The liver is normal in size 15 cm, morphology and appears unremarkable with no intrahepatic or extrahepatic bile duct dilation. Unremarkable appearing pancreas with no focal lesions yet mild fatty replacement of pancreas. No pancreatic mass or ductal dilatation is seen. Unremarkable appearing spleen. The left adrenal gland is normal. The right adrenal gland shows a rounded hypodense 28 x [address] density of 53 HU on this precontrast scan. Area of mesenteric fatty proliferation in the mid-abdomen surrounding mesenteric vessels and soft tissue nodules representing early mesenteric panniculitis. The kidneys appear unremarkable with no cysts, masses or hydronephrosis. Small 3 mm calculus in the lower pole of the left kidney. Bilateral mild perinephric fat stranding, probably physiological. The ureters are normal with no stones. Unremarkable abdominal aorta without specific evidence of aneurysm or dissection. IVC is normal. Small bowel and fat-containing umbilical hernia. The stomach appears unremarkable with redemonstration of gastrostomy port. Unremarkable appearing duodenum. Small Bowel and colon are non-distended with no abnormality No free air and no ascites. No free intraperitoneal air is seen. Normal CT appearance of the appendix. The bladder is unremarkable with no stones. Average-sized prostate. Mild degenerative changes seen in the visualized spine. No other bony abnormality was detected. IMPRESSION: Compared to the previous non-contrast CT abdomen and pelvis study dated 11/27/2022. 1. Scanned lower chest cuts show redemonstration of posterior basal pleuro-pulmonary fibrotic changes with small cyst. 2. Redemonstration of hyperdense screws likely related to previous internal fixation of the sternum with intact alignment and prosthesis. 3. Resolution of the previously noted focal pneumatosis intestinalis. 4. Small left renal calculus, stable. 4. Redemonstration of the right adrenal nodule with stationary CT density and size. 5. The stomach appears unremarkable with redemonstration of the gastrostomy port. 6. The rest of the findings as detailed above. Electronically Signed by: Trell Coats MD. (07/19/2023 15:10:59 EST)
[2023-07-19] MEDS ORDERED: Flagyl 500 MG PO ONE (15:24)
[2023-07-19] MEDS ORDERED: Flagyl 500 MG ONE (15:41)
[2023-07-19 15:43] VITALS: BP 112/62; O2SAT 98
== END 2023-07-19 16:02 | disposition home or self-care (01) ==
LOC: ED 13:21
DX: R19.7 Diarrhea, unspecified (principal); N18.9 Chronic kidney disease, unspecified; E78.5 Hyperlipidemia, unspecified; Z79.02 Long term (current) use of antithrombotics/antiplatelets; Z79.899 Other long term (current) drug therapy
CPT/HCPCS: 36000; 36415; 74176; 80053; 81001; 82150; 83605; 83690; 85025; 96360; 96374; 96375; 99284; J2405; A9270-GY

== ENCOUNTER 2023-11-29 20:34 | Emergency (ER) | payer MEDICARE ==
[2023-11-29 20:48] VITALS: TEMP 97.2
--- NOTE | 2023-11-29 21:15 | ERPHSYRPT ---
- History of Present Illness Time Seen by Provider: 11/29/23 21:00 Historian: patient Exam Limitations: no limitations Patient Subjective Stated Complaint: pt states he has been vomiting all day Triage Nursing Assessment: pt ambulated into the er; pt is axo x4; c/o vomiting; pt states pain to abd; c/o N/V/D; abd soft, nontender, round; hypoactive bowel sounds; skin PDW; no respiratory distress present; vitals wnl; peg tub present to upper abd Physician History: Since yesterday pt has had diarrhea without blood; today mid abdominal pain with vomiting x1 without blood and thirst; denies chest pain, cough, fever. Allergies/Adverse Reactions: amoxicillin Allergy (Verified 11/29/23 20:40) gabapentin Adverse Reaction (Severe, Verified 11/29/23 20:40) Fainting Home Medications: Aspirin 81 mg PO DAILY 07/30/15 [History] Duloxetine HCl [Cymbalta] 60 mg PO DAILY 07/30/15 [History] Ranolazine [Ranexa] 1,000 mg PO DAILY 07/30/15 [History] Topiramate 100 mg [Topamax 100 MG] 200 mg PO BID 07/30/15 [History] Atorvastatin Calcium [Lipitor] 40 mg PO HS 02/01/16 [History] Quetiapine Fumarate [Seroquel] 600 mg PO HS 01/20/17 [History] Morphine Sulfate 60 mg PO TID 05/08/18 [History] Clopidogrel Bisulfate [PLAVIX Tablet] 75 mg PO DAILY 01/18/20 [History] Isosorbide Dinitrate 10 mg [Isordil 10 MG] 10 mg PO DAILY 01/18/20 [History] Lacosamide [Vimpat] 10 mg PO TID 01/18/20 [History] Tizanidine HCl [Zanaflex] 2 mg PO BID 01/18/20 [History] Hx Tetanus, Diphtheria Vaccination/Date Given: Yes Hx Influenza Vaccination/Date Given: Yes Hx Pneumococcal Vaccination/Date Given: Yes Travel Risk - International Travel Have you traveled outside of the country in past 3 weeks: No - Emerging Infectious Disease Are you exhibiting symptoms associated with any current EIDs: Yes Symptoms: Diarrhea, Vomitting - Review of Systems Constitutional: No Fever Respiratory: No Cough, No Dyspnea Cardiac: No Chest Pain Abdominal/Gastrointestinal: Abdominal Pain, Nausea, Vomiting, Diarrhea - Past Medical History Pertinent Past Medical History: Yes Neurological History: Seizures, Stroke ENT History: No Pertinent History Cardiac History: Angina, Coronary Artery Disease, High Cholesterol, Myocardial Infarction ([place]) Respiratory History: COPD Endocrine Medical History: No Pertinent History Musculoskeletal History: Osteoarthritis, Other GI Medical History: GERD History: No Pertinent History Psycho-Social History: Depression, Other Male Reproductive Disorders: No Pertinent History Other Medical History: PT. REPORTS [place] X 4; PT. REPORTS HE HAS ONE CARDIAC STENT; CHRONICNECK, BACK, SHOULDER PN. States leg pain, "need knee replacement right knee" "had left knee replaced" , Left shoulder replacement,, "organs shut down in December 2017,life support for 49 days and then 2 months of rehab, also a trach., Has stent left arm for dialysis and is not taking dialysis at this time - Past Surgical History Past Surgical History: Yes Neuro Surgical History: No Pertinent History Cardiac: CABG, Cardiac Catheterization, Cardiac Stent Respiratory: No Pertinent History Gastrointestinal: No Pertinent History Genitourinary: No Pertinent History Musculoskeletal: Other Male Surgical History: No Pertinent History Other Surgical History: Left foot x 2, Right foot x 2, Right knee x 2, Left knee x 2, Right torn rotator cuff, Steal plate with rods and screws in neck Significant Family History: heart disease - Social History Smoking Status: Former smoker How long have you smoked: 35 y Exposure to second hand smoke: No Alcohol Use: None Drug Use: none Patient Lives Alone: No - Nursing Vital Signs Nursing Vital Signs: Initial Vital Signs Pulse Rate 77 11/29/23 20:40 Respiratory Rate 26 H 11/29/23 20:40 Blood Pressure 134/80 11/29/23 20:40 O2 Sat by Pulse Oximetry 99 11/29/23 20:40 Pain Scale Pain Intensity 3 - Physical Exam General Appearance: alert Eye Exam: eyes nml inspection Ears, Nose, Throat Exam: pharynx normal Neck Exam: normal inspection Respiratory Exam: crackles/rales (mild rales over right posterior base) Cardiovascular Exam: normal heart sounds Gastrointestinal/Abdomen Exam: soft, normal bowel sounds, other (gastrostomy tube present) Extremity Exam: other (no ankle edema) Neurologic Exam: alert, cooperative Skin Exam: warm, dry SpO2 Interpretation: normal SpO2: 98 O2 Delivery: Room Air - Course Nursing assessment & vital signs reviewed: Yes EKG Interpreted by Me: RATE (74), Sinus Rhythm, NORMAL AXIS, Right Bundle Branch Block, Other (QTc = 448) - Radiology Exams Chest X-ray Interpretation: Teleradiologist Report (See report) - CT Exams Abdomen/Pelvis CT Interpretation: Tele-radiologist Report (Early mesenteric panniculitis. See rest of report.) Ordered Tests: Active Orders 24 hr Category Date Time Status EKG-ER Only STAT Care 11/29/23 21:12 Active IV Insertion STAT Care 11/29/23 21:12 Active ABDOMEN AND PELVIS W/0 CONTRAS [CT] Stat Exams 11/29/23 21:13 Completed CHEST 2 VIEWS (PA AND LAT) Stat Exams 11/29/23 21:12 Completed AMYLASE Stat Lab 11/29/23 21:20 Completed CBC W DIFF Stat Lab 11/29/23 21:20 Completed CMP Stat Lab 11/29/23 21:20 Completed LIPASE Stat Lab 11/29/23 21:20 Completed MAGNESIUM Stat Lab 11/29/23 21:20 Completed TROPONIN Q4H Lab 11/29/23 21:20 Completed TROPONIN Q4H Lab 11/30/23 01:15 Ordered TROPONIN Q4H Lab 11/30/23 05:15 Ordered UA W/RFX UR CULTURE Stat Lab 11/29/23 22:17 Completed Medication Summary Generic Name Dose Route Start Last Admin Trade Name Freq PRN Reason Stop Dose Admin Potassium Chloride 20 meq 11/29/23 23:35 Potassium Chloride Tab 10 Meq Tab PO 11/29/23 23:36 STAT ONE Discontinued Medications Generic Name Dose Route Start Last Admin Trade Name Freq PRN Reason Stop Dose Admin Al Hydrox/Mg Hydrox/Simethicone Confirm 11/29/23 22:03 Mag Hydrox/Al Hydrox/Simeth 30 Ml Udcup Administered 11/29/23 22:04 Dose 30 ml .ROUTE .STK-MED ONE Sodium Chloride 1,000 mls @ 999 mls/hr 11/29/23 21:12 11/29/23 22:33 Sodium Chloride 0.9% 1000 Ml IV 11/29/23 22:12 Infused .Q1H1M STA Infusion Sodium Chloride Confirm 11/29/23 21:18 Sodium Chloride 0.9% 1000 Ml Administered 11/29/23 21:19 Dose 1,000 mls @ ud .ROUTE .STK-MED ONE Sodium Chloride Confirm 11/29/23 21:24 Sodium Chloride 0.9% 1000 Ml Administered 11/29/23 21:25 Dose 1,000 mls @ ud .ROUTE .STK-MED ONE Lidocaine HCl Confirm 11/29/23 22:03 Lidocaine Hcl 2% Viscous 15 Ml Udcup Administered 11/29/23 22:04 Dose 15 ml .ROUTE .STK-MED ONE Magnesium Hydroxide 45 ml 11/29/23 22:02 11/29/23 22:04 Mag Hydrx/Alum Hyd/Simeth/Lido 45 Ml Bottle PO 11/29/23 22:03 45 ml STAT ONE Administration Ondansetron HCl 4 mg 11/29/23 21:12 11/29/23 21:31 Ondansetron Hcl 4 Mg/2 Ml Vial IV 11/29/23 21:13 4 mg STAT ONE Administration Ondansetron HCl Confirm 11/29/23 21:18 Ondansetron Hcl 4 Mg/2 Ml Vial Administered 11/29/23 21:19 Dose 4 mg .ROUTE .STK-MED ONE Ondansetron HCl Confirm 11/29/23 21:24 Ondansetron Hcl 4 Mg/2 Ml Vial Administered 11/29/23 21:25 Dose 4 mg .ROUTE .ST-MED ONE Lab/Rad Data: Laboratory Result Diagrams 11/29/23 21:20 11/29/23 21:20 Laboratory Results 11/29/23 11/29/23 11/29/23 Range/Units 22:17 21:20 21:20 WBC (4.0-10.5) x10^3/uL RBC (4.1-5.6) x10^6/uL Hgb (12.5-18.0) g/dL Hct (42-50) % MCV (78-100) fL MCH (26-32) pg MCHC (32-36) g/dL RDW (11.5-14.0) % Plt Count (150-450) x10^3/uL MPV (7.5-11.0) fL Gran % (36.0-66.0) % Immature Gran % (Auto) (0.00-0.4) % Nucleat RBC Rel Count (0.00-0.1) % Eos # (Auto) (0-0.5) x10^3/uL Immature Gran # (Auto) (0.00-0.03) x10^3u/L Absolute Lymphs (auto) (1.0-4.6) x10^3/uL Absolute Monos (auto) (0.0-1.3) x10^3/uL Absolute Nucleated RBC (0.00-0.01) x10^3u/L Lymphocytes % (24.0-44.0) % Monocytes % (0.0-12.0) % Eosinophils % (0.00-5.0) % Basophils % (0.0-0.4) % Absolute Granulocytes (1.4-6.9) x10^3/uL Basophils # (0-0.4) x10^3/uL Sodium 144 (135-145) mmol/L Potassium 3.3 L (3.5-5.1) mmol/L Chloride 110 H (98-107) mmol/L Carbon Dioxide 23 (22-30) mmol/L Anion Gap 14.3 (5-15) MEQ/L BUN 17 (9-20) mg/dL Creatinine 1.22 (0.66-1.25) mg/dL Estimated GFR 68.3 ML/MIN Glucose 105 (74-106) mg/dL Calcium 10.2 (8.4-10.2) mg/dL Magnesium 1.8 (1.6-2.3) mg/dL Total Bilirubin 0.30 (0.2-1.3) mg/dL AST 38 (17-59) U/L ALT 45 (0-50) U/L Alkaline Phosphatase 166 H (38-126) U/L Troponin I < 0.012 (0.000-0.033) ng/mL Serum Total Protein 8.8 H (6.3-8.2) g/dL Albumin 4.5 (3.5-5.0) g/dL Amylase 107 (30-110) U/L Lipase 172 (23-300) U/L Urine Color Yellow (Yellow) Urine Appearance Cloudy A (Clear) Urine pH 7.5 (4.6-8.0) Ur Specific [place] 1.020 (1.005-1.030) Urine Protein 30 (Negative) Urine Glucose (UA) Negative (Negative) mg/dL Urine Ketones Negative (Negative) Urine Blood Negative (Negative) Urine Nitrite Negative (Negative) Urine Bilirubin Negative (Negative) Urine Urobilinogen 0.2 (0.2) mg/dL Ur Leukocyte Esterase Negative (Negative) U Hyaline Cast (Auto) NONE SEEN (0-2) /LPF Urine Microscopic RBC 0-2 (0-5) /HPF Urine Microscopic WBC 0-2 (0-5) /HPF Ur Epithelial Cells None Seen (None Seen) /HPF Urine Bacteria None Seen (None Seen) /HPF Urine Culture Reflexed NO (NO) 11/29/23 Range/Units 21:20 WBC 11.8 H (4.0-10.5) x10^3/uL RBC 4.46 (4.1-5.6) x10^6/uL Hgb 13.9 (12.5-18.0) g/dL Hct 43.7 (42-50) % MCV 98.0 (78-100) fL MCH 31.2 (26-32) pg MCHC 31.8 L (32-36) g/dL RDW 12.3 (11.5-14.0) % Plt Count 350 (150-450) x10^3/uL MPV 9.5 (7.5-11.0) fL Gran % 85.2 H (36.0-66.0) % Immature Gran % (Auto) 0.3 (0.00-0.4) % Nucleat RBC Rel Count 0.0 (0.00-0.1) % Eos # (Auto) 0.02 (0-0.5) x10^3/uL Immature Gran # (Auto) 0.04 H (0.00-0.03) x10^3u/L Absolute Lymphs (auto) 0.97 L (1.0-4.6) x10^3/uL Absolute Monos (auto) 0.69 (0.0-1.3) x10^3/uL Absolute Nucleated RBC 0.00 (0.00-0.01) x10^3u/L Lymphocytes % 8.2 L (24.0-44.0) % Monocytes % 5.8 (0.0-12.0) % Eosinophils % 0.2 (0.00-5.0) % Basophils % 0.3 (0.0-0.4) % Absolute Granulocytes 10.07 H (1.4-6.9) x10^3/uL Basophils # 0.03 (0-0.4) x10^3/uL Sodium (135-145) mmol/L Potassium (3.5-5.1) mmol/L Chloride (98-107) mmol/L Carbon Dioxide (22-30) mmol/L Anion Gap (5-15) MEQ/L BUN (9-20) mg/dL Creatinine (0.66-1.25) mg/dL Estimated GFR ML/MIN Glucose (74-106) mg/dL Calcium (8.4-10.2) mg/dL Magnesium (1.6-2.3) mg/dL Total Bilirubin (0.2-1.3) mg/dL AST (17-59) U/L ALT (0-50) U/L Alkaline Phosphatase (38-126) U/L Troponin I (0.000-0.033) ng/mL Serum Total Protein (6.3-8.2) g/dL Albumin (3.5-5.0) g/dL Amylase (30-110) U/L Lipase (23-300) U/L Urine Color (Yellow) Urine Appearance (Clear) Urine pH (4.6-8.0) Ur Specific [place] (1.005-1.030) Urine Protein (Negative) Urine Glucose (UA) (Negative) mg/dL Urine Ketones (Negative) Urine Blood (Negative) Urine Nitrite (Negative) Urine Bilirubin (Negative) Urine Urobilinogen (0.2) mg/dL Ur Leukocyte Esterase (Negative) U Hyaline Cast (Auto) (0-2) /LPF Urine Microscopic RBC (0-5) /HPF Urine Microscopic WBC (0-5) /HPF Ur Epithelial Cells (None Seen) /HPF Urine Bacteria (None Seen) /HPF Urine Culture Reflexed (NO) - Progress Progress: improved Progress Note: 11/29/23 23:37 Pt refuses hospitalization and CT chest. Counseled pt/family regarding: lab results, diagnosis, need for follow-up, rad results Medical Desision Making - Diagnostic Testing Diagnostic test were ordered, analyzed, and reviewed by me: Yes Radiological Interpretation: Teleradiologist Report - Departure Departure Disposition: Home Clinical Impression: Abdominal pain, Vomiting, Diarrhea, Chest x-ray abnormality Condition: Stable Critical Care Time: No Referrals: JORGE VIEIRA PA [Primary Care Provider] - Follow up/PCP as directed Instructions: Severe Abdominal Pain, Adult (DC), Nausea and Vomiting, Adult (DC ), Diarrhea and Traveler's Diarrhea, Adult (DC) Additional Instructions: Follow up with private doctor tomorrow.
[2023-11-29] MEDS ORDERED: Sodium Chloride 0.9% 1000 ML 0 ML ONE (21:18)
[2023-11-29] MEDS ORDERED: Zofran 4 MG/2 ML VIAL ONE ×2 (21:18→21:24)
[2023-11-29] MEDS ORDERED: Sodium Chloride 0.9% 1000 ML 1,000 ML ONE (21:24)
[2023-11-29 21:28] LABS: Absolute Neutrophil Ct (ANC) 10.07 x10^3/uL (1.4-6.9); BASOPHIL % 0.3 % (0.0-0.4); Basophil (Absolute #) 0.03 x10^3/uL (0-0.4); Eosinophil % 0.2 % (0.00-5.0); Eosinophil (Absolute #) 0.02 x10^3/uL (0-0.5); Hematocrit 43.7 % (42-50); Hemoglobin 13.9 g/dL (12.5-18.0); IMMATURE GRAN # 0.04 x10^3u/L (0.00-0.03); IMMATURE GRAN % 0.3 % (0.00-0.4); Lymphocyte (Absolute #) 0.97 x10^3/uL (1.0-4.6); Lymphocytes % 8.2 % (24.0-44.0); Mean Corpuscular Hemoglobin 31.2 pg (26-32); Mean Corpuscular Hgb Concent. 31.8 g/dL (32-36); Mean Platelet Volume 9.5 fL (7.5-11.0); Monocyte (Absolute #) 0.69 x10^3/uL (0.0-1.3); Monocytes % 5.8 % (0.0-12.0); Neutrophil % 85.2 % (36.0-66.0); Platelet Count 350 x10^3/uL (150-450); Red Blood Count 4.46 x10^6/uL (4.1-5.6); Red Cell Distribution Width 12.3 % (11.5-14.0); White Blood Count 11.8 x10^3/uL (4.0-10.5)
[2023-11-29] MEDS: Sodium Chloride 0.9% 1000 ML 1,000 ML IV STA (21:31)
[2023-11-29] MEDS: Zofran 4 MG/2 ML VIAL IV ONE (21:31)
[2023-11-29 21:42] LABS: ALBUMIN 4.5 g/dL (3.5-5.0); ANION GAP 14.3 MEQ/L (5-15); BILIRUBIN,TOTAL 0.3 mg/dL (0.2-1.3); Calcium 10.2 mg/dL (8.4-10.2); Creatinine 1 1.22 mg/dL (0.66-1.25); EST GLOMERULAR FILTRATION RATE 68.3 ML/MIN; MAGNESIUM 1.8 mg/dL (1.6-2.3); Potassium 3.3 mmol/L (3.5-5.1); Total Protein 8.8 g/dL (6.3-8.2)
[2023-11-29] MEDS ORDERED: XYLOCAINE VISCOUS 2% 15 ML CUP ONE (22:03)
[2023-11-29] MEDS ORDERED: MAALOX ES 30 ML UNIT DOSE ONE (22:03)
[2023-11-29] MEDS: GI COCKTAIL 45 ML (Maalox/Lidocaine) PO ONE (22:04)
[2023-11-29 22:25] LABS: Appearance Cloudy (Clear); Bacteria None Seen /HPF (None Seen); Bilirubin Negative (Negative); Blood Negative (Negative); Epithelial Cells None Seen /HPF (None Seen); Glucose, Urine Negative (Negative); Hyaline Casts NONE SEEN /LPF (0-2); Ketones Negative (Negative); Leukocyte Esterase Negative (Negative); Nitrite Negative (Negative); Ph 7.5 (4.6-8.0); Protein,Urine Dip 30 (Negative); RBC 0-2 /HPF (0-5); Urobilinogen 0.2 mg/dL (0.2); WBC 0-2 /HPF (0-5)
[2023-11-29 22:26] LABS: ADD URINE CULTURE? NO (NO)
--- NOTE | 2023-11-29 22:31 | XRAY ---
CLINICAL HISTORY: pain COMPARISON: CT dated 07/19/2023 TECHNIQUE: CT scan of the abdomen and pelvis was performed without IV contrast. Coronal and sagittal reconstructive images were also obtained. Limited evaluation of abdominal organs due to lack of contrast media. One of the following dose reduction techniques were utilized for this exam: Automated exposure control, adjustment of the mA and/or kV according to patient size, use of iterative reconstruction FINDINGS: Scanned lower chest cuts show redemonstration of right posterior basal pleuro-pulmonary fibrotic changes with spiculated zones, stable, except for interval regression of cyst. Redemonstration of hyperdense screws likely related to previous internal fixation of the sternum with intact alignment. Atherosclerotic disease of coronary arteries. Interposition of the loop of the bowel between the right hemidiaphragm and upper liver, representing Chilaiditi's sign. The liver is normal in size 15 cm, morphology, and appears unremarkable with no intrahepatic or extrahepatic bile duct dilation. Unremarkable appearing pancreas with no focal lesions yet fatty replacement, mainly in the head. No pancreatic mass or ductal dilatation is seen. Unremarkable appearing spleen. The left adrenal gland is normal. The right adrenal gland shows a rounded hypodense 28 x [address] density of 5 HU on this precontrast scan. Area of mesenteric fatty proliferation in the mid-abdomen surrounding mesenteric vessels and soft tissue nodules representing early mesenteric panniculitis, stable. The kidneys appear unremarkable with no cysts, masses, or hydronephrosis. Small 3 mm non-obstructive calculus in the lower pole of the left kidney. Bilateral mild perinephric fat stranding, probably physiological. The ureters are normal with no stones. Calcified atherosclerotic plaques of the aorta and iliac arteries. IVC is normal. Small bowel and fat-containing umbilical hernia, no signs of complication. The stomach appears unremarkable with redemonstration of the gastrostomy port. Unremarkable appearing duodenum. Small Bowel and colon are non-distended with no identifiable abnormality No free air and no ascites. No free intraperitoneal air is seen. Normal CT appearance of the appendix, although it is located in the upper right quadrant due to caecum upper displacement. The bladder is unremarkable with no stones. Average-sized prostate. Mild degenerative changes were seen in the visualized spine. No other bony abnormality was detected. IMPRESSION: 1. Scanned lower chest cuts show redomonstration of right posterior basal pleuro-pulmonary fibrotic changes with spiculated zones, stable, except for interval regression of cyst. Consider Thorax CT is high risk factors are positive. 2. Small 3 mm non-obstructive calculus in the lower pole of the left kidney. 3. Right adrenal nodule, consistent with adenoma (< 10 HU). 4. Small bowel and fat-containing umbilical hernia, no signs of complication. 5. The stomach appears unremarkable with redemonstration of the gastrostomy port. 6. Early mesenteric panniculitis, stable 7. The rest of the findings detailed above, are stable. Electronically Signed by: Trell Coats MD. (11/29/2023 22:27:47 EDT)
--- NOTE | 2023-11-29 23:23 | XRAY ---
CLINICAL HISTORY: crepitations right posterior base COMPARISON: CT dated 11/29/2023. TECHNIQUE: X-ray of the chest, PA, and lateral views. FINDINGS: Radiographic examination of the chest demonstrates right lung volume loss, and diffuse patchy opacities associated with reticular pattern. Upper right lobe atelectasis. The left lung shows no consolidation. Right mediastinal shit due to right lung volume loss. The left hili is normal in size and position. The cardiac size is normal. Sternal wiring and fixation material. Metallic bertram in mediastinum related to prior surgery. The costophrenic and cardiophrenic angles are clear. IMPRESSION: 1. Findings in the right lung related to posterior basal pleuro-pulmonary fibrotic changes with spiculated zones as seen in CT. Stable, except for interval regression of cyst. Consider Thorax CT if high-risk factors are positive. 2. Upper right lobe atelectasis. 3. Postsurgical changes. Electronically Signed by: Trell Coats MD. (11/29/2023 23:19:22 EDT)
[2023-11-29 23:26] VITALS: BP 106/67; PULSE 80; RESP 18
[2023-11-29] MEDS ORDERED: Klor Con ONE (23:36)
[2023-11-29] MEDS: Klor Con PO ONE (23:37)
[2023-11-29 23:41] VITALS: O2SAT 98
== END 2023-11-29 23:44 | disposition home or self-care (01) ==
LOC: ED 20:34
DX: R11.2 Nausea with vomiting, unspecified (principal); R10.9 Unspecified abdominal pain; R19.7 Diarrhea, unspecified; R91.8 Other nonspecific abnormal finding of lung field; E78.5 Hyperlipidemia, unspecified; Z79.02 Long term (current) use of antithrombotics/antiplatelets; Z79.899 Other long term (current) drug therapy
CPT/HCPCS: 36000; 36415; 71046; 74176; 80053; 81001; 82150; 83690; 83735; 84484; 85025; 93005; 96360; 96374; 99284; J2405; A9270-GY

== ENCOUNTER 2023-11-30 05:57 | Observation (INO) | payer MEDICARE ==
--- NOTE | 2023-11-30 07:21 | ERPHSYRPT ---
- History of Present Illness Time Seen by Provider: 11/30/23 07:16 Source: patient, family Exam Limitations: no limitations Patient Subjective Stated Complaint: vomiting a few times since I left the ER at midnight Triage Nursing Assessment: Pt ambulates into ER without diff, friend at bedside. Pt is alert and oriented x4. Pt returns to ER this morning after being discharged around midnight for vomiting and diarrhea. Pt states, "I've vomited approx 6 times since leaving here at midnight and had a small amount of diarrhea". Abd soft with active bs x4 quad, nontender. Physician History: vomiting a few times since I left the ER at midnight Pt returns to ER this morning after being discharged around midnight for vomiting and diarrhea. Pt states, "I've vomited approx 6 times since leaving here at midnight and had a small amount of diarrhea". Patient is 58-year-old male with significant past medical history of chronic renal insufficiency, intact unit to look intellectual disability, chronic dysphagia was seen in ER yesterday with complaining of severe nausea vomiting. He was also complaining of diarrhea. All workup was done which did not reveal any significant findings but because of patient persistent symptoms patient was advised to be admitted but patient left at around midnight last night and then came back again at around 6:00 in the morning because of continuation of the diarrhea nausea and vomiting and could not keep anything down. All the labs were done last night were unremarkable. Timing/Duration: yesterday Severity: moderate Allergies/Adverse Reactions: amoxicillin Allergy (Verified 11/30/23 06:31) gabapentin Adverse Reaction (Severe, Verified 11/30/23 06:31) Fainting Home Medications: Aspirin 81 mg PO DAILY 07/30/15 [History] Duloxetine HCl [Cymbalta] 60 mg PO DAILY 07/30/15 [History] Ranolazine [Ranexa] 1,000 mg PO DAILY 07/30/15 [History] Topiramate 100 mg [Topamax 100 MG] 200 mg PO BID 07/30/15 [History] Atorvastatin Calcium [Lipitor] 40 mg PO HS 02/01/16 [History] Quetiapine Fumarate [Seroquel] 600 mg PO HS 01/20/17 [History] Morphine Sulfate 60 mg PO TID 05/08/18 [History] Clopidogrel Bisulfate [PLAVIX Tablet] 75 mg PO DAILY 01/18/20 [History] Isosorbide Dinitrate 10 mg [Isordil 10 MG] 10 mg PO DAILY 01/18/20 [History] Lacosamide [Vimpat] 10 mg PO TID 01/18/20 [History] Tizanidine HCl [Zanaflex] 2 mg PO BID 01/18/20 [History] Hx Tetanus, Diphtheria Vaccination/Date Given: Yes Hx Influenza Vaccination/Date Given: Yes Hx Pneumococcal Vaccination/Date Given: Yes Immunizations Up to Date: Yes Travel Risk - International Travel Have you traveled outside of the country in past 3 weeks: No - Emerging Infectious Disease Are you exhibiting symptoms associated with any current EIDs: Yes Symptoms: Abdominal Pain, Diarrhea, Vomitting - Review of Systems Constitutional: Lethargy, Weakness, No Fever, No Chills Eyes: No Symptoms Ears, Nose, & Throat: No Symptoms Respiratory: No Cough, No Dyspnea Cardiac: No Chest Pain, No Edema, No Syncope Abdominal/Gastrointestinal: Nausea, Vomiting, Diarrhea, No Abdominal Pain Genitourinary Symptoms: No Dysuria Musculoskeletal: No Back Pain, No Neck Pain Skin: No Rash Neurological: No Dizziness, No Focal Weakness, No Sensory Changes Psychological: No Symptoms Endocrine: No Symptoms All Other Systems: Reviewed and Negative - Past Medical History Pertinent Past Medical History: Yes Neurological History: Seizures, Stroke ENT History: No Pertinent History Cardiac History: Angina, Coronary Artery Disease, High Cholesterol, Myocardial Infarction ([place]) Respiratory History: COPD Endocrine Medical History: No Pertinent History Musculoskeletal History: Osteoarthritis, Other GI Medical History: GERD History: No Pertinent History Psycho-Social History: Depression, Other Male Reproductive Disorders: No Pertinent History Other Medical History: PT. REPORTS [place] X 4; PT. REPORTS HE HAS ONE CARDIAC STENT; CHRONICNECK, BACK, SHOULDER PN. States leg pain, "need knee replacement right knee" "had left knee replaced" , Left shoulder replacement,, "organs shut down in December 2017,life support for 49 days and then 2 months of rehab, also a trach., Has stent left arm for dialysis and is not taking dialysis at this time - Past Surgical History Past Surgical History: Yes Neuro Surgical History: No Pertinent History Cardiac: CABG, Cardiac Catheterization, Cardiac Stent Respiratory: No Pertinent History Gastrointestinal: No Pertinent History Genitourinary: No Pertinent History Musculoskeletal: Other Male Surgical History: No Pertinent History Other Surgical History: Left foot x 2, Right foot x 2, Right knee x 2, Left knee x 2, Right torn rotator cuff, Steal plate with rods and screws in neck Significant Family History: heart disease - Social History Smoking Status: Former smoker How long have you smoked: 35 y Exposure to second hand smoke: No Alcohol Use: None Drug Use: none Patient Lives Alone: No - Nursing Vital Signs Nursing Vital Signs: Initial Vital Signs Temperature 98.1 F 11/30/23 06:20 Pulse Rate 67 11/30/23 06:20 Respiratory Rate 18 11/30/23 06:20 Blood Pressure 140/70 11/30/23 06:20 O2 Sat by Pulse Oximetry 99 11/30/23 06:20 Pain Scale Pain Intensity 6 - Physical Exam General Appearance: no apparent distress, alert Eye Exam: PERRL/EOMI, eyes nml inspection Ears, Nose, Throat Exam: normal ENT inspection, TMs normal, pharynx normal, moist mucous membranes Neck Exam: normal inspection, non-tender, supple, full range of motion Respiratory Exam: normal breath sounds, lungs clear, No respiratory distress Cardiovascular Exam: regular rate/rhythm, normal heart sounds, normal peripheral pulses Gastrointestinal/Abdomen Exam: soft, normal bowel sounds, No tenderness, No mass Back Exam: normal inspection, normal range of motion, No CVA tenderness, No vertebral tenderness Extremity Exam: normal inspection, normal range of motion, pelvis stable Neurologic Exam: alert, oriented x 3, cooperative, normal mood/affect, nml cerebellar function, nml station & gait, sensation nml, No motor deficits Skin Exam: normal color, warm, dry, No rash Lymphatic Exam: No adenopathy SpO2: 97 - Course Nursing assessment & vital signs reviewed: Yes - Progress Progress: unchanged Discussed with : Other (Telehospitalist) Will see patient in: hospital (observation) Counseled pt/family regarding: lab results, diagnosis Medical Desision Making - Independent Historian Additional History obtained from: Mother - Discussion of managment Care discussed with:: hospitalist Reviewed:: Test results Agreed on:: decision to admit, place in obs - Diagnostic Testing Diagnostic test were ordered, analyzed, and reviewed by me: No - Risk of complications The pt has a mod risk of morbidity or mortality based on: Need for minor surgic al intervention in patient with know risk factors - Departure Departure Disposition: Observation Clinical Impression: Nausea vomiting and diarrhea Condition: Fair Critical Care Time: No Referrals: JORGE VIEIRA PA [Primary Care Provider] - Follow up/PCP as directed
[2023-11-30 08:01] LABS: INFLUENZA A NEGATIVE (NEGATIVE); INFLUENZA B NEGATIVE (NEGATIVE); RESPIRATORY SYNCTIAL VIRUS NEGATIVE (NEGATIVE); SARS-CoV-2 Xpert Express NEGATIVE (NEGATIVE)
[2023-11-30] MEDS ORDERED: TYLENOL 325 MG PO PRN (09:19)
[2023-11-30] MEDS ORDERED: Compazine 10 MG/2 ML IV PRN (09:26)
--- NOTE | 2023-11-30 09:30 | PCM.HP ---
<LIU MERRILL - Last Filed: 11/30/23 10:18> History of Present Illness - Chief Complaint Chief Complaint: nausea, vomiting, diarrhea Date: 11/30/23 History of Present Illness: is a 58 year old male with a pmhx of cva, seizures, copd, angina, HLD, [place], GERD, depression, renal disease, CABG/stents who presented to ED originally 11/29/23 with complaints of nausea, vomiting, and diarrhea. CT of the abdomen did show stable, early mesenteric panniculitis otherwise no acute findings, patient refused hospitalization for observation at this visit. Patient reports that he went home and had "7-8 episodes of vomiting and 3-5 liquid stools since midnight" and decided to come back for evaluation. - Review of Systems Constitutional: No Symptoms Eyes: No Symptoms Ears, Nose, & Throat: No Symptoms Respiratory: No Symptoms Cardiac: No Symptoms Abdominal/Gastrointestinal: Abdominal Pain, Nausea, Vomiting, Diarrhea Genitourinary Symptoms: No Symptoms Musculoskeletal: No Symptoms Neurological: No Symptoms Psychological: No Symptoms Endocrine: No Symptoms Hematologic/Lymphatic: No Symptoms Immunological/Allergic: No Symptoms Medications & Allergies Home Medications: Home Medication List Duloxetine HCl [Cymbalta] 60 mg PO DAILY 07/30/15 [History Confirmed 11/30/23] Topiramate 100 mg [Topamax 100 MG] 200 mg PO BID 07/30/15 [History Confirmed 11/30/23] Atorvastatin Calcium [Lipitor] 40 mg PO DAILY 02/01/16 [History Confirmed 11/30/23] Quetiapine Fumarate [Seroquel] 600 mg PO HS 01/20/17 [History Confirmed 11/30/23] Clopidogrel Bisulfate [PLAVIX Tablet] 75 mg PO DAILY 01/18/20 [History Confirmed 11/30/23] Isosorbide Dinitrate 10 mg [Isordil 10 MG] 10 mg PO DAILY 01/18/20 [History Confirmed 11/30/23] Lacosamide [Vimpat] 10 mg PO TID 01/18/20 [History Confirmed 11/30/23] Tizanidine HCl [Zanaflex] 2 mg PO BID 01/18/20 [History Confirmed 11/30/23] Aspirin 81 gm Chew [Baby Aspirin 81 mg Chew] 81 mg PO DAILY 11/30/23 [History Confirmed 11/30/23] Divalproex Sodium 500 mg PO BID 11/30/23 [History Confirmed 11/30/23] Famotidine 20 mg [Pepcid 20 MG] 20 mg PO BID 11/30/23 [History Confirmed 11/30/23] Folic Acid 1 mg [Folate 1 mg] 1 mg PO DAILY 11/30/23 [History Confirmed 11/30/23] Levothyroxine Sodium 25 Mcg [Synthroid 25 Mcg] 25 mcg PO DAILY 11/30/23 [History Confirmed 11/30/23] Metoprolol Succinate 25 mg Xl* [Toprol-Xl 25MG Tablets] 25 mg PO DAILY 11/30/23 [History Confirmed 11/30/23] Morphine Sulfate [Morphine Sulfate ER] 60 mg PO TID 11/30/23 [History Confirmed 11/30/23] PANTOPRAZOLE 40 mg Tablet [Protonix 40MG Tablet] 40 mg PO DAILY 11/30/23 [History Confirmed 11/30/23] Allergies/Adverse Reactions: Allergies Allergy/AdvReac Type Severity Reaction Status Date / Time amoxicillin Allergy Verified 11/30/23 06:31 gabapentin AdvReac Severe Fainting Verified 11/30/23 06:31 - Past Medical History Past Medical History: Yes Neurological History: Seizures, Stroke ENT History: No Pertinent History Cardiac History: Angina, Coronary Artery Disease, High Cholesterol, Myocardial Infarction ([place]) Respiratory History: COPD Endocrine Medical History: No Pertinent History Musculoskelatal History: Osteoarthritis, Other GI Medical History: GERD History: Dialysis, Renal Disease Pyscho-Social History: Depression, Other Male Reproductive Disorders: No Pertinent History Comment: PT. REPORTS VA X 4; PT. REPORTS HE HAS ONE CARDIAC STENT; CHRONICNECK, BACK, SHOULDER PN. Rt & Lt knee replaced, Lt shoulder replacement,, "organs shut down in December 2017,life support for 49 days and then 2 months of rehab, also a trach. Pt states had fistula in left arm for dialysis but it has been reversed - Past Surgical History Past Surgical History: Yes Neuro Surgical History: No Pertinent History Cardiac History: CABG, Cardiac Catheterization, Cardiac Stent Respiratory Surgery: No Pertinent History GI Surgical History: No Pertinent History Genitourinary Surgical Hx: No Pertinent History Musculskeletal Surgical Hx: Other Male Surgical History: No Pertinent History Other Surgical History: Left foot x 2, Right foot x 2, Right knee x 2, Left knee x 2, Right shoulder x 1, Steal plate with rods and screws in neck Significant Family History: heart disease - Social History Smoking Status: Former smoker How long have you smoked: 35 y Exposure to second hand smoke: No Alcohol: None Drug Use: none - Social Determinants of Health Will the patient participate in the screening: Yes Do you worry about a steady place to live?: No Do you have any problems with any of the following?: No known problems In the past 12 months,have you had to go without utilities?: No Have you or anyone in your house had to go without enough: No Transportation Issues: No Has anyone in your support network made you feel unsafe?: No - Physical Exam Vital Signs: Vital Signs - 24 hr Temp Pulse Resp BP BP Pulse Ox 11/30/23 08:01 74 147/86 100 11/30/23 07:47 97 11/30/23 07:30 71 136/72 92 L 11/30/23 07:01 87 17 160/68 97 11/30/23 06:30 116/78 96 11/30/23 06:20 98.1 F 67 18 140/70 99 General Appearance: no apparent distress Neurologic Exam: alert, oriented x 3, cooperative Eye Exam: PERRL/EOMI Ears, Nose, Throat Exam: normal ENT inspection Neck Exam: normal inspection Respiratory Exam: normal breath sounds, lungs clear Cardiovascular Exam: regular rate/rhythm, normal heart sounds Gastrointestinal/Abdomen Exam: soft, other (PEG tube) Rectal Exam: deferred Back Exam: normal inspection Extremity Exam: normal inspection Skin Exam: normal color Results - Labs Lab/Micro Results: Lab Results-Last 24 Hours 11/30/23 Range/Units 07:20 Influenza Type A Ag NEGATIVE (NEGATIVE) Influenza Type B Ag NEGATIVE (NEGATIVE) RSV (PCR) NEGATIVE (NEGATIVE) SARS-CoV-2 (PCR) NEGATIVE (NEGATIVE) Assessment/Plan (1) Leukocytosis Current Visit: Yes Status: Acute Assessment & Plan: -Reactive vs infectious process, may be secondary to vomiting -r/o infective process, bcult procal la -CT Showing early mesenteric panniculitis, will defer for OP observation -viral panel negative Code(s): D72.829 - ELEVATED WHITE BLOOD CELL COUNT, UNSPECIFIED (2) Nausea vomiting and diarrhea Current Visit: Yes Status: Acute Assessment & Plan: -Appears viral, CT with no acute findings -Supportive therapies, IVF, anti-emetics -Monitor renal/lytes -IVF, monitor for fluid overload -hold anti-diarrheals until CDIFF comes back -Stool studies Code(s): R11.2 - NAUSEA WITH VOMITING, UNSPECIFIED; R19.7 - DIARRHEA, UNSPECIFIED (3) COPD (chronic obstructive pulmonary disease) Current Visit: Yes Status: Acute Assessment & Plan: -Supplemental oxygen with goal spo2 >88-92%, patient on RA, does not appear to be in exacerbation -RT eval -Nebs/INH prn pr RT (4) Mesenteric panniculitis Current Visit: Yes Status: Acute Assessment & Plan: -Noted as stable -possible early panniculitis -Will hold steroid for now, continue to monitor, may follow up as OP Code(s): K65.4 - SCLEROSING MESENTERITIS (5) Abdominal pain Current Visit: No Status: Acute Assessment & Plan: -see N/V/D -No acute findings on CT Code(s): R10.9 - UNSPECIFIED ABDOMINAL PAIN (6) Coronary artery disease Current Visit: No Status: Chronic Assessment & Plan: -continue home medications -Last ECHO/NM stress test 2019 Impression: 1. 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 2. No scintigraphic evidence for pharmacologic induced reversible ischemia. 3. Normal ejection fraction 61%. Code(s): I25.10 - ATHSCL HEART DISEASE OF [place] CORONARY ARTERY W/O ANG PCTRS (7) Seizure disorder Current Visit: No Status: Chronic Assessment & Plan: -continue home medications Code(s): G40.909 - EPILEPSY, UNSP, NOT INTRACTABLE, WITHOUT STATUS EPILEPTICUS <CHRISTINA DEL REAL - Last Filed: 11/30/23 20:50> History of Present Illness - Chief Complaint History of Present Illness: is a 58 year old male. - Physical Exam Vital Signs: Vital Signs - 24 hr Temp Pulse Resp BP BP BP Pulse Ox 11/30/23 19:36 98.3 F 77 20 142/63 97 11/30/23 16:00 98.1 F 94 H 18 130/63 95 11/30/23 09:19 78 18 98 11/30/23 08:24 98.4 F 78 18 153/72 98 11/30/23 08:01 74 147/86 100 11/30/23 07:47 97 11/30/23 07:30 71 136/72 92 L 11/30/23 07:01 87 17 160/68 97 11/30/23 06:30 116/78 96 11/30/23 06:20 98.1 F 67 18 140/70 99 Results - Labs Lab/Micro Results: Lab Results-Last 24 Hours 11/30/23 11/30/23 11/30/23 Range/Units 07:20 09:19 10:15 WBC 13.9 H (4.0-10.5) x10^3/uL Corrected WBC (auto) GARNETT FIXER RBC 4.62 (4.1-5.6) x10^6/uL Hgb 14.6 (12.5-18.0) g/dL Hct 45.0 (42-50) % MCV 97.4 (78-100) fL MCH 31.6 (26-32) pg MCHC 32.4 (32-36) g/dL RDW 12.4 (11.5-14.0) % Plt Count 358 (150-450) x10^3/uL MPV 9.6 (7.5-11.0) fL Gran % 86.9 H (36.0-66.0) % Immature Gran % (Auto) 0.4 (0.00-0.4) % Nucleat RBC Rel Count 0.0 (0.00-0.1) % Eos # (Auto) 0.01 (0-0.5) x10^3/uL Immature Gran # (Auto) 0.06 H (0.00-0.03) x10^3u/L Absolute Lymphs (auto) 0.98 L (1.0-4.6) x10^3/uL Absolute Monos (auto) 0.75 (0.0-1.3) x10^3/uL Absolute Nucleated RBC 0.00 (0.00-0.01) x10^3u/L Add Manual Diff Cancelled Lymphocytes % 7.0 L (24.0-44.0) % Monocytes % 5.4 (0.0-12.0) % Eosinophils % 0.1 (0.00-5.0) % Basophils % 0.2 (0.0-0.4) % Absolute Granulocytes 12.09 H (1.4-6.9) x10^3/uL Basophils # 0.03 (0-0.4) x10^3/uL Sodium 143 (135-145) mmol/L Potassium 3.2 L (3.5-5.1) mmol/L Chloride 110 H (98-107) mmol/L Carbon Dioxide 22 (22-30) mmol/L Anion Gap 14.6 (5-15) MEQ/L BUN 19 (9-20) mg/dL Creatinine 1.35 H (0.66-1.25) mg/dL Estimated GFR 60.5 ML/MIN Glucose 133 H (74-106) mg/dL Lactic Acid (0.4-2.0) Calcium 10.1 (8.4-10.2) mg/dL Magnesium 1.8 (1.6-2.3) mg/dL Total Bilirubin 0.90 (0.2-1.3) mg/dL AST 63 H (17-59) U/L ALT 48 (0-50) U/L Alkaline Phosphatase 154 H (38-126) U/L Serum Total Protein 8.5 H (6.3-8.2) g/dL Albumin 4.6 (3.5-5.0) g/dL Procalcitonin (0.030-0.080) ng/mL C. difficile Screen (NEGATIVE) C.difficile 027-NAP1-B1 (NEGATIVE) Influenza Type A Ag NEGATIVE (NEGATIVE) Influenza Type B Ag NEGATIVE (NEGATIVE) RSV (PCR) NEGATIVE (NEGATIVE) SARS-CoV-2 (PCR) NEGATIVE (NEGATIVE) Slides for Path Review GARNETT FIXER 11/30/23 11/30/23 11/30/23 Range/Units 10:45 15:15 17:18 WBC (4.0-10.5) x10^3/uL Corrected WBC (auto) RBC (4.1-5.6) x10^6/uL Hgb (12.5-18.0) g/dL Hct (42-50) % MCV (78-100) fL MCH (26-32) pg MCHC (32-36) g/dL RDW (11.5-14.0) % Plt Count (150-450) x10^3/uL MPV (7.5-11.0) fL Gran % (36.0-66.0) % Immature Gran % (Auto) (0.00-0.4) % Nucleat RBC Rel Count (0.00-0.1) % Eos # (Auto) (0-0.5) x10^3/uL Immature Gran # (Auto) (0.00-0.03) x10^3u/L Absolute Lymphs (auto) (1.0-4.6) x10^3/uL Absolute Monos (auto) (0.0-1.3) x10^3/uL Absolute Nucleated RBC (0.00-0.01) x10^3u/L Add Manual Diff Lymphocytes % (24.0-44.0) % Monocytes % (0.0-12.0) % Eosinophils % (0.00-5.0) % Basophils % (0.0-0.4) % Absolute Granulocytes (1.4-6.9) x10^3/uL Basophils # (0-0.4) x10^3/uL Sodium (135-145) mmol/L Potassium 3.4 L (3.5-5.1) mmol/L Chloride (98-107) mmol/L Carbon Dioxide (22-30) mmol/L Anion Gap (5-15) MEQ/L BUN (9-20) mg/dL Creatinine (0.66-1.25) mg/dL Estimated GFR ML/MIN Glucose (74-106) mg/dL Lactic Acid 1.6 (0.4-2.0) Calcium (8.4-10.2) mg/dL Magnesium (1.6-2.3) mg/dL Total Bilirubin (0.2-1.3) mg/dL AST (17-59) U/L ALT (0-50) U/L Alkaline Phosphatase (38-126) U/L Serum Total Protein (6.3-8.2) g/dL Albumin (3.5-5.0) g/dL Procalcitonin (0.030-0.080) ng/mL C. difficile Screen NEGATIVE (NEGATIVE) C.difficile 027-NAP1-B1 PRESUMPTIVE NEGATIVE (NEGATIVE) Influenza Type A Ag (NEGATIVE) Influenza Type B Ag (NEGATIVE) RSV (PCR) (NEGATIVE) SARS-CoV-2 (PCR) (NEGATIVE) Slides for Path Review 11/30/23 11/30/23 Range/Units 19:05 Unknown WBC (4.0-10.5) x10^3/uL Corrected WBC (auto) RBC (4.1-5.6) x10^6/uL Hgb (12.5-18.0) g/dL Hct (42-50) % MCV (78-100) fL MCH (26-32) pg MCHC (32-36) g/dL RDW (11.5-14.0) % Plt Count (150-450) x10^3/uL MPV (7.5-11.0) fL Gran % (36.0-66.0) % Immature Gran % (Auto) (0.00-0.4) % Nucleat RBC Rel Count (0.00-0.1) % Eos # (Auto) (0-0.5) x10^3/uL Immature Gran # (Auto) (0.00-0.03) x10^3u/L Absolute Lymphs (auto) (1.0-4.6) x10^3/uL Absolute Monos (auto) (0.0-1.3) x10^3/uL Absolute Nucleated RBC (0.00-0.01) x10^3u/L Add Manual Diff Lymphocytes % (24.0-44.0) % Monocytes % (0.0-12.0) % Eosinophils % (0.00-5.0) % Basophils % (0.0-0.4) % Absolute Granulocytes (1.4-6.9) x10^3/uL Basophils # (0-0.4) x10^3/uL Sodium (135-145) mmol/L Potassium 3.9 (3.5-5.1) mmol/L Chloride (98-107) mmol/L Carbon Dioxide (22-30) mmol/L Anion Gap (5-15) MEQ/L BUN (9-20) mg/dL Creatinine (0.66-1.25) mg/dL Estimated GFR ML/MIN Glucose (74-106) mg/dL Lactic Acid (0.4-2.0) Calcium (8.4-10.2) mg/dL Magnesium (1.6-2.3) mg/dL Total Bilirubin (0.2-1.3) mg/dL AST (17-59) U/L ALT (0-50) U/L Alkaline Phosphatase (38-126) U/L Serum Total Protein (6.3-8.2) g/dL Albumin (3.5-5.0) g/dL Procalcitonin 0.088 H (0.030-0.080) ng/mL C. difficile Screen (NEGATIVE) C.difficile 027-NAP1-B1 (NEGATIVE) Influenza Type A Ag (NEGATIVE) Influenza Type B Ag (NEGATIVE) RSV (PCR) (NEGATIVE) SARS-CoV-2 (PCR) (NEGATIVE) Slides for Path Review NANETTE Encounter - NANETTE Encounter Attestation NANETTE Encounter Attestation: "IhavepersonallyseenandexaminedGRUT,ZEUS GRAVES andhavediscussed pertinent aspects of their care with Liu Haines agree with the history, physical exam (any modifications based on my personal exam will be noted below), assessment, and plan as outlined in original note. Please see immediately below for my summary of findings and additional assessment and plan along with any meaningful corrections/explanations to the Subjective/Objective portions of the NANETTE note will be noted." My portion of the encounter took place via telemedicine. -Acute onset more consistent with acute gastroenteritis rather than mesenteric panniculitis. Cdiff negative. Patient re-presented to the ER due to dizziness. Continue IV fluids, antiemetics, supportive care.
[2023-11-30 10:10] LABS: Absolute Neutrophil Ct (ANC) 12.09 x10^3/uL (1.4-6.9); BASOPHIL % 0.2 % (0.0-0.4); Basophil (Absolute #) 0.03 x10^3/uL (0-0.4); Eosinophil % 0.1 % (0.00-5.0); Eosinophil (Absolute #) 0.01 x10^3/uL (0-0.5); Hemoglobin 14.6 g/dL (12.5-18.0); IMMATURE GRAN # 0.06 x10^3u/L (0.00-0.03); IMMATURE GRAN % 0.4 % (0.00-0.4); Lymphocyte (Absolute #) 0.98 x10^3/uL (1.0-4.6); Mean Cell Volume 97.4 fL (78-100); Mean Corpuscular Hemoglobin 31.6 pg (26-32); Mean Corpuscular Hgb Concent. 32.4 g/dL (32-36); Mean Platelet Volume 9.6 fL (7.5-11.0); Monocyte (Absolute #) 0.75 x10^3/uL (0.0-1.3); Monocytes % 5.4 % (0.0-12.0); Neutrophil % 86.9 % (36.0-66.0); Platelet Count 358 x10^3/uL (150-450); Red Blood Count 4.62 x10^6/uL (4.1-5.6); Red Cell Distribution Width 12.4 % (11.5-14.0); White Blood Count 13.9 x10^3/uL (4.0-10.5)
[2023-11-30] MEDS: Sodium Chloride 0.9% 1000 ML 1,000 ML IV SCH (10:31)
[2023-11-30] MEDS: Zofran 4 MG/2 ML VIAL IV PRN (10:45)
[2023-11-30 11:15] LABS: ALBUMIN 4.6 g/dL (3.5-5.0); ANION GAP 14.6 MEQ/L (5-15); BILIRUBIN,TOTAL 0.9 mg/dL (0.2-1.3); Calcium 10.1 mg/dL (8.4-10.2); Creatinine 1 1.35 mg/dL (0.66-1.25); EST GLOMERULAR FILTRATION RATE 60.5 ML/MIN; MAGNESIUM 1.8 mg/dL (1.6-2.3); Potassium 3.2 mmol/L (3.5-5.1); Total Protein 8.5 g/dL (6.3-8.2)
[2023-11-30] MEDS ORDERED: MEDICATION INTERVENTION MC SCH ×2 (14:15)
[2023-11-30] MEDS: Klor Con PO ONE ×2 (14:30→18:17)
[2023-11-30] MEDS: Cymbalta 30 MG Capsule PO SCH (14:30)
[2023-11-30] MEDS: Protonix 40MG Tablet PO SCH (14:31)
[2023-11-30] MEDS: Toprol-Xl 25MG Tablets PO SCH (14:31)
[2023-11-30] MEDS: ECOTRIN 81 MG PO SCH (14:31)
[2023-11-30] MEDS: PLAVIX Tablet PO SCH (14:31)
[2023-11-30] MEDS: Pepcid 20 MG PO SCH (14:31)
[2023-11-30] MEDS: ZOCOR 20MG PO SCH (14:32)
[2023-11-30] MEDS: TOPIRAMATE PO SCH (14:32)
[2023-11-30] MEDS: FOLATE 1 MG PO SCH (14:32)
[2023-11-30] MEDS: Ms Contin 15 MG PO SCH (14:32)
[2023-11-30] MEDS: Zanaflex 4 MG PO SCH (14:33)
[2023-11-30] MEDS ORDERED: MORPHINE SULFATE ER PO SCH (15:00)
[2023-11-30] MEDS ORDERED: LACOSAMIDE 10 MG/ML PO SCH ×2 (15:00)
[2023-11-30 16:15] LABS: 027 TOX PROD PRESUMPTIVE NEGATIVE (NEGATIVE); TOXIGENIC C. DIFF ORG NEGATIVE (NEGATIVE)
[2023-11-30] MEDS: Seroquel 100 MG PO SCH (21:45)
[2023-11-30] MEDS: SYNTHROID 25 MCG PO SCH (21:46)
[2023-11-30] MEDS ORDERED: NON-FORMULARY ITEM (Topiramate 100 Mg*** [Topamax 100 Mg***] 100 MG Tablet) PO SCH (22:00)
[2023-11-30] MEDS ORDERED: QUETIAPINE FUMARATE 300 MG PO SCH (22:00)
[2023-11-30] MEDS ORDERED: TIZANIDINE HCL 2 MG PO SCH (22:00)
[2023-11-30] MEDS ORDERED: NON-FORMULARY ITEM (Divalproex Sodium [Divalproex Sodium Er] 500 MG Tab.Er.24h) PO SCH (22:00)
[2023-12-01 04:32] LABS: Absolute Neutrophil Ct (ANC) 4.84 x10^3/uL (1.4-6.9); BASOPHIL % 0.5 % (0.0-0.4); Basophil (Absolute #) 0.04 x10^3/uL (0-0.4); Eosinophil % 3.1 % (0.00-5.0); Eosinophil (Absolute #) 0.24 x10^3/uL (0-0.5); Hemoglobin 11.4 g/dL (12.5-18.0); IMMATURE GRAN # 0.03 x10^3u/L (0.00-0.03); IMMATURE GRAN % 0.4 % (0.00-0.4); Lymphocyte (Absolute #) 1.94 x10^3/uL (1.0-4.6); Lymphocytes % 24.7 % (24.0-44.0); Mean Cell Volume 101.1 fL (78-100); Mean Corpuscular Hemoglobin 31.1 pg (26-32); Mean Corpuscular Hgb Concent. 30.8 g/dL (32-36); Mean Platelet Volume 9.2 fL (7.5-11.0); Monocyte (Absolute #) 0.76 x10^3/uL (0.0-1.3); Monocytes % 9.7 % (0.0-12.0); Neutrophil % 61.6 % (36.0-66.0); Platelet Count 234 x10^3/uL (150-450); Red Blood Count 3.66 x10^6/uL (4.1-5.6); Red Cell Distribution Width 12.4 % (11.5-14.0); White Blood Count 7.9 x10^3/uL (4.0-10.5)
[2023-12-01 04:53] LABS: ALBUMIN 3.6 g/dL (3.5-5.0); ANION GAP 11.8 MEQ/L (5-15); BILIRUBIN,TOTAL 0.6 mg/dL (0.2-1.3); Calcium 8.2 mg/dL (8.4-10.2); Creatinine 1 1.21 mg/dL (0.66-1.25); Potassium 3.9 mmol/L (3.5-5.1); Total Protein 6.7 g/dL (6.3-8.2)
[2023-12-01 06:55] VITALS: BP 105/60; PULSE 90; RESP 17; TEMP 99.2; O2SAT 92
[2023-12-01] MEDS ORDERED: TYLENOL 325 MG PO PRN (07:26)
--- NOTE | 2023-12-01 08:20 | PCM.DS ---
Discharge Summary Date of Admission: 11/30/23 08:24 Date of Discharge: 12/01/23 Admitting Physician: CHRISTINA DEL REAL MD Primary Care Provider: ROGERS VIEIRA Allergies Allergies amoxicillin Allergy (Verified 11/30/23 06:31) gabapentin Adverse Reaction (Severe, Verified 11/30/23 06:31) Fainting Hospital Summary - Hospital Course Hospital Course: is a 58 year old male with a pmhx of cva, seizures, copd, angina, HLD, [place], GERD, depression, renal disease, CABG/stents who presented to ED originally 11/29/23 with complaints of nausea, vomiting, and diarrhea. CT of the abdomen did show stable, early mesenteric panniculitis otherwise no acute findings, patient refused hospitalization for observation at this visit. Patient reports that he went home and had "7-8 episodes of vomiting and 3-5 liquid stools since midnight" and decided to come back for evaluation on 11/29. Today he reports he has had no overnight N/V/D and would like to go home. He is eating eggs this morning without any concerns. Leukocytosis has resolved. C-diff negative. He denies CP, SOB, Abd. pain. - Vitals & Intake/Output Vital Signs: Vital Signs Temperature 99.2 F 12/01/23 06:54 Pulse Rate 90 12/01/23 06:54 Respiratory Rate 17 12/01/23 06:54 Blood Pressure 105/60 12/01/23 06:54 O2 Sat by Pulse Oximetry 92 L 12/01/23 06:54 Intake & Output: Intake & Output 11/28/23 11/29/23 11/30/23 12/01/23 11:59 11:59 11:59 11:59 Intake Total 60 4348 Balance 60 4348 Weight 82.3 kg 86.1 kg - Lab Result Diagrams: 12/01/23 04:15 12/01/23 04:15 Lab Results-Last 24 Hrs: Lab Results-Last 24 Hours 11/30/23 11/30/23 11/30/23 Range/Units 09:19 10:15 10:45 WBC 13.9 H (4.0-10.5) x10^3/uL Corrected WBC (auto) DRUG ENFORCEMENT ADMINISTRATION AGENT RBC 4.62 (4.1-5.6) x10^6/uL Hgb 14.6 (12.5-18.0) g/dL Hct 45.0 (42-50) % MCV 97.4 (78-100) fL MCH 31.6 (26-32) pg MCHC 32.4 (32-36) g/dL RDW 12.4 (11.5-14.0) % Plt Count 358 (150-450) x10^3/uL MPV 9.6 (7.5-11.0) fL Gran % 86.9 H (36.0-66.0) % Immature Gran % (Auto) 0.4 (0.00-0.4) % Nucleat RBC Rel Count 0.0 (0.00-0.1) % Eos # (Auto) 0.01 (0-0.5) x10^3/uL Immature Gran # (Auto) 0.06 H (0.00-0.03) x10^3u/L Absolute Lymphs (auto) 0.98 L (1.0-4.6) x10^3/uL Absolute Monos (auto) 0.75 (0.0-1.3) x10^3/uL Absolute Nucleated RBC 0.00 (0.00-0.01) x10^3u/L Add Manual Diff Cancelled Lymphocytes % 7.0 L (24.0-44.0) % Monocytes % 5.4 (0.0-12.0) % Eosinophils % 0.1 (0.00-5.0) % Basophils % 0.2 (0.0-0.4) % Absolute Granulocytes 12.09 H (1.4-6.9) x10^3/uL Basophils # 0.03 (0-0.4) x10^3/uL Sodium 143 (135-145) mmol/L Potassium 3.2 L (3.5-5.1) mmol/L Chloride 110 H (98-107) mmol/L Carbon Dioxide 22 (22-30) mmol/L Anion Gap 14.6 (5-15) MEQ/L BUN 19 (9-20) mg/dL Creatinine 1.35 H (0.66-1.25) mg/dL Estimated GFR 60.5 ML/MIN Glucose 133 H (74-106) mg/dL Lactic Acid 1.6 (0.4-2.0) Calcium 10.1 (8.4-10.2) mg/dL Magnesium 1.8 (1.6-2.3) mg/dL Total Bilirubin 0.90 (0.2-1.3) mg/dL AST 63 H (17-59) U/L ALT 48 (0-50) U/L Alkaline Phosphatase 154 H (38-126) U/L Serum Total Protein 8.5 H (6.3-8.2) g/dL Albumin 4.6 (3.5-5.0) g/dL Procalcitonin (0.030-0.080) ng/mL C. difficile Screen (NEGATIVE) C.difficile 027-NAP1-B1 (NEGATIVE) Slides for Path Review [employer]ORCEMENT ADMINISTRATION AGENT 11/30/23 11/30/23 11/30/23 Range/Units 15:15 17:18 19:05 WBC (4.0-10.5) x10^3/uL Corrected WBC (auto) RBC (4.1-5.6) x10^6/uL Hgb (12.5-18.0) g/dL Hct (42-50) % MCV (78-100) fL MCH (26-32) pg MCHC (32-36) g/dL RDW (11.5-14.0) % Plt Count (150-450) x10^3/uL MPV (7.5-11.0) fL Gran % (36.0-66.0) % Immature Gran % (Auto) (0.00-0.4) % Nucleat RBC Rel Count (0.00-0.1) % Eos # (Auto) (0-0.5) x10^3/uL Immature Gran # (Auto) (0.00-0.03) x10^3u/L Absolute Lymphs (auto) (1.0-4.6) x10^3/uL Absolute Monos (auto) (0.0-1.3) x10^3/uL Absolute Nucleated RBC (0.00-0.01) x10^3u/L Add Manual Diff Lymphocytes % (24.0-44.0) % Monocytes % (0.0-12.0) % Eosinophils % (0.00-5.0) % Basophils % (0.0-0.4) % Absolute Granulocytes (1.4-6.9) x10^3/uL Basophils # (0-0.4) x10^3/uL Sodium (135-145) mmol/L Potassium 3.4 L 3.9 (3.5-5.1) mmol/L Chloride (98-107) mmol/L Carbon Dioxide (22-30) mmol/L Anion Gap (5-15) MEQ/L BUN (9-20) mg/dL Creatinine (0.66-1.25) mg/dL Estimated GFR ML/MIN Glucose (74-106) mg/dL Lactic Acid (0.4-2.0) Calcium (8.4-10.2) mg/dL Magnesium (1.6-2.3) mg/dL Total Bilirubin (0.2-1.3) mg/dL AST (17-59) U/L ALT (0-50) U/L Alkaline Phosphatase (38-126) U/L Serum Total Protein (6.3-8.2) g/dL Albumin (3.5-5.0) g/dL Procalcitonin (0.030-0.080) ng/mL C. difficile Screen NEGATIVE (NEGATIVE) C.difficile 027-NAP1-B1 PRESUMPTIVE NEGATIVE (NEGATIVE) Slides for Path Review 11/30/23 12/01/23 12/01/23 Range/Units Unknown 04:15 04:15 WBC 7.9 (4.0-10.5) x10^3/uL Corrected WBC (auto) RBC 3.66 L (4.1-5.6) x10^6/uL Hgb 11.4 L D (12.5-18.0) g/dL Hct 37.0 L (42-50) % MCV 101.1 H (78-100) fL MCH 31.1 (26-32) pg MCHC 30.8 L (32-36) g/dL RDW 12.4 (11.5-14.0) % Plt Count 234 D (150-450) x10^3/uL MPV 9.2 (7.5-11.0) fL Gran % 61.6 (36.0-66.0) % Immature Gran % (Auto) 0.4 (0.00-0.4) % Nucleat RBC Rel Count 0.0 (0.00-0.1) % Eos # (Auto) 0.24 (0-0.5) x10^3/uL Immature Gran # (Auto) 0.03 (0.00-0.03) x10^3u/L Absolute Lymphs (auto) 1.94 (1.0-4.6) x10^3/uL Absolute Monos (auto) 0.76 (0.0-1.3) x10^3/uL Absolute Nucleated RBC 0.00 (0.00-0.01) x10^3u/L Add Manual Diff Lymphocytes % 24.7 (24.0-44.0) % Monocytes % 9.7 (0.0-12.0) % Eosinophils % 3.1 (0.00-5.0) % Basophils % 0.5 (0.0-0.4) % Absolute Granulocytes 4.84 (1.4-6.9) x10^3/uL Basophils # 0.04 (0-0.4) x10^3/uL Sodium 143 (135-145) mmol/L Potassium 3.9 (3.5-5.1) mmol/L Chloride 112 H (98-107) mmol/L Carbon Dioxide 22 (22-30) mmol/L Anion Gap 11.8 (5-15) MEQ/L BUN 16 (9-20) mg/dL Creatinine 1.21 (0.66-1.25) mg/dL Estimated GFR 69.0 ML/MIN Glucose 93 (74-106) mg/dL Lactic Acid (0.4-2.0) Calcium 8.2 L D (8.4-10.2) mg/dL Magnesium (1.6-2.3) mg/dL Total Bilirubin 0.60 (0.2-1.3) mg/dL AST 36 (17-59) U/L ALT 35 (0-50) U/L Alkaline Phosphatase 108 (38-126) U/L Serum Total Protein 6.7 (6.3-8.2) g/dL Albumin 3.6 (3.5-5.0) g/dL Procalcitonin 0.088 H (0.030-0.080) ng/mL C. difficile Screen (NEGATIVE) C.difficile 027-NAP1-B1 (NEGATIVE) Slides for Path Review - Procedures and Test Procedures and Tests throughout Hospitalization: Therapy Orders & Screens 11/30/23 09:19 Respiratory Therapy Consult ONCE Comment: Reason For Exam: Diagnosis: nausea, vomiting, diarrhea Discharge Exam General Appearance: no apparent distress, alert Neurologic Exam: alert, oriented x 3, cooperative, normal mood/affect, nml cerebellar function, sensation nml, No motor deficits Eye Exam: PERRL, EOMI, eyes nml inspection Ears, Nose, Throat Exam: normal ENT inspection, pharynx normal, moist mucous membranes Neck Exam: normal inspection, non-tender, supple, full range of motion Respiratory Exam: normal breath sounds, lungs clear, No respiratory distress Cardiovascular Exam: regular rate/rhythm, normal heart sounds Gastrointestinal/Abdomen Exam: soft, No tenderness, No mass Male Genitalia Exam: deferred Rectal Exam: deferred Back Exam: normal inspection, normal range of motion, No CVA tenderness, No vertebral tenderness Extremity Exam: normal inspection, normal range of motion Skin Exam: normal color, warm, dry Final Diagnosis/Problem List - Final Discharge Diagnosis/Problem (1) Nausea vomiting and diarrhea Current Visit: Yes Status: Acute Assessment & Plan: - resolved - Probiotics added. - C-diff negative Code(s): R11.2 - NAUSEA WITH VOMITING, UNSPECIFIED; R19.7 - DIARRHEA, UNSPECIFIED (2) Leukocytosis Current Visit: Yes Status: Acute Assessment & Plan: - resolved - WBC 7.9 - Elevated on admission / N/V/D Code(s): D72.829 - ELEVATED WHITE BLOOD CELL COUNT, UNSPECIFIED (3) Mesenteric panniculitis Current Visit: Yes Status: Acute Assessment & Plan: -Noted as stable -possible early panniculitis -Will hold steroid for now, continue to monitor, may follow up as OP Code(s): K65.4 - SCLEROSING MESENTERITIS (4) Abdominal pain Current Visit: No Status: Acute Assessment & Plan: -resolved Code(s): R10.9 - UNSPECIFIED ABDOMINAL PAIN (5) COPD with exacerbation Current Visit: No Status: Acute Assessment & Plan: - no acute exacerbation - RA 96% Code(s): J44.1 - CHRONIC OBSTRUCTIVE PULMONARY DISEASE W (ACUTE) EXACERBATION (6) CAD (coronary artery disease) Current Visit: No Status: Chronic Assessment & Plan: -continue home medications -Last ECHO/NM stress test 2019 Impression: 1. 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 2. No scintigraphic evidence for pharmacologic induced reversible ischemia. 3. Normal ejection fraction 61%. Code(s): I25.10 - ATHSCL HEART DISEASE OF [place] CORONARY ARTERY W/O ANG PCTRS (7) Seizure disorder Current Visit: No Status: Chronic Assessment & Plan: -continue home medications Code(s): G40.909 - EPILEPSY, UNSP, NOT INTRACTABLE, WITHOUT STATUS EPILEPTICUS - Discharge Discharge Date: 12/01/23 Disposition: Home, Self-Care Condition: Fair Prescriptions: New Lactobacillus Acidophilus [Acidophilus TABLET] 1 tab PO DAILY 30 Days #30 tablet Ondansetron ODT 4 MG [Zofran Odt 4 mg] 4 mg PO Q6H PRN PRN #10 tablet PRN Reason: Vomiting Continue Topiramate 100 mg [Topamax 100 MG] 200 mg PO BID Duloxetine HCl [Cymbalta] 60 mg PO DAILY Atorvastatin Calcium [Lipitor] 40 mg PO DAILY Quetiapine Fumarate [Seroquel] 600 mg PO HS Tizanidine HCl [Zanaflex] 2 mg PO BID Lacosamide [Vimpat] 10 mg PO TID Clopidogrel Bisulfate [PLAVIX Tablet] 75 mg PO DAILY Isosorbide Dinitrate 10 mg [Isordil 10 MG] 10 mg PO DAILY Aspirin 81 gm Chew [Baby Aspirin 81 mg Chew] 81 mg PO DAILY Metoprolol Succinate 25 mg Xl* [Toprol-Xl 25MG Tablets] 25 mg PO DAILY Folic Acid 1 mg [Folate 1 mg] 1 mg PO DAILY PANTOPRAZOLE 40 mg Tablet [Protonix 40MG Tablet] 40 mg PO DAILY Levothyroxine Sodium 25 Mcg [Synthroid 25 Mcg] 25 mcg PO DAILY Famotidine 20 mg [Pepcid 20 MG] 20 mg PO BID Morphine Sulfate [Morphine Sulfate ER] 60 mg PO TID Divalproex Sodium 500 mg PO BID Follow up with: JORGE VIEIRA PA [Primary Care Provider] -
[2023-12-01] MEDS ORDERED: SYNTHROID 25 MCG PO SCH (10:00)
[2023-12-01] MEDS ORDERED: BABY ASPIRIN 81 MG CHEW PO SCH (10:00)
[2023-12-01] MEDS ORDERED: NON-FORMULARY ITEM (Duloxetine Hcl [Cymbalta] 60 MG Capsule.Dr) PO SCH (10:00)
[2023-12-01] MEDS ORDERED: Acidophilus TABLET PO SCH (10:00)
[2023-12-01] MEDS ORDERED: LIPITOR 40MG PO SCH (10:00)
[2023-12-01] MEDS ORDERED: ISOSORBIDE DINITRATE 10 MG PO SCH (10:00)
== END 2023-12-01 08:47 | disposition home or self-care (01) ==
LOC: ED 05:57 → MED SURG 08:24
PROVIDERS: ADMIT Internal Medicine; ATTEND Internal Medicine
DX: R11.2 Nausea with vomiting, unspecified (principal); R19.7 Diarrhea, unspecified; D72.829 Elevated white blood cell count, unspecified; K65.4 Sclerosing mesenteritis; R10.9 Unspecified abdominal pain; J44.1 Chronic obstructive pulmonary disease with (acute) exacerbation; I25.10 Atherosclerotic heart disease of native coronary artery without angina pectoris; I25.2 Old myocardial infarction; E78.5 Hyperlipidemia, unspecified; G40.909 Epilepsy, unspecified, not intractable, without status epilepticus; Z79.899 Other long term (current) drug therapy; Z20.828 Contact with and (suspected) exposure to other viral communicable diseases; Z86.73 Personal history of transient ischemic attack (TIA), and cerebral infarction without residual deficits; Z95.0 Presence of cardiac pacemaker; Z79.01 Long term (current) use of anticoagulants
CPT/HCPCS: 0241U; 36000; 36415; 80053; 83605; 83735; 84132; 84145; 85025; 87040; 87045; 87046; 87177; 87209; 87328; 87329; 87427; 87493; 99282; G0378; J2405; Q3014; A9270-GY

== ENCOUNTER 2024-02-20 10:57 | Emergency (ER) | payer MEDICARE ==
[2024-02-20 11:12] VITALS: TEMP 97.3
--- NOTE | 2024-02-20 11:15 | ERPHSYRPT ---
- History of Present Illness Time Seen by Provider: 02/20/24 11:14 Historian: patient, family Exam Limitations: no limitations Patient Subjective Stated Complaint: PT states "I have had diarrhea for the past couple of days and am coughing and I am weak." Triage Nursing Assessment: Pt presented alert and oriented X 3, skin pwd. Pt ambulates with an upright slow gait. Pt albe to speak in clear full senteneces. Pt resting comfortably on the bed. PT caregiver had covid last week. Physician History: This is a 58-year-old white male patient whose had symptoms of diarrhea, coughing weakness over the last 2 days. He denies chest pain, he denies abdominal pain, and he has had recent exposure to COVID (caregiver was pos itive). Patient is a former smoker of cigarettes. Patient has a history of hypertension, gastroesophageal reflux disease, seizure disorder, CVA, renal disease, coronary artery disease (stent and CABG), COPD and hyperlipidemia. Patient is on Plavix. Patient is here today because of his flulike symptoms as described above. Timing/Duration: day(s) (2) Activities at Onset: none Severity of Pain-Max: none Severity of Pain-Current: none Modifying Factors: Improves With: other (Diarrhea and significant change in his appetite) Associated Symptoms: diarrhea, loss of appetite, weakness Previous symptoms: no prior history, no recent treatment Allergies/Adverse Reactions: amoxicillin Allergy (Verified 11/30/23 06:31) gabapentin Adverse Reaction (Severe, Verified 11/30/23 06:31) Fainting Home Medications: Duloxetine HCl [Cymbalta] 60 mg PO DAILY 07/30/15 [History] Topiramate 100 mg [Topamax 100 MG] 200 mg PO BID 07/30/15 [History] Atorvastatin Calcium [Lipitor] 40 mg PO DAILY 02/01/16 [History] Quetiapine Fumarate [Seroquel] 600 mg PO HS 01/20/17 [History] Clopidogrel Bisulfate [PLAVIX Tablet] 75 mg PO DAILY 01/18/20 [History] Isosorbide Dinitrate 10 mg [Isordil 10 MG] 10 mg PO DAILY 01/18/20 [History] Lacosamide [Vimpat] 10 mg PO TID 01/18/20 [History] Tizanidine HCl [Zanaflex] 2 mg PO BID 01/18/20 [History] Aspirin 81 gm Chew [Baby Aspirin 81 mg Chew] 81 mg PO DAILY 11/30/23 [History] Divalproex Sodium 500 mg PO BID 11/30/23 [History] Famotidine 20 mg [Pepcid 20 MG] 20 mg PO BID 11/30/23 [History] Folic Acid 1 mg [Folate 1 mg] 1 mg PO DAILY 11/30/23 [History] Levothyroxine Sodium 25 Mcg [Synthroid 25 Mcg] 25 mcg PO DAILY 11/30/23 [History] Metoprolol Succinate 25 mg Xl* [Toprol-Xl 25MG Tablets] 25 mg PO DAILY 11/30/23 [History] Morphine Sulfate [Morphine Sulfate ER] 60 mg PO TID 11/30/23 [History] PANTOPRAZOLE 40 mg Tablet [Protonix 40MG Tablet] 40 mg PO DAILY 11/30/23 [History] Hx Tetanus, Diphtheria Vaccination/Date Given: Yes Hx Influenza Vaccination/Date Given: Yes Hx Pneumococcal Vaccination/Date Given: Yes Immunizations Up to Date: Yes Travel Risk - International Travel Have you traveled outside of the country in past 3 weeks: No - Emerging Infectious Disease Are you exhibiting symptoms associated with any current EIDs: Yes Symptoms: Diarrhea - Review of Systems Constitutional: Weakness Eyes: No Symptoms Ears, Nose, & Throat: No Symptoms Respiratory: No Symptoms Cardiac: No Symptoms Abdominal/Gastrointestinal: Diarrhea, Appetite Changes Genitourinary Symptoms: No Symptoms Musculoskeletal: No Symptoms Skin: No Symptoms Neurological: No Symptoms Psychological: No Symptoms Endocrine: No Symptoms Hematologic/Lymphatic: No Symptoms Immunological/Allergic: No Symptoms All Other Systems: Reviewed and Negative - Past Medical History Pertinent Past Medical History: Yes Neurological History: Seizures, Stroke ENT History: No Pertinent History Cardiac History: Angina, Coronary Artery Disease, High Cholesterol, Myocardial Infarction ([place]) Respiratory History: COPD Endocrine Medical History: No Pertinent History Musculoskeletal History: Osteoarthritis, Other GI Medical History: GERD History: Dialysis, Renal Disease Psycho-Social History: Depression, Other Male Reproductive Disorders: No Pertinent History Other Medical History: PT. REPORTS SC X 4; PT. REPORTS HE HAS ONE CARDIAC STENT; CHRONICNECK, BACK, SHOULDER PN. Rt & Lt knee replaced, Lt shoulder replacement,, "organs shut down in December 2017,life support for 49 days and then 2 months of rehab, also a trach. Pt states had fistula in left arm for dialysis but it has been reversed - Past Surgical History Past Surgical History: Yes Neuro Surgical History: No Pertinent History Cardiac: CABG, Cardiac Catheterization, Cardiac Stent Respiratory: No Pertinent History Gastrointestinal: No Pertinent History Genitourinary: No Pertinent History Musculoskeletal: Other Male Surgical History: No Pertinent History Other Surgical History: Left foot x 2, Right foot x 2, Right knee x 2, Left knee x 2, Right shoulder x 1, Steal plate with rods and screws in neck Significant Family History: heart disease - Social History Smoking Status: Former smoker How long have you smoked: 35 y Exposure to second hand smoke: No Alcohol Use: None Drug Use: none Patient Lives Alone: No - Social Determinants of Health Will the patient participate in the screening: Yes Do you worry about a steady place to live?: No Do you have any problems with any of the following?: No known problems In the past 12 months,have you had to go without utilities?: No Transportation Issues: No Has anyone in your support network made you feel unsafe?: No Have you or anyone in your house had to go without enough: No - Nursing Vital Signs Nursing Vital Signs: Initial Vital Signs Temperature 97.3 F 02/20/24 11:03 Pulse Rate 86 02/20/24 11:03 Respiratory Rate 22 02/20/24 11:03 Blood Pressure 119/77 02/20/24 11:03 O2 Sat by Pulse Oximetry 98 02/20/24 11:03 Pain Scale Pain Intensity 0 - Physical Exam General Appearance: no apparent distress, alert, anxiety Eye Exam: PERRL/EOMI, eyes nml inspection Ears, Nose, Throat Exam: normal ENT inspection, moist mucous membranes Neck Exam: normal inspection, non-tender, supple, full range of motion Respiratory Exam: normal breath sounds, lungs clear, No chest tenderness, No respiratory distress Cardiovascular Exam: regular rate/rhythm, normal heart sounds, normal peripheral pulses Gastrointestinal/Abdomen Exam: soft, normal bowel sounds, No tenderness Rectal Exam: not done Back Exam: normal inspection, normal range of motion, No CVA tenderness, No vertebral tenderness Extremity Exam: normal inspection, normal range of motion, pelvis stable Neurologic Exam: alert, oriented x 3, cooperative, shoe sticks repairer II-XII nml as tested, nml cerebellar function, nml station & gait, sensation nml Skin Exam: normal color, warm, dry Lymphatic Exam: No adenopathy SpO2 Interpretation: normal SpO2: 98 O2 Delivery: Room Air - Course Nursing assessment & vital signs reviewed: Yes EKG Interpreted by Me: RATE (85), Sinus Rhythm, NORMAL AXIS, NORMAL INTERVALS, Right Bundle Branch Block, Other (No acute ischemia on today's twelve-lead EKG.) Ordered Tests: Active Orders 24 hr Category Date Time Status EKG-ER Only STAT Care 02/20/24 11:15 Active IV Insertion STAT Care 02/20/24 11:15 Active CHEST 1 VIEW (PORTABLE) Stat Exams 02/20/24 11:16 Completed AMYLASE Stat Lab 02/20/24 11:37 Completed BLOOD CULTURE Stat Lab 02/20/24 11:50 Received CBC W DIFF Stat Lab 02/20/24 11:15 Completed CMP Stat Lab 02/20/24 11:37 Completed LIPASE Stat Lab 02/20/24 11:37 Completed Lactic Acid Stat Lab 02/20/24 11:44 Completed MONO SCREEN Stat Lab 02/20/24 11:37 Completed TROPONIN Q4H Lab 02/20/24 11:37 Completed TROPONIN Q4H Lab 02/20/24 15:15 Ordered TROPONIN Q4H Lab 02/20/24 19:15 Ordered UA W/RFX UR CULTURE Stat Lab 02/20/24 12:49 Received Medication Summary Discontinued Medications Generic Name Dose Route Start Last Admin Trade Name Freq PRN Reason Stop Dose Admin Sodium Chloride 1,000 mls @ 999 mls/hr 02/20/24 11:15 02/20/24 13:39 Sodium Chloride 0.9% 1000 Ml IV 02/20/24 12:15 Infused .Q1H1M STA Infusion Sodium Chloride Confirm 02/20/24 12:05 Sodium Chloride 0.9% 1000 Ml Administered 02/20/24 12:06 Dose 1,000 mls @ ud .ROUTE .STK-MED ONE Sodium Chloride 500 mls @ 500 mls/hr 02/20/24 12:58 02/20/24 13:24 Sodium Chloride 0.9% 500 Ml IV 02/20/24 13:57 Not Given .Q1H ONE Sodium Chloride 1,000 mls @ 999 mls/hr 02/20/24 13:01 02/20/24 13:25 Sodium Chloride 0.9% 1000 Ml IV 02/20/24 14:01 999 mls/hr .Q1H1M STA Administration Sodium Chloride Confirm 02/20/24 13:25 Sodium Chloride 0.9% 1000 Ml Administered 02/20/24 13:26 Dose 1,000 mls @ ud .ROUTE .STK-MED ONE Potassium Chloride 20 meq 02/20/24 13:01 02/20/24 13:25 Potassium Chloride Tab 10 Meq Tab PO 02/20/24 13:02 20 meq STAT ONE Administration Potassium Chloride Confirm 02/20/24 13:25 Potassium Chloride Tab 10 Meq Tab Administered 02/20/24 13:26 Dose 20 meq .ROUTE .STK-MED ONE Lab/Rad Data: Laboratory Result Diagrams 02/20/24 11:15 02/20/24 11:37 Laboratory Results 02/20/24 02/20/24 02/20/24 Range/Units 11:50 11:44 11:37 WBC (4.23-9.07) x10^3/uL RBC (4.63-6.08) x10^6/uL Hgb (13.7-17.5) g/dL Hct (40.1-51.0) % MCV (79.0-92.2) fL MCH (25.7-32.2) pg MCHC (32.3-36.5) g/dL RDW (11.6-14.4) % Plt Count (163-337) x10^3/uL MPV (9.4-12.4) fL Gran % (34.0-67.9) % Immature Gran % (Auto) (0.001-0.429) % Nucleat RBC Rel Count (0.00-0.2) % Eos # (Auto) (0.04-0.54) x10^3/uL Immature Gran # (Auto) (0.001-0.031) x10^3u/L Absolute Lymphs (auto) (1.32-3.57) x10^3/uL Absolute Monos (auto) (0.30-0.82) x10^3/uL Absolute Nucleated RBC (0.00-0.012) x10^3u/L Lymphocytes % (21.8-53.1) % Monocytes % (5.3-12.2) % Eosinophils % (0.8-7.0) % Basophils % (0.2-1.2) % Absolute Granulocytes (1.78-5.38) x10^3/uL Basophils # (0.01-0.08) x10^3/uL Sodium (135-145) mmol/L Potassium (3.5-5.1) mmol/L Chloride (98-107) mmol/L Carbon Dioxide (22-30) mmol/L Anion Gap (5-15) MEQ/L BUN (9-20) mg/dL Creatinine (0.66-1.25) mg/dL Estimated GFR ML/MIN Glucose (74-106) mg/dL Lactic Acid 1.0 (0.4-2.0) Calcium (8.4-10.2) mg/dL Total Bilirubin (0.2-1.3) mg/dL AST (17-59) U/L ALT (0-50) U/L Alkaline Phosphatase (38-126) U/L Troponin I (0.000-0.033) ng/mL Serum Total Protein (6.3-8.2) g/dL Albumin (3.5-5.0) g/dL Amylase (30-110) U/L Lipase (23-300) U/L Monoscreen NEGATIVE (NEGATIVE) Influenza Type A Ag NEGATIVE (NEGATIVE) Influenza Type B Ag NEGATIVE (NEGATIVE) RSV (PCR) NEGATIVE (NEGATIVE) SARS-CoV-2 (PCR) POSITIVE A (NEGATIVE) 02/20/24 02/20/24 Range/Units 11:37 11:15 WBC 5.0 (4.23-9.07) x10^3/uL RBC 4.10 L (4.63-6.08) x10^6/uL Hgb 12.7 L (13.7-17.5) g/dL Hct 39.3 L (40.1-51.0) % MCV 95.9 H (79.0-92.2) fL MCH 31.0 (25.7-32.2) pg MCHC 32.3 (32.3-36.5) g/dL RDW 11.9 (11.6-14.4) % Plt Count 261 (163-337) x10^3/uL MPV 9.6 (9.4-12.4) fL Gran % 70.4 H (34.0-67.9) % Immature Gran % (Auto) 0.6 H (0.001-0.429) % Nucleat RBC Rel Count 0.0 (0.00-0.2) % Eos # (Auto) 0.05 (0.04-0.54) x10^3/uL Immature Gran # (Auto) 0.03 (0.001-0.031) x10^3u/L Absolute Lymphs (auto) 0.84 L (1.32-3.57) x10^3/uL Absolute Monos (auto) 0.56 (0.30-0.82) x10^3/uL Absolute Nucleated RBC 0.00 (0.00-0.012) x10^3u/L Lymphocytes % 16.7 L (21.8-53.1) % Monocytes % 11.1 (5.3-12.2) % Eosinophils % 1.0 (0.8-7.0) % Basophils % 0.2 (0.2-1.2) % Absolute Granulocytes 3.54 (1.78-5.38) x10^3/uL Basophils # 0.01 (0.01-0.08) x10^3/uL Sodium 143 (135-145) mmol/L Potassium 3.2 L (3.5-5.1) mmol/L Chloride 114 H (98-107) mmol/L Carbon Dioxide 15 L* (22-30) mmol/L Anion Gap 16.6 H (5-15) MEQ/L BUN 16 (9-20) mg/dL Creatinine 1.16 (0.66-1.25) mg/dL Estimated GFR 72.6 ML/MIN Glucose 99 (74-106) mg/dL Lactic Acid (0.4-2.0) Calcium 9.5 (8.4-10.2) mg/dL Total Bilirubin 0.60 (0.2-1.3) mg/dL AST 39 (17-59) U/L ALT 34 (0-50) U/L Alkaline Phosphatase 172 H (38-126) U/L Troponin I < 0.012 (0.000-0.033) ng/mL Serum Total Protein 8.2 (6.3-8.2) g/dL Albumin 4.3 (3.5-5.0) g/dL Amylase 175 H (30-110) U/L Lipase 508 H (23-300) U/L Monoscreen (NEGATIVE) Influenza Type A Ag (NEGATIVE) Influenza Type B Ag (NEGATIVE) RSV (PCR) (NEGATIVE) SARS-CoV-2 (PCR) (NEGATIVE) - Progress Progress: improved, re-examined Progress Note: 02/20/24 12:04 My medical decision making and the assignment of moderate complexity to this patient's medical issue today is based on review of the patient's past medical history, review the patient's medication list, review of patient drug allergy li st, history present illness and physical findings on examination. The workup in this patient includes placement of intravenous line, twelve-lead EKG, viral swabs, monotest, CBC, , chest x-ray, magnesium level. Infusion of crystalloid. Differential diagnosis includes was not limited to pneumonia, viral illness, myocardial infarction, electrolyte abnormality, dehydration 02/20/24 12:06 02/20/24 13:54 I interpreted the patient's laboratory data results. Patient has mild hypokalemia. He also has mild pancreatitis. He also test positive for COVID-19 infection. Chest x-ray was interpreted by the radiologist and I reviewed the impression. The impression states continued nonacute chest with chronic features. 02/20/24 14:18 I reviewed the patient's workup results with him. Patient states he is feeling much better. He still has approximately 600 mL of IV fluid to be infused. Patient wants to go home. He has no chest pain. He has no abdominal pain. He has no fever. His vital signs are stable. He is not short of breath. I did review the patient's potassium level and mildly elevated amylase and lipase levels with him. This patient did show evidence of trace ketones in his urine and suggesting that this patient might have mild dehydration. Therefore, we infused 2 L of crystalloid solution. 02/20/24 14:22 Again, the patient states he is feeling very well. I think it is reasonable to give him a trial of outpatient management with instructions to stay on a clear liquid diet for the next 12 to 24 hours. He is told to return to emergency department if his symptoms worsen and not to wait. Counseled pt/family regarding: lab results, diagnosis, need for follow-up, rad results Medical Desision Making - Independent Historian Additional History obtained from: Relative/friend - Diagnostic Testing Diagnostic test were ordered, analyzed, and reviewed by me: Yes Radiological Interpretation: Reviewed by me, Teleradiologist Report - Risk of complications The pt has a mod risk of morbidity or mortality based on: Need for prescription drug management - Departure Departure Disposition: Home Clinical Impression: Diarrhea, COVID-19 virus infection, Hypokalemia, Pancreatitis Condition: Stable Critical Care Time: No Referrals: JORGE VIEIRA PA [Primary Care Provider] - Follow up/PCP as directed Additional Instructions: Over the next 24 hours drink clear liquids. Do not advance your diet until you are drinking clear liquids well. Avoid fatty greasy spicy foods. If your symptoms recur, return to the emergency department for further evaluation management.
--- NOTE | 2024-02-20 11:34 | XRAY ---
Indication: Cough. Comparison: November 27, 2022 and November 29, 2023 Portable chest unchanged again demonstrating right lung postsurgical changes with chronic volume loss, pleural parenchymal fibrosis/scarring, and suture material. Left lung remains clear. Heart not enlarged again with CABG. Bony thorax intact again with osteopenia, degenerative changes, and lower cervical fusion hardware. Impression: Continued nonacute chest with chronic features.
[2024-02-20 11:55] LABS: Absolute Neutrophil Ct (ANC) 3.54 x10^3/uL (1.78-5.38); BASOPHIL % 0.2 % (0.2-1.2); Basophil (Absolute #) 0.01 x10^3/uL (0.01-0.08); Eosinophil (Absolute #) 0.05 x10^3/uL (0.04-0.54); Hematocrit 39.3 % (40.1-51.0); Hemoglobin 12.7 g/dL (13.7-17.5); IMMATURE GRAN # 0.03 x10^3u/L (0.001-0.031); IMMATURE GRAN % 0.6 % (0.001-0.429); Lymphocyte (Absolute #) 0.84 x10^3/uL (1.32-3.57); Lymphocytes % 16.7 % (21.8-53.1); Mean Cell Volume 95.9 fL (79.0-92.2); Mean Corpuscular Hgb Concent. 32.3 g/dL (32.3-36.5); Mean Platelet Volume 9.6 fL (9.4-12.4); Monocyte (Absolute #) 0.56 x10^3/uL (0.30-0.82); Monocytes % 11.1 % (5.3-12.2); Neutrophil % 70.4 % (34.0-67.9); Platelet Count 261 x10^3/uL (163-337); Red Cell Distribution Width 11.9 % (11.6-14.4)
[2024-02-20] MEDS ORDERED: Sodium Chloride 0.9% 1000 ML 1,000 ML ONE ×2 (12:05→13:25)
[2024-02-20] MEDS: Sodium Chloride 0.9% 1000 ML 1,000 ML IV STA ×2 (12:07→13:25)
[2024-02-20 12:22] LABS: ALBUMIN 4.3 g/dL (3.5-5.0); ALKALINE PHOSPHATASE 172 U/L (38-126); AMYLASE 175 U/L (30-110); ANION GAP 16.6 MEQ/L (5-15); BLOOD UREA NITROGEN 16 mg/dL (9-20); CHLORIDE 114 mmol/L (98-107); Calcium 9.5 mg/dL (8.4-10.2); Creatinine 1 1.16 mg/dL (0.66-1.25); EST GLOMERULAR FILTRATION RATE 72.6 ML/MIN; Glucose 99 mg/dL (74-106); LIPASE 508 U/L (23-300); Potassium 3.2 mmol/L (3.5-5.1); SGOT/AST 39 U/L (17-59); SGPT/ALT 34 U/L (0-50); SODIUM 143 mmol/L (135-145); TROPONIN < 0.012 ng/mL (0.000-0.033); Total Protein 8.2 g/dL (6.3-8.2)
[2024-02-20 12:25] LABS: Carbon Dioxide 15 mmol/L (22-30)
[2024-02-20 12:38] LABS: INFLUENZA A NEGATIVE (NEGATIVE); INFLUENZA B NEGATIVE (NEGATIVE); RESPIRATORY SYNCTIAL VIRUS NEGATIVE (NEGATIVE)
[2024-02-20 12:54] LABS: SARS-CoV-2 Xpert Express POSITIVE (NEGATIVE)
[2024-02-20] MEDS: Sodium Chloride 0.9% 500 ML 500 ML IV ONE (13:24)
[2024-02-20] MEDS: Klor Con PO ONE (13:25)
[2024-02-20] MEDS ORDERED: Klor Con ONE (13:25)
[2024-02-20 14:19] LABS: Appearance Clear (Clear); Bacteria None Seen /HPF (None Seen); Bilirubin Negative (Negative); Blood Negative (Negative); Epithelial Cells Rare /HPF (None Seen); Glucose, Urine Negative (Negative); Ketones Trace (Negative); Leukocyte Esterase Negative (Negative); Nitrite Negative (Negative); Ph 5.5 (4.6-8.0); Protein,Urine Dip 30 (Negative); RBC 0-2 /HPF (0-5); Urobilinogen 0.2 mg/dL (0.2); WBC 0-2 /HPF (0-5)
[2024-02-20 14:20] LABS: ADD URINE CULTURE? NO (NO)
[2024-02-20 14:22] VITALS: BP 147/73; PULSE 76; RESP 18
[2024-02-20 14:23] VITALS: O2SAT 98
== END 2024-02-20 14:42 | disposition home or self-care (01) ==
LOC: ED 10:57
DX: U07.1 COVID-19 (principal); R19.7 Diarrhea, unspecified; R05.9 Cough, unspecified; R53.1 Weakness; Z79.01 Long term (current) use of anticoagulants; Z79.899 Other long term (current) drug therapy; E87.6 Hypokalemia; K85.90 Acute pancreatitis without necrosis or infection, unspecified
CPT/HCPCS: 0241U; 36415; 71045; 80053; 81001; 82150; 83605; 83690; 84484; 85025; 86308; 87040; 93005; 96360; 96361; 99284; A9270-GY